=== PATIENT | male | born 1945 | race Caucasian/White ===

== ENCOUNTER 2019-12-21 12:39 | Inpatient (IN) | payer MEDICARE, BC, MEDICAID, SELFPAY ==
[2019-12-21] VITALS (14 sets, daily range): BP systolic 130–163; BP diastolic 70–99; PULSE 60–86; RESP 18–28; TEMP 36.1–36.9; O2SAT 91–97; BMI 47.9
--- NOTE | ~2019-12-21 | XR_ITS ---
XR chest 2V DATE: 12/21/2019 13:17 INDICATION: Shortness of breath TECHNIQUE: AP and lateral views COMPARISON: 05/04/2019 2 view chest FINDINGS: There is cardiomegaly. There is mild pulmonary vascular congestion. There is mild prominenc e of the fissures suggesting subpleural edema. Aortic arch calcification. Bibasilar mild infiltrate or atelectasis. No pneumothorax. Diffuse osteopenia. Osteoarthritic change at the glenohumeral joints. IMPRESSION: Congestive heart failure Mild bibasilar infiltrate and/atelectasis Reviewed, dictated and finalized at location A.
--- NOTE | 2019-12-21 12:47 | ECG_ITS ---
Measurements Intervals [place] Rate: 62 P: HI: 0 QRS: 35 QRSD: 113 T: 30 QT: 423 QTc: 431 Interpretive Statements ATRIAL FIBRILLATION VENTRICULAR PREMATURE COMPLEX LOW QRS VOLTAGE IN PRECORDIAL LEADS INCOMPLETE RIGHT BUNDLE BRANCH BLOCK POOR R WAVE PROGRESSION, ANTERIOR LEADS BORDERLINE T WAVE ABNORMALITY- ANTERIOR LEADS BASELINE ARTIFACT- V6 ABNORMAL ECG Electronically Signed On 12-21-2019 13:37:42 CDT by Freddy Culver D.O.
[2019-12-21 13:01] LABS: Basophils Percent Auto 0.8 % (0.2-1.2); Eosinophils Absolute Auto 0.1 K/mm3 (0-0.3); Eosinophils Percent Auto 2.3 % (0-4.4); Hematocrit 34.6 % (42.0-52.0); Hemoglobin 10.1 g/dL (14.0-18.0); Immature Granulocyte Absolute 0.02 K/mm3 (0.00-0.031); Immature Granulocyte Percent A 0.4 % (0-0.5); Lymphocytes Absolute Auto 1.08 K/mm3 (0.9-3.2); Lymphocytes Percent Auto 20.6 % (18.3-44.2); Mean Corpuscular HGB Conc 29.2 g/dl (32-36); Mean Corpuscular Hemoglobin 29.1 pg (26-34); Mean Corpuscular Volume 99.7 fl (80-100); Mean Platelet Volume 10.9 fl (7.4-10.4); Monocytes Absolute Auto 0.7 K/mm3 (0.1-0.6); Monocytes Percent Auto 12.6 % (2.6-8.5); Neutrophils Absolute Auto 3.3 K/mm3 (1.3-6.7); Neutrophils Percent Auto 63.3 % (45.5-73.1); Platelet Count Result 155 k/mm3 (150-375); Red Blood Count 3.47 M/mm3 (4.6-6.20); Red Cell Distribution Width 13.9 % (11.5-14.5); White Blood Count 5.3 K/mm3 (4.5-10.0)
--- NOTE | 2019-12-21 13:02 | PC.NURSE ---
PT PLACED ON 2 L NC (TITRATED FROM 3 L) PER EDP AT BEDSIDE. 98%
[2019-12-21 13:11] LABS: INR 1.4; Partial Thromboplastin Time 33.6 SECONDS (22.3-36.8)
[2019-12-21 13:14] LABS: Blood Urea Nitrogen 33 mg/dL (9-20); Calcium 8.8 mg/dL (8.4-10.2); Carbon Dioxide 38 mmol/L (22-30); Chloride 99 mmol/L (98-107); Estimated Glomerular Filt Rate 54; Glucose 89 mg/dL (75-110); Potassium 4.9 mmol/L (3.4-5.0); Sodium 138 mmol/L (137-145)
[2019-12-21 13:26] LABS: NT Pro B Type Natriuretic Pept 2060 PG/ML (5-100); Troponin I < 0.012 ng/mL (0.000-0.034)
--- NOTE | 2019-12-21 14:52 | ED.SOB ---
HPI - SOB/Dyspnea General Chief Complaint: Shortness of Breath/Dyspnea Stated Complaint: sob Time Seen by Provider: 12/21/19 12:48 History of Present Illness HPI Narrative: Patient is a 74-year-old male who presents the ER with shortness of breath. Ongoing over the last couple weeks. Chronically O2 dependent. Usually wears 3 to 4 L of oxygen. Has history of CHF. Reports she has had increased weight gain and increase in edema. He has been receiving medications reports he is short of breath anytime he has to move around for example getting in of [place] lift. Patient also has history of COPD and is been getting his medications for that. No new fevers or chills or sweats. No new productive cough body aches. He has had a screening COVID exam the last week that was negative. Related Data Home Medications Medication Instructions Recorded Confirmed Fleet Enema See Rx Instructions .ROUTE 12/21/19 12/21/19 .COMPLEX PRN Spiriva with HandiHaler 18 mcg INHALATION DAILY 12/21/19 12/21/19 acetaminophen 1,300 mg PO DIRECTED 12/21/19 12/21/19 acetaminophen [Acetaminophen Pain 1,000 mg PO PRN PRN 12/21/19 12/21/19 Relief] amlodipine 5 mg PO DAILY 12/21/19 12/21/19 apixaban [Eliquis] 5 mg PO BID 12/21/19 12/21/19 aspirin [Aspir-81] 81 mg PO DAILY 12/21/19 12/21/19 calcium carbonate [Antacid 200 mg PO Q8H PRN 12/21/19 12/21/19 (calcium carbonate)] calcium carbonate-vitamin D3 1 tablet PO BID 12/21/19 12/21/19 [Calcium 600 + D(3)] carboxymethylcellulose sodium 1 drp OPHTHALMIC (EYE) BID 12/21/19 12/21/19 [Refresh Tears] carvedilol 25 mg PO BID 12/21/19 12/21/19 cetirizine 10 mg PO DAILY 12/21/19 12/21/19 cyanocobalamin (vitamin B-12) 1,000 mcg IM [id number] 12/21/19 12/21/19 dextran 70-hypromellose (PF) 1 drp OPHTHALMIC (EYE) Q6H PRN 12/21/19 12/21/19 [Artificial Tears (PF)] dextromethorphan-guaifenesin 10 ml PO Q6H PRN 12/21/19 12/21/19 [Robitussin Cough-Chest Agustin DM] docusate sodium 100 mg PO BID 12/21/19 12/21/19 fenofibrate nanocrystallized 145 mg PO DAILY 12/21/19 12/21/19 fluticasone propionate [Flonase 1 spray INTRANASAL DAILY 12/21/19 12/21/19 Allergy Relief] furosemide 40 mg PO DAILY 12/21/19 12/21/19 hydrocodone-acetaminophen [[place]] 1 tablet PO Q8H 12/21/19 12/21/19 lanolin [Lantiseptic Skin 1 applic TOPICAL DAILY 12/21/19 12/21/19 Protectant] latanoprost 1 drp OPHTHALMIC (EYE) QPM 12/21/19 12/21/19 levothyroxine 125 mcg PO DAILY 12/21/19 12/21/19 loperamide [Imodium A-D] 2 mg PO DIRECTED 12/21/19 12/21/19 loratadine 10 mg PO DAILY PRN 12/21/19 12/21/19 magnesium oxide 500 mg PO DAILY 12/21/19 12/21/19 melatonin 10 mg PO HS 12/21/19 12/21/19 metformin 500 mg PO BID 12/21/19 12/21/19 mineral oil 15 ml PO BID 12/21/19 12/21/19 mirabegron [Myrbetriq] 50 mg PO DAILY 12/21/19 12/21/19 nitrofurantoin monohyd/m-cryst 100 mg PO HS 12/21/19 12/21/19 [Macrobid] nystatin-triamcinolone 1 applic TOPICAL QID 12/21/19 12/21/19 olopatadine 1 drp OPHTHALMIC (EYE) BID 12/21/19 12/21/19 omeprazole 20 mg PO BID 12/21/19 12/21/19 polyethylene glycol 3350 [Miralax] 17 g PO Q24H PRN 12/21/19 12/21/19 potassium chloride 10 meq PO DAILY 12/21/19 12/21/19 psyllium husk (aspartame) [Natural 3.4 g PO BID 12/21/19 12/21/19 Fiber Supplemnt(asprt)] rosuvastatin [Crestor] 10 mg PO DAILY 12/21/19 12/21/19 sitagliptin [Januvia] 100 mg PO HS 12/21/19 12/21/19 sodium chloride [[place] Nasal] 2 spray INTRANASAL Q2H PRN 12/21/19 12/21/19 Allergies Allergy/AdvReac Type Severity Reaction Status Date / Time bacitracin Allergy Unknown Rash Verified 12/21/19 12:49 Penicillins Allergy Unknown Rash Verified 12/21/19 12:49 Review of Systems Review of Systems: All systems reviewed & are unremarkable except as noted in HPI and below Constitutional: Constitutional: Denies fatigue, Denies fever(s) and Denies weakness ENT: Denies nasal congestion and Denies sore throat Cardiovascular: Cardiovascular: Denies chest pain and Denies radiating jaw, n
[2019-12-21] MEDS: FUROSEMIDE INJ 40 MG/4 ML VIAL IV PUSH (15:16)
--- NOTE | 2019-12-21 16:00 | ADMGEN ---
This patient, Sterling Mallory, was admitted to Medical Room 342-01. Patient/family oriented to hospital policies and general routines including ID bracelet, bed and alarms, visiting hours, pain management, procedures, bathroom and other care routines, personal items, smoking policy, room service/diet, and visiting hours. Valuables list has been completed. Information on how to activate the Rapid Response Team has been discussed. Patient/Family are encouraged to report perceived risks to care and to ask questions if they do not understand what they are told or what they should do.
[2019-12-21 17:34] LABS: Add Urine Microscopic? YES; Appearance Urine Clear (Clear); Bilirubin Urine Negative (Negative); Blood Urine Negative (Negative); Color Urine Colorless (Yellow); Glucose Urine UA Negative (Negative); Ketones Urine Negative (Negative); Leukocyte Esterase Ur Trace LEU/UL (Negative); Nitrate Urine Negative (Negative); Protein Urine Negative (Negative); RBC Urine 0-2 /hpf (0-2); Specific Grav Ur 1.008 (1.001-1.035); Urobilinogen Urine Negative mg/dL (<2.0)
--- NOTE | 2019-12-21 18:14 | PM.IMHP ---
H&P: HPI History of Present Illness Chief complaint: chf exacerbation Narrative: Sterling Mallory is a 74 year old male who resides at [facility]. The patient has been on strict isolation in his room. He recently tested negative for covid 19 last week. He has not had any fever chills or any cough. He stated that he has been gaining weight and had increased swelling to his lower extremities. He does have a history of diastolic congestive heart failure. He is taking his medication as prescribed. He has had increased shortness of breath for the last several days. He has orthopnea and dyspnea with minimal exertion. He has chronic oxygen at 3-4 L. he also has a history of COPD. Radiologist was read as congestive heart failure mild bibasilar infiltrates.10.1 and 34.6. BNP was noted to be 2059. Date of service 12/21/2019 Review of Systems Review of Systems: All systems reviewed & are unremarkable except as noted in HPI and below Constitutional: Constitutional: Reports as per HPI and Reports no additional constitutional complaints Eyes: Eyes: Reports as per HPI and Reports no additional eye complaints ENT: Reports system reviewed and no additional complaints, except as documented and Reports Normal hearing present Cardiovascular: Cardiovascular: Reports no additional cardiovascular complaints Respiratory: Respiratory: Reports no additional respiratory complaints and Reports no additional respiratory complaints Gastrointestinal: Gastrointestinal: Reports as per HPI and Reports no additional gastrointestinal complaints Musculoskeletal: Musculoskeletal: Reports no additional musculoskeletal complaints Integumentary/Breasts: Skin/Breast: Reports system reviewed and no additional complaints, except as docu and Reports as per HPI Neurologic: Reports system reviewed and no additional complaints, except as documented, Reports as per HPI and Reports Normal hearing present Psychiatric: Psychiatric: Reports no additional psychiatric complaints and Reports as per HPI Endocrine: Endocrine: Reports no additional endocrine complaints Hematologic/Lymphatic: Hematologic/Lymphatic: Reports no additional hematologic/lymphatic complaints Allergic/Immunologic: Allergic/Immunologic: Reports no additional allergic/immunologic complaints [facility] Past Medical History Medical History (Updated 12/21/19 @ 18:33 by Shirley Carvalho NP) Atrial fibrillation Cardioverted Chronic respiratory failure COPD (chronic obstructive pulmonary disease) Diabetes type 2, controlled DVT (deep venous thrombosis) GERD (gastroesophageal reflux disease) History of cardioversion History of congestive heart failure History of coronary artery disease Hyperlipidemia Hypertension Hypothyroidism Macular degeneration Obstructive sleep apnea Uses a CPAP Pulmonary embolism On Eliquis Surgical History Surgical History (Updated 12/21/19 @ 18:33 by Shirley Carvalho NP) H/O bilateral cataract extraction H/O lumbar discectomy H/O rectal sphincterotomy History of back surgery History of tonsillectomy S/P IVC filter Family History Family History (Updated 12/21/19 @ 18:31 by Shirley Carvalho NP) Father Family history of lung cancer, Onset Age: 77 Mother Family history of dementia Postoperative complication Crossing her Sibling Diabetes mellitus Heart disease Daughter Breast cancer Other Family history of malignant neoplasm of breast Social History Social History (Updated 12/21/19 @ 18:32 by Shirley Carvalho NP) Social History: The patient is and he lives at [facility]. He has 4 children 3 are biological 1 is adopted. He worked a [employer]. His daughter Sanjuana CARVER IS HIS DURABLE POWER LUMBER DRIVER FOR HEALTHCARE. He desires to be a full code. He stated that he never smoked. Smoking status: Never smoker Alcohol intake: never Substance use: never Livin
[2019-12-21] MEDS: ROSUVASTATIN 10 MG TABLET PO (21:52)
[2019-12-21] MEDS: NITROFURANTOIN MONOHYD MACROCR 100 MG CAP PO (21:53)
[2019-12-21] MEDS: OLOPATADINE 0.1% OPHTH SOLN 5 ML BTL 1 DROP EACH EYE (21:53)
[2019-12-21] MEDS: PANTOPRAZOLE 40 MG TABLET PO (21:53)
[2019-12-21] MEDS: MICONAZOLE NITRATE 2% CREAM 30 GM TUBE 1 APPLIC TOPICAL (21:53)
[2019-12-21] MEDS: MELATONIN 5 MG TABLET 10 MG PO (21:53)
[2019-12-21] MEDS: LATANOPROST 0.005% OP SOLN 2.5 ML BTL 1 DROP EACH EYE (21:55)
[2019-12-21 22:36] LABS: Glucose Point of Care 98 (65-105)
[2019-12-22] VITALS (17 sets, daily range): BP systolic 133–160; BP diastolic 63–77; PULSE 54–84; RESP 12–22; TEMP 36.2–37.3; O2SAT 88–98
--- NOTE | 2019-12-22 | ECHO_ITS ---
Patient Info Name: Sterling Mallory Age: 74 years : 1945 Gender: Male Ht: 69 in Wt: 325 lbs BSA: 2.76 m2 HR: 75 bpm BP: 158 / 66 mmHg Heart Rhythm: Atrial Fibrillation Technical Quality: Fair Exam Date: 12/22/2019 9:59 AM Exam Location: [facility] Patient Status: Inpatient Admit Date: 12/21/2019 Staff Ordering Physician: Shirley Carvalho NP Hide Buffer: Noel Lau RDCS Attending Provider: Abigail Lai PA-C Referring Physician: Deven SAAVEDRA; Exam Type: CA echo doppler color flow Study Info Indications I50.9 - Heart failure, unspecified Complete two-dimensional, color flow and Doppler transthoracic echocardiogram is performed. History/Risk Factors CHF w/ BNP 2059; COPD, DM2, CAD, HTN, Afib. Summary 1. Left ventricular chamber dimension is moderately enlarged. 2. Left ventricular systolic function is normal, estimated at 55-60%. 3. The left ventricular diastolic function is abnormal. 4. E/e' 23 is significantly elevated. 5. Patient is in atrial fibrillation. 6. Right ventricular systolic function is reduced as suggested by TAPSE 1.3 cm. 7. Left atrial chamber dimension is severely enlarged. 8. Right atrial chamber dimension is severely enlarged. 9. There is mild aortic valve sclerosis. 10. The mitral valve has mildly thickened leaflets. 11. There is moderate mitral valve regurgitation. 12. There is mild tricuspid valve regurgitation. 13. Severe pulmonary hypertension, estimated pulmonary arterial systolic pressure is 69 mmHg. 14. Dilated inferior vena cava with <50% collapse upon inspiration consistent with significantly elevated right atrial pressure, 15 mmHg. 15. There is small circumferential pericardial effusion. Posteriorly measured to be 1.2 cm. Left Ventricle Patient is in atrial fibrillation. E/e' 23 is significantly elevated. Left ventricular chamber dimension is moderately enlarged. Left ventricular systolic function is normal, estimated at 55-60%. The left ventricular diastolic function is abnormal. Right Ventricle Right ventricular systolic function is reduced as suggested by TAPSE 1.3 cm. Moderator band is normal variant. Right ventricular chamber dimension is not well visualized. Left Atria Left atrial chamber dimension is severely enlarged. Right Atria Right atrial chamber dimension is severely enlarged. Aortic Valve The aortic valve is trileaflet. There is mild aortic valve sclerosis. There is no aortic valve stenosis. There is no aortic valve regurgitation. Pulmonic Valve There is no pulmonic regurgitation. Mitral Valve The mitral valve has mildly thickened leaflets. There is no mitral valve stenosis. There is moderate mitral valve regurgitation. Tricuspid Valve There is mild tricuspid valve regurgitation. Severe pulmonary hypertension, estimated pulmonary arterial systolic pressure is 69 mmHg. Pericardium/Pleural There is small circumferential pericardial effusion. Posteriorly measured to be 1.2 cm. Inferior Vena Cava Dilated inferior vena cava with <50% collapse upon inspiration consistent with significantly elevated right atrial pressure, 15 mmHg. Aorta The aortic root size at the sinus of Valsalva is normal. Left Ventricular Outflow Tract Name Value Normal LVOT 2D -----
[2019-12-22] MEDS: LEVOTHYROXINE SODIUM 125 MCG TABLET PO (03:33)
[2019-12-22 04:44] LABS: Basophils Percent Auto 0.8 % (0.2-1.2); Eosinophils Absolute Auto 0.1 K/mm3 (0-0.3); Eosinophils Percent Auto 2.5 % (0-4.4); Hematocrit 33.3 % (42.0-52.0); Immature Granulocyte Absolute 0.02 K/mm3 (0.00-0.031); Immature Granulocyte Percent A 0.4 % (0-0.5); Lymphocytes Percent Auto 21.4 % (18.3-44.2); Mean Corpuscular Volume 96.5 fl (80-100); Mean Platelet Volume 10.4 fl (7.4-10.4); Monocytes Absolute Auto 0.6 K/mm3 (0.1-0.6); Monocytes Percent Auto 10.9 % (2.6-8.5); Neutrophils Absolute Auto 3.3 K/mm3 (1.3-6.7); Platelet Count Result 155 k/mm3 (150-375); Red Blood Count 3.45 M/mm3 (4.6-6.20); Red Cell Distribution Width 13.6 % (11.5-14.5); White Blood Count 5.2 K/mm3 (4.5-10.0)
[2019-12-22 05:13] LABS: Alanine Aminotransferase 7 U/L (4-50); Albumin Level 3.7 g/dL (3.5-5.1); Alkaline Phosphatase 41 U/L (38-126); Aspartate Amino Transferase 17 U/L (17-59); Bilirubin,Total 0.4 mg/dL (0.2-1.3); Blood Urea Nitrogen 31 mg/dL (9-20); CRP 1.3 mg/dL (<1.0); Carbon Dioxide 37 mmol/L (22-30); Chloride 97 mmol/L (98-107); Estimated CRCL calculation 65 ml/min; Estimated Glomerular Filt Rate 54; Glucose 91 mg/dL (75-110); Potassium 4.2 mmol/L (3.4-5.0); Sodium 138 mmol/L (137-145)
[2019-12-22 05:59] LABS: Thyroid Stimulating Hormone Reflex 0.794 uIU/mL (0.465-4.68)
[2019-12-22 07:59] LABS: Glucose Point of Care 82 (65-105)
[2019-12-22] MEDS: MINERAL OIL 30 ML UDC 15 ML PO ×2 (09:17→17:23)
[2019-12-22] MEDS: MICONAZOLE NITRATE 2% CREAM 30 GM TUBE 1 APPLIC TOPICAL ×2 (09:17→20:02)
[2019-12-22] MEDS: FLUTICASONE PROPIONATE 0.05% NA SPR 16 GM BTL (*BKC) 1 SPRAY NASAL (09:18)
[2019-12-22] MEDS: OLOPATADINE 0.1% OPHTH SOLN 5 ML BTL 1 DROP EACH EYE ×2 (09:18→20:01)
[2019-12-22] MEDS: FENOFIBRATE NANOCRYSTALLIZED 145 MG TABLET PO (09:19)
[2019-12-22] MEDS: DOCUSATE SODIUM 100 MG CAPSULE PO ×2 (09:19→17:26)
[2019-12-22] MEDS: LORATADINE 10 MG TABLET PO (09:19)
[2019-12-22] MEDS: FUROSEMIDE INJ 40 MG/4 ML VIAL IV PUSH ×2 (09:19→17:25)
[2019-12-22] MEDS: carvediloL 25 MG TABLET PO ×2 (09:20→17:23)
[2019-12-22] MEDS: POTASSIUM CHLORIDE 10 MEQ TABLET.ER PO (09:21)
[2019-12-22] MEDS: AMLODIPINE BESYLATE 5 MG TABLET PO (09:21)
[2019-12-22] MEDS: APIXABAN 5 MG TABLET PO ×2 (09:22→17:26)
[2019-12-22] MEDS: MAGNESIUM OXIDE 400 MG TABLET PO (09:22)
[2019-12-22] MEDS: ASPIRIN 81 MG ENTERIC TABLET PO (09:22)
[2019-12-22] MEDS: MIRABEGRON 25 MG ER TABLET 50 MG PO (09:23)
[2019-12-22] MEDS: PSYLLIUM SUGAR FREE POWDER PACKET 1 PACKET PO ×2 (09:24→17:25)
[2019-12-22] MEDS: PANTOPRAZOLE 40 MG TABLET PO ×2 (09:24→20:01)
--- NOTE | 2019-12-22 11:17 | PM.IMPN ---
Progress Note: A&P Assessment and Plan (1) Acute on chronic respiratory failure: Qualifiers: Respiratory failure complication: hypoxia and hypercapnia Qualified Code(s): J96.21 - Acute and chronic respiratory failure with hypoxia; J96.22 - Acute and chronic respiratory failure with hypercapnia Code(s): J96.20 - Acute and chronic respiratory failure, unspecified whether with hypoxia or hypercapnia Status: Acute Assessment and Plan: Secondary to CHF exacerbation with COPD at baseline. He also has severe pulmonary hypertension and hx of TSERING and has not been using his BiPAP as it is broken. He has chronic hypoxia and hypercapnia. He is on 3L per NC at baseline. Continue supplemental oxygen as needed to achieve a pulse oxygen saturation of 92%. (2) CHF exacerbation: Qualifiers: Heart failure type: combined systolic and diastolic Qualified Code(s): I50.43 - Acute on chronic combined systolic (congestive) and diastolic (congestive) heart failure Code(s): I50.9 - Heart failure, unspecified Status: Acute Assessment and Plan: He appears hypervolemic with rales at the lung bases, significant lower extremity putting edema and pubic fat pad edema. CXR was consistent iwth CHF. He reports a 30 lb weight gain in the past 6 months. He has been using regular salt with his meals because he ran out of salt substitutes. He states that he drinks approx 1.5L per day (tea, water, soda 3x per week). Echo was performed and is consistent with right sided heart failure which is likely due to pulmonary hypertension from his untreated obstructive sleep apnea. Echo reveals moderately enlarged left ventricular chamber dimension, systolic EF 55-60%, abnormal left diastolic dysfunction with E/e' significantly elevated at 23, reduced right ventricular systolic function, severe right and left atrial chamber enlargement, mild aortic valve sclerosis, moderate mitral valve regurgitation, mild tricuspid regurgitation, and severe pulmonary hypertension. He also has a small circumferential pericardial effusion. Continue caravedilol. He is having good urine output with IV lasix. Plan to increase IV lasix to BID. Continue strict intake and output. Begin 2gm sodium restricted diet. Continue to stress the importance of BiPAP therapy. (3) Diabetes type 2, controlled: Qualifiers: Diabetes mellitus complication status: with unspecified complications Diabetes mellitus continuous churn buttermaker insulin use: without continuous churn buttermaker use Qualified Code(s): E11.8 - Type 2 diabetes mellitus with unspecified complications Code(s): E11.9 - Type 2 diabetes mellitus without complications Status: Chronic Assessment and Plan: Will check HbA1c. Blood sugars were reviewed and are well-controlled. Continue to hold metformin. Continue Januvia. Continue SSI. Continue hypoglycemia protocol. Continue Accu-Cheks ACHS. Continue to monitor. (4) COPD (chronic obstructive pulmonary disease): Qualifiers: COPD type: unspecified COPD Qualified Code(s): J44.9 - Chronic obstructive pulmonary disease, unspecified Code(s): J44.9 - Chronic obstructive pulmonary disease, unspecified Status: Chronic Assessment and Plan: Chronic. Not in acute exacerbation. Continue supplemental oxygen as needed to achieve a pulse oxygen saturation of >90%. Continue albuterol PRN. Continue spiriva. (5) Atrial fibrillation: Qualifiers: Atrial fibrillation type: unspecified Qualified Code(s): I48.91 - Unspecified atrial fibrillation Code(s): I48.91 - Unspecified atrial fibrillation Status: Chronic Assessment and Plan: He is in atrial fibrillation with adequate rate control. Continue coreg. Continue eliquis. Continue to monitor. (6) GERD (gastroesophageal reflux disease): Qualifiers: Esophagitis presence: esophagitis presence not specified Qualified Code(s): K21.9 - Gastro-esoph
[2019-12-22 11:25] LABS: Glucose Point of Care 169 (65-105)
[2019-12-22 16:31] LABS: Glucose Point of Care 112 (65-105)
[2019-12-22] MEDS: ALBUTEROL SULFATE (*SP) AEROSOL 1 PUFF 2 PUFF INHALATION (19:43)
[2019-12-22] MEDS: ROSUVASTATIN 10 MG TABLET PO (20:01)
[2019-12-22] MEDS: LATANOPROST 0.005% OP SOLN 2.5 ML BTL 1 DROP EACH EYE (20:01)
[2019-12-22] MEDS: NITROFURANTOIN MONOHYD MACROCR 100 MG CAP PO (20:01)
[2019-12-22] MEDS: MELATONIN 5 MG TABLET 10 MG PO (20:01)
--- NOTE | 2019-12-22 20:14 | PC.NURSE ---
2000 medications administered by Yandy Esparza RN. Computer had been left signed in under Brandi Bergeron RN.
[2019-12-22 21:09] LABS: Glucose Point of Care 112 (65-105)
[2019-12-23] VITALS (8 sets, daily range): BP systolic 110–141; BP diastolic 41–75; PULSE 43–77; RESP 16–20; TEMP 36.3–36.8; O2SAT 91–98
[2019-12-23] MEDS: LEVOTHYROXINE SODIUM 125 MCG TABLET PO (04:41)
[2019-12-23 06:18] LABS: Hemoglobin 10.2 g/dL (14.0-18.0); Mean Corpuscular Hemoglobin 28.8 pg (26-34); Mean Platelet Volume 10.6 fl (7.4-10.4); Platelet Count Result 164 k/mm3 (150-375); Red Blood Count 3.54 M/mm3 (4.6-6.20); Red Cell Distribution Width 13.9 % (11.5-14.5); White Blood Count 5.1 K/mm3 (4.5-10.0)
[2019-12-23 06:26] LABS: Hemoglobin A1C 5.2 % (<5.7)
[2019-12-23 06:33] LABS: Alanine Aminotransferase 7 U/L (4-50); Albumin Level 3.7 g/dL (3.5-5.1); Alkaline Phosphatase 39 U/L (38-126); Aspartate Amino Transferase 17 U/L (17-59); Bilirubin,Total 0.4 mg/dL (0.2-1.3); Blood Urea Nitrogen 37 mg/dL (9-20); Calcium 8.8 mg/dL (8.4-10.2); Carbon Dioxide > 40 mmol/L (22-30); Chloride 95 mmol/L (98-107); Estimated CRCL calculation 57 ml/min; Estimated Glomerular Filt Rate 46; Glucose 104 mg/dL (75-110); Magnesium 2.1 mg/dL (1.6-2.3); Potassium 4.3 mmol/L (3.4-5.0); Sodium 137 mmol/L (137-145)
[2019-12-23 07:26] LABS: Glucose Point of Care 128 (65-105)
[2019-12-23] MEDS: FLUTICASONE PROPIONATE 0.05% NA SPR 16 GM BTL (*BKC) 1 SPRAY NASAL (08:47)
[2019-12-23] MEDS: MAGNESIUM OXIDE 400 MG TABLET PO (08:49)
[2019-12-23] MEDS: MIRABEGRON 25 MG ER TABLET 50 MG PO (08:49)
[2019-12-23] MEDS: POTASSIUM CHLORIDE 10 MEQ TABLET.ER PO (08:49)
[2019-12-23] MEDS: PANTOPRAZOLE 40 MG TABLET PO ×2 (08:49→20:38)
[2019-12-23] MEDS: APIXABAN 5 MG TABLET PO ×2 (08:49→17:51)
[2019-12-23] MEDS: DOCUSATE SODIUM 100 MG CAPSULE PO ×2 (08:49→17:51)
[2019-12-23] MEDS: ASPIRIN 81 MG ENTERIC TABLET PO (08:49)
[2019-12-23] MEDS: FENOFIBRATE NANOCRYSTALLIZED 145 MG TABLET PO (08:52)
[2019-12-23] MEDS: MINERAL OIL 30 ML UDC 15 ML PO ×2 (08:53→17:51)
[2019-12-23] MEDS: OLOPATADINE 0.1% OPHTH SOLN 5 ML BTL 1 DROP EACH EYE ×2 (08:53→20:38)
[2019-12-23] MEDS: LORATADINE 10 MG TABLET PO (08:53)
[2019-12-23] MEDS: MICONAZOLE NITRATE 2% CREAM 30 GM TUBE 1 APPLIC TOPICAL ×2 (08:58→20:38)
[2019-12-23] MEDS: PSYLLIUM SUGAR FREE POWDER PACKET 1 PACKET PO ×2 (08:59→17:51)
[2019-12-23] MEDS: FUROSEMIDE INJ 40 MG/4 ML VIAL IV PUSH ×2 (09:36→17:52)
[2019-12-23 11:11] LABS: Glucose Point of Care 131 (65-105)
--- NOTE | 2019-12-23 14:31 | PM.IMPN ---
Progress Note: A&P Assessment and Plan (1) Acute on chronic respiratory failure: Qualifiers: Respiratory failure complication: hypoxia and hypercapnia Qualified Code(s): J96.21 - Acute and chronic respiratory failure with hypoxia; J96.22 - Acute and chronic respiratory failure with hypercapnia Code(s): J96.20 - Acute and chronic respiratory failure, unspecified whether with hypoxia or hypercapnia Status: Acute Assessment and Plan: Secondary to CHF exacerbation with COPD at baseline. He also has severe pulmonary hypertension and hx of TSERING and has not been using his BiPAP as it is broken. He has chronic hypoxia and hypercapnia. He is on 3L per NC at baseline. Continue supplemental oxygen as needed to achieve a pulse oxygen saturation of 92%. (2) CHF exacerbation: Qualifiers: Heart failure type: combined systolic and diastolic Qualified Code(s): I50.43 - Acute on chronic combined systolic (congestive) and diastolic (congestive) heart failure Code(s): I50.9 - Heart failure, unspecified Status: Acute Assessment and Plan: He appears hypervolemic with crackles at the lung bases, significant lower extremity pitting edema and pubic fat pad edema. CXR was consistent with CHF. He reports a 30 lb weight gain in the past 6 months. He has been using regular salt with his meals because he ran out of salt substitutes. He states that he drinks approx 1.5L per day (tea, water, soda 3x per week). Echo was performed and is consistent with right sided heart failure which is likely due to pulmonary hypertension from his untreated obstructive sleep apnea. Echo reveals moderately enlarged left ventricular chamber dimension, systolic EF 55-60%, abnormal left diastolic dysfunction with E/e' significantly elevated at 23, reduced right ventricular systolic function, severe right and left atrial chamber enlargement, mild aortic valve sclerosis, moderate mitral valve regurgitation, mild tricuspid regurgitation, and severe pulmonary hypertension. He also has a small circumferential pericardial effusion. IV Lasix was increased to BID, however he developed FRANC. Will hold 2nd dose of Lasix and re-evaluate renal function tomorrow morning. Continue caravedilol. Continue to monitor strict I&O Continue sodium restrictions and heart healthy diet Continue BiPAP therapy. (3) Acute kidney injury: Code(s): N17.9 - Acute kidney failure, unspecified Status: Acute Assessment and Plan: Patient developed mild increase in BUN and creatinine today. This may be related to increased diuretic therapy. Patient received 1 dose of IV Lasix this morning, but will hold off on 2nd dose Will also hold on IV fluids given fluid overload. Continue to monitor renal function (4) Diabetes type 2, controlled: Qualifiers: Diabetes mellitus prison insulin use: without ferry terminal supervisor use Diabetes mellitus complication status: with unspecified complications Qualified Code(s): E11.8 - Type 2 diabetes mellitus with unspecified complications Code(s): E11.9 - Type 2 diabetes mellitus without complications Status: Chronic Assessment and Plan: Blood sugars were reviewed and are well-controlled. A1c is 5.2. Continue Accu-Cheks ACHS, SSI, and hypoglycemia protocol Continue to hold metformin. Continue Januvia. (5) COPD (chronic obstructive pulmonary disease): Qualifiers: COPD type: unspecified COPD Qualified Code(s): J44.9 - Chronic obstructive pulmonary disease, unspecified Code(s): J44.9 - Chronic obstructive pulmonary disease, unspecified Status: Chronic Assessment and Plan: Chronic. Not in acute exacerbation. Continue supplemental oxygen as needed to achieve a pulse oxygen saturation of >90%. Continue albuterol PRN. Continue spiriva. (6) Atrial fibrillation: Qualifiers: Atrial fibrillation type: unspecified Q
[2019-12-23 16:29] LABS: Glucose Point of Care 105 (65-105)
[2019-12-23] MEDS: carvediloL 25 MG TABLET PO (17:52)
[2019-12-23] MEDS: ROSUVASTATIN 10 MG TABLET PO (18:32)
[2019-12-23] MEDS: LATANOPROST 0.005% OP SOLN 2.5 ML BTL 1 DROP EACH EYE (20:37)
[2019-12-23] MEDS: NITROFURANTOIN MONOHYD MACROCR 100 MG CAP PO (20:38)
[2019-12-23] MEDS: MELATONIN 5 MG TABLET 10 MG PO (20:38)
[2019-12-23 21:50] LABS: Glucose Point of Care 129 (65-105)
[2019-12-24] VITALS (13 sets, daily range): BP systolic 112–132; BP diastolic 50–74; PULSE 50–75; RESP 13–21; TEMP 36.4–37.1; O2SAT 94–97
[2019-12-24] MEDS: LEVOTHYROXINE SODIUM 125 MCG TABLET PO (04:40)
[2019-12-24 06:12] LABS: Basophils Percent Auto 0.7 % (0.2-1.2); Eosinophils Absolute Auto 0.2 K/mm3 (0-0.3); Eosinophils Percent Auto 3.3 % (0-4.4); Hemoglobin 10.2 g/dL (14.0-18.0); Immature Granulocyte Absolute 0.03 K/mm3 (0.00-0.031); Immature Granulocyte Percent A 0.5 % (0-0.5); Lymphocytes Absolute Auto 1.16 K/mm3 (0.9-3.2); Mean Corpuscular Hemoglobin 28.6 pg (26-34); Mean Corpuscular Volume 95.2 fl (80-100); Mean Platelet Volume 10.6 fl (7.4-10.4); Monocytes Absolute Auto 0.7 K/mm3 (0.1-0.6); Monocytes Percent Auto 11.7 % (2.6-8.5); Neutrophils Absolute Auto 3.7 K/mm3 (1.3-6.7); Neutrophils Percent Auto 63.8 % (45.5-73.1); Platelet Count Result 171 k/mm3 (150-375); Red Blood Count 3.57 M/mm3 (4.6-6.20); Red Cell Distribution Width 13.8 % (11.5-14.5); White Blood Count 5.8 K/mm3 (4.5-10.0)
[2019-12-24 06:23] LABS: Alanine Aminotransferase 7 U/L (4-50); Albumin Level 3.6 g/dL (3.5-5.1); Alkaline Phosphatase 38 U/L (38-126); Aspartate Amino Transferase 18 U/L (17-59); Bilirubin,Total 0.3 mg/dL (0.2-1.3); Blood Urea Nitrogen 45 mg/dL (9-20); Calcium 8.6 mg/dL (8.4-10.2); Carbon Dioxide 39 mmol/L (22-30); Chloride 94 mmol/L (98-107); Estimated CRCL calculation 53 ml/min; Estimated Glomerular Filt Rate 43; Glucose 101 mg/dL (75-110); Sodium 136 mmol/L (137-145)
[2019-12-24 07:58] LABS: Glucose Point of Care 99 (65-105)
[2019-12-24] MEDS: FLUTICASONE PROPIONATE 0.05% NA SPR 16 GM BTL (*BKC) 1 SPRAY NASAL (09:26)
[2019-12-24] MEDS: MINERAL OIL 30 ML UDC 15 ML PO ×2 (09:26→17:23)
[2019-12-24] MEDS: OLOPATADINE 0.1% OPHTH SOLN 5 ML BTL 1 DROP EACH EYE ×2 (09:26→20:00)
[2019-12-24] MEDS: POTASSIUM CHLORIDE 10 MEQ TABLET.ER PO (09:26)
[2019-12-24] MEDS: PANTOPRAZOLE 40 MG TABLET PO ×2 (09:26→19:48)
[2019-12-24] MEDS: ASPIRIN 81 MG ENTERIC TABLET PO (09:27)
[2019-12-24] MEDS: AMLODIPINE BESYLATE 5 MG TABLET PO (09:27)
[2019-12-24] MEDS: DOCUSATE SODIUM 100 MG CAPSULE PO ×2 (09:27→17:24)
[2019-12-24] MEDS: APIXABAN 5 MG TABLET PO ×2 (09:27→17:26)
[2019-12-24] MEDS: MAGNESIUM OXIDE 400 MG TABLET PO (09:27)
[2019-12-24] MEDS: FENOFIBRATE NANOCRYSTALLIZED 145 MG TABLET PO (09:27)
[2019-12-24] MEDS: LORATADINE 10 MG TABLET PO (09:27)
[2019-12-24] MEDS: PSYLLIUM SUGAR FREE POWDER PACKET 1 PACKET PO ×2 (09:27→17:23)
[2019-12-24] MEDS: MIRABEGRON 25 MG ER TABLET 50 MG PO (09:27)
[2019-12-24] MEDS: carvediloL 25 MG TABLET PO ×2 (09:28→17:24)
[2019-12-24] MEDS: FUROSEMIDE INJ 40 MG/4 ML VIAL IV PUSH (09:28)
[2019-12-24] MEDS: MICONAZOLE NITRATE 2% CREAM 30 GM TUBE 1 APPLIC TOPICAL ×2 (09:31→20:00)
[2019-12-24 11:53] LABS: Glucose Point of Care 141 (65-105)
--- NOTE | 2019-12-24 12:32 | PM.IMPN ---
Progress Note: A&P Assessment and Plan (1) Acute on chronic respiratory failure: Qualifiers: Respiratory failure complication: hypoxia and hypercapnia Qualified Code(s): J96.21 - Acute and chronic respiratory failure with hypoxia; J96.22 - Acute and chronic respiratory failure with hypercapnia Code(s): J96.20 - Acute and chronic respiratory failure, unspecified whether with hypoxia or hypercapnia Status: Acute Assessment and Plan: Secondary to CHF exacerbation with COPD at baseline. He also has severe pulmonary hypertension and hx of TSERING and has not been using his BiPAP as it is broken. He has chronic hypoxia and hypercapnia. He is maintaining adequate oxygenation on his home 3L O2. Continue supplemental oxygen as needed to achieve a pulse oxygen saturation of 92%. Continue BiPAP (2) CHF exacerbation: Qualifiers: Heart failure type: combined systolic and diastolic Qualified Code(s): I50.43 - Acute on chronic combined systolic (congestive) and diastolic (congestive) heart failure Code(s): I50.9 - Heart failure, unspecified Status: Acute Assessment and Plan: He appears hypervolemic with crackles at the lung bases, significant lower extremity pitting edema and pubic fat pad edema. CXR was consistent with CHF. He reports a 30 lb weight gain in the past 6 months. He has been using regular salt with his meals because he ran out of salt substitutes. He states that he drinks approx 1.5L per day (tea, water, soda 3x per week). Echo was performed and is consistent with right sided heart failure which is likely due to pulmonary hypertension from his untreated obstructive sleep apnea. Echo reveals moderately enlarged left ventricular chamber dimension, systolic EF 55-60%, abnormal left diastolic dysfunction with E/e' significantly elevated at 23, reduced right ventricular systolic function, severe right and left atrial chamber enlargement, mild aortic valve sclerosis, moderate mitral valve regurgitation, mild tricuspid regurgitation, and severe pulmonary hypertension. He also has a small circumferential pericardial effusion. Continue IV Lasix 40 mg daily and carvedilol. Continue to monitor strict I&O Continue sodium restrictions and heart healthy diet Continue BiPAP therapy. (3) Acute kidney injury: Code(s): N17.9 - Acute kidney failure, unspecified Status: Acute Assessment and Plan: Patient developed mild increase in BUN and creatinine on 12/23/19. At presentation, Cr was 1.3, which actually was lower than his baseline per prior lab reviews. Baseline appears to be 1.6. I suspect that he has CKD and his improved Cr was dilutional related to hypervolemia. Continue IV diuresis at reduced dose of 40 mg Lasix daily. 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 A1c is 5.2. Continue Accu-Cheks ACHS, SSI, and hypoglycemia protocol Continue to hold metformin. Continue Januvia. (5) COPD (chronic obstructive pulmonary disease): Qualifiers: COPD type: unspecified COPD Qualified Code(s): J44.9 - Chronic obstructive pulmonary disease, unspecified Code(s): J44.9 - Chronic obstructive pulmonary disease, unspecified Status: Chronic Assessment and Plan: Chronic. Not in acute exacerbation but likely contributing to his overall respiratory failure. Continue supplemental oxygen as needed to achieve a pulse oxygen saturation of >90%. Continue albuterol PRN. Continue spiriva. (6) Atrial
[2019-12-24 16:34] LABS: Glucose Point of Care 99 (65-105)
[2019-12-24] MEDS: ROSUVASTATIN 10 MG TABLET PO (18:39)
[2019-12-24 19:43] LABS: Glucose Point of Care 126 (65-105)
[2019-12-24] MEDS: MELATONIN 5 MG TABLET 10 MG PO (20:00)
[2019-12-24] MEDS: LATANOPROST 0.005% OP SOLN 2.5 ML BTL 1 DROP EACH EYE (20:00)
[2019-12-24] MEDS: NITROFURANTOIN MONOHYD MACROCR 100 MG CAP PO (20:00)
[2019-12-25] VITALS (13 sets, daily range): BP systolic 109–120; BP diastolic 43–69; PULSE 54–68; RESP 16–19; TEMP 36.1–36.5; O2SAT 96–100
[2019-12-25] MEDS: LEVOTHYROXINE SODIUM 125 MCG TABLET PO (04:26)
[2019-12-25 05:25] LABS: Basophils Percent Auto 0.6 % (0.2-1.2); Eosinophils Absolute Auto 0.2 K/mm3 (0-0.3); Eosinophils Percent Auto 3.2 % (0-4.4); Hematocrit 32.9 % (42.0-52.0); Hemoglobin 10.1 g/dL (14.0-18.0); Immature Granulocyte Absolute 0.02 K/mm3 (0.00-0.031); Immature Granulocyte Percent A 0.4 % (0-0.5); Lymphocytes Absolute Auto 1.39 K/mm3 (0.9-3.2); Lymphocytes Percent Auto 25.9 % (18.3-44.2); Mean Corpuscular HGB Conc 30.7 g/dl (32-36); Mean Corpuscular Hemoglobin 28.9 pg (26-34); Mean Corpuscular Volume 94.3 fl (80-100); Mean Platelet Volume 10.7 fl (7.4-10.4); Monocytes Absolute Auto 0.7 K/mm3 (0.1-0.6); Monocytes Percent Auto 12.5 % (2.6-8.5); Neutrophils Absolute Auto 3.1 K/mm3 (1.3-6.7); Neutrophils Percent Auto 57.4 % (45.5-73.1); Platelet Count Result 174 k/mm3 (150-375); Red Blood Count 3.49 M/mm3 (4.6-6.20); Red Cell Distribution Width 13.8 % (11.5-14.5); White Blood Count 5.4 K/mm3 (4.5-10.0)
[2019-12-25 05:47] LABS: Alanine Aminotransferase 8 U/L (4-50); Albumin Level 3.5 g/dL (3.5-5.1); Alkaline Phosphatase 40 U/L (38-126); Aspartate Amino Transferase 16 U/L (17-59); Bilirubin,Total 0.3 mg/dL (0.2-1.3); Blood Urea Nitrogen 44 mg/dL (9-20); Calcium 8.4 mg/dL (8.4-10.2); Carbon Dioxide 38 mmol/L (22-30); Chloride 93 mmol/L (98-107); Estimated CRCL calculation 53 ml/min; Estimated Glomerular Filt Rate 43; Glucose 99 mg/dL (75-110); Potassium 3.9 mmol/L (3.4-5.0); Sodium 137 mmol/L (137-145)
[2019-12-25 07:51] LABS: Glucose Point of Care 102 (65-105)
[2019-12-25] MEDS: PSYLLIUM SUGAR FREE POWDER PACKET 1 PACKET PO ×2 (09:05→16:38)
[2019-12-25] MEDS: MIRABEGRON 25 MG ER TABLET 50 MG PO (09:05)
[2019-12-25] MEDS: MINERAL OIL 30 ML UDC 15 ML PO ×2 (09:05→16:38)
[2019-12-25] MEDS: FUROSEMIDE INJ 40 MG/4 ML VIAL IV PUSH (09:05)
[2019-12-25] MEDS: FLUTICASONE PROPIONATE 0.05% NA SPR 16 GM BTL (*BKC) 1 SPRAY NASAL (09:05)
[2019-12-25] MEDS: FENOFIBRATE NANOCRYSTALLIZED 145 MG TABLET PO (09:06)
[2019-12-25] MEDS: DOCUSATE SODIUM 100 MG CAPSULE PO ×2 (09:06→16:40)
[2019-12-25] MEDS: LORATADINE 10 MG TABLET PO (09:06)
[2019-12-25] MEDS: APIXABAN 5 MG TABLET PO ×2 (09:06→16:39)
[2019-12-25] MEDS: MAGNESIUM OXIDE 400 MG TABLET PO (09:07)
[2019-12-25] MEDS: PANTOPRAZOLE 40 MG TABLET PO ×2 (09:07→21:24)
[2019-12-25] MEDS: AMLODIPINE BESYLATE 5 MG TABLET PO (09:07)
[2019-12-25] MEDS: carvediloL 25 MG TABLET PO ×2 (09:07→16:40)
[2019-12-25] MEDS: ASPIRIN 81 MG ENTERIC TABLET PO (09:08)
[2019-12-25] MEDS: POTASSIUM CHLORIDE 10 MEQ TABLET.ER PO (09:09)
[2019-12-25] MEDS: MICONAZOLE NITRATE 2% CREAM 30 GM TUBE 1 APPLIC TOPICAL ×2 (09:11→21:25)
[2019-12-25] MEDS: OLOPATADINE 0.1% OPHTH SOLN 5 ML BTL 1 DROP EACH EYE ×2 (09:11→21:25)
[2019-12-25 11:51] LABS: Glucose Point of Care 133 (65-105)
--- NOTE | 2019-12-25 13:02 | PM.IMPN ---
Progress Note: A&P Assessment and Plan (1) Acute on chronic respiratory failure: Qualifiers: Respiratory failure complication: hypoxia and hypercapnia Qualified Code(s): J96.21 - Acute and chronic respiratory failure with hypoxia; J96.22 - Acute and chronic respiratory failure with hypercapnia Code(s): J96.20 - Acute and chronic respiratory failure, unspecified whether with hypoxia or hypercapnia Status: Acute Assessment and Plan: Secondary to CHF exacerbation with COPD at baseline. He also has severe pulmonary hypertension and hx of TSERING and has not been using his BiPAP as it is broken. He has chronic hypoxia and hypercapnia. He is maintaining adequate oxygenation on his home 3L O2. Continue supplemental oxygen as needed to achieve a pulse oxygen saturation of 92%. Continue BiPAP Hopeful discharge tomorrow as patient is clinically improving. COVID test pending for return to [place]. (2) CHF exacerbation: Qualifiers: Heart failure type: combined systolic and diastolic Qualified Code(s): I50.43 - Acute on chronic combined systolic (congestive) and diastolic (congestive) heart failure Code(s): I50.9 - Heart failure, unspecified Status: Acute Assessment and Plan: He appears hypervolemic with crackles at the lung bases, significant lower extremity pitting edema and pubic fat pad edema. CXR was consistent with CHF. He reports a 30 lb weight gain in the past 6 months. He has been using regular salt with his meals because he ran out of salt substitutes. He states that he drinks approx 1.5L per day (tea, water, soda 3x per week). Echo was performed and is consistent with right sided heart failure which is likely due to pulmonary hypertension from his untreated obstructive sleep apnea. Echo reveals moderately enlarged left ventricular chamber dimension, systolic EF 55-60%, abnormal left diastolic dysfunction with E/e' significantly elevated at 23, reduced right ventricular systolic function, severe right and left atrial chamber enlargement, mild aortic valve sclerosis, moderate mitral valve regurgitation, mild tricuspid regurgitation, and severe pulmonary hypertension. He also has a small circumferential pericardial effusion. Continue IV Lasix 40 mg daily and carvedilol. Continue to monitor strict I&O Continue sodium restrictions and heart healthy diet Continue BiPAP therapy. (3) Acute kidney injury: Code(s): N17.9 - Acute kidney failure, unspecified Status: Acute Assessment and Plan: Patient developed mild increase in BUN and creatinine on 12/23/19. At presentation, Cr was 1.3, which actually was lower than his baseline per prior lab reviews. Baseline appears to be 1.6. I suspect that he has CKD and his improved Cr was dilutional related to hypervolemia. BUN and Cr consistent with baseline today at 44 and 1.6 respectively. Continue IV diuresis at reduced dose of 40 mg IV Lasix daily. Continue to monitor renal function (4) Diabetes type 2, controlled: Qualifiers: Diabetes mellitus senior care insulin use: without senior care use Diabetes mellitus complication status: with unspecified complications Qualified Code(s): E11.8 - Type 2 diabetes mellitus with unspecified complications Code(s): E11.9 - Type 2 diabetes mellitus without complications Status: Chronic Assessment and Plan: Blood sugars were reviewed and are well-controlled. Fasting blood sugar today is stable at 99. A1c is 5.2. Continue Accu-Cheks ACHS, SSI, and hypoglycemia protocol Continue to hold metformin. Continue Januvia. (5) COPD (chronic obstructive pulmonary disease): Qualifiers: COPD type: unspecified COPD Qualified Code(s): J44.9 - Chronic obstructive pulmonary disease, unspecified Code(s): J44.9 - Chronic obstructive pulmonary disease, unspecified Status: Chronic Assessment and Plan: Chronic. Not in acute exacerbat
[2019-12-25 16:29] LABS: Glucose Point of Care 110 (65-105)
[2019-12-25 16:51] LABS: SARS-CoV-2 RNA PCR Negative
[2019-12-25] MEDS: ROSUVASTATIN 10 MG TABLET PO (18:32)
[2019-12-25] MEDS: NITROFURANTOIN MONOHYD MACROCR 100 MG CAP PO (21:24)
[2019-12-25] MEDS: MELATONIN 5 MG TABLET 10 MG PO (21:24)
[2019-12-25] MEDS: LATANOPROST 0.005% OP SOLN 2.5 ML BTL 1 DROP EACH EYE (21:25)
[2019-12-25 21:43] LABS: Glucose Point of Care 99 (65-105)
[2019-12-26] MEDS: LEVOTHYROXINE SODIUM 125 MCG TABLET PO (04:54)
[2019-12-26 04:58] LABS: Basophils Absolute Auto 0.1 K/mm3 (0.0-0.1); Basophils Percent Auto 0.9 % (0.2-1.2); Eosinophils Absolute Auto 0.2 K/mm3 (0-0.3); Hematocrit 34.5 % (42.0-52.0); Hemoglobin 10.5 g/dL (14.0-18.0); Immature Granulocyte Absolute 0.03 K/mm3 (0.00-0.031); Immature Granulocyte Percent A 0.6 % (0-0.5); Lymphocytes Percent Auto 22.5 % (18.3-44.2); Mean Corpuscular HGB Conc 30.4 g/dl (32-36); Mean Corpuscular Hemoglobin 28.9 pg (26-34); Mean Platelet Volume 10.7 fl (7.4-10.4); Monocytes Absolute Auto 0.6 K/mm3 (0.1-0.6); Monocytes Percent Auto 11.6 % (2.6-8.5); Neutrophils Absolute Auto 3.3 K/mm3 (1.3-6.7); Neutrophils Percent Auto 61.4 % (45.5-73.1); Platelet Count Result 165 k/mm3 (150-375); Red Blood Count 3.63 M/mm3 (4.6-6.20); Red Cell Distribution Width 13.7 % (11.5-14.5); White Blood Count 5.3 K/mm3 (4.5-10.0)
[2019-12-26 05:04] VITALS: BP 132/65; PULSE 63; RESP 16; TEMP 36.9; O2SAT 98
[2019-12-26 05:16] LABS: Alanine Aminotransferase 7 U/L (4-50); Albumin Level 3.6 g/dL (3.5-5.1); Alkaline Phosphatase 42 U/L (38-126); Aspartate Amino Transferase 19 U/L (17-59); Bilirubin,Total 0.4 mg/dL (0.2-1.3); Blood Urea Nitrogen 48 mg/dL (9-20); Calcium 8.9 mg/dL (8.4-10.2); Carbon Dioxide 38 mmol/L (22-30); Chloride 93 mmol/L (98-107); Estimated CRCL calculation 53 ml/min; Estimated Glomerular Filt Rate 43; Glucose 93 mg/dL (75-110); Potassium 3.9 mmol/L (3.4-5.0); Sodium 134 mmol/L (137-145)
[2019-12-26 07:56] LABS: Glucose Point of Care 92 (65-105)
[2019-12-26] MEDS: MINERAL OIL 30 ML UDC 15 ML PO (08:39)
[2019-12-26] MEDS: AMLODIPINE BESYLATE 5 MG TABLET PO (08:39)
[2019-12-26] MEDS: MIRABEGRON 25 MG ER TABLET 50 MG PO (08:39)
[2019-12-26] MEDS: PANTOPRAZOLE 40 MG TABLET PO (08:39)
[2019-12-26] MEDS: POTASSIUM CHLORIDE 10 MEQ TABLET.ER PO (08:39)
[2019-12-26 08:40] VITALS: PULSE 67
[2019-12-26] MEDS: FENOFIBRATE NANOCRYSTALLIZED 145 MG TABLET PO (08:40)
[2019-12-26] MEDS: PSYLLIUM SUGAR FREE POWDER PACKET 1 PACKET PO (08:40)
[2019-12-26] MEDS: DOCUSATE SODIUM 100 MG CAPSULE PO (08:40)
[2019-12-26] MEDS: carvediloL 25 MG TABLET PO (08:40)
[2019-12-26] MEDS: LORATADINE 10 MG TABLET PO (08:40)
[2019-12-26] MEDS: MAGNESIUM OXIDE 400 MG TABLET PO (08:40)
[2019-12-26] MEDS: APIXABAN 5 MG TABLET PO (08:40)
[2019-12-26] MEDS: FLUTICASONE PROPIONATE 0.05% NA SPR 16 GM BTL (*BKC) 1 SPRAY NASAL (08:42)
[2019-12-26] MEDS: OLOPATADINE 0.1% OPHTH SOLN 5 ML BTL 1 DROP EACH EYE (08:42)
[2019-12-26] MEDS: MICONAZOLE NITRATE 2% CREAM 30 GM TUBE 1 APPLIC TOPICAL (08:43)
[2019-12-26] MEDS: FUROSEMIDE INJ 40 MG/4 ML VIAL IV PUSH (08:44)
[2019-12-26] MEDS: ASPIRIN 81 MG ENTERIC TABLET PO (08:51)
[2019-12-26 09:09] VITALS: O2SAT 96
[2019-12-26 11:24] LABS: Glucose Point of Care 136 (65-105)
--- NOTE | 2019-12-28 15:51 | PM.DS ---
DS: Admitting Diagnosis Admitting Diagnosis Admitting Diagnosis: Hypertensive heart disease with heart failure DS: Discharge Diagnosis Discharge Diagnosis (1) Acute on chronic respiratory failure: Qualifiers: Respiratory failure complication: hypoxia and hypercapnia Qualified Code(s): J96.21 - Acute and chronic respiratory failure with hypoxia; J96.22 - Acute and chronic respiratory failure with hypercapnia Code(s): J96.20 - Acute and chronic respiratory failure, unspecified whether with hypoxia or hypercapnia Status: Acute Assessment and Plan: Secondary to CHF exacerbation with COPD at baseline. He also has severe pulmonary hypertension due to history of TSERING. He had not been using his BiPAP machine at [facility] because it had been broken. He has chronic hypoxia and hypercapnia. He maintained adequate oxygenation on his home 3L O2. (2) CHF exacerbation: Qualifiers: Heart failure type: combined systolic and diastolic Qualified Code(s): I50.43 - Acute on chronic combined systolic (congestive) and diastolic (congestive) heart failure Code(s): I50.9 - Heart failure, unspecified Status: Acute Assessment and Plan: He had been noncompliant with his sodium restrictions. He was hypervolemic with significant lower extremity pitting edema and bibasilar crackles. A repeat echo was performed on 12/22/2019 which was consistent with right heart failure, with moderately enlarged LV chamber dimension, EF 55-60%, abnormal left diastolic dysfunction, and severe pulmonary hypertension. He was diuresed with IV Lasix and placed on heart healthy diet. His shortness of breath improved, as did his edema. He was educated on importance of maintaining a heart healthy diet and educated on performing daily weights. He will continue his home Lasix and Coreg. (3) Obstructive sleep apnea: Code(s): G47.33 - Obstructive sleep apnea (adult) (pediatric) Status: Chronic Assessment and Plan: He had not been consistent with BiPAP use in approximately 1 year due to issues with function and cleanliness of his BiPAP machine at [facility]. We discussed the importance of consistent BiPAP use given his worsened pulmonary hypertension evident on recent echo. Care coordination discussed with [facility] and he will be getting a new BiPAP device at the facility. (4) Acute kidney injury: Code(s): N17.9 - Acute kidney failure, unspecified Status: Acute Assessment and Plan: Patient developed mild increase in BUN and creatinine on 12/23/19. At presentation, Cr was lower than his typical baseline of approximately 1.6.. I suspect that he has CKD and his initially decreased BUN and creatinine was dilutional related to hypervolemia. (5) COPD (chronic obstructive pulmonary disease): Qualifiers: COPD type: unspecified COPD Qualified Code(s): J44.9 - Chronic obstructive pulmonary disease, unspecified Code(s): J44.9 - Chronic obstructive pulmonary disease, unspecified Status: Chronic Assessment and Plan: His COPD is chronic. This was not acute exacerbation, but did likely contribute to his overall respiratory failure. He will continue his home oxygen as well as Spiriva and albuterol as needed. 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 Updated A1c was 5.2. His metformin was held. He will continue his typical glycemic regimen as an outpatient. (7) Atrial fibrillation: Qualifiers: Atrial fibrillation type: unspecified Qualified Co
== END 2019-12-26 14:58 | DRG 291 ==
LOC: ANHED 15:33 → ANH3MED 15:40
PROVIDERS: Family Medicine; Nurse Practitioner; Physician Assistant; Admitting Provider Hospitalist; Emergency Provider Emergency Medicine; PCP Internal Medicine; Visit Provider Internal Medicine
DX: I13.0 Hypertensive heart and chronic kidney disease with heart failure and stage 1 through stage 4 chronic kidney disease, or unspecified chronic kidney disease (principal); J96.21 Acute and chronic respiratory failure with hypoxia; J96.22 Acute and chronic respiratory failure with hypercapnia; I50.43 Acute on chronic combined systolic (congestive) and diastolic (congestive) heart failure; N17.9 Acute kidney failure, unspecified; I48.20 Chronic atrial fibrillation, unspecified; Z68.42 Body mass index [BMI] 45.0-49.9, adult; Z11.59 Encounter for screening for other viral diseases; E11.22 Type 2 diabetes mellitus with diabetic chronic kidney disease; N18.9 Chronic kidney disease, unspecified; J44.9 Chronic obstructive pulmonary disease, unspecified; I27.20 Pulmonary hypertension, unspecified; E03.9 Hypothyroidism, unspecified; I48.91 Unspecified atrial fibrillation; D64.9 Anemia, unspecified; H35.30 Unspecified macular degeneration; I10 Essential (primary) hypertension; R33.9 Retention of urine, unspecified; G47.33 Obstructive sleep apnea (adult) (pediatric); E78.5 Hyperlipidemia, unspecified; I25.10 Atherosclerotic heart disease of native coronary artery without angina pectoris; E66.01 Morbid (severe) obesity due to excess calories; Z99.81 Dependence on supplemental oxygen; Z86.718 Personal history of other venous thrombosis and embolism; Z86.711 Personal history of pulmonary embolism; Z79.01 Long term (current) use of anticoagulants; Z98.42 Cataract extraction status, left eye; Z98.41 Cataract extraction status, right eye
CPT/HCPCS: 36415; 71046; 80048; 80053; 81001; 83036; 83735; 83880; 84443; 84484; 85025; 85027; 85610; 85730; 86140; 87635; 93005; 93306; 94640; 96374; 96376; 97110; 97161; 97165; 97530; 97535; 99285; A9270; C9803; G0378; J1940; U0003

== ENCOUNTER 2020-03-30 23:32 | Emergency (ER) | payer MEDICARE, BC, MEDICAID, SELFPAY ==
[2020-03-30 23:31] VITALS: BP 132/62; PULSE 108; RESP 30; TEMP 37.3; O2SAT 94
[2020-03-31 00:35] LABS: Basophils Percent Auto 0.3 % (0.2-1.2); Eosinophils Percent Auto 0.3 % (0-4.4); Hematocrit 36.1 % (42.0-52.0); Hemoglobin 11.6 g/dL (14.0-18.0); Immature Granulocyte Absolute 0.05 K/mm3 (0.00-0.031); Immature Granulocyte Percent A 0.8 % (0-0.5); Lymphocytes Absolute Auto 0.11 K/mm3 (0.9-3.2); Lymphocytes Percent Auto 1.7 % (18.3-44.2); Mean Corpuscular HGB Conc 32.1 g/dl (32-36); Mean Corpuscular Hemoglobin 29.5 pg (26-34); Mean Corpuscular Volume 91.9 fl (80-100); Mean Platelet Volume 9.9 fl (7.4-10.4); Monocytes Percent Auto 0.6 % (2.6-8.5); Neutrophils Absolute Auto 6.3 K/mm3 (1.3-6.7); Neutrophils Percent Auto 96.3 % (45.5-73.1); Platelet Count Result 133 k/mm3 (150-375); Red Blood Count 3.93 M/mm3 (4.6-6.20); Red Cell Distribution Width 16.3 % (11.5-14.5); White Blood Count 6.5 K/mm3 (4.5-10.0)
[2020-03-31 00:45] LABS: INR 1.6; Prothrombin Time 18.7 Seconds (11.1-14.7)
[2020-03-31 00:53] LABS: Anion Gap 8 mmol/L (8-16); Blood Urea Nitrogen 42 mg/dL (9-20); Calcium 9.4 mg/dL (8.4-10.2); Carbon Dioxide 24 mmol/L (22-30); Chloride 103 mmol/L (98-107); Estimated CRCL calculation 54 ml/min; Estimated Glomerular Filt Rate 46; Glucose 130 mg/dL (75-110); Potassium 4.2 mmol/L (3.4-5.0); Sodium 135 mmol/L (137-145)
--- NOTE | 2020-03-31 01:00 | PC.NURSE ---
Addendum entered by Dion Lux RN 03/31/20 06:54: Then begin CBI with 3 way urinary catheter once Gleason catheter is used to manual irrigate per EDP Amadeo verbal order read-back. Original Note: Unable to initiate 22 [address] on patient[address] Catheter met with a lot of resistance and clots. Per EDP Amadeo, initiate Gleason on patient to use for irrigation.
[2020-03-31 01:11] VITALS: BP 108/58; PULSE 105; RESP 22; O2SAT 93
--- NOTE | 2020-03-31 01:45 | PC.NURSE ---
Unable to obtain urine specimen on patient. Gleason catheter clotted off and needed to be irrigated. Continuous bladder irrigation to be started. GIANLUCA Childs notified.
[2020-03-31] MEDS: MORPHINE SULFATE 4 MG/ML INJ IV PUSH (02:57)
[2020-03-31 03:07] VITALS: BP 91/47; PULSE 81; RESP 20; O2SAT 93
--- NOTE | 2020-03-31 03:14 | PC.NURSE ---
Saline irrigation used for irrigation of catheter.
--- NOTE | 2020-03-31 03:24 | ED.MALEGU ---
HPI - Male Genitourinary General Chief complaint: Urogenital-Male Stated complaint: blood in urine/fever Source: patient Mode of arrival: EMS Limitations: no limitations History of Present Illness HPI Narrative: 74[facility] with a history of chronic diastolic heart failure hypertension, morbid obesity, obstructive sleep apnea, diabetes [facility] a [facility] for dislodged Gleason catheter. Patient states that he was sitting in the wheelchair accidentally he pulled the catheter. Patient states that [facility] staff was unable to replace it. He is now complaining of lower abdominal pain. He denies any other complaints MD Complaint: other (Dislodged Gleason catheter) Onset (ago): hour(s) (1) Duration: constant Location: penis Severity: moderate Quality: aching Exacerbating factors: none Related Data Home Medications Medication Instructions Recorded Confirmed Artificial Tears (PF) 1 drp OPHTHALMIC (EYE) Q6H PRN 12/21/19 12/21/19 Eliquis 5 mg PO BID 12/21/19 12/21/19 Fleet Enema See Rx Instructions .ROUTE 12/21/19 12/21/19 .COMPLEX PRN Januvia 100 mg PO HS 12/21/19 12/21/19 Lantiseptic Skin Protectant 1 applic TOPICAL DAILY 12/21/19 12/21/19 Myrbetriq 50 mg PO DAILY 12/21/19 12/21/19 Natural Fiber Supplemnt(asprt) 3.4 g PO BID 12/21/19 12/21/19 Refresh Tears 1 drp OPHTHALMIC (EYE) BID 12/21/19 12/21/19 Robitussin Cough-Chest Agustin DM 10 ml PO Q6H PRN 12/21/19 12/21/19 Spiriva with HandiHaler 18 mcg INHALATION DAILY 12/21/19 12/21/19 acetaminophen 1,300 mg PO DIRECTED 12/21/19 12/21/19 acetaminophen [Acetaminophen Pain 1,000 mg PO PRN PRN 12/21/19 12/21/19 Relief] amlodipine 5 mg PO DAILY 12/21/19 12/21/19 aspirin [Aspir-81] 81 mg PO DAILY 12/21/19 12/21/19 calcium carbonate [Antacid 200 mg PO Q8H PRN 12/21/19 12/21/19 (calcium carbonate)] calcium carbonate-vitamin D3 1 tablet PO BID 12/21/19 12/21/19 [Calcium 600 + D(3)] carvedilol 25 mg PO BID 12/21/19 12/21/19 cetirizine 10 mg PO DAILY 12/21/19 12/21/19 cyanocobalamin (vitamin B-12) 1,000 mcg IM [id number] 12/21/19 12/21/19 docusate sodium 100 mg PO BID 12/21/19 12/21/19 fenofibrate nanocrystallized 145 mg PO DAILY 12/21/19 12/21/19 fluticasone propionate [Flonase 1 spray INTRANASAL DAILY 12/21/19 12/21/19 Allergy Relief] furosemide 40 mg PO DAILY 12/21/19 12/21/19 latanoprost 1 drp OPHTHALMIC (EYE) QPM 12/21/19 12/21/19 levothyroxine 125 mcg PO DAILY 12/21/19 12/21/19 loperamide [Imodium A-D] 2 mg PO DIRECTED 12/21/19 12/21/19 loratadine 10 mg PO DAILY PRN 12/21/19 12/21/19 magnesium oxide 500 mg PO DAILY 12/21/19 12/21/19 melatonin 10 mg PO HS 12/21/19 12/21/19 metformin 500 mg PO BID 12/21/19 12/21/19 mineral oil 15 ml PO BID 12/21/19 12/21/19 nitrofurantoin monohyd/m-cryst 100 mg PO HS 12/21/19 12/21/19 [Macrobid] nystatin-triamcinolone 1 applic TOPICAL QID 12/21/19 12/21/19 olopatadine 1 drp OPHTHALMIC (EYE) BID 12/21/19 12/21/19 omeprazole 20 mg PO BID 12/21/19 12/21/19 polyethylene glycol 3350 [Miralax] 17 g PO Q24H PRN 12/21/19 12/21/19 potassium chloride 10 meq PO DAILY 12/21/19 12/21/19 rosuvastatin [Crestor] 10 mg PO DAILY 12/21/19 12/21/19 sodium chloride [[place] Nasal] 2 spray INTRANASAL Q2H PRN 12/21/19 12/21/19 Allergies Allergy/AdvReac Type Severity Reaction Status Date / Time bacitracin Allergy Unknown Rash Verified 12/31/19 09:00 Penicillins Allergy Unknown Rash Verified 12/31/19 09:00 Review of Systems Review of Systems: All systems reviewed & are unremarkable except as noted in HPI and below ROS unobtainable: Yes unobtainable due to endotracheal tube Constitutional: Constitutional: Reports no additional constitutional complaints Eyes: Eyes: Reports no additional eye complaints ENT: Reports system reviewed and no additional complaints, except as documented Respiratory: Respiratory: Reports no additional respiratory complaints PMFSH Past Medical History Medical History (Reviewed 03/31/20 @ 03:29 by Laz Pryor
[2020-03-31 03:27] VITALS: TEMP 37.3
--- NOTE | 2020-03-31 03:33 | PC.NURSE ---
3L normal saline used for bladder irrigation. No clots are present at this time and urine appears clear. EDLyle Childs notified.
[2020-03-31 04:16] VITALS: BP 92/49; PULSE 79; RESP 19; O2SAT 94
--- NOTE | 2020-03-31 04:20 | PC.NURSE ---
called [facility] to transport patient. ETA [id number]
[2020-03-31 05:36] VITALS: BP 99/54; PULSE 93; RESP 18; O2SAT 93
--- NOTE | 2020-03-31 05:50 | PC.NURSE ---
[facility] called to update ETA to [phone]
--- NOTE | 2020-03-31 06:00 | PC.NURSE ---
Report given to Diann at [facility].
--- NOTE | 2020-03-31 06:14 | PC.NURSE ---
[facility] here
[2020-03-31 06:42] VITALS: BP 103/57; PULSE 83; RESP 16; TEMP 36.9; O2SAT 94
== END 2020-03-31 06:51 ==
PROVIDERS: Emergency Provider Family Medicine; PCP Internal Medicine
DX: R31.9 Hematuria, unspecified (principal); T83.021A Displacement of indwelling urethral catheter, initial encounter; J44.9 Chronic obstructive pulmonary disease, unspecified; E11.9 Type 2 diabetes mellitus without complications; Z86.718 Personal history of other venous thrombosis and embolism; Z79.01 Long term (current) use of anticoagulants; K21.9 Gastro-esophageal reflux disease without esophagitis; I11.0 Hypertensive heart disease with heart failure; I50.9 Heart failure, unspecified; G47.30 Sleep apnea, unspecified; Z86.711 Personal history of pulmonary embolism; Z79.84 Long term (current) use of oral hypoglycemic drugs
CPT/HCPCS: 36415; 51700; 51702; 51703; 80048; 85025; 85610; 99284; J2270

== ENCOUNTER 2020-04-01 00:04 | Inpatient (IN) | payer MEDICARE, BC, MEDICAID, SELFPAY ==
[2020-04-01] VITALS (14 sets, daily range): BP systolic 89–117; BP diastolic 41–86; PULSE 69–95; RESP 15–28; TEMP 36.6–37; O2SAT 92–100; BMI 45.6
--- NOTE | ~2020-04-01 | XR_ITS ---
EXAMINATION: XR chest port-a-cath/central EXAM DATE: 04/01/2020 02:27 INDICATION: Central line placement. TECHNIQUE: Portable AP frontal chest x-ray was obtained. Comparison is made to prior examination from 04/01/2020. FINDINGS: There is a right-sided IJ venous line in position. Again there is cardiomegaly, congestion, possible mild pulmonary edema. Probable chronic bilateral shoulder rotator cuff tears. No confluent consolidation, pneumothorax or pleural effusion. IMPRESSION: 1. No postprocedure pneumothorax. 2. Congestive changes, possible mild CHF exacerbation. Reviewed, dictated and finalized at location A.
--- NOTE | ~2020-04-01 | XR_ITS ---
EXAMINATION: XR chest 1V portable EXAM DATE: 04/01/2020 01:48 INDICATION: Hypotension, sepsis. TECHNIQUE: Portable AP frontal chest x-ray was obtained. Comparison is made to prior examination from 12/21/2019. FINDINGS: There is cardiomegaly and pulmonary vascular congestion. There is indistinct reticulation w ith a bibasal predominance which may indicate pulmonary edema. No confluent consolidation, pneumothor ax or pleural effusion suspected. There are bony degenerative changes. There is aortic arterioscleros is. IMPRESSION: Congestive changes, possible mild CHF exacerbation. Reviewed, dictated and finalized at location A.
--- NOTE | ~2020-04-01 | US_ITS ---
EXAMINATION: US renal BI EXAM DATE: 04/01/2020 10:43 INDICATION: Acute kidney insufficiency. TECHNIQUE: Multiple grayscale and Doppler images of the kidneys were obtained (by a technologist who performed the scan) and subsequently reviewed. There is no prior study for comparison. FINDINGS: Right kidney: There is normal contour and echogenicity. There is renal cortical thinning. It measures 14.1 x 4.5 x 5.5 centimeters. There are no focal renal lesions identified. There is no hydronephr osis. Left kidney: There is normal contour and echogenicity. It measures 8.1 x 4.2 x 4.3 centimeters, mild ly decreased measurements, along with cortical thinning suspected. There are no focal renal lesions identified. There is no hydronephrosis. There is Gleason catheter in the bladder. IMPRESSION: 1. Bilateral renal atrophy. Reviewed, dictated and finalized at location A. IMPRESSION: 1. Bilateral renal atrophy.
--- NOTE | 2020-04-01 00:03 | ED.AMS ---
HPI - Altered Mental Status General Chief Complaint: Altered Mental Status Stated Complaint: AMS Source: patient, family and EMS Mode of arrival: EMS Limitations: no limitations History of Present Illness HPI narrative: Patient is a 74-year-old male with a history of CHF, COPD, chronically on 3 to 4 L who presents for evaluation of altered mental status. Patient resides at [facility], and staff there felt the patient was confused from baseline, thus EMS was called and he was transported to our facility. Glucose in route was 109, patient was noted to be hypotensive in route. At the time of assessment, patient is alert and oriented to person, place, and to time. He has no difficulty identifying what hospital he is at, what time of year it is, what date it is. He is denying any headache, chest pain, abdominal pain. He does report that he was here yesterday as his Gleason kept clotting, he had the Gleason replaced and irrigated. Patient denies any suprapubic pain or penile pain. He denies fever, chills, cough or shortness of breath. Patient is a full code. Patient states that he does not believe he ate lunch or dinner today. Related Data Home Medications Medication Instructions Recorded Confirmed Artificial Tears (PF) 1 drp OPHTHALMIC (EYE) Q6H PRN 12/21/19 12/21/19 Eliquis 5 mg PO BID 12/21/19 12/21/19 Fleet Enema See Rx Instructions .ROUTE 12/21/19 12/21/19 .COMPLEX PRN Januvia 100 mg PO HS 12/21/19 12/21/19 Lantiseptic Skin Protectant 1 applic TOPICAL DAILY 12/21/19 12/21/19 Myrbetriq 50 mg PO DAILY 12/21/19 12/21/19 Natural Fiber Supplemnt(asprt) 3.4 g PO BID 12/21/19 12/21/19 Refresh Tears 1 drp OPHTHALMIC (EYE) BID 12/21/19 12/21/19 Robitussin Cough-Chest Agustin DM 10 ml PO Q6H PRN 12/21/19 12/21/19 Spiriva with HandiHaler 18 mcg INHALATION DAILY 12/21/19 12/21/19 acetaminophen 1,300 mg PO DIRECTED 12/21/19 12/21/19 acetaminophen [Acetaminophen Pain 1,000 mg PO PRN PRN 12/21/19 12/21/19 Relief] amlodipine 5 mg PO DAILY 12/21/19 12/21/19 aspirin [Aspir-81] 81 mg PO DAILY 12/21/19 12/21/19 calcium carbonate [Antacid 200 mg PO Q8H PRN 12/21/19 12/21/19 (calcium carbonate)] calcium carbonate-vitamin D3 1 tablet PO BID 12/21/19 12/21/19 [Calcium 600 + D(3)] carvedilol 25 mg PO BID 12/21/19 12/21/19 cetirizine 10 mg PO DAILY 12/21/19 12/21/19 cyanocobalamin (vitamin B-12) 1,000 mcg IM [id number] 12/21/19 12/21/19 docusate sodium 100 mg PO BID 12/21/19 12/21/19 fenofibrate nanocrystallized 145 mg PO DAILY 12/21/19 12/21/19 fluticasone propionate [Flonase 1 spray INTRANASAL DAILY 12/21/19 12/21/19 Allergy Relief] furosemide 40 mg PO DAILY 12/21/19 12/21/19 latanoprost 1 drp OPHTHALMIC (EYE) QPM 12/21/19 12/21/19 levothyroxine 125 mcg PO DAILY 12/21/19 12/21/19 loperamide [Imodium A-D] 2 mg PO DIRECTED 12/21/19 12/21/19 loratadine 10 mg PO DAILY PRN 12/21/19 12/21/19 magnesium oxide 500 mg PO DAILY 12/21/19 12/21/19 melatonin 10 mg PO HS 12/21/19 12/21/19 metformin 500 mg PO BID 12/21/19 12/21/19 mineral oil 15 ml PO BID 12/21/19 12/21/19 nitrofurantoin monohyd/m-cryst 100 mg PO HS 12/21/19 12/21/19 [Macrobid] nystatin-triamcinolone 1 applic TOPICAL QID 12/21/19 12/21/19 olopatadine 1 drp OPHTHALMIC (EYE) BID 12/21/19 12/21/19 omeprazole 20 mg PO BID 12/21/19 12/21/19 polyethylene glycol 3350 [Miralax] 17 g PO Q24H PRN 12/21/19 12/21/19 potassium chloride 10 meq PO DAILY 12/21/19 12/21/19 rosuvastatin [Crestor] 10 mg PO DAILY 12/21/19 12/21/19 sodium chloride [[place] Nasal] 2 spray INTRANASAL Q2H PRN 12/21/19 12/21/19 Allergies Allergy/AdvReac Type Severity Reaction Status Date / Time bacitracin Allergy Unknown Rash Verified 04/01/20 00:37 Penicillins Allergy Unknown Rash Verified 04/01/20 00:37 Review of Systems Review of Systems: Narrative: CONSTITUTIONAL: Denies fever, chills, or sweats. EYES: Denies visual changes, redness, or discharge. ENT: Denies rhinorrhea, congestion, sore throat, or o
--- NOTE | 2020-04-01 00:16 | ECG_ITS ---
Measurements Intervals [place] Rate: 75 P: ND: 0 QRS: -48 QRSD: 134 T: 21 QT: 401 QTc: 449 Interpretive Statements ATRIAL FIBRILLATION RIGHT BUNDLE BRANCH BLOCK LEFT ANTERIOR FASCICULAR BLOCK BASELINE WANDER- I, II, III, AVR, AVL, AVF, V1 ABNORMAL ECG Electronically Signed On 04-01-2020 7:34:21 CDT by Freddy Culver D.O.
[2020-04-01 00:36] LABS: Hematocrit 31.7 % (42.0-52.0); Mean Corpuscular HGB Conc 31.5 g/dl (32-36); Mean Corpuscular Hemoglobin 29.9 pg (26-34); Mean Corpuscular Volume 94.6 fl (80-100); Mean Platelet Volume 10.6 fl (7.4-10.4); Platelet Count Result 133 k/mm3 (150-375); Red Blood Count 3.35 M/mm3 (4.6-6.20); Red Cell Distribution Width 18.1 % (11.5-14.5); White Blood Count 22.5 K/mm3 (4.5-10.0)
[2020-04-01 00:45] LABS: Alveolar/Arterial O2 Gradient 97.6 mmHg; Base Excess ABG -3.9 mEq/l (+/-2.0); Device NASAL CANNULA; Fractional Inspired Oxygen 32 %; HCO3 ABG 22.3 mEq/l (22.0-26.0); Modified Allen's Test Pass; Oxygen Content ABG 14.5 %vol (16.0-22.0); Oxygen Saturation ABG 94.4 % (95.0-100.0); Oxyhemoglobin 94.1 % THb (90.0-100.0); PCO2 ABG 45.1 mmHg (35.0-45.0); PO2 ABG 77.8 mmHg (80.0-100.0); PO2 FiO2 Ratio Arterial Blood 2.43 %; Site Drawn LEFT RADIAL; Total Hemoglobin 10.9 g/dL (12.0-18.0); pH ABG 7.312 (7.350-7.450)
[2020-04-01] MEDS: SODIUM CHLORIDE 0.9% IV 1,000 ML 999 ML IV CONT (00:45)
[2020-04-01 00:47] LABS: INR 2.3; Prothrombin Time 24.8 Seconds (11.1-14.7)
[2020-04-01 00:49] LABS: Ammonia < 9 umol/L (9-30); Lactic Acid Reflex 1.4 mmol/L (0.7-2.1)
[2020-04-01 00:53] LABS: Alanine Aminotransferase 18 U/L (4-50); Albumin Level 3.5 g/dL (3.5-5.1); Alkaline Phosphatase 32 U/L (38-126); Anion Gap 9 mmol/L (8-16); Aspartate Amino Transferase 42 U/L (17-59); Bilirubin,Total 0.4 mg/dL (0.2-1.3); Blood Urea Nitrogen 56 mg/dL (9-20); Calcium 8.8 mg/dL (8.4-10.2); Carbon Dioxide 23 mmol/L (22-30); Chloride 100 mmol/L (98-107); Estimated CRCL calculation 27 ml/min; Estimated Glomerular Filt Rate 21; Glucose 97 mg/dL (75-110); Sodium 132 mmol/L (137-145)
[2020-04-01 00:58] LABS: Band Neutrophils Percent 8 % (0-6); Lymphocytes Absolute Manual 1.57 K/mm3 (1.1-4.5); Monocytes Absolute Manual 2.02 K/mm3 (0.1-0.90); Monocytes Percent Manual 9 % (3-9); Neutrophils Percent Manual 76 % (46-73); Total Cells Counted 100
[2020-04-01 01:00] LABS: Platelet Estimate Adequate (Adequate)
[2020-04-01 01:02] LABS: NT Pro B Type Natriuretic Pept 11500 PG/ML (5-100)
[2020-04-01 01:03] LABS: Troponin I 0.064 ng/mL (0.000-0.034)
[2020-04-01 01:17] LABS: Add Urine Microscopic? YES; Appearance Urine Cloudy (Clear); Bacteria Urine 2+ /hpf; Bilirubin Urine Negative (Negative); Blood Urine 3+ (Negative); Color Urine Amber (Yellow); Glucose Urine UA Negative (Negative); Ketones Urine Negative (Negative); Leukocyte Esterase Ur 3+ LEU/UL (Negative); Mucus Urine Rare /lpf; Nitrate Urine Negative (Negative); Protein Urine 2+ mg/dL (Negative); RBC Urine >75 /hpf (0-2); Specific Grav Ur 1.026 (1.001-1.035); Urobilinogen Urine Negative mg/dL (<2.0); WBC Clumps Urine Present /HPF; WBC Urine >75 /hpf
[2020-04-01] MEDS: fentaNYL CITRATE INJ (*CRX) 100 MCG/2 ML VIAL 25 MCG IV PUSH (01:34)
--- NOTE | 2020-04-01 02:05 | PC.NURSE ---
icu . @ bedside for central line placement
[2020-04-01] MEDS: INSULIN HUMAN REGULAR (*BKC) 100 UNITS/ML 10 UNITS IV PUSH (02:36)
[2020-04-01] MEDS: DEXTROSE 50% 25 GM/50 ML SYRINGE IV PUSH (02:38)
[2020-04-01] MEDS: CALCIUM GLUCONATE 1,000 MG/10 ML VIAL 2000 MG IV PUSH (02:38)
--- NOTE | 2020-04-01 02:39 | WPDPROCEDUR ---
Procedures Central Line Placement Right IJ: Central Line Date: 04/01/20 Central Line Time: 02:15 Discussed w/ the patient/family/POA,the placement of a central venous catheter, including its clinical necessity/indication & associated potential risks, benifits and alternatives.: Yes Patient Position: supine Patient placed on monitor/pulse ox: Yes Provider Prep: mask, sterile gown, sterile gloves, Max. sterile barrier precautions, cap and hand hygiene with conventional soap/water or alcohol based hand rub Central line prep: 2% Chlorhexidine scrub Local anesthesia used: lidocaine 1% Amount of anesthesia used (ml): 3 Sterile US Technique with sterile gel/sterile probe covers: Yes Central line lumen inserted: triple [place]: 7 Length (cm): 20 Depth of Insertion (cm): 17 Post procedure: sutured in place, good blood return, all ports aspirated, flushed, capped, tegaderm, hemostatic disc and aseptic technique maintained throughout procedure Post procedure x-ray: tip of catheter in good position and no pneumothorax seen Patient tolerated procedure: well and no complications Complications: none Additional comments: Date of service of procedure was 04/01/2020 at 02:15 hrs.
--- NOTE | 2020-04-01 02:43 | PM.IMHP ---
H&P: HPI History of Present Illness Date/Time: 04/01/20 02:43 Chief complaint: Septic shock, UTI Narrative: This is a pleasant 74-year-old diabetic male with known diastolic congestive heart failure, COPD, chronic respiratory failure on 3 L of oxygen, chronically anticoagulated on Eliquis secondary to previous PE who is well known to our hospitalist group from multiple previous admissions and presented to the hospital [facility] from [facility] secondary to acute altered mental status. The patient was found to be confused and altered and was sent to the hospital for evaluation. By the time the patient was evaluated emergency room he was alert and oriented x4. The patient is known to have a chronic indwelling Gleason catheter for the past 5 years and tells me that he has a history of multiple urinary tract infections. He denies any abdominal pain, hematuria, fever, chills, nausea, vomiting, chest pain, shortness of breath, cough, or rectal bleeding. The patient was evaluated emergency room [facility] and found to be in septic shock. Patient had a significant leukocytosis of 22,500 and was also found to be in acute renal failure with hyperkalemia. His troponin was mildly elevated and his urinalysis was grossly abnormal. On my encounter with the patient he has no deficit and is alert and oriented. He is answering all my questions appropriately and without any difficulty. The patient was treated with calcium gluconate, sodium bicarbonate, insulin and dextrose for his hyperkalemia. He has been started on wide-spectrum antibiotics for his septic shock. I have placed a right IJ central line at bedside and the patient has been started on Levophed for vasopressor support. [employer] Driver Dr. Cortez has been consulted by ER provider. The patient was seen in the emergency room yesterday as he was having problems with clotting in his catheter. He did have his Gleason catheter changed out at that time. Review of Systems Review of Systems: All systems reviewed & are unremarkable except as noted in HPI and below PMFSH Past Medical History Medical History Atrial fibrillation Cardioverted Chronic respiratory failure COPD (chronic obstructive pulmonary disease) Diabetes type 2, controlled DVT (deep venous thrombosis) GERD (gastroesophageal reflux disease) History of cardioversion History of congestive heart failure History of coronary artery disease Hyperlipidemia Hypertension Hypothyroidism Macular degeneration Obstructive sleep apnea Uses a CPAP Pulmonary embolism On Eliquis Surgical History Surgical History H/O bilateral cataract extraction H/O lumbar discectomy H/O rectal sphincterotomy History of back surgery History of tonsillectomy S/P IVC filter Family History Family History Father Family history of lung cancer, Onset Age: 77 Mother Family history of dementia Postoperative complication Crossing her Sibling Diabetes mellitus Heart disease Daughter Breast cancer Other Family history of malignant neoplasm of breast Social History Social History Social History: The patient is and he lives at [facility]. He has 4 children 3 are biological 1 is adopted. He worked a [employer]. His daughter Sanjuana CARVER IS HIS DURABLE POWER MODEL AND MOLD MAKER PLASTER FOR HEALTHCARE. He desires to be a full code. He stated that he never smoked. Smoking status: Never smoker Alcohol intake: never Substance use: never Gender identity (if verbalized by the patient): Male Sexual Orientation (if Verbalized by the Patient): Straight or Heterosexual Spiritual care concerns: No Meds Home Medications and Allergies Home Medications Medication Ins
[2020-04-01] MEDS: NOREPINEPHRINE 8 MG/D5W 250 ML 8 MG/250 ML BAG 9.4 MG IV CONT (03:05)
[2020-04-01] MEDS: SODIUM BICARBONATE 8.4% 50 MEQ/50 ML VIAL IV PUSH (03:31)
[2020-04-01 06:38] LABS: Hematocrit 31.4 % (42.0-52.0); Hemoglobin 9.6 g/dL (14.0-18.0); Mean Corpuscular HGB Conc 30.6 g/dl (32-36); Mean Corpuscular Hemoglobin 29.2 pg (26-34); Mean Corpuscular Volume 95.4 fl (80-100); Mean Platelet Volume 10.5 fl (7.4-10.4); Platelet Count Result 108 k/mm3 (150-375); Red Blood Count 3.29 M/mm3 (4.6-6.20); Red Cell Distribution Width 17.7 % (11.5-14.5); White Blood Count 18.1 K/mm3 (4.5-10.0)
[2020-04-01 06:53] LABS: Anion Gap 7 mmol/L (8-16); Blood Urea Nitrogen 59 mg/dL (9-20); Calcium 8.5 mg/dL (8.4-10.2); Carbon Dioxide 24 mmol/L (22-30); Chloride 102 mmol/L (98-107); Estimated CRCL calculation 27 ml/min; Estimated Glomerular Filt Rate 20; Glucose 88 mg/dL (75-110); Magnesium 1.7 mg/dL (1.6-2.3); Potassium 5.1 mmol/L (3.4-5.0); Sodium 133 mmol/L (137-145)
[2020-04-01 07:02] LABS: Troponin I 0.059 ng/mL (0.000-0.034)
[2020-04-01 07:05] LABS: Band Neutrophils Percent 10 % (0-6); Eosinophils Absolute Manual 0.18 K/mm3 (0.02-0.5); Eosinophils Percent Manual 1 % (0-4); Lymphocytes Percent Manual 5 % (18-44); Monocytes Absolute Manual 1.44 K/mm3 (0.1-0.90); Monocytes Percent Manual 8 % (3-9); Neutrophils Absolute Manual 15.56 K/mm3 (1.3-6.7); Neutrophils Percent Manual 76 % (46-73); Total Cells Counted 100
[2020-04-01 08:42] LABS: Glucose Point of Care 89 (65-105)
--- NOTE | 2020-04-01 08:47 | WPDCNINT ---
Assessment and Plan Assessment and plan (1) Septic shock: Code(s): A41.9 - Sepsis, unspecified organism; R65.21 - Severe sepsis with septic shock Status: Acute Assessment and Plan: secondary to urinary tract infection patient received conservative IV fluid bolus due to history of congestive heart failure and overall volume overload Levophed infusion titrate to maintain map of 65 culture sent and pending will check NICOM to assess fluid responsiveness continue broad-spectrum antibiotics with discontinue vancomycin if blood cultures stay negative in 48 hours (2) Catheter-associated urinary tract infection: Code(s): T83.511A - Infection and inflammatory reaction due to indwelling urethral catheter, initial encounter; N39.0 - Urinary tract infection, site not specified Status: Acute Assessment and Plan: continue IV antibiotics, urine culture pending. (3) Acute on chronic renal failure: Code(s): N17.9 - Acute kidney failure, unspecified; N18.9 - Chronic kidney disease, unspecified Status: Acute Assessment and Plan: likely secondary to sepsis, intravascular depletion as patient was on Lasix and other medications like metformin creatinine improving with IV fluids maintain blood pressure monitor urine output and renal function. treat hyperkalemia Check renal ultrasound (4) Hyperkalemia: Code(s): E87.5 - Hyperkalemia Status: Acute Assessment and Plan: l likely secondary to acute kidney injury, metformin and patient also takes potassium p.o. and salt alternatives with potassium in it level is already improving with the treatment he received in ER. I will continue IV fluids and give patient a dose of Kayexalate recheck BMP in the evening (5) Elevated troponin: Code(s): R79.89 - Other specified abnormal findings of blood chemistry Status: Acute Assessment and Plan: mildly elevated troponin in the setting of acute kidney injury and septic shock likely type 2 non STEMI EKG reviewed denies having any chest pain or anginal equivalent continue statin aspirin and Eliquis Cardiology has been consulted by ER provider. recent echocardiogram 12/22/2019 (6) Acute encephalopathy: Code(s): G93.40 - Encephalopathy, unspecified Status: Resolved Assessment and Plan: likely toxic metabolic encephalopathy which has improved and patient is now alert oriented x3 (7) Hypothyroidism: Qualifiers: Hypothyroidism type: unspecified Qualified Code(s): E03.9 - Hypothyroidism, unspecified Code(s): E03.9 - Hypothyroidism, unspecified Status: Chronic Assessment and Plan: Continue levothyroxine (8) Obstructive sleep apnea: Code(s): G47.33 - Obstructive sleep apnea (adult) (pediatric) Status: Chronic Assessment and Plan: continue CPAP at night (9) GERD (gastroesophageal reflux disease): Qualifiers: Esophagitis presence: esophagitis presence not specified Qualified Code(s): K21.9 - Gastro-esophageal reflux disease without esophagitis Code(s): K21.9 - Gastro-esophageal reflux disease without esophagitis Status: Chronic Assessment and Plan: continue PPI therapy (10) CHF (congestive heart failure): Code(s): I50.9 - Heart failure, unspecified Status: Acute Assessment and Plan: patient has biventricular and both systolic and diastolic heart failure. he is overall volume overloaded as evident by lower extremity edema and scrotal edema probably from his right heart failure which is often from his severe pulmonary hypertension. Conservative IV fluids diuresis when renal function and blood pressure improves Summary 1. Left ventricular chamber dimension is moderately enlarged. 2. Left ventricular systolic function is normal, estimated at 55-60%. 3. The left ventricular diastolic function is abnormal. 4. E/e' 2
[2020-04-01] MEDS: PANTOPRAZOLE SOD SESQUIHYDRATE 20 MG TAB PO (09:39)
[2020-04-01] MEDS: SODIUM POLYSTYRENE SULFONONATE 15 GM/60 ML BTL PO (09:39)
[2020-04-01] MEDS: APIXABAN 2.5 MG TABLET PO (09:39)
[2020-04-01] MEDS: ROSUVASTATIN 10 MG TABLET PO (09:39)
[2020-04-01] MEDS: DOCUSATE SODIUM 100 MG CAPSULE PO (09:39)
--- NOTE | 2020-04-01 11:28 | WPDCN ---
Assessment and Plan Assessment and plan (1) Septic shock: Code(s): A41.9 - Sepsis, unspecified organism; R65.21 - Severe sepsis with septic shock Status: Acute Assessment and Plan: Septic shock probably secondary to UTI for secondary to indwelling Gleason catheter. Responding well to IV fluids and Levophed. Levophed held. (2) Atrial fibrillation: Qualifiers: Atrial fibrillation type: unspecified Qualified Code(s): I48.91 - Unspecified atrial fibrillation Code(s): I48.91 - Unspecified atrial fibrillation Status: Chronic Assessment and Plan: Previously PAF, now persistent atrial fibrillation as all EKGs show a fib in last several admissions. Rate controlled despite his septic shock , on carvedilol 25 mg b.i.d. at the care home. This has, of course, been held so we may have some issues with AFib rate control. Chronically anticoagulated with Eliquis; rec cont the 5 mg BID dose. ?Indication for ASA? Consider discontinuing it. Hopefully can resume carvedilol tmr. PRN IV Lopressor if needed overnight. (3) CHF exacerbation: Qualifiers: Heart failure type: combined systolic and diastolic Qualified Code(s): I50.43 - Acute on chronic combined systolic (congestive) and diastolic (congestive) heart failure Code(s): I50.9 - Heart failure, unspecified Status: Acute Assessment and Plan: History of chronic diastolic failure as well as right heart failure. Chest x-ray suggests mild volume overload /CHF. O2 requirements are low, only needing 2 L of O2 at this point. Will follow but patient does not need diuresis at this point. Will reduce IVF to 75 cc/Hr; hope to DC in a.m. (4) Elevated troponin: Code(s): R79.89 - Other specified abnormal findings of blood chemistry Status: Acute Assessment and Plan: Mildly elevated troponins, 0.0 4 and 0.059. No chest pain or ischemic EKG changes. Elevated troponins secondary to hypotension shock, no ACS. (5) Acute kidney injury: Code(s): N17.9 - Acute kidney failure, unspecified Status: Acute Assessment and Plan: Acute kidney injury secondary to hypotension check associated with hyperkalemia. Hopefully will improve in a few days with normalization of blood pressure and fluid resuscitation. Advised pt not to use the salt substitute (KCL) (6) Chronic respiratory failure: Qualifiers: Respiratory failure complication: unspecified whether with hypoxia or hypercapnia Qualified Code(s): J96.10 - Chronic respiratory failure, unspecified whether with hypoxia or hypercapnia Code(s): J96.10 - Chronic respiratory failure, unspecified whether with hypoxia or hypercapnia Status: Chronic Assessment and Plan: History of chronic respiratory failure, treated sleep apnea, severe pulmonary hypertension, right heart failure and COPD. (7) Catheter-associated urinary tract infection: Code(s): T83.511A - Infection and inflammatory reaction due to indwelling urethral catheter, initial encounter; N39.0 - Urinary tract infection, site not specified Status: Acute Assessment and Plan: On antibiotics. HPI Data of Consult Date/Time: 04/01/20 11:28 Requesting Physician: Margarito Benavidez MD Primary Care Provider: UNKNOWN,DOCTOR Consult Narrative Narrative: Date of service: 04/01/2020 Sterling Mallory is a 74 year old male My was asked to see at the request of Dr. Maher for my advice and opinion regarding his heart failure and septic shock in consultation. The patient is followed by Dr. Verde in our office (though last seen in 2015) for his history of atrial fibrillation, chronic anticoagulation, Diastolic CHF, right h
[2020-04-01 13:47] LABS: Glucose Point of Care 120 (65-105)
[2020-04-01] MEDS: SODIUM CHLORIDE 0.9% IV 1,000 ML 75 ML IV CONT (14:34)
--- NOTE | 2020-04-01 16:39 | PM.IMPN ---
Progress Note: A&P Assessment and Plan (1) Septic shock: Code(s): A41.9 - Sepsis, unspecified organism; R65.21 - Severe sepsis with septic shock Status: Acute Assessment and Plan: admit to ICU, telemetry, advanced manufacturing engineer has been consulted, continue IV antibiotics, blood + urine cultures pending, continue vasopressor support with Levophed. monitor urine output and vital signs closely. check reflex lactic acid. 04/01/20 16:39 patient is a 74-year-old male a resident of nursing morbidly obese with history combined systolic diastolic dysfunction, atrial fibrillation, acute kidney disease chronic respiratory failure on home oxygen, chronic indwelling Gleason catheter, patient states that his Gleason catheter has been causing more often than before, they have been replacing his catheter every 6 days, apparently patient was found confuse and altered mental status at the nursing he was sent to emergency department for further evaluate at the emergency department was more alert and oriented however he was found to hypotension most likely septic shock due to urinary tract infection, central line was placed in the emergency depart and started patient on Levophed to help with his blood pressure, patient is on Coreg for his chronic atrial fibrillation the medication is on hold at present time patient is seen by metal lather concerned about the heart rate, will get the patient Lopressor if needed to control the rate, patient with septic shock most likely secondary to UTI and being treated with Rocephin and vancomycin will follow-up on urine culture and further recommendation to follow, least his blood pressure is trending up patient is seen by intensive and metal lather. (2) Catheter-associated urinary tract infection: Code(s): T83.511A - Infection and inflammatory reaction due to indwelling urethral catheter, initial encounter; N39.0 - Urinary tract infection, site not specified Status: Acute Assessment and Plan: continue IV antibiotics, urine culture pending. (3) Acute on chronic renal failure: Code(s): N17.9 - Acute kidney failure, unspecified; N18.9 - Chronic kidney disease, unspecified Status: Acute Assessment and Plan: avoid nephrotoxin agents, renally dose medications, monitor urine output and renal function. (4) Hyperkalemia: Code(s): E87.5 - Hyperkalemia Status: Acute Assessment and Plan: likely secondary to acute renal failure. We will recheck potassium this morning. we will consider further calcium gluconate, dextrose and insulin, and sodium bicarbonate if needed. continue telemetry. (5) Elevated troponin: Code(s): R79.89 - Other specified abnormal findings of blood chemistry Status: Acute Assessment and Plan: rule out ACS. may be secondary to acute renal failure. Trend troponin. Telemetry. Cardiology has been consulted by ER provider. (6) Leukocytosis: Qualifiers: Leukocytosis type: unspecified Qualified Code(s): D72.829 - Elevated white blood cell count, unspecified Code(s): D72.829 - Elevated white blood cell count, unspecified Status: Acute Assessment and Plan: Secondary to sepsis and UTI. Monitor CBCD (7) Acute encephalopathy: Code(s): G93.40 - Encephalopathy, unspecified Status: Resolved Assessment and Plan: likely secondary to septic shock and catheter associated UTI. (8) Chronic anticoagulation: Code(s): Z79.01 - residential (current) use of anticoagulants Status: Acute Assessment and Plan: Continue Elquis therapy. (9) Chronic anemia: Code(s): D64.9 - Anemia, unspecified Status: Chronic Assessment and Plan: no signs of acute blood loss. Monitor H&H. Transfuse p.r.n.. (10) Chronic respiratory failure: Qualifiers: Respiratory failure complication: unspecified whether with hypoxia or hypercapnia Qualified Code(s): J
[2020-04-01 16:54] LABS: Anion Gap 7 mmol/L (8-16); Blood Urea Nitrogen 60 mg/dL (9-20); Calcium 8.4 mg/dL (8.4-10.2); Carbon Dioxide 24 mmol/L (22-30); Chloride 102 mmol/L (98-107); Estimated CRCL calculation 28 ml/min; Estimated Glomerular Filt Rate 21; Glucose 104 mg/dL (75-110); Sodium 133 mmol/L (137-145)
[2020-04-01] MEDS: MAGNESIUM SULF 2 GM/WATER 50ML 2 GM/50 ML BAG IVPB (17:11)
[2020-04-02] VITALS (15 sets, daily range): BP systolic 113–140; BP diastolic 45–68; PULSE 18–82; RESP 14–22; TEMP 36.7–37; O2SAT 96–100; BMI 60.4
[2020-04-02] MEDS: APIXABAN 5 MG TABLET PO ×3 (00:13→20:45)
[2020-04-02] MEDS: DOCUSATE SODIUM 100 MG CAPSULE PO ×3 (00:13→20:45)
[2020-04-02] MEDS: SODIUM CHLORIDE 0.9% IV 1,000 ML 50 ML IV CONT (00:13)
[2020-04-02 06:29] LABS: Basophils Percent Auto 0.3 % (0.2-1.2); Eosinophils Absolute Auto 0.2 K/mm3 (0-0.3); Eosinophils Percent Auto 1.8 % (0-4.4); Hematocrit 30.3 % (42.0-52.0); Hemoglobin 9.3 g/dL (14.0-18.0); Immature Granulocyte Absolute 0.23 K/mm3 (0.00-0.031); Immature Granulocyte Percent A 2.2 % (0-0.5); Lymphocytes Absolute Auto 0.81 K/mm3 (0.9-3.2); Lymphocytes Percent Auto 7.7 % (18.3-44.2); Mean Corpuscular HGB Conc 30.7 g/dl (32-36); Mean Corpuscular Hemoglobin 29.2 pg (26-34); Mean Corpuscular Volume 95.3 fl (80-100); Mean Platelet Volume 10.4 fl (7.4-10.4); Monocytes Absolute Auto 0.8 K/mm3 (0.1-0.6); Monocytes Percent Auto 7.1 % (2.6-8.5); Neutrophils Absolute Auto 8.6 K/mm3 (1.3-6.7); Neutrophils Percent Auto 80.9 % (45.5-73.1); Platelet Count Result 108 k/mm3 (150-375); Red Blood Count 3.18 M/mm3 (4.6-6.20); Red Cell Distribution Width 17.3 % (11.5-14.5); White Blood Count 10.6 K/mm3 (4.5-10.0)
[2020-04-02 06:49] LABS: Alanine Aminotransferase 31 U/L (4-50); Albumin Level 3.1 g/dL (3.5-5.1); Alkaline Phosphatase 42 U/L (38-126); Anion Gap 8 mmol/L (8-16); Aspartate Amino Transferase 66 U/L (17-59); Bilirubin,Total 0.4 mg/dL (0.2-1.3); Blood Urea Nitrogen 59 mg/dL (9-20); Calcium 8.4 mg/dL (8.4-10.2); Carbon Dioxide 23 mmol/L (22-30); Chloride 104 mmol/L (98-107); Estimated CRCL calculation 32 ml/min; Estimated Glomerular Filt Rate 24; Glucose 109 mg/dL (75-110); Magnesium 2.3 mg/dL (1.6-2.3); Potassium 4.7 mmol/L (3.4-5.0); Sodium 135 mmol/L (137-145)
--- NOTE | 2020-04-02 08:31 | WPDINTPN ---
Progress Note: A&P Assessment and Plan (1) Septic shock: Code(s): A41.9 - Sepsis, unspecified organism; R65.21 - Severe sepsis with septic shock Status: Acute Assessment and Plan: secondary to urinary tract infection patient received conservative IV fluid bolus due to history of congestive heart failure and overall volume overload Levophed infusion titrate to maintain map of 65 but has not required since yesterday morning culture sent and pending continue broad-spectrum antibiotics with discontinue vancomycin if blood cultures stay negative in 48 hours (2) Catheter-associated urinary tract infection: Code(s): T83.511A - Infection and inflammatory reaction due to indwelling urethral catheter, initial encounter; N39.0 - Urinary tract infection, site not specified Status: Acute Assessment and Plan: continue IV antibiotics, urine culture pending. (3) Acute on chronic renal failure: Code(s): N17.9 - Acute kidney failure, unspecified; N18.9 - Chronic kidney disease, unspecified Status: Acute Assessment and Plan: likely secondary to sepsis, intravascular depletion as patient was on Lasix and other medications like metformin creatinine improving with IV fluids maintain blood pressure monitor urine output and renal function. treated hyperkalemia yesterday and has resolved now Renal ultrasound shows bilateral renal atrophy (4) Hyperkalemia: Code(s): E87.5 - Hyperkalemia Status: Acute Assessment and Plan: l likely secondary to acute kidney injury, metformin and patient also takes potassium p.o. and salt alternatives with potassium in it patient was treated with medications and then given dose of Kayexalate in ICU potassium level normal this morning monitor (5) Elevated troponin: Code(s): R79.89 - Other specified abnormal findings of blood chemistry Status: Acute Assessment and Plan: mildly elevated troponin in the setting of acute kidney injury and septic shock likely type 2 non STEMI EKG reviewed denies having any chest pain or anginal equivalent continue statin aspirin and Eliquis Cardiology has been consulted by ER provider. recent echocardiogram 12/22/2019 (6) Acute encephalopathy: Code(s): G93.40 - Encephalopathy, unspecified Status: Resolved Assessment and Plan: likely toxic metabolic encephalopathy which has improved and patient is now alert oriented x3 (7) Hypothyroidism: Qualifiers: Hypothyroidism type: unspecified Qualified Code(s): E03.9 - Hypothyroidism, unspecified Code(s): E03.9 - Hypothyroidism, unspecified Status: Chronic Assessment and Plan: Continue levothyroxine (8) Obstructive sleep apnea: Code(s): G47.33 - Obstructive sleep apnea (adult) (pediatric) Status: Chronic Assessment and Plan: continue CPAP at night (9) GERD (gastroesophageal reflux disease): Qualifiers: Esophagitis presence: esophagitis presence not specified Qualified Code(s): K21.9 - Gastro-esophageal reflux disease without esophagitis Code(s): K21.9 - Gastro-esophageal reflux disease without esophagitis Status: Chronic Assessment and Plan: continue PPI therapy (10) CHF (congestive heart failure): Code(s): I50.9 - Heart failure, unspecified Status: Acute Assessment and Plan: patient has biventricular and both systolic and diastolic heart failure. he is overall volume overloaded as evident by lower extremity edema and scrotal edema probably from his right heart failure which is often from his severe pulmonary hypertension. Conservative IV fluids diuresis when renal function and blood pressure improves Summary 1. Left ventricular chamber dimension is moderately enlarged. 2. Left ventricular systolic function is normal, estimated at 55-60%. 3. The left ventricular diastolic function is abnorma
[2020-04-02] MEDS: LEVOTHYROXINE SODIUM 125 MCG TABLET PO (09:09)
[2020-04-02] MEDS: ASPIRIN 325 MG TABLET PO (10:01)
[2020-04-02] MEDS: PANTOPRAZOLE SOD SESQUIHYDRATE 20 MG TAB PO (10:02)
[2020-04-02] MEDS: ROSUVASTATIN 10 MG TABLET PO (10:02)
[2020-04-02] MEDS: MINERAL OIL 30 ML UDC 15 ML PO ×2 (10:04→20:44)
[2020-04-02] MEDS: PSYLLIUM POWDER PACKET 1 PACKET PO ×2 (10:04→20:44)
[2020-04-02 11:02] LABS: Glucose Point of Care 108 (65-105)
[2020-04-02] MEDS: HYDROcodone/acetaminophen (*CRX) 5-325 MG TABLET 1 TAB PO ×2 (11:03→17:21)
--- NOTE | 2020-04-02 12:45 | PC.NURSE ---
This patient, Sterling Mallory, was received from ICU on 04/02/20 at 1245. Personal belongings list checked and signed. Patient/family oriented to unit policies and routines. Report received from Wenceslao in ICU.
--- NOTE | 2020-04-02 12:45 | PC.NURSE ---
This patient, Sterling Mallory, was transferred to [ ] on 04/02/20 at 1336. Personal belongings sent with patient. Belongings list checked and signed with receiving [ ]. Report given to [ ]. Appropriate documentation sent with patient.
[2020-04-02 13:04] LABS: Glucose Point of Care 138 (65-105)
--- NOTE | 2020-04-02 13:37 | PC.NURSE ---
This patient, Sterling Mallory, was transferred to [facility] via bed on 04/02/20 at 1245. No issues noted. Personal belongings and BiPaP sent with patient. Belongings list sent also. Report given to SERGO Sparks. Appropriate documentation sent with patient.
--- NOTE | 2020-04-02 13:40 | PM.IMPN ---
Progress Note: A&P Assessment and Plan (1) Septic shock: Code(s): A41.9 - Sepsis, unspecified organism; R65.21 - Severe sepsis with septic shock Status: Acute Assessment and Plan: 04/02/20 13:40 admit to ICU, telemetry, deck steward has been consulted, continue IV antibiotics, blood + urine cultures pending, continue vasopressor support with Levophed. monitor urine output and vital signs closely. check reflex lactic acid. 04/01/20 16:39 patient is a 74-year-old male a resident of nursing morbidly obese with history combined systolic diastolic dysfunction, atrial fibrillation, acute kidney disease chronic respiratory failure on home oxygen, chronic indwelling Gleason catheter, patient states that his Gleason catheter has been clogging more often than before, they have been replacing his catheter every 6 days, apparently patient was found confused and altered mental status at the shelter and he was sent to emergency department for further evaluate, at the emergency department he was more alert and oriented however he was found to ahve hypotension most likely septic shock due to urinary tract infection, central line was placed in the emergency depart and started patient on Levophed to help with his blood pressure, patient is on Coreg for his chronic atrial fibrillation the medication was placed on hold, patient was seen by medical records secretary concerned about the heart rate, the patient was placed on Lopressor if needed to control the rate, patient with septic shock most likely secondary to UTI and being treated with Rocephin and vancomycin. n 04/02 patient is off Levophed his blood pressure is stable, is more alert and oriented, he denies any chest pain shortness of breath palpitation fever or chills, his urine culture is growing E coli and Citrobacter koseri will continue Rocephin and vancomycin and follow-up and sensitivity, also today 04/02 patient is clinically stable will transfer patient out of ICU medical floor with tele, patient be seen by his Cardiology, now patient with persistent atrial fibrillation, he was on Coreg 25 mg b.i.d. at shelter, which was held because of hypotension, medical records secretary have resumed at lower does 3.125 b.i.d. and will up titrate up as BP allows, patient is clinically stable and has no other complaints and further recommendation to follow (2) Catheter-associated urinary tract infection: Code(s): T83.511A - Infection and inflammatory reaction due to indwelling urethral catheter, initial encounter; N39.0 - Urinary tract infection, site not specified Status: Acute Assessment and Plan: continue IV antibiotics, urine culture pending. (3) Acute on chronic renal failure: Code(s): N17.9 - Acute kidney failure, unspecified; N18.9 - Chronic kidney disease, unspecified Status: Acute Assessment and Plan: avoid nephrotoxin agents, renally dose medications, monitor urine output and renal function. (4) Hyperkalemia: Code(s): E87.5 - Hyperkalemia Status: Acute Assessment and Plan: likely secondary to acute renal failure. We will recheck potassium this morning. we will consider further calcium gluconate, dextrose and insulin, and sodium bicarbonate if needed. continue telemetry. (5) Elevated troponin: Code(s): R79.89 - Other specified abnormal findings of blood chemistry Status: Acute Assessment and Plan: rule out ACS. may be secondary to acute renal failure. Trend troponin. Telemetry. Cardiology has been consulted by ER provider. (6) Leukocytosis: Qualifiers: Leukocytosis type: unspecified Qualified Code(s): D72.829 - Elevated white blood cell count, unspecified Code(s): D72.829 - Elevated white blood cell count, unspecified Status: Acute Assessment and Plan: Secondary to sepsis and UTI. Monitor CBCD (7) Acute encephalopathy: Code(s): G93.40 - Encephalopathy, unspecified
--- NOTE | 2020-04-02 14:09 | PM.PNCARD ---
Progress Note: A&P Assessment and Plan (1) Septic shock: Code(s): A41.9 - Sepsis, unspecified organism; R65.21 - Severe sepsis with septic shock Status: Acute Assessment and Plan: Septic shock probably secondary to UTI for secondary to indwelling Gleason catheter. Responding well to IV fluids and Levophed. Levophed has been off for 24 hours. Now on IV fluids at 75 cc an hour. (2) Atrial fibrillation: Qualifiers: Atrial fibrillation type: unspecified Qualified Code(s): I48.91 - Unspecified atrial fibrillation Code(s): I48.91 - Unspecified atrial fibrillation Status: Chronic Assessment and Plan: Previously PAF, now persistent atrial fibrillation as all EKGs show a fib in last several admissions. Rate was controlled despite his septic shock. On carvedilol 25 mg b.i.d. at the correction. This was of course held due to hypotension. so we Heart rate continues to be controlled. Restart carvedilol at 3.125 mg every 12 hours starting with this evening's dose (holding parameters). Will up titrate as blood pressure allows. Chronically anticoagulated with Eliquis; recommend continue the 5 mg BID dose. Discontinue aspirin 325 mg daily. Not sure he has an indication for aspirin at all. PRN IV Lopressor if needed overnight. (3) CHF exacerbation: Qualifiers: Heart failure type: combined systolic and diastolic Qualified Code(s): I50.43 - Acute on chronic combined systolic (congestive) and diastolic (congestive) heart failure Code(s): I50.9 - Heart failure, unspecified Status: Acute Assessment and Plan: History of chronic diastolic failure as well as right heart failure. Chest x-ray suggests mild volume overload /CHF. O2 requirements are low. On his chronic home dose at 2 L. Lungs are clear to auscultation. Will follow . Does not need diuresis at this point. IV fluids as above. Will stop fluid in the morning. (4) Elevated troponin: Code(s): R79.89 - Other specified abnormal findings of blood chemistry Status: Acute Assessment and Plan: Mildly elevated troponins, 0.0 4 and 0.059. No chest pain or ischemic EKG changes. Elevated troponins secondary to hypotension shock, no ACS. Stop aspirin as above (5) Acute kidney injury: Code(s): N17.9 - Acute kidney failure, unspecified Status: Acute Assessment and Plan: Acute kidney injury secondary to hypotension with associated hyperkalemia. Improving with normalization of blood pressure and fluid resuscitation. Advised pt not to use the salt substitute (KCL) (6) Chronic respiratory failure: Qualifiers: Respiratory failure complication: unspecified whether with hypoxia or hypercapnia Qualified Code(s): J96.10 - Chronic respiratory failure, unspecified whether with hypoxia or hypercapnia Code(s): J96.10 - Chronic respiratory failure, unspecified whether with hypoxia or hypercapnia Status: Chronic Assessment and Plan: History of chronic respiratory failure, treated sleep apnea, severe pulmonary hypertension, right heart failure and COPD. (7) Catheter-associated urinary tract infection: Code(s): T83.511A - Infection and inflammatory reaction due to indwelling urethral catheter, initial encounter; N39.0 - Urinary tract infection, site not specified Status: Acute Assessment and Plan: On antibiotics. Management per hospitalist Additional Plan Plan discussed with Dr. Smith [id number] 04/02/2020 Subjective Date/time seen: 04/02/20 14:09 Interval history: Follow-up for: Septic shock, atrial fibrillation, chronic diastolic heart failure, morbid obesity, respi
[2020-04-02] MEDS: ALBUMIN HUMAN 25% 25 GM/100 ML 100 ML IVPB ×2 (15:16→23:57)
[2020-04-02 16:16] LABS: Glucose Point of Care 132 (65-105)
[2020-04-02] MEDS: SODIUM CHLORIDE 0.9% IV 1,000 ML 75 ML IV CONT (20:41)
[2020-04-02] MEDS: carvediloL 3.125 MG TABLET PO (20:46)
[2020-04-02 20:55] LABS: Glucose Point of Care 105 (65-105)
[2020-04-03] VITALS (14 sets, daily range): BP systolic 116–151; BP diastolic 45–80; PULSE 52–81; RESP 16–21; TEMP 36.7–37.3; O2SAT 94–99
[2020-04-03] MEDS: HYDROcodone/acetaminophen (*CRX) 5-325 MG TABLET 1 TAB PO ×3 (02:06→17:35)
[2020-04-03] MEDS: ALBUMIN HUMAN 25% 25 GM/100 ML 100 ML IVPB ×2 (05:56→11:59)
[2020-04-03] MEDS: LEVOTHYROXINE SODIUM 125 MCG TABLET PO (05:56)
[2020-04-03 06:20] LABS: Hematocrit 28.7 % (42.0-52.0); Hemoglobin 8.9 g/dL (14.0-18.0); Mean Corpuscular Hemoglobin 29.5 pg (26-34); Mean Platelet Volume 10.3 fl (7.4-10.4); Platelet Count Result 100 k/mm3 (150-375); Red Blood Count 3.02 M/mm3 (4.6-6.20); White Blood Count 6.6 K/mm3 (4.5-10.0)
[2020-04-03 06:41] LABS: Magnesium 2.3 mg/dL (1.6-2.3)
[2020-04-03 07:34] LABS: Glucose Point of Care 127 (65-105)
[2020-04-03] MEDS: PANTOPRAZOLE SOD SESQUIHYDRATE 20 MG TAB PO (09:31)
[2020-04-03] MEDS: PSYLLIUM POWDER PACKET 1 PACKET PO (09:31)
[2020-04-03] MEDS: carvediloL 3.125 MG TABLET PO ×2 (09:31→20:44)
[2020-04-03] MEDS: MINERAL OIL 30 ML UDC 15 ML PO ×2 (09:31→20:45)
[2020-04-03] MEDS: DOCUSATE SODIUM 100 MG CAPSULE PO ×2 (09:31→20:44)
[2020-04-03] MEDS: APIXABAN 5 MG TABLET PO ×2 (09:31→20:44)
[2020-04-03] MEDS: ROSUVASTATIN 10 MG TABLET PO (09:32)
--- NOTE | 2020-04-03 09:45 | PM.PNCARD ---
Progress Note: A&P Assessment and Plan (1) Septic shock: Code(s): A41.9 - Sepsis, unspecified organism; R65.21 - Severe sepsis with septic shock Status: Acute Assessment and Plan: Septic shock resolved secondary to UTI for secondary to indwelling Gleason catheter. IVF and Albumin. Off pressors. May be able to back off on IVF, but labs pending this AM. BP stable. (2) Atrial fibrillation: Qualifiers: Atrial fibrillation type: unspecified Qualified Code(s): I48.91 - Unspecified atrial fibrillation Code(s): I48.91 - Unspecified atrial fibrillation Status: Chronic Assessment and Plan: Persistent atrial fibrillation, HR controlled on Coreg 3.125mg BID (was on carvedilol 25 mg b.i.d. at the shelter). Continue Eliquis 5 mg BID. (3) CHF exacerbation: Qualifiers: Heart failure type: combined systolic and diastolic Qualified Code(s): I50.43 - Acute on chronic combined systolic (congestive) and diastolic (congestive) heart failure Code(s): I50.9 - Heart failure, unspecified Status: Acute Assessment and Plan: History of chronic diastolic and right heart failure. Caution with overly aggressive IVF. Check CXR. Stable from resp perspective, clinically not volume overloaded on exam. Repeat CXR tomorrow. Chronic home dose at 2 L. D/C IVF if renal function improving. BP now quite stable. Avoid volume overload given his history. Hold on diuretics at this time, was on Lasix 40mg daily outside hospital. (4) Elevated troponin: Code(s): R79.89 - Other specified abnormal findings of blood chemistry Status: Acute Assessment and Plan: Type II infarct, not ACS/plaque rupture. Mildly elevated troponins, 0.04, 0.059, no anginal sxs. Elevated troponins secondary to hypotension shock, no ACS. (5) Acute kidney injury: Code(s): N17.9 - Acute kidney failure, unspecified Status: Acute Assessment and Plan: Acute kidney injury secondary to hypotension with associated hyperkalemia. Improving with normalization of blood pressure and fluid resuscitation. (6) Chronic respiratory failure: Qualifiers: Respiratory failure complication: unspecified whether with hypoxia or hypercapnia Qualified Code(s): J96.10 - Chronic respiratory failure, unspecified whether with hypoxia or hypercapnia Code(s): J96.10 - Chronic respiratory failure, unspecified whether with hypoxia or hypercapnia Status: Chronic Assessment and Plan: History of chronic respiratory failure, treated sleep apnea, severe pulmonary hypertension, right heart failure and COPD. (7) Catheter-associated urinary tract infection: Code(s): T83.511A - Infection and inflammatory reaction due to indwelling urethral catheter, initial encounter; N39.0 - Urinary tract infection, site not specified Status: Acute Assessment and Plan: On antibiotics. Management per hospitalist Subjective Date/time seen: Date of service: 04/03/20 09:45 Interval history: Follow-up for: Septic shock, atrial fibrillation, chronic diastolic heart failure, morbid obesity, respiratory failure, sleep apnea elevated troponin, acute kidney injury, chronic Gleason catheter, catheter associated UTI Subjective: Complains of severe back pain and spasms. Had a difficult night last night due to pain. Unable to get comfortable. Denies chest pain or shortness of breath. Heart rate controlled on telemetry in atrial fibrillation. Denies palpitations. Review of Systems Constitutional: Constitutional: Reports difficulty sleeping ( CPAP) and Reports weakness ( Wheelchair-bound) Eyes: Eyes: Reports no additional eye complaints ENT: Den
[2020-04-03 09:59] LABS: Anion Gap 7 mmol/L (8-16); Blood Urea Nitrogen 51 mg/dL (9-20); Calcium 8.5 mg/dL (8.4-10.2); Carbon Dioxide 21 mmol/L (22-30); Chloride 108 mmol/L (98-107); Estimated CRCL calculation 58 ml/min; Estimated Glomerular Filt Rate 40; Glucose 118 mg/dL (75-110); Potassium 4.9 mmol/L (3.4-5.0); Sodium 136 mmol/L (137-145)
[2020-04-03 12:23] LABS: Glucose Point of Care 101 (65-105)
[2020-04-03 13:52] LABS: SARS-CoV-2 RNA PCR Negative
[2020-04-03] MEDS: CENTRAL LINE FLUSH 10 ML IV PUSH ×2 (14:00→20:47)
--- NOTE | 2020-04-03 14:33 | PM.IMPN ---
Progress Note: A&P Assessment and Plan (1) Septic shock: Code(s): A41.9 - Sepsis, unspecified organism; R65.21 - Severe sepsis with septic shock Status: Acute Assessment and Plan: 04/03/20 14:33 admit to ICU, telemetry, mate chief has been consulted, continue IV antibiotics, blood + urine cultures pending, continue vasopressor support with Levophed. monitor urine output and vital signs closely. check reflex lactic acid. 04/01/20 16:39 patient is a 74-year-old male a resident of nursing morbidly obese with history combined systolic diastolic dysfunction, atrial fibrillation, acute kidney disease chronic respiratory failure on home oxygen, chronic indwelling Gleason catheter, patient states that his Gleason catheter has been clogging more often than before, they have been replacing his catheter every 6 days, apparently patient was found confused and [facility] status at the [facility] and he was sent to emergency department for further evaluate, at the emergency department he was more alert and oriented however he was found to ahve hypotension most likely septic shock due to urinary tract infection, central line was placed in the emergency depart and started patient on Levophed to help with his blood pressure, patient is on Coreg for his chronic atrial fibrillation the medication was placed on hold, patient was seen by equities trader concerned about the heart rate, the patient was placed on Lopressor if needed to control the rate, patient with septic shock most likely secondary to UTI and being treated with Rocephin and vancomycin. n 04/02 patient is off Levophed his blood pressure is stable, is more alert and oriented, he denies any chest pain shortness of breath palpitation fever or chills, his urine culture is growing E coli and Citrobacter koseri will continue Rocephin and vancomycin and follow-up and sensitivity, also today 04/03 patient is clinically stable he was transferred patient out of ICU medical floor with tele on 04/02, patient be seen by his Cardiology, now patient with persistent atrial fibrillation, he was on Coreg 25 [facility] b[facility]i.d. at [facility], which was held because of hypotension, equities trader have resumed at lower does 3.125 b.i.d. and his HR is stable close to normal, will up titrate up as BP allows if HR keeps climbing, Patient base creatinine is 1.3 and it elevated to 3.1 and being gently hydrated and today his crete in 1.7, will monitor avoid volume overload, c/o low back pain will continue home regiment and add Lidoderm patches, patient is clinically stable and has no other complaints and further recommendation to follow (2) Catheter-associated urinary tract infection: Code(s): T83.511A - Infection and inflammatory reaction due to indwelling urethral catheter, initial encounter; N39.0 - Urinary tract infection, site not specified Status: Acute Assessment and Plan: continue IV antibiotics, urine culture pending. (3) Acute on chronic renal failure: Code(s): N17.9 - Acute kidney failure, unspecified; N18.9 - Chronic kidney disease, unspecified Status: Acute Assessment and Plan: avoid nephrotoxin agents, renally dose medications, monitor urine output and renal function. (4) Hyperkalemia: Code(s): E87.5 - Hyperkalemia Status: Acute Assessment and Plan: likely secondary to acute renal failure. We will recheck potassium this morning. we will consider further calcium gluconate, dextrose and insulin, and sodium bicarbonate if needed. continue telemetry. (5) Elevated troponin: Code(s): R79.89 - Other specified abnormal findings of blood chemistry Status: Acute Assessment and Plan: rule out ACS. may be secondary to acute renal failure. Trend troponin. Telemetry. Cardiology has been consulted by ER provider. (6) Leukocytosis: Qualifiers: Leukocytosis type: unspecified Qualified Code(s): D72.829 - Elevated
[2020-04-03] MEDS: OLOPATADINE 0.1% OPHTH SOLN 5 ML BTL 1 DROP EACH EYE (17:36)
[2020-04-03] MEDS: LATANOPROST 0.005% OP SOLN 2.5 ML BTL 1 DROP EACH EYE (17:36)
[2020-04-03 18:50] LABS: Glucose Point of Care 108 (65-105)
[2020-04-03] MEDS: MELATONIN 5 MG TABLET 10 MG PO (20:44)
[2020-04-03] MEDS: PSYLLIUM SUGAR FREE POWDER PACKET 1 PACKET PO (20:45)
[2020-04-03 21:15] LABS: Glucose Point of Care 108 (65-105)
[2020-04-04] VITALS (9 sets, daily range): BP systolic 119–137; BP diastolic 51–65; PULSE 67–77; RESP 16–20; TEMP 37.2–37.6; O2SAT 94–98
[2020-04-04 01:01] LABS: Vancomycin Trough 10.8 ug/mL (10.0-20.0)
[2020-04-04] MEDS: HYDROcodone/acetaminophen (*CRX) 5-325 MG TABLET 1 TAB PO ×2 (01:08→10:37)
[2020-04-04] MEDS: LEVOTHYROXINE SODIUM 125 MCG TABLET PO (05:59)
[2020-04-04] MEDS: CENTRAL LINE FLUSH 10 ML IV PUSH (06:00)
[2020-04-04 06:12] LABS: Hematocrit 28.8 % (42.0-52.0); Hemoglobin 8.7 g/dL (14.0-18.0); Mean Corpuscular HGB Conc 30.2 g/dl (32-36); Mean Platelet Volume 9.7 fl (7.4-10.4); Platelet Count Result 103 k/mm3 (150-375); Red Cell Distribution Width 16.8 % (11.5-14.5); White Blood Count 5.9 K/mm3 (4.5-10.0)
[2020-04-04 06:43] LABS: Anion Gap 4 mmol/L (8-16); Blood Urea Nitrogen 39 mg/dL (9-20); Calcium 8.5 mg/dL (8.4-10.2); Carbon Dioxide 25 mmol/L (22-30); Chloride 107 mmol/L (98-107); Estimated CRCL calculation 61 ml/min; Estimated Glomerular Filt Rate 43; Glucose 111 mg/dL (75-110); Magnesium 2.3 mg/dL (1.6-2.3); Potassium 4.8 mmol/L (3.4-5.0); Sodium 136 mmol/L (137-145)
[2020-04-04 07:29] LABS: Glucose Point of Care 100 (65-105)
[2020-04-04] MEDS: LIDOCAINE 5% PATCH 3 PATCH TRANSDERM (10:04)
[2020-04-04] MEDS: DOCUSATE SODIUM 100 MG CAPSULE PO (10:05)
[2020-04-04] MEDS: FENOFIBRATE NANOCRYSTALLIZED 145 MG TABLET PO (10:05)
[2020-04-04] MEDS: PANTOPRAZOLE SOD SESQUIHYDRATE 20 MG TAB PO (10:05)
[2020-04-04] MEDS: carvediloL 3.125 MG TABLET PO (10:05)
[2020-04-04] MEDS: FLUTICASONE PROPIONATE 0.05% NA SPR 16 GM BTL (*BKC) 1 SPRAY NASAL (10:05)
[2020-04-04] MEDS: APIXABAN 5 MG TABLET PO (10:05)
[2020-04-04] MEDS: PSYLLIUM SUGAR FREE POWDER PACKET 1 PACKET PO (10:06)
[2020-04-04] MEDS: MAGNESIUM OXIDE 400 MG TABLET PO (10:06)
[2020-04-04] MEDS: ROSUVASTATIN 10 MG TABLET PO (10:06)
[2020-04-04] MEDS: OLOPATADINE 0.1% OPHTH SOLN 5 ML BTL 1 DROP EACH EYE (10:06)
[2020-04-04] MEDS: ASPIRIN 81 MG ENTERIC TABLET PO (10:06)
[2020-04-04] MEDS: MINERAL OIL 30 ML UDC 15 ML PO (10:06)
--- NOTE | 2020-04-04 10:19 | PM.DS ---
DS: Admitting Diagnosis Admitting Diagnosis Admitting Diagnosis: Septic shock, UTI DS: Discharge Diagnosis Discharge Diagnosis (1) Septic shock: Code(s): A41.9 - Sepsis, unspecified organism; R65.21 - Severe sepsis with septic shock Status: Acute Assessment and Plan: 04/03/20 14:33 admit to ICU, telemetry, sales representative door to door has been consulted, continue IV antibiotics, blood + urine cultures pending, continue vasopressor support with Levophed. monitor urine output and vital signs closely. check reflex lactic acid. 04/01/20 16:39 patient is a 74-year-old male a resident of nursing morbidly obese with history combined systolic diastolic dysfunction, atrial fibrillation, acute kidney disease chronic respiratory failure on home oxygen, chronic indwelling Gleason catheter, patient states that his Gleason catheter has been clogging more often than before, they have been replacing his catheter every 6 days, apparently patient was found confused and altered mental status at the [facility] and he was sent to emergency department for further evaluate, at the emergency department he was more alert and oriented however he was found to ahve hypotension most likely septic shock due to urinary tract infection, central line was placed in the emergency depart and started patient on Levophed to help with his blood pressure, patient is on Coreg for his chronic atrial fibrillation the medication was placed on hold, patient was seen by thermostat machine tender concerned about the heart rate, the patient was placed on Lopressor if needed to control the rate, patient with septic shock most likely secondary to UTI and being treated with Rocephin and vancomycin. n 04/02 patient is off Levophed his blood pressure is stable, is more alert and oriented, he denies any chest pain shortness of breath palpitation fever or chills, his urine culture is growing E coli and Citrobacter koseri will continue Rocephin and vancomycin and follow-up and sensitivity, also today 04/03 patient is clinically stable he was transferred patient out of ICU medical floor with tele on 04/02, patient be seen by his Cardiology, now patient with persistent atrial fibrillation, he was on Coreg 25 mg b.i.d. at [facility], which was held because of hypotension, thermostat machine tender have resumed at lower does 3.125 b.i.d. and his HR is stable close to normal, will up titrate up as BP allows if HR keeps climbing, Patient base creatinine is 1.3 and it elevated to 3.1 and being gently hydrated and today his crete in 1.7, will monitor avoid volume overload, c/o low back pain will continue home regiment and add Lidoderm patches, patient is clinically stable and has no other complaints and further recommendation to follow (2) Catheter-associated urinary tract infection: Code(s): T83.511A - Infection and inflammatory reaction due to indwelling urethral catheter, initial encounter; N39.0 - Urinary tract infection, site not specified Status: Acute Assessment and Plan: continue IV antibiotics, urine culture pending. (3) Acute on chronic renal failure: Code(s): N17.9 - Acute kidney failure, unspecified; N18.9 - Chronic kidney disease, unspecified Status: Acute Assessment and Plan: avoid nephrotoxin agents, renally dose medications, monitor urine output and renal function. (4) Hyperkalemia: Code(s): E87.5 - Hyperkalemia Status: Acute Assessment and Plan: likely secondary to acute renal failure. We will recheck potassium this morning. we will consider further calcium gluconate, dextrose and insulin, and sodium bicarbonate if needed. continue telemetry. (5) Elevated troponin: Code(s): R79.89 - Other specified abnormal findings of blood chemistry Status: Acute Assessment and Plan: rule out ACS. may be secondary to acute renal failure. Trend troponin. Telemetry. Cardiology has been consulted by ER provider. (6) Leukocytosis:
[2020-04-04] MEDS: NEOMYCIN/POLYMYXIN/BACITRACIN OINTMENT PACKET 1 PACKET (10:44)
[2020-04-04 11:49] LABS: Glucose Point of Care 109 (65-105)
== END 2020-04-04 16:27 | DRG 698 ==
LOC: ANHED 02:56 → ANHICU 17:45 → ANH2MED 04-04 08:44 → ANHICU 04-07 14:13
PROVIDERS: Internal Medicine; Admitting Provider Family Medicine; Emergency Provider Emergency Medicine; PCP Family Medicine; Visit Provider Family Medicine
DX: T83.511A Infection and inflammatory reaction due to indwelling urethral catheter, initial encounter (principal); A41.9 Sepsis, unspecified organism; R65.21 Severe sepsis with septic shock; N17.9 Acute kidney failure, unspecified; J96.10 Chronic respiratory failure, unspecified whether with hypoxia or hypercapnia; G93.40 Encephalopathy, unspecified; I50.42 Chronic combined systolic (congestive) and diastolic (congestive) heart failure; N39.0 Urinary tract infection, site not specified; E87.5 Hyperkalemia; J44.9 Chronic obstructive pulmonary disease, unspecified; Z99.81 Dependence on supplemental oxygen; D64.9 Anemia, unspecified; E03.9 Hypothyroidism, unspecified; G47.33 Obstructive sleep apnea (adult) (pediatric); E11.8 Type 2 diabetes mellitus with unspecified complications; I48.91 Unspecified atrial fibrillation; Z20.828 Contact with and (suspected) exposure to other viral communicable diseases
CPT/HCPCS: 36415; 36556; 36600; 51700; 51702; 51703; 71045; 76775; 80048; 80053; 80202; 81001; 82140; 82805; 82948; 83605; 83735; 83880; 84443; 84484; 85025; 85027; 85610; 85730; 87040; 87077; 87086; 87088; 87186; 87635; 93005; 96374; 97162; 97166; 99284; 99291; A9270; C1751; C9803; J0610; J0696; J1815; J2270; J3010; J3370; J3475; J7030; P9047; U0003

== ENCOUNTER 2020-04-29 00:16 | Day surgery (SDC) | payer MEDICARE, BC, MEDICAID, SELFPAY ==
[2020-04-21 10:33] VITALS: BMI 49.4
--- NOTE | 2020-04-29 06:54 | WPDHPUPDATE1 ---
History and Physical Update Update Date/Time: 04/29/20 06:54 History and Physical has been reviewed, including an updated exam of the patient. There are NO changes in the patient's condition. Risks, benefits, and alternatives have been discussed and questions answered. Patient agrees to proceed with procedure.
[2020-04-29 08:07] VITALS: BP 159/79; PULSE 65; RESP 16; TEMP 37; O2SAT 100
[2020-04-29 08:20] LABS: Glucose Point of Care 88 (65-105)
--- NOTE | 2020-04-29 08:44 | WPDANESEPPF ---
Anes - Initial Pre Proc Eval Procedure: Operation Date: 04/29/20 09:30 Proposed Procedures p Diagnostic Cystoscopy - Cesar Ornelas MD Date/Time: 04/29/20 08:44 Surgeon: Cesar Ornelas MD Pre Op Diagnosis: chronic UTI, atonic bladder Patient Data Age: 74 Gender: M Height: 5 ft 7 in Weight: 143 kg Allergies Allergy/AdvReac Type Severity Reaction Status Date / Time bacitracin Allergy Unknown Rash Verified 04/21/20 09:23 Penicillins Allergy Unknown Rash Verified 04/21/20 09:23 Home Medications Medication Instructions Recorded Confirmed Type Artificial Tears (PF) 1 drp OPHTHALMIC (EYE) Q6H PRN 12/21/19 04/21/20 History Eliquis 5 mg PO BID 12/21/19 04/21/20 History Januvia 100 mg PO HS 12/21/19 04/21/20 History Myrbetriq 50 mg PO DAILY 12/21/19 04/21/20 History Refresh Tears 1 drp OPHTHALMIC (EYE) BID 12/21/19 04/21/20 History Robitussin Cough-Chest Agustin DM 10 ml PO Q6H PRN 12/21/19 04/21/20 History Spiriva Respimat 2 puff INHALATION DAILY #0 12/21/19 04/21/20 History acetaminophen 1,300 mg PO Q4H PRN 12/21/19 04/21/20 History aspirin [Aspir-81] 81 mg PO DAILY 12/21/19 04/21/20 History calcium carbonate [Antacid 200 mg PO Q8H PRN 12/21/19 04/21/20 History (calcium carbonate)] calcium carbonate-vitamin D3 1 tablet PO BID 12/21/19 04/21/20 History [Calcium 600 + D(3)] cetirizine 10 mg PO DAILY 12/21/19 04/21/20 History cyanocobalamin (vitamin B-12) 1,000 mcg IM [id number] 12/21/19 04/21/20 History docusate sodium 100 mg PO BID 12/21/19 04/21/20 History fenofibrate nanocrystallized 145 mg PO DAILY 12/21/19 04/21/20 History fluticasone propionate [Flonase 1 spray INTRANASAL DAILY 12/21/19 04/21/20 History Allergy Relief] furosemide 40 mg PO DAILY 12/21/19 04/21/20 History latanoprost 1 drp OPHTHALMIC (EYE) QPM 12/21/19 04/21/20 History levothyroxine 125 mcg PO DAILY 12/21/19 04/29/20 History magnesium oxide 500 mg PO DAILY 12/21/19 04/21/20 History melatonin 10 mg PO HS 12/21/19 04/21/20 History mineral oil 15 ml PO BID 12/21/19 04/21/20 History olopatadine 1 drp OPHTHALMIC (EYE) BID 12/21/19 04/21/20 History omeprazole 20 mg PO BID 12/21/19 04/21/20 History polyethylene glycol 3350 [Miralax] 17 g PO Q24H PRN 12/21/19 04/21/20 History potassium chloride 10 meq PO DAILY 12/21/19 04/21/20 History rosuvastatin [Crestor] 10 mg PO HS 12/21/19 04/21/20 History sodium chloride [[place] Nasal] 2 spray INTRANASAL Q2H PRN 12/21/19 04/21/20 History hydrocodone 5 mg-acetaminophen 325 1 tablet PO TID #90 tablet 03/30/20 04/21/20 Rx mg tablet carvedilol [Coreg] 3.125 mg PO Q12HR #60 tablet 04/04/20 04/21/20 Rx lidocaine [Lidoderm] 3 patch TRANSDERMAL DAILY #15 ea 04/04/20 04/21/20 Rx permethrin 1 applic TOPICAL DAILY PRN #60 g 04/04/20 04/21/20 Rx psyllium husk (aspartame) 1 packet PO Q12HR #30 ea 04/04/20 04/21/20 Rx [Metamucil Fiber Singles] zinc oxide-cod liver oil [Desitin] 1 applic TOPICAL PRN PRN #60 g 04/04/20 04/21/20 Rx hydroxyzine HCl 25 mg PO DAILY PRN 04/21/20 04/21/20 History oseltamivir 75 mg PO DAILY PRN 04/21/20 04/21/20 History Laboratory Tests 04/29/20 08:16 POC Capillary Glucose 88 mg/dl mg/dl (65-105) Patient hx anesthesia problems: none Family hx anesthesia problems: none PMFSH Past Medical History Medical History Atrial fibrillation Remote cardioversion, not appears persistent Chronic respiratory failure COPD (chronic obstructive pulmonary disease) Diabetes type 2, controlled DVT (deep venous thrombosis) GERD (gastroesophageal reflux disease) History of cardioversion History of congestive heart failure History of coronary artery disease Hyperlipidemia Hypertension Hypothyroidism Macular degeneration Obstructive sleep apnea Uses a CPAP Pulmonary embolism On Eliquis Surgical History Surgical History H/O bilateral cataract extraction H/O lumbar discect
[2020-04-29] MEDS: LACTATED RINGERS 1,000 ML 30 ML IV CONT (08:51)
[2020-04-29] MEDS: ceFAZolin 3 GM/D5W 100 ML 100 ML IVPB (09:32)
[2020-04-29 09:49] VITALS: BP 135/68; PULSE 71; RESP 17; TEMP 36.3; O2SAT 97
[2020-04-29] MEDS: LIDOCAINE HCL 2% GEL UROJET 10 ML PKG MUCOUS MEM (09:52)
[2020-04-29 10:00] LABS: Glucose Point of Care 82 (65-105)
[2020-04-29 10:05] VITALS: BP 134/71; PULSE 67; RESP 14; O2SAT 95
--- NOTE | 2020-04-29 10:05 | PM.PROC ---
Procedure Note - Detailed Date of procedure: 04/29/20 Pre-op diagnosis: chronic UTI, atonic bladder Post-op diagnosis: same Procedure performed: Cystoscopy Description of procedure: Patient is brought to the operative suite where he has prepped and draped in routine sterile fashion while in a supine position. 2% xylocaine jelly was introduced intraurethrally and systemic sedation is administered per the anesthesia department. Flexible cystoscopy shows a normal urethra without stricture. He has moderate lateral lobe hyperplasia of the prostate without a significant median lobe. Bladder mucosa was without hyperemia. There is no intravesical foreign body or neoplasm. He has a single orthotopic ureteral orifice with clear reflux bilaterally. This is essentially a normal cystoscopy. Point a flexible cystoscope is removed and an 18 F urethral catheter was placed to drainage. I will plan a 3 month course of suppressive Keflex 500 mg daily to try and break the cycle of recurring infections. Anesthesia: MAC Surgeon: Cesar Ornelas MD Estimated blood loss (mL): 0 Drains: Yes (18F Gleason) Packing: No Pathology: none sent Complications: No immediate complications Condition: stable Disposition: PACU
[2020-04-29 10:15] VITALS: BP 127/68; PULSE 56; RESP 16; O2SAT 95
[2020-04-29 10:20] VITALS: BP 143/87; PULSE 62; RESP 16
[2020-04-29 10:50] VITALS: BP 138/76; PULSE 65; RESP 20
--- NOTE | 2020-04-29 11:36 | SUR.PHASEII ---
1120 spoke with pt nurse, myron, at [facility] in [place]. update and instructions given per dr lerma.
== END 2020-04-29 11:30 ==
PROVIDERS: PCP Family Medicine; Visit Provider Urology
PROC: 0TBB8ZX Excision of Bladder, Via Natural or Artificial Opening Endoscopic, Diagnostic (ICD-10-PCS; CPT 52204; principal; 2020-04-29 09:30)
DX: N39.0 Urinary tract infection, site not specified (principal); N32.89 Other specified disorders of bladder; I10 Essential (primary) hypertension; E78.5 Hyperlipidemia, unspecified; E03.9 Hypothyroidism, unspecified; G47.33 Obstructive sleep apnea (adult) (pediatric); K21.9 Gastro-esophageal reflux disease without esophagitis; E11.9 Type 2 diabetes mellitus without complications; J44.9 Chronic obstructive pulmonary disease, unspecified; J96.10 Chronic respiratory failure, unspecified whether with hypoxia or hypercapnia; Z86.711 Personal history of pulmonary embolism; Z79.01 Long term (current) use of anticoagulants; E66.01 Morbid (severe) obesity due to excess calories; Z68.42 Body mass index [BMI] 45.0-49.9, adult
CPT/HCPCS: 52000; A9270; J0690; J2250; J2704; J3010; J7120

== ENCOUNTER 2020-05-07 09:52 | Outpatient (CLI) | payer MEDICARE, MEDICAID, SELFPAY ==
--- NOTE | ~2020-05-07 | XR_ITS ---
XR abdomen/kub 1V 05/07/2020 10:26 INDICATION: Chronic cystitis TECHNIQUE: KUB COMPARISON: None FINDINGS: Bowel gas pattern is normal. There is no evidence of free air, mass, organomegaly, ascites or obstruction. No abnormal calculi are seen. There are vascular calcifications in the left upper a bdomen. Moderate lumbar spondylosis. There is a deployed IVC filter. IMPRESSION: 1: No acute abdominal abnormality identified. Reviewed, dictated and finalized at location B.
--- NOTE | ~2020-05-07 | CT_ITS ---
EXAMINATION: CT abdomen pelvis wo con EXAM DATE: 05/07/2020 10:57 INDICATION: Chronic cystitis w/o hematuria . TECHNIQUE: Spiral CT of the abdomen and pelvis was performed without contrast. Axial, coronal and sag ittal images were reviewed. The dose-length product (DLP) for this examination was 1733.08 mGy-cm. The exposure was tailored according to patient size (auto mA exposure control), and iterative reconst ruction (ASIR) was used as additional dose reduction technique. Comparison is made to prior examinati on from 05/10/2015. FINDINGS: There is moderate right renal atrophy, moderate to severe left renal atrophy. Multiple left calyceal stones measuring up to about 1 cm. Single punctate right nephrolithiasis. No hydronephrosis . Prostate within normal size limits. The bladder is collapsed with Gleason catheter balloon anchor i nside. There is a left adrenal gland myelolipoma measuring 1.5 cm. IVC filter. The liver, spleen, and pancreas are unremarkable. There are gallstones within an otherwise unremarkable gallbladder. No e vidence of obstructive biliary disease. There is no retroperitoneal or pelvic lymphadenopathy. The re is mild to moderate scattered arteriosclerotic disease. There is bulging of the abdominal contents below the level of the pubis anteriorly, with laxity of th e abdominal musculature. There is also superimposed large hernia within the lower left anterior lizz n of this containing loops of nonobstructed small bowel. The appendix is not positively visualized. There is no pericecal inflammatory change to suggest appe ndicitis. The stomach and small bowel are unremarkable. There is expected amount of colonic stool. No free intraperitoneal gas. There is cardiomegaly and small pericardial effusion. The lung bas es are unremarkable. Mild to moderate lumbar dextroscoliosis. There is moderate to severe lumbar dis c disease. There are no osteoblastic or osteolytic lesions identified. IMPRESSION: 1. Large left, punctate right nephrolithiasis. 2. Moderate to severe left, moderate right renal atrophy. 3. Large abdominal wall hernia. 4. Left adrenal myelolipoma. 5. Cholelithiasis. 6. Gleason catheter in position. Reviewed, dictated and finalized at location A.
== END 2020-05-07 09:53 | disposition home or self-care (01) ==
PROVIDERS: PCP Family Medicine; Visit Provider Nurse Practitioner Adult Health
DX: N30.20 Other chronic cystitis without hematuria (principal); K44.9 Diaphragmatic hernia without obstruction or gangrene; K80.20 Calculus of gallbladder without cholecystitis without obstruction; N20.0 Calculus of kidney
CPT/HCPCS: 74018; 74176

== ENCOUNTER 2021-03-03 14:55 | Outpatient (CLI) | payer MEDICARE, MEDICAID, SELFPAY ==
--- NOTE | ~2021-03-03 | CT_ITS ---
EXAMINATION: CT abdomen pelvis wo con DATE: 03/03/2021 15:50 INDICATION: Swelling and tenderness TECHNIQUE: Computed tomography (CT) of the abdomen and pelvis was performed without intravenous contr ast. Automated exposure control and iterative reconstruction technique were employed. Exam dose: 187 8.03 mGy-cm total exam DLP. COMPARISON: 05/07/2020 CT abdomen pelvis FINDINGS: There is some chronic patchy groundglass density of the lung ramirez. No pulmonary consolida tion or mass lesion is evident. Cardiomegaly. Coronary artery calcification. Trace pericardial fluid. Bilateral gynecomastia. A gallstone is identified. No gallbladder wall thickening or pericholecystic fluid or fat stranding. No bile duct or pancreatic duct dilatation. No hepatic or pancreatic space-occupying mass lesion or pancreatic calcification. Normal splenic size . Normal morphology of the adrenal glands. Approximately 2 mm nonobstructing right renal calculus. 11 mm upper pole nonobstructing left renal calculus. There are multiple mid and lower pole nonobstruc ting left renal calculi, the largest measuring up to 11 mm. Approximately 4 mm left renal pelvic calculus, nonobstructing. Gleason catheter in the urinary bladder. There is atherosclerotic calcification of the abdominal aorta and at the origins of the superior mese nteric and renal arteries. No abdominal aortic aneurysm. No intraperitoneal or retroperitoneal or pel umair mass lesion or adenopathy or ascites. There is an IVC filter. No bowel obstruction, bowel wall thickening, pneumatosis or intraperitoneal free air. There is a large ventral abdominal wall hernia which contains small and large bowel without obstructi on or strangulation. There is some skin thickening and subcutaneous fat stranding along the lower aspect of the navicular consistent with cellulitis. No abscess cavity is identified. There is severe degenerative disease throughout the lumbar and lumbosacral spine and prominent degene rative spurring of the lower thoracic spine. No suspicious osteolytic or osteoblastic lesions are noted. IMPRESSION: Large lower ventral abdominal wall hernia containing small and large bowel, without stra ngulation or obstruction Skin thickening and subcutaneous fat stranding of the lower panniculus consistent with cellulitis; no abscess is evident Bilateral nonobstructive nephrolithiasis Cholelithiasis IVC filter Bilateral gynecomastia Cardiomegaly Reviewed, dictated and finalized at Location A. Reviewed, dictated and finalized at location A. IMPRESSION: Large lower ventral abdominal wall hernia containing small and lar ge bowel, without strangulation or obstruction Skin thickening and subcutaneous fat stranding of the lower panniculus consiste nt with cellulitis; no abscess is evident Bilateral nonobstructive nephrolithiasis Cholelithiasis IVC filter Bilateral gynecomastia Cardiomegaly
== END 2021-03-03 14:56 | disposition home or self-care (01) ==
PROVIDERS: PCP Family Medicine; Visit Provider Internal Medicine
DX: M79.89 Other specified soft tissue disorders (principal); K43.9 Ventral hernia without obstruction or gangrene; N20.0 Calculus of kidney; K80.50 Calculus of bile duct without cholangitis or cholecystitis without obstruction; Z95.828 Presence of other vascular implants and grafts; N62 Hypertrophy of breast; I51.7 Cardiomegaly
CPT/HCPCS: 74176

== ENCOUNTER 2022-07-05 19:19 | Inpatient (IN) | payer MEDICARE, BC, MEDICAID, SELFPAY ==
[2022-07-05] VITALS (21 sets, daily range): BP systolic 101–129; BP diastolic 45–113; PULSE 52–112; RESP 17–19; TEMP 36.3–37.2; O2SAT 90–100
--- NOTE | ~2022-07-05 | US_ITS ---
US renal BI DATE: 07/06/2022 17:33 INDICATION: Acute renal insufficiency TECHNIQUE: Real-time imaging of the kidneys and urinary bladder COMPARISON: 03/03/2021 CT abdomen pelvis 04/01/2020 bilateral renal ultrasound examination FINDINGS: Examination is limited due to body habitus. Bilateral renal atrophy, left worse than right. No renal mass lesion or hydronephrosis is evident. The bladder is not well demonstrated due to minimal distention. IMPRESSION: Limited examination; bilateral renal atrophy, no hydronephrosis or apparent renal mass jonah ricardo Reviewed, dictated and finalized at Location A. Reviewed, dictated and finalized at location A. INATION TESTING MANAGER IMPRESSION: Limited examination; bilateral renal atrophy, no hydronephrosis or apparent renal mass lesion
--- NOTE | ~2022-07-05 | XR_ITS ---
EXAMINATION: XR chest 1V portable INDICATION: Generalized weakness TECHNIQUE: Portable AP chest at 2011 hours COMPARISON: 04/01/2020 FINDINGS: Cardiomegaly is noted. There are minimal airspace opacities of the right midlung zone. No p leural effusion or pneumothorax. IMPRESSION: 1. Minimal airspace opacities of the right midlung zone, possible atelectasis or pneumonia. Recommend followup radiographs in 10-14 days after appropriate therapy to evaluate for improvement/resolution. 2. Cardiomegaly. Reviewed, dictated and finalized at location F. MIXER IMPRESSION: 1. Minimal airspace opacities of the right midlung zone, possible atelectasis o r pneumonia. Recommend followup radiographs in 10-14 days after appropriate the rapy to evaluate for improvement/resolution. 2. Cardiomegaly.
--- NOTE | 2022-07-05 19:22 | ED.GENADULT ---
HPI - General Adult General Chief complaint: Weakness Stated complaint: INCREASING WEAKNESS Source: patient, EMS, RN notes reviewed and old records reviewed Mode of arrival: EMS Limitations: no limitations History of Present Illness HPI narrative: 77 years old white male morbidly obese came from [facility] by ambulance because no energy, up from UTI for the last 3 months, unable to find antibiotic to treat the. Currently patient on chronic Keflex 500 mg once a day for chronic UTI. Today was last day for Bactrim of 10 days course for urinary tract infection. He denies any fever, chills, nausea, vomiting, chest pain, shortness of breath, headache. Related Data Home Medications Medication Instructions Recorded Confirmed acetaminophen 650 mg 650 mg PO Q8H PRN Pain (Scale 12/21/19 07/06/22 tablet,extended release Score 1-3) apixaban 5 mg tablet (Eliquis) 5 mg PO BID 12/21/19 04/21/20 aspirin 81 mg tablet,delayed 81 mg PO DAILY 12/21/19 04/21/20 release (Aspir-) calcium carbonate 200 mg calcium 200 mg PO Q8H PRN Indigestion 12/21/19 07/06/22 (500 mg) chewable tablet (Antacid (calcium carbonate)) calcium carbonate 600 mg-vitamin 1 tablet PO BID 12/21/19 07/06/22 D3 10 mcg (400 unit) tablet (Calcium 600 + D(3)) carboxymethylcellulose sodium 0.5 1 drp ophthalmic (eye) BID 12/21/19 07/06/22 % eye drops (Refresh Tears) cetirizine 10 mg disintegrating 10 mg PO DAILY 12/21/19 07/06/22 tablet dextran 70-hypromellose (PF) 0.1 1 drp ophthalmic (eye) Q6H PRN Dry 12/21/19 07/06/22 %-0.3 % eye drops in a dropperette Eyes (Artificial Tears (PF)) dextromethorphan-guaifenesin 5 10 ml PO Q6H PRN Congestion 12/21/19 07/06/22 mg-100 mg/5 mL oral liquid (Robitussin Cough-Chest Congestion DM) docusate sodium 100 mg tablet 100 mg PO BID 12/21/19 07/06/22 fenofibrate nanocrystallized 145 145 mg PO DAILY 12/21/19 07/06/22 mg tablet fluticasone propionate 50 1 spray intranasal DAILY 12/21/19 07/06/22 mcg/actuation nasal spray,suspension (Flonase Allergy Relief) furosemide 40 mg tablet 80 mg PO DAILY 12/21/19 07/06/22 latanoprost 0.005 % eye drops 1 drp ophthalmic (eye) QPM 12/21/19 07/06/22 levothyroxine 125 mcg tablet 125 mcg PO DAILY 12/21/19 07/06/22 magnesium oxide 500 mg tablet 500 mg PO DAILY 12/21/19 07/06/22 melatonin 10 mg capsule 10 mg PO HS 12/21/19 07/06/22 mineral oil 15 ml PO BID 12/21/19 07/06/22 mirabegron 50 mg tablet,extended 50 mg PO DAILY 12/21/19 07/06/22 release 24 hr (Myrbetriq) olopatadine 0.1 % eye drops 1 drp ophthalmic (eye) BID 12/21/19 07/06/22 omeprazole 20 mg capsule,delayed 20 mg PO BID 12/21/19 07/06/22 release polyethylene glycol 3350 17 gram 17 g PO Q24H PRN Constipation 12/21/19 07/06/22 oral powder packet (Miralax) potassium chloride 10 mEq 20 meq PO DAILY 12/21/19 07/06/22 capsule,extended release rosuvastatin 10 mg tablet (Crestor) 10 mg PO HS 12/21/19 07/06/22 sitagliptin phosphate 100 mg 100 mg PO HS 12/21/19 07/06/22 tablet (Januvia) sodium chloride 0.65 % nasal spray 2 spray intranasal Q2H PRN Dry 12/21/19 07/06/22 aerosol ([place] Nasal) Nasal Passages tiotropium bromide 2.5 2 puff inhalation DAILY ##0 12/21/19 07/06/22 mcg/actuation mist for inhalation (Spiriva Respimat) Acidophilus 1 tablet PO DAILY 07/06/22 07/06/22 Imodium A-D 1 tablet PO TID 07/06/22 07/06/22 PreserVision AREDS 1 tablet PO BID 07/06/22 07/06/22 albuterol sulfate 2.5 mg/3 mL 2.5 mg inhalation Q6H PRN 07/06/22 07/06/22 (0.083 %) solution for nebulization Shortness Of Breath bumetanide 0.5 mg tablet mg 07/06/22 carvedilol 3.125 mg tablet (Coreg) 6.25 mg PO Q12HR 07/06/22 07/06/22 gabapentin 100 mg capsule 200 mg PO HS 07/06/22 07/06/22 hydrocodone 7.5 mg-acetaminophen 1 tablet PO TID 07/06/22 07/06/22 325 mg tablet meloxicam 15 mg tablet mg 07/06/22 Allergies Allergy/AdvReac Type Severity Reaction Status Date / Time bacitracin Allergy Unknown Rash Verified 04/29/20 09:34
--- NOTE | 2022-07-05 19:49 | ECG_ITS ---
Measurements Intervals [place] Rate: 50 P: NE: 0 QRS: -5 QRSD: 118 T: 14 QT: 432 QTc: 395 Interpretive Statements ATRIAL FIBRILLATION WITH SLOW VENTRICULAR RESPONSE INDETERMINATE AXIS LOW QRS VOLTAGE IN PRECORDIAL LEADS [QRS DEFLECTION < 1.0 mV IN CHEST LEADS] INCOMPLETE RIGHT BUNDLE BRANCH BLOCK [90+ ms QRS DURATION, TERMINAL R IN V1/V2, 40+ ms S IN I/aVL/V4/V5/V6] POSSIBLE ANTERIOR MYOCARDIAL INFARCTION , OF INDETERMINATE AGE [30 ms Q WAVE IN V3/V4, OR R < 0.2 mV IN V4] ABNORMAL ECG COMPARED TO ECG 04/01/2020 00:09:14 INCOMPLETE RIGHT BUNDLE-BRANCH BLOCK NOW PRESENT Electronically Signed On 07-06-2022 7:14:52 PASTRYCOOK'S ASSISTANT by Duarte Verde M.D.
[2022-07-05 20:16] LABS: Basophils Percent Auto 0.7 % (0.2-1.2); Eosinophils Absolute Auto 0.1 K/mm3 (0-0.3); Eosinophils Percent Auto 2.2 % (0-4.4); Hematocrit 34.3 % (42.0-52.0); Immature Granulocyte Absolute 0.02 K/mm3 (0.00-0.031); Immature Granulocyte Percent A 0.4 % (0-0.5); Lymphocytes Absolute Auto 1.01 K/mm3 (0.9-3.2); Lymphocytes Percent Auto 22.2 % (18.3-44.2); Mean Corpuscular HGB Conc 29.2 g/dl (32-36); Mean Corpuscular Hemoglobin 29.5 pg (26-34); Mean Corpuscular Volume 101.2 fl (80-100); Mean Platelet Volume 10.5 fl (7.4-10.4); Monocytes Absolute Auto 0.5 K/mm3 (0.1-0.6); Monocytes Percent Auto 10.8 % (2.6-8.5); Neutrophils Absolute Auto 2.9 K/mm3 (1.3-6.7); Neutrophils Percent Auto 63.7 % (45.5-73.1); Platelet Count Result 124 k/mm3 (150-375); Red Blood Count 3.39 M/mm3 (4.6-6.20); Red Cell Distribution Width 16.7 % (11.5-14.5); White Blood Count 4.5 K/mm3 (4.5-10.0)
[2022-07-05 20:26] LABS: INR 1.8; Prothrombin Time 20.3 Seconds (11.1-14.7)
[2022-07-05 20:27] LABS: Partial Thromboplastin Time 38.8 SECONDS (22.3-36.8)
[2022-07-05 20:29] LABS: Lactic Acid Reflex 0.8 mmol/L (0.7-2.0)
[2022-07-05 20:33] LABS: Alanine Aminotransferase 16 U/L (6-50); Albumin Level 3.6 g/dL (3.5-5.1); Alkaline Phosphatase 36 U/L (38-126); Anion Gap 3 mmol/L (8-16); Aspartate Amino Transferase 31 U/L (17-59); Bilirubin,Total 0.2 mg/dL (0.2-1.3); Blood Urea Nitrogen 53 mg/dL (9-20); CRP 1.4 mg/dL (<1.0); Calcium 8.2 mg/dL (8.4-10.2); Carbon Dioxide 32 mmol/L (22-30); Chloride 99 mmol/L (98-107); Estimated CRCL calculation 24 ml/min; Estimated Glomerular Filt Rate 20; Glucose 85 mg/dL (65-110); Sodium 134 mmol/L (137-145)
[2022-07-05 20:42] LABS: Add Urine Microscopic? YES; Appearance Urine Clear (Clear); Bilirubin Urine Negative (Negative); Blood Urine 3+ (Negative); Color Urine Yellow (Yellow); Glucose Urine UA Negative (Negative); Ketones Urine Negative (Negative); Leukocyte Esterase Ur 3+ LEU/UL (Negative); Nitrate Urine Positive (Negative); Protein Urine Negative (Negative); Specific Grav Ur 1.015 (1.001-1.035); Urobilinogen Urine 0.2 mg/dL (<2.0)
[2022-07-05 20:45] LABS: Anisocytosis 1+ (NORMAL); Platelet Estimate Adequate (Adequate); Schistocytes None Seen (NORMAL)
[2022-07-05] MEDS: INSULIN HUMAN REGULAR (*BKC) 100 UNITS/ML 10 UNITS IV PUSH (20:57)
[2022-07-05 20:58] LABS: Bacteria Urine 1+ /hpf; Mucus Urine Rare /lpf; RBC Urine >75 /hpf (0-2); Squamous Epithelial Cell Urine Occasional /hpf (Few); WBC Urine >75 /hpf
[2022-07-05] MEDS: DEXTROSE 50% 25 GM/50 ML SYRINGE IV PUSH (20:58)
[2022-07-05] MEDS: SODIUM BICARBONATE 8.4% 50 MEQ/50 ML SYRINGE IV PUSH (20:58)
[2022-07-05] MEDS: CALCIUM GLUCONATE 1,000 MG/10 ML VIAL 1000 MG IV PUSH (20:58)
--- NOTE | 2022-07-05 21:44 | PM.IMHP ---
H&P: HPI History of Present Illness Date/Time: 07/05/22 21:44 Chief Complaint: Generalized weakness. Narrative: This is a 77 years old white male morbidly obese, with a past medical history including but not limited to combined systolic diastolic dysfunction, atrial fibrillation, acute kidney disease chronic respiratory failure on home oxygen, chronic indwelling Gleason catheter, who [place] [facility] because no energy, up from UTI for the last 3 months. Patient was placed on the low-salt diet and has been using alternate salt like supplement. Currently patient on chronic Keflex 500 mg once a day for chronic UTI suppression, prescribed by his urologist Dr. Ornleas.? Today was last day for Bactrim of 10 days course for urinary tract infection.? He denies any fever, chills, nausea, vomiting, chest pain, shortness of breath, headache. On arrival to the emergency department the patient was stable and afebrile with the following vital signs: A temperature of 37.2? C, pulse rate 112, respiratory rate 18, blood pressure 108/65, pulse ox 99% on oxygen 2 L by nasal cannula. He CBC shows a WBC of 4.5, hemoglobin 10, hematocrit 34.38 and a platelet count of 124. His chemistry shows a serum sodium of 134, potassium is 6.0, chloride is 99, bicarbonate 32, BUN is 53 and creatinine is 3.1. LFTs are total bilirubin 0.2, AST 31, ALT 16, alkaline phosphatase 36. CRP is 1.4. Total protein 6.0 and albumin 3.6. Urinalysis shows clear urine, nitrite positive leukocyte esterase positive, 3+ blood, 1+ bacteria, urine RBC more than 75, urine WBC more than 75. Chest x-ray shows 1. Minimal airspace opacities of the right midlung zone, possible atelectasis or pneumonia. Recommend followup radiographs in 10-14 days after appropriate therapy to evaluate for improvement/resolution.2. Cardiomegaly. EKG shows atrial fibrillation with slow ventricular rate, indeterminate axis, low QRS voltage in precordial leads, incomplete right bundle-branch block, possible anterior myocardial infarction of indeterminate age. Patient was appropriately started on ceftriaxone and managed medically for his hyper kalemia. There were no EKG changes. Patient was given calcium gluconate 1 g IV, insulin 10 units IV push and sodium bicarbonate 50 myc IV push. The hospital medicine service was consulted for further evaluation and management. Review of Systems Review of Systems: CONSTITUTIONAL: Positive for tiredness, fatigue. Negative for any fevers, chills, night sweats, malaise, anorexia or weight loss. CARDIOVASCULAR: Negative for chest pain, palpitations, dizziness, orthopnea or lower extremity edema. RESPIRATORY: Negative for shortness of breath, cough, wheezing, sputum. GENITOURINARY: Negative for frequency, nocturia, dysuria, hematuria. GYNECOLOGIC: Negative for abnormal bleeding. HEMATOLOGIC: Negative for any abnormal bleeding or bruising. MUSCULOSKELETAL: Negative for joint swelling, stiffness or pain. SKIN: Negative for rashes, eruptions, lesions or dryness. NEUROLOGIC: Negative for any focal neurologic complaints. PSYCHIATRIC: Negative for anxiety, panic, depression. All systems reviewed & are unremarkable except as noted in HPI and below PMFSH Past Medical History Medical History Atrial fibrillation Remote cardioversion, not appears persistent Chronic respiratory failure COPD (chronic obstructive pulmonary disease) Diabetes type 2, controlled DVT (deep venous thrombosis) GERD (gastroesophageal reflux disease) History of cardioversion History of congestive heart failure History of coronary artery disease Hyperlipidemia Hypertension Hypothyroidism Macular degeneration Obstructive sleep apnea Uses a CPAP Pulmonary embolism On Eliquis Surgical History Surgical History H/O bilateral cataract extraction H/O lumbar discectomy H/O rectal sphincterotomy H
[2022-07-05] MEDS: FUROSEMIDE INJ 40 MG/4 ML VIAL 20 MG IV PUSH (22:25)
[2022-07-05] MEDS: SODIUM CHLORIDE 0.9% IV 50 ML 200 ML (22:28)
[2022-07-05 22:40] LABS: Influenza A QL RT-PCR Negative (Negative); Influenza B QL RT-PCR Negative (Negative); SARS-CoV-2 RNA PCR Negative
--- NOTE | 2022-07-05 22:47 | PC.NURSE ---
moved from room 22 to 5, pt a boarder. Report given to SERGO Ronquillo. Oxygen placed at 2.5L NC because pt reports he sleeps with O2 at 2l/NC. Pt also reports he has a healing pressure ulcer to his bottom. Repositioned for comfort
--- NOTE | 2022-07-05 23:29 | PC.NURSE ---
spoke with provider about patient fluid restriction states ok to have a glass of water draw bmp and will follow up after results no more then 2 l per 24 hours
[2022-07-05] MEDS: SODIUM CHLORIDE 0.9% IV 1,000 ML 100 ML IV CONT (23:41)
[2022-07-06] VITALS (11 sets, daily range): BP systolic 112–172; BP diastolic 54–68; PULSE 68–99; RESP 14–24; TEMP 36.4–36.6; O2SAT 94–99; BMI 55.0
[2022-07-06 01:00] LABS: Anion Gap 1 mmol/L (8-16); Blood Urea Nitrogen 53 mg/dL (9-20); Calcium 8.4 mg/dL (8.4-10.2); Carbon Dioxide 36 mmol/L (22-30); Chloride 95 mmol/L (98-107); Estimated CRCL calculation 24 ml/min; Estimated Glomerular Filt Rate 20; Glucose 69 mg/dL (65-110); Sodium 132 mmol/L (137-145)
--- NOTE | 2022-07-06 02:55 | PC.NURSE ---
received report from ED SERGO Brown
[2022-07-06 02:56] LABS: Glucose Point of Care 79 mg/dl (65-105)
--- NOTE | 2022-07-06 03:24 | PC.NURSE ---
This patient, Sterling Mallory, was admitted to 3 [facility] Surg Room 323-02. Patient/family oriented to hospital policies and general routines including ID bracelet, bed and alarms, visiting hours, pain management, procedures, bathroom and other care routines, personal items, smoking policy, room service/diet, and visiting hours. Information on how to activate the Rapid Response Team has been discussed. Patient/Family are encouraged to report perceived risks to care and to ask questions if they do not understand what they are told or what they should do. arrived now 324
--- NOTE | 2022-07-06 06:10 | PC.NURSE ---
informed Md Khalil of consult this morning on pt
--- NOTE | 2022-07-06 06:42 | PC.NURSE ---
baroatroc bed ordered for pt per Lisbeth TROTTER
--- NOTE | 2022-07-06 06:43 | PC.NURSE ---
bariatric bed ordered for pt per Lisbeth TROTTER
[2022-07-06 06:58] LABS: Anion Gap 6 mmol/L (8-16); Blood Urea Nitrogen 49 mg/dL (9-20); Calcium 8.2 mg/dL (8.4-10.2); Carbon Dioxide 33 mmol/L (22-30); Chloride 97 mmol/L (98-107); Estimated CRCL calculation 25 ml/min; Estimated Glomerular Filt Rate 20; Glucose 74 mg/dL (65-110); Potassium 4.8 mmol/L (3.4-5.0); Sodium 136 mmol/L (137-145)
[2022-07-06 08:21] LABS: Glucose Point of Care 73 mg/dl (65-105)
[2022-07-06] MEDS: SODIUM CHLORIDE 0.9% IV 1,000 ML 100 ML IV CONT ×2 (09:40→21:42)
[2022-07-06 11:56] LABS: Glucose Point of Care 126 mg/dl (65-105)
--- NOTE | 2022-07-06 15:32 | PM.IMPN ---
Progress Note: A&P Assessment and Plan (1) Urinary tract infection associated with catheterization of urinary tract: Code(s): T83.511A - Infection and inflammatory reaction due to indwelling urethral catheter, initial encounter; N39.0 - Urinary tract infection, site not specified Status: Acute Assessment and Plan: Patient has a history of chronic UTI. He has recently completed a 10 day course of Bactrim. He was previously on chronic UTI prevention with Keflex. UA noted. Unclear if he is having symptoms of UTI or from untreated TSERING. Gleason changed out just prior to admission. Patient was started on ceftriaxone every 24. Follow up urine cultures. (2) Acute hyperkalemia: Code(s): E87.5 - Hyperkalemia Status: Acute Assessment and Plan: Potassium 6.0. Likely multifactorial, secondary to acute kidney injury, in the setting of antibiotic treatment with Bactrim, and potassium based dietary supplements. The potassium has returned to normal after medical intervention with sodium chloride infusion, sodium bicarbonate infusion, Lasix 20 mg IV once. Follow. Low potassium diet. Check TSH and Cortisol levels (3) Acute kidney injury: Code(s): N17.9 - Acute kidney failure, unspecified Status: Acute Assessment and Plan: Baseline Cr around 1.6. The etiology is unclear. Patient reports poor oral intake and diarrhea for several days so could be related to dehydration. Check urine studies. Continue IV fluids. Monitor serum creatinine level, UOP and electrolytes. Nephrology has been consulted and appreciate their input. (4) Acute on chronic respiratory failure: Qualifiers: Respiratory failure complication: hypoxia and hypercapnia Qualified Code(s): J96.21 - Acute and chronic respiratory failure with hypoxia; J96.22 - Acute and chronic respiratory failure with hypercapnia Code(s): J96.20 - Acute and chronic respiratory failure, unspecified whether with hypoxia or hypercapnia Status: Acute Assessment and Plan: Patient on 2L O2 but wear O2 at night and sometimes when in bed. Chest x-ray revealed minimal airspace opacities of the right mid lung zone, possible atelectasis versus pneumonia. Patient received Lasix IV single dose on admission. Follow for now. Wean o2 as tolerated while awake. (5) Hypothyroidism: Qualifiers: Hypothyroidism type: unspecified Qualified Code(s): E03.9 - Hypothyroidism, unspecified Code(s): E03.9 - Hypothyroidism, unspecified Status: Chronic Assessment and Plan: Continue supplementation with levothyroxine. Check TSH. (6) Obstructive sleep apnea: Code(s): G47.33 - Obstructive sleep apnea (adult) (pediatric) Status: Chronic Assessment and Plan: Patient denies he has TSERING. Will continue autotitrate CPAP/BiPAP (7) Hypertension: Qualifiers: Hypertension type: essential hypertension Qualified Code(s): I10 - Essential (primary) hypertension Code(s): I10 - Essential (primary) hypertension Status: Chronic Assessment and Plan: Patient's blood pressure was reviewed on Blood pressure remains well controlled. Will assess home meds (8) Atrial fibrillation: Qualifiers: Atrial fibrillation type: unspecified Qualified Code(s): I48.91 - Unspecified atrial fibrillation Code(s): I48.91 - Unspecified atrial fibrillation Status: Chronic Assessment and Plan: EKG showing AFib with controlled rate. Continue to monitor clinically. Resume Coreg Plan Code status full code. DVT prophylaxis heparin. Subjective Date/time seen: 07/06/22 15:32 Interval history: 77yo male with AFib, COPD, DM, HTN and TSERING here for increasing weakness. Patient complains that the bed is uncomfortable causing his chronic back and hip pain to be worse. He was another bed last evening but this also was uncomfortable he slept poorly.
--- NOTE | 2022-07-06 16:32 | PM.CNNEP ---
Assessment and Plan Assessment and plan (1) Acute on chronic renal failure: Code(s): N17.9 - Acute kidney failure, unspecified; N18.9 - Chronic kidney disease, unspecified Status: Acute Assessment and Plan: patient has acute kidney injury. His baseline creatinine seems to be around 1.6. He currently has a bladder infection is getting treatment for this. He also might have been dehydrated because he was sleeping all day for 2 days. He is on a statin so could have rhabdomyolysis. obstruction could be causing this as well. Allergic interstitial nephritis is a possibility as well I doubt if this is glomerulonephritis. Will check a CK, urine electrolytes, and renal ultrasound. (2) Acute hyperkalemia: Code(s): E87.5 - Hyperkalemia Status: Acute Assessment and Plan: Patient had a high potassium on admission. This was treated and is better. (3) Urinary tract infection associated with catheterization of urinary tract: Code(s): T83.511A - Infection and inflammatory reaction due to indwelling urethral catheter, initial encounter; N39.0 - Urinary tract infection, site not specified Status: Acute Assessment and Plan: the patient has pyuria. Urine culture is pending he is on empiric antibiotic (4) CHF (congestive heart failure): Code(s): I50.9 - Heart failure, unspecified Status: Acute Assessment and Plan: No recent echo has been done. Chest x-ray and exam do not suggest volume overload (5) Hypertension: Qualifiers: Hypertension type: essential hypertension Qualified Code(s): I10 - Essential (primary) hypertension Code(s): I10 - Essential (primary) hypertension Status: Chronic Assessment and Plan: blood pressure is under good control. (6) Hyperlipidemia: Qualifiers: Hyperlipidemia type: unspecified Qualified Code(s): E78.5 - Hyperlipidemia, unspecified Code(s): E78.5 - Hyperlipidemia, unspecified Status: Chronic Assessment and Plan: He is on a statin. 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 use Diabetes mellitus complication status: with unspecified complications Qualified Code(s): E11.8 - Type 2 diabetes mellitus with unspecified complications Code(s): E11.9 - Type 2 diabetes mellitus without complications Status: Chronic Assessment and Plan: Hospitalist to follow this History of Present Illness Reason for Consult Consult date: 07/06/22 Chief Complaint Chief complaint: Gleason catherer related UTI,hyperkalemia,FRANC,A Fib History of Present Illness Narrative: Rick is a very pleasant 68-year-old gentleman who has multiple medical problems including atrial fibrillation, chronic kidney disease with a baseline creatinine of around 1.5, chronic respiratory failure, chronic UTIs, chronic Gleason catheter, COPD, diabetes, hypertension, congestive heart failure, hyperlipidemia, hypothyroidism, sleep apnea who uses a CPAP machine, and pulmonary embolism in the past. The patient came in the hospital because of weakness. He was basically napping all day. This had been going on for a couple of days. The nurses at his facility became nervous and so sent him over to the ER. In the ER he was evaluated and found to have hyperkalemia and elevated creatinine pyuria and dehydration. He was admitted. He was given antibiotics. He is given meds for the high potassium. He was also given IV fluids. His creatinine has not come down much so renal consultation was requested. The patient is on a lot of medicines as an output. It is possible he takes meloxicam but I am not sure if that is true. He is not on it now. He is on diuretics. he has recurrent bladder infections with his Gleason catheter in. So Dr. Howe gives him different antibiotics every infection. Review of Systems
[2022-07-06] MEDS: HYDROcodone/acetaminophen (*CRX) 7.5-325 MG TABLET 1 TAB PO ×2 (17:25→21:43)
[2022-07-06] MEDS: ARTIFICIAL TEARS OPHTH SOLN 15 ML BOTTLE 1 DROP EACH EYE (17:59)
[2022-07-06 18:10] LABS: Creatine Kinase 26 U/L (55-170)
[2022-07-06 18:18] LABS: Complement C3 115 mg/dL (88-165)
[2022-07-06 19:08] LABS: Hepatitis B Surface Antigen Negative (Negative)
[2022-07-06 19:13] LABS: Hepatitis B Core IgM Result Negative (Negative)
[2022-07-06 19:16] LABS: Creatinine Urine 27.5 mg/dL; Total Protein Urine Random 33 mg/dL; Urea Random Urine 313 MG/DL
[2022-07-06 19:17] LABS: Sodium Urine Random 74 meq/L
[2022-07-06 19:25] LABS: Hepatitis B Surface Anti Res Negative; Hepatitis C Virus Antibody Negative (Negative)
[2022-07-06] MEDS: MELATONIN 5 MG TABLET 10 MG PO (21:48)
[2022-07-06] MEDS: carvediloL 3.125 MG TABLET 6.25 MG PO (21:51)
[2022-07-06] MEDS: MINERAL OIL 30 ML UDC 15 ML PO (21:53)
[2022-07-06] MEDS: PSYLLIUM SUGAR FREE POWDER PACKET 1 PACKET PO (21:55)
[2022-07-06] MEDS: ROSUVASTATIN 10 MG TABLET PO (21:57)
[2022-07-06] MEDS: LATANOPROST 0.005% OP SOLN 2.5 ML BTL 1 DROP EACH EYE (21:58)
[2022-07-06] MEDS: OPTI-GEN TAB 1 TABLET PO (21:58)
[2022-07-06] MEDS: OLOPATADINE 0.1% OPHTH SOLN 5 ML BTL 1 DROP EACH EYE (21:58)
[2022-07-06] MEDS: APIXABAN 5 MG TABLET PO (21:59)
[2022-07-07] VITALS (9 sets, daily range): BP systolic 115–145; BP diastolic 57–75; PULSE 62–97; RESP 14–26; TEMP 36.4–37; O2SAT 94–98
[2022-07-07 07:52] LABS: Basophils Percent Auto 0.6 % (0.2-1.2); Eosinophils Absolute Auto 0.1 K/mm3 (0-0.3); Eosinophils Percent Auto 1.8 % (0-4.4); Hematocrit 34.7 % (42.0-52.0); Hemoglobin 10.4 g/dL (14.0-18.0); Immature Granulocyte Absolute 0.02 K/mm3 (0.00-0.031); Immature Granulocyte Percent A 0.4 % (0-0.5); Lymphocytes Absolute Auto 0.86 K/mm3 (0.9-3.2); Lymphocytes Percent Auto 17.1 % (18.3-44.2); Mean Corpuscular Hemoglobin 29.7 pg (26-34); Mean Corpuscular Volume 99.1 fl (80-100); Mean Platelet Volume 9.8 fl (7.4-10.4); Monocytes Absolute Auto 0.5 K/mm3 (0.1-0.6); Monocytes Percent Auto 10.4 % (2.6-8.5); Neutrophils Absolute Auto 3.5 K/mm3 (1.3-6.7); Neutrophils Percent Auto 69.7 % (45.5-73.1); Platelet Count Result 129 k/mm3 (150-375); Red Cell Distribution Width 16.9 % (11.5-14.5)
[2022-07-07 08:23] LABS: Albumin Level 3.5 g/dL (3.5-5.1); Anion Gap 4 mmol/L (8-16); Blood Urea Nitrogen 39 mg/dL (9-20); Calcium 8.6 mg/dL (8.4-10.2); Carbon Dioxide 31 mmol/L (22-30); Chloride 103 mmol/L (98-107); Estimated CRCL calculation 33 ml/min; Estimated Glomerular Filt Rate 29; Glucose 87 mg/dL (65-110); Magnesium 2.4 mg/dL (1.6-2.3); Phosphorus 3.7 mg/dL (2.5-4.5); Potassium 4.7 mmol/L (3.4-5.0); Sodium 138 mmol/L (137-145)
[2022-07-07 09:37] LABS: Thyroid Stimulating Hormone Reflex 0.861 uIU/mL (0.465-4.68)
[2022-07-07] MEDS: UMECLIDINIUM BROMIDE 62.5 MCG ELLIPTA 1 PUFF INHALATION (09:42)
[2022-07-07] MEDS: DOCUSATE SODIUM 100 MG CAPSULE PO ×2 (09:48→17:43)
[2022-07-07] MEDS: PSYLLIUM SUGAR FREE POWDER PACKET 1 PACKET PO ×2 (09:48→20:42)
[2022-07-07] MEDS: LORATADINE 10 MG TABLET PO (09:48)
[2022-07-07] MEDS: MIRABEGRON 50 MG ER TABLET PO (09:48)
[2022-07-07] MEDS: OPTI-GEN TAB 1 TABLET PO ×2 (09:48→17:43)
[2022-07-07] MEDS: APIXABAN 5 MG TABLET PO ×2 (09:48→20:43)
[2022-07-07] MEDS: FENOFIBRATE NANOCRYSTALLIZED 145 MG TABLET PO (09:48)
[2022-07-07] MEDS: HYDROcodone/acetaminophen (*CRX) 7.5-325 MG TABLET 1 TAB PO ×3 (09:48→17:43)
[2022-07-07] MEDS: ACIDOPHILUS/BULGARICUS CHEWABLE TABLET 1 TABLET PO (09:49)
[2022-07-07] MEDS: carvediloL 3.125 MG TABLET 6.25 MG PO (09:49)
[2022-07-07] MEDS: ARTIFICIAL TEARS OPHTH SOLN 15 ML BOTTLE 1 DROP EACH EYE (09:49)
[2022-07-07] MEDS: MAGNESIUM OXIDE 400 MG TABLET PO (09:49)
[2022-07-07] MEDS: OLOPATADINE 0.1% OPHTH SOLN 5 ML BTL 1 DROP EACH EYE ×2 (09:50→17:42)
[2022-07-07] MEDS: FLUTICASONE PROPIONATE 0.05% NA SPR 16 GM BTL (*BKC) 1 SPRAY NASAL (09:50)
[2022-07-07] MEDS: MINERAL OIL 30 ML UDC 15 ML PO ×2 (09:50→17:42)
[2022-07-07] MEDS: SODIUM CHLORIDE 0.9% IV 1,000 ML 100 ML IV CONT (09:56)
--- NOTE | 2022-07-07 11:23 | PM.IMPN ---
Progress Note: A&P Assessment and Plan (1) Urinary tract infection associated with catheterization of urinary tract: Code(s): T83.511A - Infection and inflammatory reaction due to indwelling urethral catheter, initial encounter; N39.0 - Urinary tract infection, site not specified Status: Acute Assessment and Plan: Patient has a history of chronic UTI. He has recently completed a 10 day course of Bactrim. He was previously on chronic abx for UTI prevention with Keflex. UA noted. Unclear if he is having symptoms of UTI or from untreated TSERING. Gleason changed out just prior to admission. UCx growing Proteus with sensitivities pending. Patient was started on ceftriaxone. Follow up urine cultures. (2) Acute hyperkalemia: Code(s): E87.5 - Hyperkalemia Status: Acute Assessment and Plan: Potassium 6.0. Likely multifactorial, secondary to FRANC in the setting of antibiotic treatment with Bactrim and potassium based dietary supplements. TSH normal. Cortisol high end of normal. The potassium has returned to normal after medical intervention with sodium chloride infusion, sodium bicarbonate infusion, Lasix 20 mg IV once. Follow. Continue low potassium diet. (3) Acute kidney injury: Code(s): N17.9 - Acute kidney failure, unspecified Status: Acute Assessment and Plan: Baseline Cr around 1.6. The etiology of the FRANC is unclear but felt related to poor oral intake and dehydration from diarrhea and diuretics. Bryan 74 with UCx 27 felt to be renal disease related. IC fluids started and diuretics stopped. Cr better today. Good UOP. Potasium remaining normal. Continue IV fluids. Monitor serum creatinine level, UOP and electrolytes. Nephrology has been consulted and appreciate their input. (4) Acute on chronic respiratory failure: Qualifiers: Respiratory failure complication: hypoxia and hypercapnia Qualified Code(s): J96.21 - Acute and chronic respiratory failure with hypoxia; J96.22 - Acute and chronic respiratory failure with hypercapnia Code(s): J96.20 - Acute and chronic respiratory failure, unspecified whether with hypoxia or hypercapnia Status: Acute Assessment and Plan: Patient wears 2.5L O2. Chest x-ray revealed minimal airspace opacities of the right mid lung zone, possible atelectasis versus pneumonia. Patient received Lasix IV single dose on admission but diuretics not continued. Follow for now. PT/OT. Out of bed for meals (5) Hypothyroidism: Qualifiers: Hypothyroidism type: unspecified Qualified Code(s): E03.9 - Hypothyroidism, unspecified Code(s): E03.9 - Hypothyroidism, unspecified Status: Chronic Assessment and Plan: TSH normal Continue levothyroxine. (6) Obstructive sleep apnea: Code(s): G47.33 - Obstructive sleep apnea (adult) (pediatric) Status: Chronic Assessment and Plan: Stable. Will continue autotitrate CPAP/BiPAP (7) Hypertension: Qualifiers: Hypertension type: essential hypertension Qualified Code(s): I10 - Essential (primary) hypertension Code(s): I10 - Essential (primary) hypertension Status: Chronic Assessment and Plan: Patient's blood pressure was reviewed on 07/07 Blood pressure remains mostly well controlled. Will continue current meds. (8) Atrial fibrillation: Qualifiers: Atrial fibrillation type: unspecified Qualified Code(s): I48.91 - Unspecified atrial fibrillation Code(s): I48.91 - Unspecified atrial fibrillation Status: Chronic Assessment and Plan: EKG showing AFib with controlled rate. Continue to monitor clinically. Continue Eliquis and Coreg. Okay to stop tele Plan DVT prophylaxis heparin. Subjective Date/time seen: 07/07/22 11:23 Interval history: 77yo male with AFib, COPD, DM, HTN and TSERING here for increasing weakness. Patient was able to sleep some but was mos
--- NOTE | 2022-07-07 12:38 | PM.PNNEP ---
Progress Note: A&P Assessment and Plan (1) Acute on chronic renal failure: Code(s): N17.9 - Acute kidney failure, unspecified; N18.9 - Chronic kidney disease, unspecified Status: Acute Assessment and Plan: patient has acute kidney injury. His baseline creatinine seems to be around 1.6. renal ultrasound shows bilateral renal atrophy but no acute issues or masses. CK is not elevated urine electrolytes are non pre renal He currently has a bladder infection is getting treatment for this. most likely this is FRANC from the bladder infection. his creatinine is better with antibiotics and a little bit of fluid. (2) Acute hyperkalemia: Code(s): E87.5 - Hyperkalemia Status: Acute Assessment and Plan: Patient had a high potassium on admission. This was treated and is better. (3) Urinary tract infection associated with catheterization of urinary tract: Code(s): T83.511A - Infection and inflammatory reaction due to indwelling urethral catheter, initial encounter; N39.0 - Urinary tract infection, site not specified Status: Acute Assessment and Plan: the patient has pyuria. Urine culture shows Proteus. Sensitivities pending (4) CHF (congestive heart failure): Code(s): I50.9 - Heart failure, unspecified Status: Acute Assessment and Plan: No recent echo has been done. Chest x-ray and exam do not suggest volume overload he is eating better. Will decrease rate of IV fluids (5) Hypertension: Qualifiers: Hypertension type: essential hypertension Qualified Code(s): I10 - Essential (primary) hypertension Code(s): I10 - Essential (primary) hypertension Status: Chronic Assessment and Plan: blood pressure is under good control. (6) Hyperlipidemia: Qualifiers: Hyperlipidemia type: unspecified Qualified Code(s): E78.5 - Hyperlipidemia, unspecified Code(s): E78.5 - Hyperlipidemia, unspecified Status: Chronic Assessment and Plan: He is on a statin. 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 He is very uncomfortable in the bed. Urine is much more clear Review of Systems Cardiovascular: Cardiovascular: Reports no additional cardiovascular complaints Respiratory: Respiratory: Reports no additional respiratory complaints Gastrointestinal: Gastrointestinal: Reports no additional gastrointestinal complaints Genitourinary: Genitourinary: Reports no additional male genitourinary complaints Exam Narrative: WDWN in NAD skin no rash head ncat lungs clear cor reg no rub abd BS+ nontender and soft ext no edema. Objective Data Vital Signs Vital Signs: Vital Signs - 24 hr 07/06/22 14:00 07/06/22 16:00 07/06/22 21:51 Temperature 97.9 F Pulse Rate 76 75 79 Respiratory Rate 24 H Blood Pressure 125/65 Pulse Oximetry 99 Oxygen Delivery Oxygen Flow Rate 07/06/22 22:00 07/06/22 20:00 07/07/22 00:00 Temperature 97.9 F Pulse Rate 92 68 68 Respiratory Rate 14 Blood Pressure 172/68 H Pulse Oximetry 97 Oxygen Delivery Oxygen Flow Rate 07/06/22 20:00 07/07/22 04:00 07/07/22 05:32 Temperature 98.2 F Pulse Rate 68 64 62 Respiratory Rate 14 14 Blood Pressure 145/57 H Pulse Oximetry 97 94 Oxygen Delivery Room Air Oxygen Flow Rate 07/07/22 09:47 07/07/22 09:49 Temperature Pulse Rate 97 Respiratory Rate Blood Pressure Pulse
--- NOTE | 2022-07-07 14:13 | PCPTNOTE ---
Attempted PT evaluation, Pt is a [place] lift/bed bound at baseline. RN aware.
--- NOTE | 2022-07-07 14:20 | PCOTNOTE ---
Attempted OT evaluation, Pt is a [place] lift/bed bound at baseline and dependent in ADLs. RN aware.
[2022-07-07] MEDS: LATANOPROST 0.005% OP SOLN 2.5 ML BTL 1 DROP EACH EYE (17:41)
[2022-07-07] MEDS: PANTOPRAZOLE 40 MG TABLET PO (17:42)
[2022-07-07] MEDS: ROSUVASTATIN 10 MG TABLET PO (20:45)
[2022-07-07] MEDS: MELATONIN 5 MG TABLET 10 MG PO (20:53)
[2022-07-07] MEDS: SODIUM CHLORIDE 0.9% IV 1,000 ML 75 ML IV CONT (20:54)
[2022-07-08] VITALS (7 sets, daily range): BP systolic 132–144; BP diastolic 59–80; PULSE 64–74; RESP 18–20; TEMP 36.4–37; O2SAT 91–92
[2022-07-08] MEDS: LEVOTHYROXINE SODIUM 125 MCG TABLET PO (06:34)
[2022-07-08 06:57] LABS: Albumin Level 3.5 g/dL (3.5-5.1); Anion Gap 3 mmol/L (8-16); Blood Urea Nitrogen 29 mg/dL (9-20); Calcium 8.9 mg/dL (8.4-10.2); Carbon Dioxide 30 mmol/L (22-30); Chloride 102 mmol/L (98-107); Estimated CRCL calculation 41 ml/min; Estimated Glomerular Filt Rate 37; Glucose 92 mg/dL (65-110); Phosphorus 3.3 mg/dL (2.5-4.5); Potassium 4.3 mmol/L (3.4-5.0); Sodium 135 mmol/L (137-145)
--- NOTE | 2022-07-08 08:22 | PM.PNNEP ---
Progress Note: A&P Assessment and Plan (1) Acute on chronic renal failure: Code(s): N17.9 - Acute kidney failure, unspecified; N18.9 - Chronic kidney disease, unspecified Status: Acute Assessment and Plan: patient has acute kidney injury. His baseline creatinine seems to be around 1.6. renal ultrasound shows bilateral renal atrophy but no acute issues or masses. CK is not elevated urine electrolytes are non pre renal He currently has a bladder infection is getting treatment for this. most likely this is FRANC from the bladder infection. his creatinine is Just about back to baseline. Potassium is good. Discharge okay by renal others are ready. (2) Acute hyperkalemia: Code(s): E87.5 - Hyperkalemia Status: Acute Assessment and Plan: Patient had a high potassium on admission. This was treated and is better. (3) Urinary tract infection associated with catheterization of urinary tract: Code(s): T83.511A - Infection and inflammatory reaction due to indwelling urethral catheter, initial encounter; N39.0 - Urinary tract infection, site not specified Status: Acute Assessment and Plan: the patient has pyuria. Urine culture shows Proteus. Sensitivities pending (4) CHF (congestive heart failure): Code(s): I50.9 - Heart failure, unspecified Status: Acute Assessment and Plan: No recent echo has been done. Chest x-ray and exam do not suggest volume overload he is eating better. Will decrease rate of IV fluids (5) Hypertension: Qualifiers: Hypertension type: essential hypertension Qualified Code(s): I10 - Essential (primary) hypertension Code(s): I10 - Essential (primary) hypertension Status: Chronic Assessment and Plan: blood pressure is under good control. (6) Hyperlipidemia: Qualifiers: Hyperlipidemia type: unspecified Qualified Code(s): E78.5 - Hyperlipidemia, unspecified Code(s): E78.5 - Hyperlipidemia, unspecified Status: Chronic Assessment and Plan: He is on a statin. 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 No shortness of breath eating well Review of Systems Cardiovascular: Cardiovascular: Reports no additional cardiovascular complaints Respiratory: Respiratory: Reports no additional respiratory complaints Gastrointestinal: Gastrointestinal: Reports no additional gastrointestinal complaints Genitourinary: Genitourinary: Reports no additional male genitourinary complaints Exam Narrative: WDWN in NAD skin no rash head ncat lungs clear cor reg no rub abd BS+ nontender and soft ext 2+ edema on the left and 1+ on the right. This is a chronic issue with him. He has had DVTs in the past. Objective Data Vital Signs Vital Signs: Vital Signs - 24 hr 07/07/22 09:47 07/07/22 09:49 07/07/22 14:00 Temperature 98.6 F Pulse Rate 97 68 Respiratory Rate 26 H Blood Pressure 115/58 L Pulse Oximetry 97 98 Oxygen Delivery Nasal Cannula Oxygen Flow Rate 2 07/07/22 20:00 07/07/22 22:00 07/08/22 06:00 Temperature 97.6 F 97.6 F Pulse Rate 68 63 74 Respiratory Rate 26 H 14 18 Blood Pressure 140/75 132/59 L Pulse Oximetry 98 95 91 Oxygen Delivery Nasal Cannula Oxygen Flow Rate 2.5 Intake/Output Intake/Output: Intake & Output 07/05/22 07/06/22 07/07/22 07/08/22 23:59 23:59 23:59 23:59 Intake Total 100 2440 3710 300 Output Total 2
[2022-07-08] MEDS: UMECLIDINIUM BROMIDE 62.5 MCG ELLIPTA 1 PUFF INHALATION (09:55)
[2022-07-08] MEDS: FLUTICASONE PROPIONATE 0.05% NA SPR 16 GM BTL (*BKC) 1 SPRAY NASAL (10:21)
[2022-07-08] MEDS: OLOPATADINE 0.1% OPHTH SOLN 5 ML BTL 1 DROP EACH EYE ×2 (10:23→17:28)
[2022-07-08] MEDS: LORATADINE 10 MG TABLET PO (10:24)
[2022-07-08] MEDS: carvediloL 3.125 MG TABLET 6.25 MG PO ×2 (10:24→21:57)
[2022-07-08] MEDS: PSYLLIUM SUGAR FREE POWDER PACKET 1 PACKET PO ×2 (10:24→21:57)
[2022-07-08] MEDS: FENOFIBRATE NANOCRYSTALLIZED 145 MG TABLET PO (10:24)
[2022-07-08] MEDS: APIXABAN 5 MG TABLET PO ×2 (10:25→21:57)
[2022-07-08] MEDS: OPTI-GEN TAB 1 TABLET PO ×2 (10:25→17:29)
[2022-07-08] MEDS: HYDROcodone/acetaminophen (*CRX) 7.5-325 MG TABLET 1 TAB PO ×3 (10:25→17:27)
[2022-07-08] MEDS: MIRABEGRON 50 MG ER TABLET PO (10:25)
[2022-07-08] MEDS: MAGNESIUM OXIDE 400 MG TABLET PO (10:25)
[2022-07-08] MEDS: DOCUSATE SODIUM 100 MG CAPSULE PO ×2 (10:25→17:28)
[2022-07-08] MEDS: ACIDOPHILUS/BULGARICUS CHEWABLE TABLET 1 TABLET PO (10:25)
[2022-07-08] MEDS: PANTOPRAZOLE 40 MG TABLET PO ×2 (10:25→17:29)
[2022-07-08] MEDS: MINERAL OIL 30 ML UDC 15 ML PO ×2 (10:25→17:28)
[2022-07-08] MEDS: SODIUM CHLORIDE 0.9% IV 1,000 ML 75 ML IV CONT (10:35)
--- NOTE | 2022-07-08 14:44 | PM.IMPN ---
Progress Note: A&P Assessment and Plan (1) Bacteremia: Code(s): R78.81 - Bacteremia Status: Acute Assessment and Plan: BCx returned positive for Strep mitis from one aerobic bottle only. Consider contaminate or from bowel/mouth source. Last colonoscopy was 2014 and was due for repeat 2020. Currently on Rocephin with plans to change to Ceftaz. Patient is allergic to PCN. Check Echo. Repeat BCx to ensure clearance. (2) Urinary tract infection associated with catheterization of urinary tract: Code(s): T83.511A - Infection and inflammatory reaction due to indwelling urethral catheter, initial encounter; N39.0 - Urinary tract infection, site not specified Status: Acute Assessment and Plan: Patient has a history of chronic UTI. He has recently completed a 10 day course of Bactrim. He was previously on chronic abx for UTI prevention with Keflex. UA noted. Unclear if he is having symptoms of UTI or from untreated TSERING. Gleason changed out just prior to admission. UCx growing Proteus with sensitivities to Augmentin, Ceftaz, Gent, Zosyn and Tobramycin. Patient was started on ceftriaxone but will change to Ceftazidime. (3) Acute hyperkalemia: Code(s): E87.5 - Hyperkalemia Status: Acute Assessment and Plan: Potassium 6.0. Likely multifactorial, secondary to FRANC in the setting of antibiotic treatment with Bactrim and potassium based dietary supplements. TSH normal. Cortisol high end of normal. The potassium has returned to normal after medical intervention with sodium chloride infusion, sodium bicarbonate infusion, Lasix 20 mg IV once. Follow. Continue low potassium diet. (4) Acute kidney injury: Code(s): N17.9 - Acute kidney failure, unspecified Status: Acute Assessment and Plan: Baseline Cr around 1.6. The etiology of the FRANC is unclear but felt related to poor oral intake and dehydration from diarrhea and diuretics. Bryan 74 with UCx 27 felt to be renal disease related. IV fluids started and diuretics stopped. Cr better today. Good UOP. Potasium remaining normal. Stop IV fluids. Monitor serum creatinine level, UOP and electrolytes. Nephrology has been consulted and appreciate their input. (5) Acute on chronic respiratory failure: Qualifiers: Respiratory failure complication: hypoxia and hypercapnia Qualified Code(s): J96.21 - Acute and chronic respiratory failure with hypoxia; J96.22 - Acute and chronic respiratory failure with hypercapnia Code(s): J96.20 - Acute and chronic respiratory failure, unspecified whether with hypoxia or hypercapnia Status: Acute Assessment and Plan: Patient wears 2.5L O2. Chest x-ray revealed minimal airspace opacities of the right mid lung zone, possible atelectasis versus pneumonia. COVID and influenza negative. Patient received Lasix IV single dose on admission but diuretics not continued. Follow for now. Continue PT/OT. (6) Hypothyroidism: Qualifiers: Hypothyroidism type: unspecified Qualified Code(s): E03.9 - Hypothyroidism, unspecified Code(s): E03.9 - Hypothyroidism, unspecified Status: Chronic Assessment and Plan: TSH normal Continue levothyroxine. (7) Obstructive sleep apnea: Code(s): G47.33 - Obstructive sleep apnea (adult) (pediatric) Status: Chronic Assessment and Plan: Stable. Will continue autotitrate CPAP/BiPAP (8) Hypertension: Qualifiers: Hypertension type: essential hypertension Qualified Code(s): I10 - Essential (primary) hypertension Code(s): I10 - [facility]l (primary) hypertension Status: Chronic Assessment and Plan: Patient's blood pressure was reviewed on 07/08 Blood pressure remains mostly well controlled. Will continue current meds. (9) Atrial fibrillation: Qualifiers: Atrial fibrillation type: unspecified Qualified Code(s): I48.91 - Unspecified atrial fi
[2022-07-08] MEDS: LATANOPROST 0.005% OP SOLN 2.5 ML BTL 1 DROP EACH EYE (17:28)
[2022-07-08] MEDS: ROSUVASTATIN 10 MG TABLET PO (21:57)
[2022-07-08] MEDS: SALINE LOCK FLUSH 10 ML IV PUSH (21:59)
[2022-07-08] MEDS: MELATONIN 5 MG TABLET 10 MG PO (22:02)
[2022-07-09] VITALS (8 sets, daily range): BP systolic 139–164; BP diastolic 76–85; PULSE 70–94; RESP 12–20; TEMP 37.1–37.4; O2SAT 92–94
[2022-07-09] MEDS: SALINE LOCK FLUSH 10 ML IV PUSH ×3 (05:40→21:12)
[2022-07-09] MEDS: LEVOTHYROXINE SODIUM 125 MCG TABLET PO (05:40)
[2022-07-09 07:05] LABS: Hematocrit 35.3 % (42.0-52.0); Hemoglobin 10.3 g/dL (14.0-18.0); Mean Corpuscular HGB Conc 29.2 g/dl (32-36); Mean Corpuscular Hemoglobin 29.4 pg (26-34); Mean Corpuscular Volume 100.9 fl (80-100); Mean Platelet Volume 10.5 fl (7.4-10.4); Platelet Count Result 148 k/mm3 (150-375); Red Cell Distribution Width 16.3 % (11.5-14.5); White Blood Count 6.4 K/mm3 (4.5-10.0)
[2022-07-09 07:20] LABS: Albumin Level 3.7 g/dL (3.5-5.1); Anion Gap 6 mmol/L (8-16); Blood Urea Nitrogen 25 mg/dL (9-20); Calcium 9.3 mg/dL (8.4-10.2); Carbon Dioxide 29 mmol/L (22-30); Chloride 103 mmol/L (98-107); Estimated CRCL calculation 48 ml/min; Estimated Glomerular Filt Rate 46; Glucose 82 mg/dL (65-110); Potassium 4.5 mmol/L (3.4-5.0); Sodium 138 mmol/L (137-145)
[2022-07-09] MEDS: APIXABAN 5 MG TABLET PO ×2 (09:38→21:10)
[2022-07-09] MEDS: OPTI-GEN TAB 1 TABLET PO ×2 (09:38→17:32)
[2022-07-09] MEDS: carvediloL 3.125 MG TABLET 6.25 MG PO ×2 (09:38→21:09)
[2022-07-09] MEDS: DOCUSATE SODIUM 100 MG CAPSULE PO ×2 (09:38→17:31)
[2022-07-09] MEDS: FENOFIBRATE NANOCRYSTALLIZED 145 MG TABLET PO (09:38)
[2022-07-09] MEDS: MIRABEGRON 50 MG ER TABLET PO (09:41)
[2022-07-09] MEDS: LORATADINE 10 MG TABLET PO (09:41)
[2022-07-09] MEDS: MINERAL OIL 30 ML UDC 15 ML PO ×2 (09:41→17:32)
[2022-07-09] MEDS: MAGNESIUM OXIDE 400 MG TABLET PO (09:41)
[2022-07-09] MEDS: ACIDOPHILUS/BULGARICUS CHEWABLE TABLET 1 TABLET PO (09:41)
[2022-07-09] MEDS: LIDOCAINE 5% PATCH 1 PATCH TRANSDERM (09:42)
[2022-07-09] MEDS: FLUTICASONE PROPIONATE 0.05% NA SPR 16 GM BTL (*BKC) 1 SPRAY NASAL (09:44)
[2022-07-09] MEDS: PANTOPRAZOLE 40 MG TABLET PO ×2 (09:49→17:32)
[2022-07-09] MEDS: OLOPATADINE 0.1% OPHTH SOLN 5 ML BTL 1 DROP EACH EYE ×2 (09:49→17:32)
[2022-07-09] MEDS: PSYLLIUM SUGAR FREE POWDER PACKET 1 PACKET PO ×2 (09:49→21:09)
[2022-07-09] MEDS: HYDROcodone/acetaminophen (*CRX) 7.5-325 MG TABLET 1 TAB PO ×3 (09:51→17:38)
--- NOTE | 2022-07-09 11:14 | PM.PNNEP ---
Progress Note: A&P Assessment and Plan (1) Acute on chronic renal failure: Code(s): N17.9 - Acute kidney failure, unspecified; N18.9 - Chronic kidney disease, unspecified Status: Acute Assessment and Plan: patient has acute kidney injury. His baseline creatinine seems to be around 1.6. renal ultrasound shows bilateral renal atrophy but no acute issues or masses. CK is not elevated urine electrolytes are non pre renal He currently has a bladder infection is getting treatment for this. most likely this is FRANC from the bladder infection. his creatinine is now back to baseline Potassium is good. Discharge okay by renal others are ready. (2) Acute hyperkalemia: Code(s): E87.5 - Hyperkalemia Status: Acute Assessment and Plan: Patient had a high potassium on admission. This was treated and is better. (3) Urinary tract infection associated with catheterization of urinary tract: Code(s): T83.511A - Infection and inflammatory reaction due to indwelling urethral catheter, initial encounter; N39.0 - Urinary tract infection, site not specified Status: Acute Assessment and Plan: the patient has pyuria. Urine culture shows Proteus. it is sensitive to ceftazidime. He is on this. (4) CHF (congestive heart failure): Code(s): I50.9 - Heart failure, unspecified Status: Acute Assessment and Plan: No recent echo has been done. Chest x-ray and exam do not suggest volume overload he is eating better. He is off IV fluids. (5) Hypertension: Qualifiers: Hypertension type: essential hypertension Qualified Code(s): I10 - Essential (primary) hypertension Code(s): I10 - Essential (primary) hypertension Status: Chronic Assessment and Plan: blood pressure is under good control. (6) Hyperlipidemia: Qualifiers: Hyperlipidemia type: unspecified Qualified Code(s): E78.5 - Hyperlipidemia, unspecified Code(s): E78.5 - Hyperlipidemia, unspecified Status: Chronic Assessment and Plan: He is on a statin. 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 eating well . Exam Narrative: WDWN in NAD skin no rash or subcu not head ncat lungs clear cor reg no rub or gallop abd BS+ nontender and soft ext 2+ edema on the left and 1+ on the right. This is a chronic issue with him. He has had DVTs in the past.. Is on Eliquis Objective Data Vital Signs Vital Signs: Vital Signs - 24 hr 07/08/22 21:57 07/08/22 22:00 07/08/22 20:00 Temperature 98.6 F Pulse Rate 68 68 68 Respiratory Rate 20 20 Blood Pressure 144/80 H Pulse Oximetry 92 92 Oxygen Delivery Nasal Cannula Oxygen Flow Rate 2.5 07/09/22 05:45 07/09/22 08:22 07/09/22 09:38 Temperature 98.8 F Pulse Rate 94 78 Respiratory Rate 20 Blood Pressure 164/84 H Pulse Oximetry 93 92 Oxygen Delivery Nasal Cannula Oxygen Flow Rate 2 Intake/Output Intake/Output: Intake & Output 07/06/22 07/07/22 07/08/22 07/09/22 23:59 23:59 23:59 23:59 Intake Total 2440 3760 1858 1100 Output Total 2700 2600 1950 550 Balance -260 1160 -92 550 Meds/Results Medications: Active Medications Generic Name Dose Route Start Last Admin Trade Name Freq PRN Reason Stop Dose Admin Acetaminophen 650 mg 07/05/22 22:18 Acetaminophen 325 Mg Tablet PO Q4H PRN Mild Pain (1-3) or Fever [place]
--- NOTE | 2022-07-09 13:44 | P.PNIM_ITS ---
Progress Note: A&P Assessment and Plan (1) Bacteremia: Code(s): R78.81 - Bacteremia Status: Acute Assessment and Plan: BCx returned positive for Strep mitis from one aerobic bottle only. Consider contaminate or from bowel/mouth source. Last colonoscopy was 2014 and was due for repeat 2020. Currently on Rocephin with plans to change to Ceftaz. Patient is allergic to PCN. Check Echo. Repeat BCx to ensure clearance. (2) Urinary tract infection associated with catheterization of urinary tract: Code(s): T83.511A - Infection and inflammatory reaction due to indwelling urethral catheter, initial encounter; N39.0 - Urinary tract infection, site not specified Status: Acute Assessment and Plan: Patient has a history of chronic UTI. He has recently completed a 10 day course of Bactrim. He was previously on chronic abx for UTI prevention with Keflex. U A noted. Unclear if he is having symptoms of UTI or from untreated TSERING. Gleason changed out just prior to admission. UCx growing Proteus with sensitivities to Augmentin, Ceftaz, Gent, Zosyn and Tobramycin. Patient was started on ceftriaxone but will change to Ceftazidime. (3) Acute hyperkalemia: Code(s): E87.5 - Hyperkalemia Status: Acute Assessment and Plan: Potassium 6.0. Likely multifactorial, secondary to FRANC in the setting of antibiotic treatment with Bactrim and potassium based dietary supplements. TSH normal. Cortisol high end of normal. The potassium has returned to normal after medical intervention with sodium chloride infusion, sodium bicarbonate infusion, Lasix 20 mg IV once. Follow. Continue low potassium diet. (4) Acute kidney injury: Code(s): N17.9 - Acute kidney failure, unspecified Status: Acute Assessment and Plan: Baseline Cr around 1.6. The etiology of the FRANC is unclear but felt related to poor oral intake and dehydration from diarrhea and diuretics. Bryan 74 with UCx 27 felt to be renal disease related. IV fluids started and diuretics stopped. Cr better today. Good UOP. Potasium remaining normal. Stop IV fluids. Monitor serum creatinine level, UOP and electrolytes. Nephrology has been consulted and appreciate their input. (5) Acute on chronic respiratory failure: Qualifiers: Respiratory failure complication: hypoxia and hypercapnia Qualified Code(s): J96.21 - Acute and chronic respiratory failure with hypoxia; J96.22 - Acute and chronic respiratory failure with hypercapnia Code(s): J96.20 - Acute and chronic respiratory failure, unspecified whether with hypoxia or hypercapnia Status: Acute Assessment and Plan: Patient wears 2.5L O2. Chest x-ray revealed minimal airspace opacities of the right mid lung zone, possible atelectasis versus pneumonia. COVID and influenza negative. Patient received Lasix IV single dose on admission but diuretics not continued. Follow for now. Continue PT/OT. (6) Hypothyroidism: Qualifiers: Hypothyroidism type: unspecified Qualified Code(s): E03.9 - Hypothyroidism, unspecified Code(s): E03.9 - Hypothyroidism, unspecified Status: Chronic Assessment and Plan: TSH normal Continue levothyroxine. (7) Obstructive sleep apnea: Code(s): G47.33 - Obstructive sleep apnea (adult) (pediatric) Status: Chronic Assessment and Plan: Stable. Will continue autotitrate CPAP/BiPAP (8) Hypertension: Qualifiers: Hypertension type: essential hypertension Qualified Code(s): I10 - Essential (primary) hypertension Code(s): I10 - [facility]
[2022-07-09] MEDS: MELATONIN 5 MG TABLET 10 MG PO (21:09)
[2022-07-09] MEDS: ROSUVASTATIN 10 MG TABLET PO (21:09)
[2022-07-09] MEDS: LATANOPROST 0.005% OP SOLN 2.5 ML BTL 1 DROP EACH EYE (21:11)
[2022-07-10 06:00] VITALS: BP 119/71; PULSE 72; RESP 20; TEMP 36.8; O2SAT 94
[2022-07-10] MEDS: LEVOTHYROXINE SODIUM 125 MCG TABLET PO (06:18)
[2022-07-10 09:30] VITALS: O2SAT 94
[2022-07-10 09:52] VITALS: PULSE 76
[2022-07-10] MEDS: APIXABAN 5 MG TABLET PO ×2 (09:52→20:54)
[2022-07-10] MEDS: carvediloL 3.125 MG TABLET 6.25 MG PO ×2 (09:52→20:55)
[2022-07-10] MEDS: HYDROcodone/acetaminophen (*CRX) 7.5-325 MG TABLET 1 TAB PO ×3 (09:52→16:49)
[2022-07-10] MEDS: MIRABEGRON 50 MG ER TABLET PO (09:52)
[2022-07-10] MEDS: OPTI-GEN TAB 1 TABLET PO ×2 (09:52→16:51)
[2022-07-10] MEDS: PSYLLIUM SUGAR FREE POWDER PACKET 1 PACKET PO ×2 (09:52→20:54)
[2022-07-10] MEDS: LORATADINE 10 MG TABLET PO (09:53)
[2022-07-10] MEDS: DOCUSATE SODIUM 100 MG CAPSULE PO ×2 (09:53→16:53)
[2022-07-10] MEDS: PANTOPRAZOLE 40 MG TABLET PO (09:53)
[2022-07-10] MEDS: FENOFIBRATE NANOCRYSTALLIZED 145 MG TABLET PO (09:53)
[2022-07-10] MEDS: MAGNESIUM OXIDE 400 MG TABLET PO (09:53)
[2022-07-10] MEDS: MINERAL OIL 30 ML UDC 15 ML PO ×2 (09:53→16:50)
[2022-07-10] MEDS: ACIDOPHILUS/BULGARICUS CHEWABLE TABLET 1 TABLET PO (09:54)
[2022-07-10] MEDS: SALINE LOCK FLUSH 10 ML IV PUSH ×3 (09:55→22:00)
[2022-07-10] MEDS: OLOPATADINE 0.1% OPHTH SOLN 5 ML BTL 1 DROP EACH EYE ×2 (10:07→16:52)
[2022-07-10] MEDS: FLUTICASONE PROPIONATE 0.05% NA SPR 16 GM BTL (*BKC) 1 SPRAY NASAL (10:07)
[2022-07-10] MEDS: ARTIFICIAL TEARS OPHTH SOLN 15 ML BOTTLE 1 DROP EACH EYE (10:08)
--- NOTE | 2022-07-10 10:39 | PC.NURSE ---
When this RN assumed care for pt, pt was confused, repeating random thoughts 4-5x each. Pt unable to answer A/O questions. Fixated on bed remote and leaving. He flipped over his breakfast tray, refused respiratory treatments, and stated he was unable to move. I am paralyzed . Tried assessing BLE sensation; pt not responding to even deep pain sensation. This behavior continued for about 30 minutes. Called MD asking for him to assess pt for AMS/change in condition. Before MD arrived to floor, PCT and this RN adjusted pt in bed, found chamberlain to be kinked. Once chamberlain repositioned and patent again, urine draining. Pt mentation improved; able to A/Ox2.5. Pt able to wiggle toes and respond to sensations. Pt continues to state he wants to leave. MD to bedside and evaluated pt. Assured pt we would both do our best to try and get him home soon.
[2022-07-10 14:16] VITALS: BP 151/63; PULSE 68; RESP 18; TEMP 36.6; O2SAT 94
[2022-07-10] MEDS: UMECLIDINIUM BROMIDE 62.5 MCG ELLIPTA 1 PUFF INHALATION (14:29)
--- NOTE | 2022-07-10 14:44 | PM.PNNEP ---
Progress Note: A&P Assessment and Plan (1) Acute on chronic renal failure: Code(s): N17.9 - Acute kidney failure, unspecified; N18.9 - Chronic kidney disease, unspecified Status: Acute Assessment and Plan: patient has acute kidney injury. His baseline creatinine seems to be around 1.6. renal ultrasound shows bilateral renal atrophy but no acute issues or masses. CK is not elevated urine electrolytes are non pre renal He currently has a bladder infection is getting treatment for this. most likely this is FRANC from the bladder infection. No labs drawn today. Will check another 1 tomorrow Discharge okay by renal others are ready. (2) Acute hyperkalemia: Code(s): E87.5 - Hyperkalemia Status: Acute Assessment and Plan: resolved (3) Urinary tract infection associated with catheterization of urinary tract: Code(s): T83.511A - Infection and inflammatory reaction due to indwelling urethral catheter, initial encounter; N39.0 - Urinary tract infection, site not specified Status: Acute Assessment and Plan: the patient has pyuria. Urine culture shows Proteus. it is sensitive to ceftazidime. He is on this. (4) CHF (congestive heart failure): Code(s): I50.9 - Heart failure, unspecified Status: Acute Assessment and Plan: No recent echo has been done. Chest x-ray and exam do not suggest volume overload he is eating better. He is off IV fluids. (5) Hypertension: Qualifiers: Hypertension type: essential hypertension Qualified Code(s): I10 - Essential (primary) hypertension Code(s): I10 - Essential (primary) hypertension Status: Chronic Assessment and Plan: blood pressure is under good control. (6) Hyperlipidemia: Qualifiers: Hyperlipidemia type: unspecified Qualified Code(s): E78.5 - Hyperlipidemia, unspecified Code(s): E78.5 - Hyperlipidemia, unspecified Status: Chronic Assessment and Plan: He is on a statin. (7) Diabetes type 2, controlled: Qualifiers: Diabetes mellitus intermodal customer service insulin use: without penitentiary use Diabetes mellitus complication status: with unspecified complications Qualified Code(s): E11.8 - Type 2 diabetes mellitus with unspecified complications Code(s): E11.9 - Type 2 diabetes mellitus without complications Status: Chronic Assessment and Plan: Hospitalist to follow this Subjective Date/time seen: 07/10/22 14:44 Interval history: patient feels about the same he is miserable in his bed. He would like to use the control to elevate his head but apparently there is some problem with that. His daughter is in the room and is going to talk with nursing about that. Exam Narrative: WDWN in NAD skin no rash or subcu nodules head ncat lungs clear cor reg no rub or gallop abd BS+ nontender and soft ext 2+ edema on the left and 1+ on the right. This is a chronic issue with him. He has had DVTs in the past.. Is on Eliquis Objective Data Vital Signs Vital Signs: Vital Signs - 24 hr 07/09/22 21:09 07/09/22 20:00 07/09/22 21:12 Temperature 99.3 F Pulse Rate 70 72 Respiratory Rate 12 Blood Pressure 151/76 H Pulse Oximetry 92 92 Oxygen Delivery Nasal Cannula Oxygen Flow Rate 2 07/10/22 06:00 07/10/22 09:52 07/10/22 09:30 Temperature 98.3 F Pulse Rate 72 76 Respiratory Rate 20 Blood Pressure 119/71 Pulse Oximetry 94 94 Oxygen Delivery Nasal Cannula Oxygen Flow Rate 2 07/10/22 14:16 Temperature 97.8 F Pulse Rate 68 Respiratory Rate 18 Blood Pressure 151/63 H Pulse Oximetry 94 Oxygen Delivery Oxygen Flow Rate Intake/Output Intake/Output: Intake & Output 07/07/22 07/08/22 07/09/22 07/10/22 23:59 23:59 23:59 23:59 Intake Total 3760 1858 2030 250 Output Total 2600 1950 1500 550 Balance 1160 -92 530 -300 Meds/Results Medicat
[2022-07-10 15:43] LABS: Albumin 3.2 g/dL (3.8-4.8); Alpha 1 Globulin 0.3 g/dL (0.2-0.3); Alpha 2 Globulin 0.8 g/dL (0.5-0.9); Beta 1 Globulin 0.4 g/dL (0.4-0.6); Gamma Globulin 0.7 g/dL (0.8-1.7); Interpretation Consistent with; Protein, Total 5.6 g/dL (6.1-8.1)
[2022-07-10 18:41] LABS: Complement Total CH50 48 U/mL (31-60)
[2022-07-10 20:29] VITALS: BP 139/61; PULSE 69; RESP 16; TEMP 36.8; O2SAT 94
[2022-07-10] MEDS: MELATONIN 5 MG TABLET 10 MG PO (20:54)
[2022-07-10 20:55] VITALS: PULSE 69
[2022-07-10] MEDS: ROSUVASTATIN 10 MG TABLET PO (20:55)
[2022-07-10] MEDS: LATANOPROST 0.005% OP SOLN 2.5 ML BTL 1 DROP EACH EYE (20:59)
--- NOTE | 2022-07-11 | ECHO_ITS ---
Patient Info Name: Sterling Mallory Age: 77 years : 1945 Gender: Male Ht: 69 in Wt: 311 lbs BSA: 2.69 m2 BP: 119 / 71 mmHg Heart Rhythm: Sinus Rhythm Technical Quality: Fair Exam Date: 07/11/2022 10:36 AM Exam Location: [facility] Patient Status: Inpatient Admit Date: 07/05/2022 Staff Ordering Physician: Wilson Olivia MD Oncology Patient Navigator: Josefina Méndez RDCS Attending Provider: Varsha Burroughs MD Exam Type: CA echo doppler color flow Study Info Indications - bacteremia Complete two-dimensional, color flow and Doppler transthoracic echocardiogram is performed with contrast to opacify the left ventricle and to improve the deliniation of the left ventricle endocardial borders. Contrast/Agitated Saline Contrast/Ag. Saline: Definity Amount: 3.00 ml Administered By: Josefina Méndez RDCS Existing IV Access: Yes IV Access Condition: patent with no signs of infiltration Summary 1. Left ventricular chamber dimension is mildly enlarged. 2. There is mildly increased left ventricular wall thickness. 3. Left ventricular systolic function is normal, estimated at 60-65%. 4. Right ventricular chamber dimension is mildly enlarged. 5. Right ventricular systolic function is reduced. 6. Left atrial chamber dimension is moderately enlarged. 7. Right atrial chamber dimension is severely enlarged. 8. There is mild mitral valve regurgitation. 9. There is trace tricuspid valve regurgitation. 10. There is a moderate-sized posterior pericardial effusion. 11. Reason for study was bacteremia. Cannot rule out valvular vegetation on study. Left Ventricle Left ventricular chamber dimension is mildly enlarged. Left ventricular systolic function is normal, estimated at 60-65%. There is mildly increased left ventricular wall thickness. Right Ventricle Right ventricular chamber dimension is mildly enlarged. Right ventricular systolic function is reduced. Left Atria Left atrial chamber dimension is moderately enlarged. Right Atria Right atrial chamber dimension is severely enlarged. Aortic Valve The aortic valve is probable trileaflet. There is mild aortic valve sclerosis. There is no aortic valve stenosis. There is no aortic valve regurgitation. Pulmonic Valve The pulmonic valve is not well visualized. Mitral Valve The mitral valve has thickened leaflets. There is no mitral valve stenosis. There is mild mitral valve regurgitation. Tricuspid Valve There is trace tricuspid valve regurgitation. Pericardium/Pleural There is a moderate-sized posterior pericardial effusion. Aorta The aortic root size at the sinus of Valsalva is normal. Left Ventricular Outflow Tract Name Value Normal LVOT 2D LVOT Diameter 2.1 cm LVOT Doppler LVOT Peak Gradient 3 mmHg LVOT Mean Gradient 1 mmHg LVOT VTI 14 cm LVOT VTI/AV VTI Ratio 0.6 LVOT Stroke Volume 47 ml LVOT CO 3.7 l/m
[2022-07-11] MEDS: LEVOTHYROXINE SODIUM 125 MCG TABLET PO (06:33)
[2022-07-11] MEDS: SALINE LOCK FLUSH 10 ML IV PUSH ×2 (06:34→16:20)
[2022-07-11 08:03] VITALS: BP 149/64; PULSE 76; RESP 16; TEMP 36.7; O2SAT 94
[2022-07-11 08:54] VITALS: PULSE 70
[2022-07-11] MEDS: MIRABEGRON 50 MG ER TABLET PO (08:54)
[2022-07-11] MEDS: carvediloL 3.125 MG TABLET 6.25 MG PO (08:54)
[2022-07-11] MEDS: ACIDOPHILUS/BULGARICUS CHEWABLE TABLET 1 TABLET PO (08:54)
[2022-07-11] MEDS: MAGNESIUM OXIDE 400 MG TABLET PO (08:55)
[2022-07-11] MEDS: HYDROcodone/acetaminophen (*CRX) 7.5-325 MG TABLET 1 TAB PO ×3 (08:55→16:20)
[2022-07-11] MEDS: LORATADINE 10 MG TABLET PO (08:55)
[2022-07-11] MEDS: APIXABAN 5 MG TABLET PO (08:55)
[2022-07-11] MEDS: PANTOPRAZOLE 40 MG TABLET PO ×2 (08:55→16:21)
[2022-07-11] MEDS: OPTI-GEN TAB 1 TABLET PO ×2 (08:55→16:21)
[2022-07-11] MEDS: DOCUSATE SODIUM 100 MG CAPSULE PO ×2 (08:55→16:20)
[2022-07-11] MEDS: FENOFIBRATE NANOCRYSTALLIZED 145 MG TABLET PO (08:55)
[2022-07-11] MEDS: MINERAL OIL 30 ML UDC 15 ML PO ×2 (08:56→16:20)
[2022-07-11] MEDS: ARTIFICIAL TEARS OPHTH SOLN 15 ML BOTTLE 1 DROP EACH EYE ×2 (08:56→16:20)
[2022-07-11] MEDS: FLUTICASONE PROPIONATE 0.05% NA SPR 16 GM BTL (*BKC) 1 SPRAY NASAL (08:56)
[2022-07-11] MEDS: PSYLLIUM SUGAR FREE POWDER PACKET 1 PACKET PO (08:57)
[2022-07-11] MEDS: OLOPATADINE 0.1% OPHTH SOLN 5 ML BTL 1 DROP EACH EYE ×2 (08:57→16:20)
[2022-07-11] MEDS: UMECLIDINIUM BROMIDE 62.5 MCG ELLIPTA 1 PUFF INHALATION (09:02)
[2022-07-11 09:03] VITALS: O2SAT 91
[2022-07-11 09:20] VITALS: O2SAT 92
[2022-07-11] MEDS: PERFLUTREN LIPID MICROSPHERES 1.5 ML VIAL DILUTED TO 10 ML TOTAL VOLUME IV PUSH (11:00)
[2022-07-11 14:00] VITALS: BP 145/77; PULSE 77; RESP 18; TEMP 37.1; O2SAT 94
--- NOTE | 2022-08-10 18:53 | P.DS_ITS ---
DS: Admitting Diagnosis Discharge Date 07/11/22 Admitting Diagnosis uti franc DS: Discharge Diagnosis Discharge Diagnosis (1) Bacteremia: Code(s): R78.81 - Bacteremia Status: Acute Assessment and Plan: BCx returned positive for Strep mitis from one aerobic bottle only. Consider contaminate or from bowel/mouth source. Last colonoscopy was 2014 and was due for repeat 2020. Currently on Rocephin with plans to change to Ceftaz. Patient is allergic to PCN. Check Echo. Repeat BCx to ensure clearance. (2) Urinary tract infection associated with catheterization of urinary tract: Code(s): T83.511A - Infection and inflammatory reaction due to indwelling urethral catheter, initial encounter; N39.0 - Urinary tract infection, site not specified Status: Acute Assessment and Plan: Patient has a history of chronic UTI. He has recently completed a 10 day course of Bactrim. He was previously on chronic abx for UTI prevention with Keflex. UA noted. Unclear if he is having symptoms of UTI or from untreated TSERING. Gleason changed out just prior to admission. UCx growing Proteus with sensitivities to Augmentin, Ceftaz, Gent, Zosyn and Tobramycin. Patient was started on ceftriaxone but will change to Ceftazidime. (3) Acute hyperkalemia: Code(s): E87.5 - Hyperkalemia Status: Acute Assessment and Plan: Potassium 6.0. Likely multifactorial, secondary to FRANC in the setting of anti biotic treatment with Bactrim and potassium based dietary supplements. TSH normal. Cortisol high end of normal. The potassium has returned to normal after medical intervention with sodium chloride infusion, sodium bicarbonate infusion, Lasix 20 mg IV once. Follow. Continue low potassium diet. (4) Acute kidney injury: Code(s): N17.9 - Acute kidney failure, unspecified Status: Acute Assessment and Plan: Baseline Cr around 1.6. The etiology of the FRANC is unclear but felt related to poor oral intake and dehydration from diarrhea and diuretics. Bryan 74 with UCx 27 felt to be renal disease related. IV fluids started and diuretics stopped. Cr b charley today. Good UOP. Potasium remaining normal. Stop IV fluids. Monitor serum creatinine level, UOP and electrolytes. Nephrology has been consulted and appreciate their input. (5) Acute on chronic respiratory failure: Qualifiers: Respiratory failure complication: hypoxia and hypercapnia Qualified Code(s): J96.21 - Acute and chronic respiratory failure with hypoxia; J96.22 - Acute and chronic respiratory failure with hypercapnia Code(s): J96.20 - Acute and chronic respiratory failure, unspecified whether with hypoxia or hypercapnia Status: Acute Assessment and Plan: Patient wears 2.5L O2. Chest x-ray revealed minimal airspace opacities of the right mid lung zone, possible atelectasis versus pneumonia. COVID and influenza negative. Patient received Lasix IV single dose on admission but diuretics not continued. Follow for now. Continue PT/OT. (6) Hypothyroidism: Qualifiers: Hypothyroidism type: unspecified Qualified Code(s): E03.9 - Hypothyroidism, unspecified Code(s): E03.9 - Hypothyroidism, unspecified Status: Chronic Assessment and Plan: TSH normal Continue levothyroxine. (7) Obstructive sleep apnea: Code(s): G47.33 - Obstructive sleep apnea (adult) (pediatric) Status: Chronic Assessment and Plan: Stable. Will continue autotitrate CPAP/BiPAP (8) Hypertension: Qualifiers: Hypertension type: [facility]
== END 2022-07-11 17:30 | DRG 698 ==
LOC: ANHED 22:18 → ANH3MEDSUR 07-06 02:56
PROVIDERS: Internal Medicine; Internal Medicine Nephrology; Admitting Provider Internal Medicine; Emergency Provider Emergency Medicine; PCP Family Medicine; Visit Provider Chiropractor
DX: T83.511A Infection and inflammatory reaction due to indwelling urethral catheter, initial encounter (principal); J96.21 Acute and chronic respiratory failure with hypoxia; J96.22 Acute and chronic respiratory failure with hypercapnia; N17.9 Acute kidney failure, unspecified; I13.0 Hypertensive heart and chronic kidney disease with heart failure and stage 1 through stage 4 chronic kidney disease, or unspecified chronic kidney disease; Z68.43 Body mass index [BMI] 50.0-59.9, adult; R78.81 Bacteremia; I48.20 Chronic atrial fibrillation, unspecified; N39.0 Urinary tract infection, site not specified; B96.4 Proteus (mirabilis) (morganii) as the cause of diseases classified elsewhere; B95.4 Other streptococcus as the cause of diseases classified elsewhere; E11.22 Type 2 diabetes mellitus with diabetic chronic kidney disease; N18.9 Chronic kidney disease, unspecified; I50.9 Heart failure, unspecified; E87.5 Hyperkalemia; E78.5 Hyperlipidemia, unspecified; Z20.822 Contact with and (suspected) exposure to COVID-19; E66.01 Morbid (severe) obesity due to excess calories; I48.91 Unspecified atrial fibrillation; E03.9 Hypothyroidism, unspecified; I25.10 Atherosclerotic heart disease of native coronary artery without angina pectoris; E86.0 Dehydration; H35.30 Unspecified macular degeneration; K21.9 Gastro-esophageal reflux disease without esophagitis; G47.33 Obstructive sleep apnea (adult) (pediatric); Z86.711 Personal history of pulmonary embolism; Z86.718 Personal history of other venous thrombosis and embolism; Z79.01 Long term (current) use of anticoagulants; Z98.42 Cataract extraction status, left eye; Z98.41 Cataract extraction status, right eye; Z99.81 Dependence on supplemental oxygen
CPT/HCPCS: 36415; 36569; 71045; 76775; 80048; 80053; 80069; 81001; 82533; 82550; 82570; 82948; 83605; 83735; 84155; 84156; 84165; 84300; 84443; 84540; 85025; 85027; 85610; 85730; 86038; 86140; 86160; 86162; 86705; 86706; 86803; 87040; 87077; 87086; 87088; 87186; 87340; 87636; 93005; 94640; 96374; 96375; 99285; A9270; C1751; C8929; J0610; J0696; J0713; J1815; J1940; J7030; Q9957

== ENCOUNTER 2024-05-16 13:20 | Inpatient (IN) | payer MEDICARE, BC, MEDICAID, SELFPAY ==
[2024-05-16] VITALS (78 sets, daily range): BP systolic 66–113; BP diastolic 48–70; PULSE 0–93; RESP 12–37; TEMP 36.3–37.1; O2SAT 88–99
--- NOTE | ~2024-05-16 | CT_ITS ---
CT brain wo con Ordering provider: Shalonda Palumbo MD History: 78 years Male with . unresponsive . Comparison: January 19, 2017 Technique: CT of the head without contrast. FINDINGS: BRAIN PARENCHYMA AND CSF SPACES: Mild leukoaraiosis and diffuse cortical atrophy. Mild atheromatous d isease. Indeterminate age hypodensity in the left external capsule. MRI is advised. No midline shift, mass effect or hemorrhage. The brain parenchyma and CSF spaces are otherwise normal. Empty sella tu rcica. VISUALIZED PARANASAL SINUSES: Well aerated. Right sphenoid and ethmoid sinus disease. MASTOIDS: Well aerated. BONES: The bones appear intact. SOFT TISSUES: Visualized nasopharynx is normal. Superficial soft tissues are normal. IMPRESSION: No acute intracranial findings. Reviewed, dictated and finalized at location A. TAL INTERN
--- NOTE | ~2024-05-16 | US_ITS ---
EXAMINATION: US renal BI DATE: 05/17/2024 12:27 INDICATION: Acute on chronic kidney failure TECHNIQUE: Multiple ultrasound grayscale images of the kidneys were obtained. COMPARISON: None. FINDINGS: The right kidney measures 13.4 x 5.1 x 5.0 cm. The left kidney measures 15.2 x 8.4 x 6 point cm. The kidneys demonstrate normal echogenicity but with diffuse bilateral mild cortical thinning. 2 cm anech oic exophytic cyst at the upper pole of the right kidney. There is no hydronephrosis in either kidney . No stones identified. The bladder is nonvisualized, likely decompressed with a Gleason catheter repo rtedly in place. IMPRESSION: 1. Likely age-related mild bilateral renal cortical atrophy. No hydronephrosis. Reviewed, dictated and finalized at location A. IMPRESSION: 1. Likely age-related mild bilateral renal cortical atrophy. No hydronephrosis .
--- NOTE | ~2024-05-16 | XR_ITS ---
CHEST RADIOGRAPH CLINICAL HISTORY: chf . COMPARISON: 05/19/2024 and dating back to 07/05/2022 TECHNIQUE: Single portable view of the chest. FINDINGS The cardiomediastinal silhouette is enlarged, unchanged. Increased interstitial markings are identified bilaterally, findings suggesting mild pulmonary vascul ar congestion. The lungs are otherwise clear. Visualized osseous structures and soft tissues are unremarkable. IMPRESSION: Mild pulmonary vascular congestion, without focal infiltrate or significant pleural effusion. Reviewed, dictated and finalized at location A. CING TECHNICIAN IMPRESSION: Mild pulmonary vascular congestion, without focal infiltrate or significant ple ural effusion.
--- NOTE | ~2024-05-16 | CT_ITS ---
EXAMINATION: CT chest abdomen pelvis wo con DATE: 05/19/2024 10:37 INDICATION: Bacteremia. Altered mental status. TECHNIQUE: Computed tomography (CT) of the chest, abdomen, and pelvis was performed without intraveno us contrast. Automated exposure control and iterative reconstruction technique were employed. The dos e-length product was 2863.61 mGy-cm. COMPARISON: CT abdomen and pelvis 03/03/2021 FINDINGS: CHEST CT: The lungs demonstrate mild atelectasis. There is mosaic attenuation in the lungs, likely small airway s disease. No pleural effusion. Cardiomegaly is noted. There are coronary artery calcifications. Ther e is a trace pericardial effusion. There is bilateral gynecomastia. The central pulmonary arteries ar e enlarged, consistent with pulmonary arterial hypertension. There is severe cervical and thoracic sp ondylosis. ABDOMEN/PELVIS CT: The liver is normal. There is mild splenomegaly, likely secondary to obesity. There are gallstones in the gallbladder, which is distended. The pancreas and adrenal glands are normal. There is cortical t hinning of the kidneys. There are cysts in the kidneys measuring up to 2.4 cm on the right. There is a 10 mm stone in right kidney. There are greater than 10 stones in left kidney and left renal pelvis measuring up to 11 mm. There is a 14 mm stone at left ureteropelvic junction with mild left hydroneph rosis. The bladder is decompressed by a Gleason catheter. There is an infraumbilical ventral hernia con taining nonobstructed small bowel. There are no dilated loops of bowel. The appendix is not visualize d. There is a filter in the inferior vena cava. There are no pathologically enlarged lymph nodes. The re is no free intraperitoneal fluid. There is lumbar dextroscoliosis and severe spondylosis. IMPRESSION: 1. Cholelithiasis. Gallbladder distention may be secondary to fasting. Correlate with physical exam t o exclude acute cholecystitis. 2. 14 mm stone at left ureteropelvic junction with mild left hydronephrosis. 3. Bilateral nonobstructing kidney stones. 4. Umbilical ventral hernia containing nonobstructed small bowel. Reviewed, dictated and finalized at location A. X ADMIN ENGINEER IMPRESSION: 1. Cholelithiasis. Gallbladder distention may be secondary to fasting. Correlat e with physical exam to exclude acute cholecystitis. 2. 14 mm stone at left ureteropelvic junction with mild left hydronephrosis. 3. Bilateral nonobstructing kidney stones. 4. Umbilical ventral hernia containing nonobstructed small bowel.
--- NOTE | ~2024-05-16 | XR_ITS ---
XR chest 1V portable DATE: 05/17/2024 20:13 INDICATION: Hypoxia TECHNIQUE: Portable AP views on 05/17/2024 at 2010 hours COMPARISON: 05/16/2024 portable AP chest FINDINGS: Cardiomegaly. There is pulmonary vascular congestion and redistribution suggesting pulmonar y venous hypertension. There is mild infiltrate or atelectasis in the right mid and both lower lung zones. Aortic arch calcification. No significant pleural effusion or pneumothorax is evident. Osteopenia. Osteoarthritic change at the glenohumeral joints. IMPRESSION: Cardiomegaly, pulmonary vascular congestion and redistribution, consistent with congestiv e change Mild infiltrate and/atelectasis in the right mid and both lower lung zones; differential diagnosis in cludes pulmonary edema, atelectasis or pneumonia Reviewed, dictated and finalized at location A. IMPRESSION: Cardiomegaly, pulmonary vascular congestion and redistribution, con sistent with congestive change Mild infiltrate and/atelectasis in the right mid and both lower lung zones; dif ferential diagnosis includes pulmonary edema, atelectasis or pneumonia
--- NOTE | ~2024-05-16 | XR_ITS ---
EXAMINATION: XR chest 1V portable DATE: 05/16/2024 14:43 INDICATION: Shortness of breath. Weakness. TECHNIQUE: A single frontal view of the chest was obtained on 2 radiographs. COMPARISON: Chest single view 07/05/2022, CT abdomen and pelvis 03/03/2021 FINDINGS: There is no pneumonia, pleural effusion, or pneumothorax. Cardiomegaly is noted. IMPRESSION: 1. Cardiomegaly. Reviewed, dictated and finalized at location B. IMPRESSION: 1. Cardiomegaly.
--- NOTE | ~2024-05-16 | XR_ITS ---
XR chest 1V portable Ordering provider: Shalonda Palumbo MD History: 78 years Male with . unresponsive . Comparison: May 17, 2024 FINDINGS: MEDIASTINUM: The cardiac silhouette is grossly enlarged. Elevation of the left main bronchi suggestiv e of left atrial enlargement. Congestive tanvir. LUNGS: No effusions or pneumothorax. Opacification in the left lower lobe area. Bilateral interstitia l changes. OTHER: No free air under the diaphragm. IMPRESSION: Cardiomegaly with cardiac decompensation and pulmonary edema. Left basilar atelectasis versus pneumon ia. Reviewed, dictated and finalized at location A. UNITY SUPPORT PROFESSIONAL IMPRESSION: Cardiomegaly with cardiac decompensation and pulmonary edema. Left basilar atel ectasis versus pneumonia.
--- NOTE | ~2024-05-16 | XR_ITS ---
CHEST RADIOGRAPH CLINICAL HISTORY: bad abg . COMPARISON: 05/19/2024 at 8:48 AM TECHNIQUE: Single portable view of the chest. FINDINGS The cardiomediastinal silhouette is enlarged, unchanged. Air bronchograms projecting over the cardiomediastinal silhouette, findings suggesting early infiltra te. Blunting of the left costophrenic sulcus is noted suggesting a left-sided pleural effusion. Increased interstitial markings are identified bilaterally, findings suggesting mild pulmonary vascul ar congestion. The lungs are otherwise clear. Visualized osseous structures and soft tissues are unremarkable. IMPRESSION: Pulmonary vascular congestion, with an early infiltrate in the left lower lobe and adjacent pleural e ffusion - an interval change from 8:00 AM examination. Reviewed, dictated and finalized at location A. TION SUPPORT EQUIPMENT REPAIRER IMPRESSION: Pulmonary vascular congestion, with an early infiltrate in the left lower lobe and adjacent pleural effusion - an interval change from 8:00 AM examination.
--- NOTE | 2024-05-16 13:27 | ECG_ITS ---
Test Date: 2024-05-16 13:31:37 Measurements Intervals [place] Rate: 83 P: 0 CA: 0 QRS: -65 QRSD: 142 T: 31 QT: 413 QTc: 486 Interpretive Statements ATRIAL FIBRILLATION RIGHT BUNDLE BRANCH BLOCK LEFT ANTERIOR FASCICULAR BLOCK BASELINE ARTIFACT- I, III, V1-V2 ABNORMAL ECG No previous ECG available for comparison Electronically Signed On 05-16-2024 14:38:40 CDT by Freddy Culver D.O.
[2024-05-16 13:39] LABS: Hemoglobin 11.6 g/dL (14.0-18.0); Mean Corpuscular HGB Conc 32.2 g/dl (32-36); Mean Corpuscular Hemoglobin 30.6 pg (26-34); Mean Platelet Volume 10.5 fl (7.4-10.4); Platelet Count Result 122 k/mm3 (150-375); Red Blood Count 3.79 M/mm3 (4.6-6.20); Red Cell Distribution Width 15.5 % (11.5-14.5); White Blood Count 12.7 K/mm3 (4.5-10.0)
[2024-05-16 13:53] LABS: Alanine Aminotransferase 14 U/L (6-50); Albumin Level 3.1 g/dL (3.5-5.1); Alkaline Phosphatase 60 U/L (38-126); Anion Gap 10 mmol/L (4-12); Aspartate Amino Transferase 34 U/L (17-59); Bilirubin,Total 1.4 mg/dL (0.2-1.3); Blood Urea Nitrogen 65 mg/dL (9-20); Calcium 7.8 mg/dL (8.4-10.2); Carbon Dioxide 28 mmol/L (22-30); Chloride 92 mmol/L (98-107); Estimated Glomerular Filt Rate 17; Glucose 248 mg/dL (65-110); Potassium 4.3 mmol/L (3.4-5.0); Sodium 130 mmol/L (137-145)
[2024-05-16 14:02] LABS: Band Neutrophils Percent 5 % (0-6); Basophils Percent Manual 0 % (0-1); Eosinophils Percent Manual 0 % (0-4); Lymphocytes Absolute Manual 0.25 K/mm3 (1.1-4.5); Lymphocytes Percent Manual 2 % (18-44); Monocytes Absolute Manual 0.63 K/mm3 (0.1-0.90); Monocytes Percent Manual 5 % (3-9); Neutrophils Absolute Manual 11.81 K/mm3 (1.3-6.7); Neutrophils Percent Manual 88 % (46-73); Platelet Estimate Slightly Decreased (Adequate); Total Cells Counted 100
[2024-05-16 14:03] LABS: Anisocytosis 1+
[2024-05-16 14:04] LABS: Hypochromasia 1+; Schistocytes None Seen
--- NOTE | 2024-05-16 14:08 | ED_ITS ---
HPI - General Adult General Chief complaint: Weakness Stated complaint: Lethargic Time Seen by Provider: 05/16/24 14:07 Source: patient, family and EMS Mode of arrival: EMS Limitations: no limitations History of Present Illness HPI narrative: 78 YEARS OLD WHITE MALE CAME FROM CORRECTION BY AMBULANCE COMPLAINING OF GENERAL WEAKNESS, LETHARGIC, LONG HOURS SLEEP. PATIENT ON CHRONIC INDWELLING MAGAÑA CATHETER, HE TAKES OXYGEN BY NASAL CANNULA 2 L DURING DAYTIME AND ON BIPAP AT NIGHT, PATIENT WOULD LIKE TO GO TO [facility] Related Data Home Medications Medication Instructions Recorded Confirmed acetaminophen 650 mg 650 mg PO Q8H PRN Pain (Scale 12/21/19 07/06/22 tablet,extended release Score 1-3) apixaban 5 mg tablet (Eliquis) 5 mg PO BID 12/21/19 07/06/22 calcium 600 mg (as 1 tablet PO BID 12/21/19 07/06/22 carbonate)-vitamin D3 10 mcg (400 unit) tablet (Calcium 600 + D(3)) calcium carbonate (Antacid 200 mg PO Q8H PRN Indigestion 12/21/19 07/06/22 (calcium carbonate)) carboxymethylcellulose sodium 0.5 1 drp ophthalmic (eye) BID 12/21/19 07/06/22 % eye drops (Refresh Tears) cetirizine 10 mg disintegrating 10 mg PO DAILY 12/21/19 07/06/22 tablet dextran 70-hypromellose (PF) 0.1 1 drp ophthalmic (eye) Q6H PRN Dry 12/21/19 07/06/22 %-0.3 % eye drops in a dropperette Eyes (Artificial Tears (PF)) dextromethorphan-guaifenesin 5 10 ml PO Q6H PRN Congestion 12/21/19 07/06/22 mg-100 mg/5 mL oral liquid (Robitussin Cough-Chest Congestion DM) docusate sodium 100 mg tablet 100 mg PO BID 12/21/19 07/06/22 fenofibrate nanocrystallized 145 145 mg PO DAILY 12/21/19 07/06/22 mg tablet fluticasone propionate 50 1 spray intranasal DAILY 12/21/19 07/06/22 mcg/actuation nasal spray,suspension (Flonase Allergy Relief) furosemide 40 mg tablet 80 mg PO DAILY 12/21/19 07/06/22 latanoprost 0.005 % eye drops 1 drp ophthalmic (eye) QPM 12/21/19 07/06/22 levothyroxine 125 mcg tablet 125 mcg PO DAILY 12/21/19 07/06/22 magnesium oxide 500 mg PO DAILY 12/21/19 07/06/22 melatonin 10 mg capsule 10 mg PO HS 12/21/19 07/06/22 mineral oil 15 ml PO BID 12/21/19 07/06/22 mirabegron 50 mg tablet,extended 50 mg PO DAILY 12/21/19 07/06/22 release 24 hr (Myrbetriq) olopatadine 0.1 % eye drops 1 drp ophthalmic (eye) BID 12/21/19 07/06/22 omeprazole 20 mg capsule,delayed 20 mg PO BID 12/21/19 07/06/22 release polyethylene glycol 3350 17 gram 17 g PO Q24H PRN Constipation 12/21/19 07/06/22 oral powder packet (Miralax) potassium chloride 10 mEq 20 meq PO DAILY 12/21/19 07/06/22 capsule,extended release rosuvastatin 10 mg tablet (Crestor) 10 mg PO HS 12/21/19 07/06/22 sitagliptin phosphate 100 mg 100 mg PO HS 12/21/19 07/06/22 tablet (Januvia) sodium chloride 0.65 % nasal spray 2 spray intranasal Q2H PRN Dry 12/21/19 07/06/22 aerosol (Cameron Nasal) Nasal Passages tiotropium bromide 2.5 2 puff inhalation DAILY ##0 12/21/19 07/06/22 mcg/actuation mist for inhalation (Spiriva Respimat) Acidophilus 1 tablet PO DAILY 07/06/22 07/06/22 Imodium A-D 1 tablet PO TID 07/06/22 07/06/22 PreserVision AREDS 1 tablet PO BID 07/06/22 07/06/22 albuterol sulfate 2.5 mg/3 mL 2.5 mg inhalation Q6H PRN 07/06/22 07/06/22 (0.083 %) solution for nebulization Shortness Of Breath aspirin 81 mg tablet,delayed 81 mg PO DAILY 07/06/22 07/06/22 release (Adult Aspirin Regimen) bumetanide 0.5 mg tablet 0.5 mg PO BID 07/06/22 07/06/22 carvedilol 3.125 mg tablet (Coreg) 6.25 mg PO Q12HR 07/06/22 07/06/22 gabapentin 100 mg capsule 200 mg PO HS 07/06/22 07/06/22 hydrocodone 7.5 mg-acetaminophen 1 tablet PO TID 07/06/22 07/06/22 325 mg tablet meloxicam 15 mg tablet 15 mg PO DAILY 07/06/22 07/06/22 Allergies Allergy/AdvReac Type Severity Reaction Status Date / Time bacitracin Allergy Unknown Rash Verified 04/29/20 09:34 Penicillins Allergy Unknown Rash Verified 04/29/20 09:34 [facility] Past Medical History Medical History Atrial fibrillation Remote cardioversion, not appears persistent Chronic respiratory failure COPD (chronic obstructive pulmonary disease) Diabetes type 2, controlled DVT (deep venous thrombosis) GERD (gastroesophageal reflux disease) History of cardioversion History of congestive heart failure History of coronary artery disease Hyperlipidemia Hypertension Hypothyroidism Macular degeneration Obstructive sleep apnea Uses a CPAP Pulmonary embolism On Eliquis Surgical History Surgical History H/O bilateral cataract extraction H/O lumbar discectomy H/O rectal sphincterotomy History of back surgery History of tonsillectomy S/P IVC filter Family History Family History Father Family history of lung cancer, Onset Age: 77 Mother Family history of dementia Postoperative complication Crossing her Sibling Diabetes mellitus Heart disease Daughter Breast cancer Other Family history of malignant neoplasm of breast Social History Social History Social History: The patient is X2 and he lives at [facility]. He has 4 children 3 are biological 1 is adopted. 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 His daughter Sanjuana CARVER IS HIS DURABLE POWER ENERGY TRADER FOR HEALTHCARE. He desires to be a full code. He stated that he never smoked. Smoking status: Never smoker Alcohol intake: former Alcohol use details: SOCIAL IN PAST Substance use: never Substance use type: does not use Lack of Transportation: No Lack of Food: Never True Current Housing: I Have Housing Concerned About Future Housing: No Difficulty Paying Gas/Electric Bills: No Difficulty Paying for Meds: No Currently Unemployed: No Education: Decline to Answer Difficulty w/ Childcare or Family Care: No Living arrangements: [facility] Occupation/Education: retired Gender identity (if verbalized by the patient): Male Sexual Orientation (if Verbalized by the Patient): Straight or Heterosexual Spiritual care concerns: No Course Vital Signs Vital signs: Vital Signs Temperature 37.1 C 05/16/24 13:21 Pulse Rate 85 05/16/24 13:21 Respiratory Rate 24 H 05/16/24 13:21 Blood Pressure 96/57 L 05/16/24 13:21 Pulse Oximetry 93 05/16/24 13:21 Oxygen Delivery Nasal Cannula 05/16/24 13:21 Oxygen Flow Rate 4 05/16/24 13:21 Temperature 37.1 C 05/16/24 13:21 Pulse Rate 69 05/16/24 18:31 Respiratory Rate 21 H 05/16/24 18:31 Blood Pressure 90/59 L 05/16/24 18:31 Pulse Oximetry 97 05/16/24 18:31 Oxygen Delivery Nasal Cannula 05/16/24 13:21 Oxygen Flow Rate 4 05/16/24 13:21 Medical Decision Making MDM Narrative Medical decision making narrative: PATIENT CAME FROM CORRECTION WITH LETHARGY AND LONG OUR SLEEP HISTORY OF CHRONIC INDWELLING MAGAÑA CATHETER, ON HOME OXYGEN BY NASAL CANNULA, BIPAP AT NIGHT VITAL SIGNS ON ARRIVAL SHOWED BLOOD PRESSURE 96/57, HEART RATE 85, RESPIRATION 24, TEMPERATURE 37.1? SATURATION ON 4 L 93% PHYSICAL EXAMINATION SHOWED DEBILITATING PATIENT, OBESE, UNABLE TO MOVE ANY EXTREMITY, MAGAÑA CATHETER IN, NASAL CANNULA ON DIFFERENTIAL DIAGNOSIS INCLUDE URINARY TRACT INFECTION CATHETER RELATED, ELECTROLYTE IMBALANCE, DEHYDRATION, PNEUMONIA, SEPSIS BLOOD WORKUP TODAY SHOWED WBC 12.7, SODIUM 130, POTASSIUM 4.3, BUN 65, CREATININE 3.5, BLOOD GLUCOSE IS 348, CALCIUM 7.8, C-REACTIVE PROTEIN 21, URINALYSIS SHOWED EVIDENCE OF INFECTION CHEST X-RAY SHOWED CARDIOMEGALY, EKG SHOWED AFIB WITH NORMAL VENTRICULAR RESPONSE PATIENT REQUESTED TO BE TRANSFERRED TO [facility] Differential Diagnosis Differential Diagnosis: ABOVE Vital Signs Vital Signs: Vital Signs Temperature 37.1 C 05/16/24 13:21 Pulse Rate 85 05/16/24 13:21 Respiratory Rate 24 H 05/16/24 13:21 Blood Pressure 96/57 L 05/16/24 13:21 Pulse Oximetry 93 05/16/24 13:21 Oxygen Delivery Nasal Cannula 05/16/24 13:21 Oxygen Flow Rate 4 05/16/24 13:21 Temperature 37.1 C 05/16/24 13:21 Pulse Rate 69 05/16/24 18:31 Respiratory Rate 21 H 05/16/24 18:31 Blood Pressure 90/59 L 05/16/24 18:31 Pulse Oximetry 97 05/16/24 18:31 Oxygen Delivery Nasal Cannula 05/16/24 13:21 Oxygen Flow Rate 4 05/16/24 13:21 Lab Data 05/16/24 13:30 05/16/24 13:30 Labs: Lab Results 05/16/24 05/16/24 05/16/24 Range/Units 13:30 14:27 15:44 WBC 12.7 H (4.5-10.0) K/mm3 RBC 3.79 L (4.6-6.20) M/mm3 Hgb 11.6 L (14.0-18.0) g/dL Hct 36.0 L (42.0-52.0) % MCV 95.0 (80-100) fl MCH 30.6 (26-34) pg MCHC 32.2 (32-36) g/dl RDW 15.5 H (11.5-14.5) % Plt Count 122 L (150-375) k/mm3 MPV 10.5 H (7.4-10.4) fl Immature Gran % (Auto) Not Reportable Neut % (Auto) Not Reportable Lymph % (Auto) Not Reportable Payette % (Auto) Not Reportable Eos % (Auto) Not Reportable Baso % (Auto) Not Reportable Lymph # (Auto) Not Reportable Payette # (Auto) Not Reportable Eos # (Auto) Not Reportable Baso # (Auto) Not Reportable Abs Immat Gran (auto) Not Reportable Absolute Neuts (auto) Not Reportable Absolute Nucleated RBC Not Reportable Total Counted 100 Neutrophils % (Manual) 88 H (46-73) % Band Neutrophils % 5 (0-6) % Lymphocytes % (Manual) 2 L (18-44) % Monocytes % (Manual) 5 (3-9) % Eosinophils % (Manual) 0 (0-4) % Basophils % (Manual) 0 (0-1) % Nucleated RBC % Not Reportable Abs Neuts (Manual) 11.81 H (1.3-6.7) K/mm3 Abs Lymphs (Manual) 0.25 L (1.1-4.5) K/mm3 Abs Monocytes (Manual) 0.63 (0.1-0.90) K/mm3 Absolute Eos (Manual) 0.00 L (0.02-0.50) K/mm3 Abs Basophils (Manual) 0.00 (0.0-0.1) K/mm3 Platelet Estimate Slightly decreased (Adequate) Hypochromasia 1+ Anisocytosis 1+ Schistocytes None seen PT 22.9 H (11.1-14.7) Seconds INR 2.0 APTT 35.3 (22.3-36.8) Seconds Sodium 130 L (137-145) mmol/L Potassium 4.3 (3.4-5.0) mmol/L Chloride 92 L (98-107) mmol/L Carbon Dioxide 28 (22-30) mmol/L Anion Gap 10 (4-12) mmol/L BUN 65 H D (9-20) mg/dL Creatinine 3.50 H (0.7-1.3) mg/dL Estim Creat Clear Calc Not Reportable Estimated GFR 17 L (59 - ) Glucose 248 H (65-110) mg/dL Lactic Acid 1.8 (0.7-2.0) mmol/L Calcium 7.8 L (8.4-10.2) mg/dL Total Bilirubin 1.4 H (0.2-1.3) mg/dL AST 34 (17-59) U/L ALT 14 (6-50) U/L Alkaline Phosphatase 60 (38-126) U/L C-Reactive Protein 21.0 H (<1.0) mg/dL Total Protein 7.0 (6.3-8.2) g/dL Albumin 3.1 L (3.5-5.1) g/dL Urine Color Red H (Yellow) Urine Appearance TNP Urine pH TNP Ur Specific Winslow TNP Urine Protein TNP Urine Glucose (UA) TNP Urine Ketones TNP Ur Blood (Man) TNP Urine Nitrate TNP Urine Bilirubin TNP Urine Urobilinogen TNP Add Ur Microanalysis Reviewed Leukocyte Esterase Rfl TNP Urine RBC >100 H (0-2) /hpf Urine WBC >100 H (0-3) /hpf Urine WBC Clumps Present H (None) /HPF Ur Squamous Epith Cells Occasional (Few) /hpf Urine Bacteria 3+ H /hpf Urine Casts 06-04 Imaging Data Radiologist's impression: Impressions Chest X-Ray 05/16/24 14:44 IMPRESSION: 1. Cardiomegaly. ECG Data EKG #1: Attestation: I personally reviewed and interpreted this ECG as follows: ECG completion date: 05/16/24 Interpretation: AFIB AT 83 BEATS PER MINUTE, RIGHT BUNDLE-BRANCH BLOCK, LEFT ANTERIOR FASCICULAR BLOCK, ABNORMAL EKG, NO PREVIOUS EKG AVAILABLE FOR COMPARISON Critical Care Time Critical Care Time Critical Care Time: Yes Total Critical Care Time: 30 Discharge Plan Discharge Clinical Impression: FRANC (acute kidney injury), Urinary tract infection associated with catheterization of urinary tract Patient Disposition: Still a Patient Condition: Stable Prescriptions: No Action Desitin 40 % Paste 1 applic topical PRN PRN (Reason: Irritation) Qty: 60 0RF lidocaine [Lidoderm] 5 % Adhesive Patch,Medicated 3 patch transdermal DAILY Qty: 15 0RF Rx Instructions: lower back Metamucil Fiber Singles 3.4 gram Powder In Packet 1 packet PO Q12HR Qty: 30 0RF potassium chloride 10 mEq Capsule, Extended Release 20 meq PO DAILY Rx Instructions: ONCE A DAY 0800 polyethylene glycol 3350 [Miralax] 17 gram Powder In Packet 17 g PO Q24H PRN (Reason: Constipation) acetaminophen 650 mg Tablet Extended Release 650 mg PO Q8H PRN (Reason: Pain (Scale Score 1-3)) Rx Instructions: 2 TABS After meals levothyroxine 125 mcg Tablet 125 mcg PO DAILY Rx Instructions: ONCE DAILY 0400 calcium carbonate [Antacid (calcium carbonate)] 200 mg calcium (500 mg) Tablet,Chewable 200 mg PO Q8H PRN (Reason: Indigestion) omeprazole 20 mg Capsule,Delayed Release(Dr/Ec) 20 mg PO BID Rx Instructions: BID 0800, 2000 fluticasone propionate [Flonase Allergy Relief] 50 mcg/actuation Garrard,Suspension 1 spray INTRANASAL DAILY Rx Instructions: ONE SPRAY EACH NARE. docusate sodium 100 mg Tablet 100 mg PO BID rosuvastatin [Crestor] 10 mg Tablet 10 mg PO HS Rx Instructions: BEDTIME 1900 Januvia 100 mg Tablet 100 mg PO HS calcium carbonate-vitamin D3 [Calcium 600 + D(3)] 600 mg(1,500mg) -400 unit Tablet 1 tablet PO BID Artificial Tears (PF) 0.1-0.3 % Dropperette 1 drp ophthalmic (eye) Q6H PRN (Reason: Dry Eyes) Rx Instructions: 1 GTT TO BOTH EYES. cetirizine 10 mg Tablet,Disintegrating 10 mg PO DAILY Myrbetriq 50 mg Tablet Extended Release 24 Hr 50 mg PO DAILY Rx Instructions: ONCE A DAY 0800 Spiriva Respimat 2.5 mcg/actuation Mist 2 puff INHALATION DAILY Qty: 0 Eliquis 5 mg Tablet 5 mg PO BID melatonin 10 mg Capsule 10 mg PO HS furosemide 40 mg Tablet 80 mg PO DAILY Hold Instructions: Resume on 04/11/20. Restart Furosemide in 1 week (04/11/20). latanoprost 0.005 % Drops 1 drp OPHTHALMIC (EYE) QPM mineral oil Oil 15 ml PO BID carboxymethylcellulose sodium [Refresh Tears] 0.5 % Drops 1 drp OPHTHALMIC (EYE) BID olopatadine 0.1 % Drops 1 drp OPHTHALMIC (EYE) BID magnesium oxide 500 mg Tablet 500 mg PO DAILY Robitussin Cough-Chest Agustin DM 5-100 mg/5 mL Liquid 10 ml PO Q6H PRN (Reason: Congestion) Cameron Nasal 0.65 % Aerosol,Garrard 2 spray INTRANASAL Q2H PRN (Reason: Dry Nasal Passages) fenofibrate nanocrystallized 145 mg Tablet 145 mg PO DAILY carvedilol [Coreg] 3.125 mg tablet 6.25 mg PO Q12HR Acidophilus 1 tablet PO DAILY albuterol sulfate 2.5 mg /3 mL (0.083 %) solution for nebulization 2.5 mg inhalation Q6H PRN (Reason: Shortness Of Breath) meloxicam 15 mg tablet 15 mg PO DAILY hydrocodone-acetaminophen 7.5-325 mg tablet 1 tablet PO TID bumetanide 0.5 mg tablet 0.5 mg PO BID gabapentin 100 mg capsule 200 mg PO HS PreserVision AREDS 1 tablet PO BID Imodium A-D 1 tablet PO TID Rx Instructions: 1-2 tablets for diarrhea aspirin [Adult Aspirin Regimen] 81 mg Tablet,Delayed Release (Dr/Ec) 81 mg PO DAILY ceftazidime [Tazicef] 1 gram Recon Soln 1 g IV Q12HR 12 Days Qty: 24 0RF Follow-up/Referrals: Jania Lindsey MD [Primary Care Provider] -
[2024-05-16] MEDS: SODIUM CHLORIDE 0.9% 999 ML IV CONT ×4 (14:40→17:21)
[2024-05-16 14:53] LABS: Lactic Acid Reflex 1.8 mmol/L (0.7-2.0)
--- NOTE | 2024-05-16 15:10 | PC.NURSE ---
Patient catheter changed, patient states that the last time the catheter was changed was two weeks ago and was scheduled to be changed sunday. catheter changed- 30ml emptied from prior balloon- pt states that urology requests his balloons be filled with 5ml more than usual. balloon filled with 20ml ns
[2024-05-16 15:14] LABS: Partial Thromboplastin Time 35.3 Seconds (22.3-36.8); Prothrombin Time 22.9 Seconds (11.1-14.7)
[2024-05-16] MEDS: levoFLOXacin 750 MG/D5W 150 ML 750 MG/150 ML BAG 100 MG IVPB (15:52)
[2024-05-16 16:02] LABS: Add Urine Microscopic? YES; Bacteria Urine 3+ /hpf; Need Manual Microscopic Reviewed; RBC Urine >100 /hpf (0-2); Squamous Epithelial Cell Urine Occasional /hpf (Few); WBC Clumps Urine Present /HPF; WBC Urine >100 /hpf (0-3)
[2024-05-16 16:06] LABS: Color Urine Red (Yellow)
[2024-05-16] MEDS: AZTREONAM 2 GM in SODIUM CHLORIDE 0.9% IV 100 ML 200 ML IVPB (18:30)
[2024-05-16] MEDS: VANCOMYCIN 2,000 MG/NS 500 ML 2,000 MG/500 ML BAG 250 MG IVPB (19:31)
--- NOTE | 2024-05-16 19:41 | PC.NURSE ---
this rn attempted to reposition patient,. pt refused to be repositioned at this time.
--- NOTE | 2024-05-16 20:50 | PM.IMHP ---
H&P: HPI History of Present Illness Date/Time: 05/16/24 20:50 Chief Complaint: Fever, lethargy, confusion. Narrative: This is a 78-year-old male with multiple medical problems including hypertension, coronary artery disease, atrial fibrillation on chronic anticoagulation, deep venous thrombosis, pulmonary embolism, chronic respiratory failure on oxygen, chronic obstructive pulmonary disease, obstructive sleep apnea, diet-controlled type 2 diabetes mellitus, hypothyroidism, morbid obesity, obstructive uropathy with indwelling Gleason catheter, and history of multidrug resistant urinary tract infections who presented to the emergency department via EMS from [facility] for evaluation of lethargy and confusion. The patient is able to provide some history however some of the following is supplemented via a review of his EMR as he is a bit confused at this time. He has reportedly been lethargic and has been sleeping more the last couple of days. Today he started running a fever and was brought in for evaluation. In the ED he was found to have gross hematuria and I believe his Gleason catheter was exchanged. He is not necessarily having any discomfort in his lower back or suprapubic region. The only complaint he has at the time my evaluation is the fact that he is on a heart healthy diet; he says he has a note from his doctor that he can eat a regular diet and that his daughter will be bringing his salt shaker. He denies headache, neck ache, sinus congestion, sore throat, cough, chest pain, abdominal pain, nausea, vomiting, and diarrhea. In the ED: Blood pressure has been as low as 67/51 but has improved with IV fluids. He is afebrile and at his baseline oxygen requirement. Labs are significant for WBC count of 12.7, hemoglobin 11.6, INR 2.0, sodium 130, BUN 65, creatinine 3.50, lactic acid 1.8, CRP 21. Urine was grossly bloody with greater than 100 RBC and WBC per high-power field and 3+ bacteria. Chest x-ray showed cardiomegaly. He was given a total of 4 L normal saline in addition to levofloxacin 750 mg, aztreonam 2 g, and vancomycin 2000 mg. He is being admitted in this setting for further treatment. Review of Systems Review of Systems: 12 systems were reviewed and are negative except for as per HPI. [facility] Past Medical History Medical History (Updated 05/17/24 @ 04:15 by Chante Flores PA-C) Atrial fibrillation remote cardioversion, appears persistent Chronic obstructive pulmonary disease Chronic respiratory failure Coronary artery disease Deep venous thrombosis Diet-controlled type 2 diabetes mellitus Gastroesophageal reflux disease Hyperlipidemia Hypertension Hypothyroidism Indwelling Gleason catheter present Macular degeneration Morbid obesity Obstructive sleep apnea on CPAP Pulmonary embolism Right-sided heart failure Surgical History Surgical History (Updated 05/17/24 @ 04:15 by Chante Flores PA-C) History of bilateral cataract extraction History of cardioversion History of inferior vena caval filter placement History of lumbar discectomy History of rectal sphincterotomy History of tonsillectomy Family History Family History Father Family history of lung cancer, Onset Age: 77 Mother Family history of dementia Postoperative complication Crossing her Sibling Diabetes mellitus Heart disease Daughter Breast cancer Other Family history of malignant neoplasm of breast Social History Social History Social History: Healthcare power of claims attorney: Sanjuana Garcia. Code status: Full code. Smoking status: Never smoker Alcohol intake: never Substance use: never Substance use type: does not use Do You Feel Safe in your Home?: Yes Lack of Transportation: No Lack of Food: Never True Current Housing: I Have Housing Concerned About Future Housing: No Difficulty Paying Gas/Electric Bills: No Difficulty Paying for Meds: No Currently Unemployed: No Education: High School Diploma/GED Difficulty w/ Childcare or Family Care: No Living arrangements: assisted Additional living arrangements comments: [facility] [place]. 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 Spiritual care concerns: No Meds Home Medications and Allergies Home Medications Medication Instructions Recorded Confirmed Type acetaminophen 650 mg 650 mg PO Q4H PRN Pain (Scale 12/21/19 05/16/24 History tablet,extended release Score 1-3) carboxymethylcellulose sodium 0.5 1 drp ophthalmic (eye) BID 12/21/19 05/16/24 History % eye drops (Refresh Tears) dextran 70-hypromellose (PF) 0.1 1 drp ophthalmic (eye) Q6H PRN Dry 12/21/19 05/16/24 History %-0.3 % eye drops in a dropperette Eyes (Artificial Tears (PF)) dextromethorphan-guaifenesin 5 10 ml PO Q6H PRN Congestion 12/21/19 05/16/24 History mg-100 mg/5 mL oral liquid (Robitussin Cough-Chest Congestion DM) fenofibrate nanocrystallized 145 145 mg PO DAILY 12/21/19 05/16/24 History mg tablet fluticasone propionate 50 1 spray intranasal DAILY 12/21/19 05/16/24 History mcg/actuation nasal spray,suspension (Flonase Allergy Relief) furosemide 40 mg tablet 60 mg PO BID 12/21/19 05/16/24 History latanoprost 0.005 % eye drops 1 drp ophthalmic (eye) QPM 12/21/19 05/16/24 History levothyroxine 125 mcg tablet 125 mcg PO DAILY 12/21/19 05/16/24 History magnesium oxide 400 mg PO BID 12/21/19 05/16/24 History melatonin 10 mg capsule 10 mg PO HS 12/21/19 05/16/24 History mineral oil 15 ml PO BID 12/21/19 05/16/24 History mirabegron 50 mg tablet,extended 50 mg PO DAILY 12/21/19 05/16/24 History release 24 hr (Myrbetriq) polyethylene glycol 3350 17 gram 17 g PO DAILY 12/21/19 05/16/24 History oral powder packet (Miralax) potassium chloride 10 mEq 20 meq PO DAILY 12/21/19 05/16/24 History capsule,extended release rosuvastatin 10 mg tablet (Crestor) 20 mg PO HS 12/21/19 05/16/24 History sodium chloride 0.65 % nasal spray 2 spray intranasal Q2H PRN Dry 12/21/19 05/16/24 History aerosol ([place] Nasal) Nasal Passages tiotropium bromide 2.5 2 puff inhalation DAILY ##0 12/21/19 05/16/24 History mcg/actuation mist for inhalation (Spiriva Respimat) Acidophilus 1 tablet PO DAILY 07/06/22 05/16/24 History carvedilol 3.125 mg tablet (Coreg) 6.25 mg PO Q12HR 07/06/22 05/16/24 History gabapentin 100 mg capsule 200 mg PO BID 07/06/22 05/16/24 History hydrocodone 7.5 mg-acetaminophen 1 tablet PO TID PRN Pain (Scale 07/06/22 05/16/24 History 325 mg tablet Score 4-6) Adults Multivitamin 18 mg BYMOUTH DAILY 05/16/24 05/16/24 History apixaban 5 mg tablet (Eliquis) 5 mg PO BID 05/16/24 05/16/24 History brimonidine 0.2 %-timolol 0.5 % 1 drp EACH EYE BID 05/16/24 05/16/24 History eye drops calcium carbonate 200 mg PO Q6H PRN Indigestion 05/16/24 05/16/24 History empagliflozin 10 mg tablet 10 mg PO DAILY 05/16/24 05/16/24 History (Jardiance) ipratropium 0.5 mg-albuterol 3 mg 3 ml inhalation BID PRN Shortness 05/16/24 05/16/24 History (2.5 mg base)/3 mL nebulization Of Breath soln lactulose 10 gram/15 mL oral 30 ml PO BID 05/16/24 05/16/24 History solution lanolin 50 % topical cream 1 applic topical DAILY 05/16/24 05/16/24 History (Lantiseptic Skin Protectant) loteprednol etabonate 0.5 % eye 1 drp EACH EYE DAILY 05/16/24 05/16/24 History drops,suspension oxycodone 5 mg tablet 5 mg PO BID 05/16/24 05/16/24 History sennosides 8.6 mg-docusate sodium 2 tablet PO BID 05/16/24 05/16/24 History 50 mg tablet (Senna Plus) Allergies Allergy/AdvReac Type Severity Reaction Status Date / Time bacitracin Allergy Unknown Rash Verified 04/29/20 09:34 Penicillins Allergy Unknown Rash Verified 04/29/20 09:34 Vital Signs Vital Signs - 24 hr 05/16/24 13:21 05/16/24 13:29 05/16/24 13:30 Temperature 98.8 F Pulse Rate 85 83 87 Respiratory Rate 24 H 21 H 20 Blood Pressure 96/57 L 67/51 L Pulse Oximetry 93 88 L 88 L Oxygen Delivery Nasal Cannula Oxygen Flow Rate 4 05/16/24 13:34 05/16/24 13:35 05/16/24 13:41 Temperature Pulse Rate 82 81 93 Respiratory Rate 21 H 19 23 H Blood Pressure 66/59 L 93/51 L 91/53 L Pulse Oximetry 90 92 Oxygen Delivery Oxygen Flow Rate 05/16/24 13:45 05/16/24 13:46 05/16/24 13:51 Temperature Pulse Rate 80 80 79 Respiratory Rate 19 19 20 Blood Pressure 90/63 L 84/49 L Pulse Oximetry Oxygen Delivery Oxygen Flow Rate 05/16/24 14:00 05/16/24 14:01 05/16/24 14:02 Temperature Pulse Rate 80 88 83 Respiratory Rate 25 H 27 H 22 H Blood Pressure 85/70 L 70/49 L Pulse Oximetry 88 L Oxygen Delivery Oxygen Flow Rate 05/16/24 14:06 05/16/24 14:11 05/16/24 14:15 Temperature Pulse Rate 83 80 80 Respiratory Rate 25 H 23 H 18 Blood Pressure 79/49 L 92/50 L Pulse Oximetry 92 93 94 Oxygen Delivery Oxygen Flow Rate 05/16/24 14:30 05/16/24 14:45 05/16/24 14:54 Temperature Pulse Rate 82 85 Respiratory Rate 12 23 H Blood Pressure 108/61 Pulse Oximetry 91 94 Oxygen Delivery Oxygen Flow Rate 05/16/24 15:00 05/16/24 15:01 05/16/24 15:11 Temperature Pulse Rate 80 72 76 Respiratory Rate 37 H 26 H 19 Blood Pressure 103/51 L 100/56 L Pulse Oximetry Oxygen Delivery Oxygen Flow Rate 05/16/24 15:15 05/16/24 15:21 05/16/24 15:30 Temperature Pulse Rate 71 85 76 Respiratory Rate 16 18 20 Blood Pressure 103/54 L Pulse Oximetry Oxygen Delivery Oxygen Flow Rate 05/16/24 15:31 05/16/24 15:41 05/16/24 15:45 Temperature Pulse Rate 80 70 76 Respiratory Rate 16 21 H 18 Blood Pressure 98/56 L 102/52 L Pulse Oximetry Oxygen Delivery Oxygen Flow Rate 05/16/24 15:51 05/16/24 16:00 05/16/24 16:01 Temperature Pulse Rate 83 81 79 Respiratory Rate 15 22 H 17 Blood Pressure 113/48 L 107/54 L Pulse Oximetry Oxygen Delivery Oxygen Flow Rate 05/16/24 16:11 05/16/24 16:15 05/16/24 16:21 Temperature Pulse Rate 67 73 75 Respiratory Rate 18 18 21 H Blood Pressure 102/58 L 113/56 L Pulse Oximetry Oxygen Delivery Oxygen Flow Rate 05/16/24 16:30 05/16/24 16:31 05/16/24 16:41 Temperature Pulse Rate 74 78 73 Respiratory Rate 24 H 17 19 Blood Pressure 113/58 L 104/52 L Pulse Oximetry Oxygen Delivery Oxygen Flow Rate 05/16/24 16:45 05/16/24 16:51 05/16/24 17:07 Temperature Pulse Rate 78 72 72 Respiratory Rate 16 17 18 Blood Pressure 93/50 L Pulse Oximetry Oxygen Delivery Oxygen Flow Rate 05/16/24 17:11 05/16/24 17:15 05/16/24 17:30 Temperature Pulse Rate 66 72 75 Respiratory Rate 22 H 16 24 H Blood Pressure 97/57 L Pulse Oximetry Oxygen Delivery Oxygen Flow Rate 05/16/24 17:31 05/16/24 17:32 05/16/24 17:45 Temperature Pulse Rate 73 74 74 Respiratory Rate 13 16 18 Blood Pressure 103/53 L Pulse Oximetry 96 Oxygen Delivery Oxygen Flow Rate 05/16/24 18:00 05/16/24 18:29 05/16/24 18:30 Temperature Pulse Rate 70 62 68 Respiratory Rate 16 15 20 Blood Pressure Pulse Oximetry Oxygen Delivery Oxygen Flow Rate 05/16/24 18:31 05/16/24 19:41 Temperature Pulse Rate 69 75 Respiratory Rate 21 H 20 Blood Pressure 90/59 L 109/70 Pulse Oximetry 97 98 Oxygen Delivery Oxygen Flow Rate Exam Narrative: General: Chronically ill-appearing male in the semi-Robledo position in bed. Nontoxic in appearance. Weight: 132 kg. BMI: 43.0. HEENT: PERRL, EOMI. Sclera anicteric. Tacky mucous membranes. Oropharynx is crowded and not visualized. Neck: Supple. Limited due to neck circumference. Respiratory: Respirations are nonlabored. Lung sounds are coarse and diminished due to body habitus. Cardiovascular: Irregularly irregular rate and rhythm. Gastrointestinal: Abdomen is soft, morbidly obese, nontender, and nondistended with positive bowel sounds. Genitourinary: Gleason catheter draining dark cindi colored urine with occasional clots. Skin: Warm and dry. Scattered bruising and shallow ulcerations on the lower extremities. Extremities: No cyanosis or clubbing. Neurological: Alert. Cranial nerves 2-12 are grossly intact. No gross focal deficits to casual conversation. Psychiatric: Cooperative with appropriate mood and slightly odd affect. H&P: Results Labs Labs: Short CBC 05/16/24 Range/Units 13:30 WBC 12.7 H (4.5-10.0) K/mm3 Hgb 11.6 L (14.0-18.0) g/dL Hct 36.0 L (42.0-52.0) % Plt Count 122 L (150-375) k/mm3 BMP 05/16/24 13:30 Sodium 130 L Potassium 4.3 Chloride 92 L Carbon Dioxide 28 BUN 65 H D Creatinine 3.50 H Glucose 248 H Calcium 7.8 L Liver Function 05/16/24 Range/Units 13:30 Total Bilirubin 1.4 H (0.2-1.3) mg/dL AST 34 (17-59) U/L ALT 14 (6-50) U/L Alkaline Phosphatase 60 (38-126) U/L Albumin 3.1 L (3.5-5.1) g/dL Urine 05/16/24 Range/Units 15:44 Urine Color Red H (Yellow) Urine Appearance TNP Urine pH TNP Ur Specific [place] TNP Urine Protein TNP Urine Glucose (UA) TNP Imaging Chest X-Ray 05/16/24 14:44 IMPRESSION: 1. Cardiomegaly. Assessment and Plan Assessment and plan (1) Sepsis: Code(s): A41.9 - Sepsis, unspecified organism Status: Acute (2) Urinary tract infection associated with indwelling urethral catheter: Code(s): T83.511A - Infection and inflammatory reaction due to indwelling urethral catheter, initial encounter; N39.0 - Urinary tract infection, site not specified Status: Acute (3) Acute on chronic renal failure: Code(s): N17.9 - Acute kidney failure, unspecified; N18.9 - Chronic kidney disease, unspecified Status: Acute (4) Right-sided heart failure: Code(s): I50.810 - Right heart failure, unspecified Status: Acute (5) Obstructive sleep apnea on CPAP: Code(s): G47.33 - Obstructive sleep apnea (adult) (pediatric) Status: Acute (6) Chronic anticoagulation: Code(s): Z79.01 - continuous churn buttermaker (current) use of anticoagulants Status: Acute (7) Hypothyroidism: Qualifiers: Hypothyroidism type: unspecified Qualified Code(s): E03.9 - Hypothyroidism, unspecified Code(s): E03.9 - Hypothyroidism, unspecified Status: Chronic (8) Atrial fibrillation: Qualifiers: Atrial fibrillation type: unspecified Qualified Code(s): I48.91 - Unspecified atrial fibrillation Code(s): I48.91 - Unspecified atrial fibrillation Status: Chronic Plan The patient presented to the emergency department for evaluation of fever, lethargy, and confusion as detailed in HPI. Labs, imaging, EKG, and all reports were personally reviewed. He meets sepsis criteria with hypotension which has been responsive to IV fluids, leukocytosis, and acute on chronic kidney injury in the setting of presumed urinary tract infection. Previous urine cultures were reviewed and he has a history of ESBL E coli and multidrug resistant Proteus mirabilis with intermediate susceptibilities. He was started on aztreonam and vancomycin in the emergency department and we will continue with these, pending cultures. He also has an acute kidney injury which is likely due to a combination of factors including sepsis, hypoperfusion from hypotension, possible obstruction given gross hematuria, and diuretic use. All medications will be renally dosed and nephrotoxic agents will be avoided. Gleason catheter will be exchanged and he will be started on CBI if necessary. Renal ultrasound has been ordered. Monitor strict I/O. Avoid over-hydration given history of right-sided heart failure. Atrial fibrillation is rate controlled. Apixaban is on hold given gross hematuria. CPAP will be provided for the patient to use while hospitalized. His home medications will be reviewed and resumed as appropriate. Findings and treatment plan were discussed with the patient. Questions were solicited and answered to satisfaction. The patient's medical management will be taken over by the hospitalist team in a.m. Quality VTE Prophylaxis VTE prophylaxis: mechanical ordered If No VTE Prophylaxis Answer both mechanical and pharmacologic: Reason no pharmacologic proph: medical contraindication (gross hematuria) Hospitalist MIPS Advance Care Plan I have confirmed that the patient's Advanced Care Plan is present, code status is documented, or surrogate decision maker is listed in patient medical record.: Yes Medication Reconciliation I have utilized all available resources to obtain, update and review the patients current medications (includes all prescriptions, OTC, herbals, cannabis, and nutritional supplements).: Yes
--- NOTE | 2024-05-16 22:42 | ADMGEN ---
This patient, Sterling Mallory, was admitted to IMU Room 205-02. Patient/family oriented to hospital policies and general routines including ID bracelet, bed and alarms, visiting hours, pain management, procedures, bathroom and other care routines, personal items, smoking policy, room service/diet, and visiting hours. Information on how to activate the Rapid Response Team has been discussed. Patient/Family are encouraged to report perceived risks to care and to ask questions if they do not understand what they are told or what they should do.
[2024-05-16] MEDS: SODIUM CHLORIDE 0.9% IV 1,000 ML 150 ML IV CONT (22:58)
[2024-05-17] VITALS (27 sets, daily range): BP systolic 107–128; BP diastolic 49–82; PULSE 67–97; RESP 14–24; TEMP 36.9–39.5; O2SAT 70–100
[2024-05-17 04:54] LABS: Hematocrit 33.9 % (42.0-52.0); Hemoglobin 10.5 g/dL (14.0-18.0); Mean Corpuscular Hemoglobin 30.7 pg (26-34); Mean Corpuscular Volume 99.1 fl (80-100); Mean Platelet Volume 10.1 fl (7.4-10.4); Platelet Count Result 102 k/mm3 (150-375); Red Blood Count 3.42 M/mm3 (4.6-6.20); Red Cell Distribution Width 15.8 % (11.5-14.5); White Blood Count 7.4 K/mm3 (4.5-10.0)
[2024-05-17 05:15] LABS: Estimated CRCL calculation 25 ml/min; Estimated Glomerular Filt Rate 20
[2024-05-17 05:53] LABS: Anion Gap 11 mmol/L (4-12); Blood Urea Nitrogen 68 mg/dL (9-20); Calcium 7.3 mg/dL (8.4-10.2); Carbon Dioxide 21 mmol/L (22-30); Chloride 100 mmol/L (98-107); Creatine Kinase 308 U/L (55-170); Estimated CRCL calculation 26 ml/min; Estimated Glomerular Filt Rate 20; Glucose 87 mg/dL (65-110); Magnesium 2.7 mg/dL (1.6-2.3); Potassium 4.6 mmol/L (3.4-5.0); Sodium 132 mmol/L (137-145)
[2024-05-17] MEDS: LEVOTHYROXINE SODIUM 125 MCG TABLET PO (06:02)
[2024-05-17] MEDS: LACTULOSE 20 GM/30 ML UDC PO ×2 (08:45→18:06)
[2024-05-17] MEDS: polyethylene glycoL 3350 17 GM POWD.PACK PO (08:46)
[2024-05-17] MEDS: GABAPENTIN 100 MG CAPSULE 200 MG PO ×2 (08:46→18:01)
[2024-05-17] MEDS: FENOFIBRATE NANOCRYSTALLIZED 145 MG TABLET PO (08:46)
[2024-05-17] MEDS: carvediloL 3.125 MG TABLET 6.25 MG PO ×2 (08:47→21:23)
[2024-05-17] MEDS: EMPAGLIFLOZIN 10 MG TABLET PO (08:48)
[2024-05-17] MEDS: ACIDOPHILUS/BULGARICUS CHEWABLE TABLET 1 TABLET BY MOUTH (08:48)
[2024-05-17] MEDS: MULTIVITAMINS THERAPEUTIC TAB (*BKC) 1 TABLET PO (08:49)
[2024-05-17] MEDS: SENNA/DOCUSATE SODIUM TABLET 2 TAB PO ×2 (08:49→18:01)
[2024-05-17] MEDS: MAGNESIUM OXIDE 400 MG TABLET PO ×2 (08:49→18:01)
[2024-05-17] MEDS: oxyCODONE HCL (*CRX) 5 MG TAB IR PO (08:49)
[2024-05-17] MEDS: UMECLIDINIUM BROMIDE 62.5 MCG ELLIPTA 1 PUFF INHALATION (09:18)
[2024-05-17] MEDS: MINERAL OIL 30 ML UDC 15 ML PO ×2 (10:16→18:02)
[2024-05-17] MEDS: LANOLIN 1 APPLIC TOPICAL (10:17)
[2024-05-17] MEDS: FLUTICASONE PROPIONATE 0.05% NA SPR 16 GM BTL (*BKC) 1 SPRAY NASAL (10:18)
[2024-05-17] MEDS: TIMOLOL MALEATE 0.5% OP SOLN 5 ML BOTTLE 1 DROP EACH EYE ×2 (10:18→18:02)
[2024-05-17] MEDS: BRIMONIDINE TARTRATE 0.2% OP SOLN 5 ML BTL 1 DROP EACH EYE ×2 (10:18→18:00)
[2024-05-17] MEDS: MIRABEGRON 50 MG ER TABLET PO (10:18)
[2024-05-17] MEDS: LOTEPREDNOL ETABONATE 0.5% OPH 5 ML BOTTLE 1 DROP EACH EYE (10:19)
[2024-05-17] MEDS: AZTREONAM 2 GM in SODIUM CHLORIDE 0.9% IV 100 ML 200 ML IVPB ×2 (10:24→21:20)
--- NOTE | 2024-05-17 12:30 | P.PNIM_ITS ---
Progress Note: A&P Assessment and Plan (1) Sepsis: Code(s): A41.9 - Sepsis, unspecified organism Status: Acute (2) Urinary tract infection associated with indwelling urethral catheter: Code(s): T83.511A - Infection and inflammatory reaction due to indwelling urethral catheter, initial encounter; N39.0 - Urinary tract infection, site not specified Status: Acute (3) Acute on chronic renal failure: Code(s): N17.9 - Acute kidney failure, unspecified; N18.9 - Chronic kidney disease, unspecified Status: Acute (4) Right-sided heart failure: Code(s): I50.810 - Right heart failure, unspecified Status: Acute (5) Obstructive sleep apnea on CPAP: Code(s): G47.33 - Obstructive sleep apnea (adult) (pediatric) Status: Acute (6) Chronic anticoagulation: Code(s): Z79.01 - roasterman (current) use of anticoagulants Status: Acute (7) Hypothyroidism: Qualifiers: Hypothyroidism type: unspecified Qualified Code(s): E03.9 - Hypothyroidism, unspecified Code(s): E03.9 - Hypothyroidism, unspecified Status: Chronic (8) Atrial fibrillation: Qualifiers: Atrial fibrillation type: unspecified Qualified Code(s): I48.91 - Unspecified atrial fibrillation Code(s): I48.91 - Unspecified atrial fibrillation Status: Chronic Plan CAUTI patient on chronic chamberlain Exchange follow Blood culture positive for GNB continue Aztreonam and monitor Gram negative bacteremia Blood culture positive for GNB continue above care and repeat lood culture Sepsis resolving, from CAUTI Vital signs wnl and patient is eating okay continue above care Hematuria, resolved ? 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 Exam Narrative: General: Chronically ill-appearing male in the semi-Robledo position in bed. Nontoxic in appearance. Weight: 132 kg. BMI: 43.0. HEENT: PERRL, EOMI. Sclera anicteric. Tacky mucous membranes. Oropharynx is crowded and not visualized. Neck: Supple. Limited due to neck circumference. Respiratory: Respirations are nonlabored. Lung sounds are coarse and diminished due to body habitus. Cardiovascular: Irregularly irregular rate and rhythm. Gastrointestinal: Abdomen is soft, morbidly obese, nontender, and nondistended with positive bowel sounds. Genitourinary: Chamberlain catheter draining dark cindi colored urine with occasional clots. Skin: Warm and dry. Scattered bruising and shallow ulcerations on the lower extremities. Extremities: No cyanosis or clubbing. Neurological: Alert. Cranial nerves 2-12 are grossly intact. No gross focal deficits to casual conversation. Psychiatric: Cooperative with appropriate mood and slightly odd affect. Objective Data Vital Signs Vital Signs: Vital Signs - 24 hr 05/16/24 13:21 05/16/24 13:29 05/16/24 13:30 Temperature 98.8 F Pulse Rate 85 83 87 Respiratory Rate 24 H 21 H 20 Blood Pressure 96/57 L 67/51 L Pulse Oximetry 93 88 L 88 L Oxygen Delivery Nasal Cannula Oxygen Flow Rate 4 Fraction of Inspired Oxygen 05/16/24 13:34 05/16/24 13:35 05/16/24 13:41 Temperature Pulse Rate 82 81 93 Respiratory Rate 21 H 19 23 H Blood Pressure 66/59 L 93/51 L 91/53 L Pulse Oximetry 90 92 Oxygen Delivery Oxygen Flow Rate Fraction of Inspired Oxygen 05/16/24 13:45 05/16/24 13:46 05/16/24 13:51 Temperature Pulse Rate 80 80 79 Respiratory Rate 19 19 20 Blood Pressure 90/63 L 84/49 L Pulse Oximetry Oxygen Delivery Oxygen Flow Rate Fraction of Inspired Oxygen 05/16/24 14:00 05/16/24 14:01 05/16/24 14:02 Temperature Pulse Rate 80 88 83 Respiratory Rate 25 H 27 H 22 H Blood Pressure 85/70 L 70/49 L Pulse Oximetry 88 L Oxygen Delivery Oxygen Flow Rate Fraction of Inspired Oxygen 05/16/24 14:06 05/16/24 14:11 05/16/24 14:15 Temperature Pulse Rate 83 80 80 Respiratory Rate 25 H 23 H 18 Blood Pressure 79/49 L 92/50 L Pulse Oximetry 92 93 94 Oxygen Delivery Oxygen Flow Rate Fraction of Inspired Oxygen 05/16/24 14:30 05/16/24 14:45 05/16/24 14:54 Temperature Pulse Rate 82 85 Respiratory Rate 12 23 H Blood Pressure 108/61 Pulse Oximetry 91 94 Oxygen Delivery Oxygen Flow Rate Fraction of Inspired Oxygen 05/16/24 15:00 05/16/24 15:01 05/16/24 15:11 Temperature Pulse Rate 80 72 76 Respiratory Rate 37 H 26 H 19 Blood Pressure 103/51 L 100/56 L Pulse Oximetry Oxygen Delivery Oxygen Flow Rate Fraction of Inspired Oxygen 05/16/24 15:15 05/16/24 15:21 05/16/24 15:30 Temperature Pulse Rate 71 85 76 Respiratory Rate 16 18 20 Blood Pressure 103/54 L Pulse Oximetry Oxygen Delivery Oxygen Flow Rate Fraction of Inspired Oxygen 05/16/24 15:31 05/16/24 15:41 05/16/24 15:45 Temperature Pulse Rate 80 70 76 Respiratory Rate 16 21 H 18 Blood Pressure 98/56 L 102/52 L Pulse Oximetry Oxygen Delivery Oxygen Flow Rate Fraction of Inspired Oxygen 05/16/24 15:51 05/16/24 16:00 05/16/24 16:01 Temperature Pulse Rate 83 81 79 Respiratory Rate 15 22 H 17 Blood Pressure 113/48 L 107/54 L Pulse Oximetry Oxygen Delivery Oxygen Flow Rate Fraction of Inspired Oxygen 05/16/24 16:11 05/16/24 16:15 05/16/24 16:21 Temperature Pulse Rate 67 73 75 Respiratory Rate 18 18 21 H Blood Pressure 102/58 L 113/56 L Pulse Oximetry Oxygen Delivery Oxygen Flow Rate Fraction of Inspired Oxygen 05/16/24 16:30 05/16/24 16:31 05/16/24 16:41 Temperature Pulse Rate 74 78 73 Respiratory Rate 24 H 17 19 Blood Pressure 113/58 L 104/52 L Pulse Oximetry Oxygen Delivery Oxygen Flow Rate Fraction of Inspired Oxygen 05/16/24 16:45 05/16/24 16:51 05/16/24 17:07 Temperature Pulse Rate 78 72 72 Respiratory Rate 16 17 18 Blood Pressure 93/50 L Pulse Oximetry Oxygen Delivery Oxygen Flow Rate Fraction of Inspired Oxygen 05/16/24 17:11 05/16/24 17:15 05/16/24 17:30 Temperature Pulse Rate 66 72 75 Respiratory Rate 22 H 16 24 H Blood Pressure 97/57 L Pulse Oximetry Oxygen Delivery Oxygen Flow Rate Fraction of Inspired Oxygen 05/16/24 17:31 05/16/24 17:32 05/16/24 17:45 Temperature Pulse Rate 73 74 74 Respiratory Rate 13 16 18 Blood Pressure 103/53 L Pulse Oximetry 96 Oxygen Delivery Oxygen Flow Rate Fraction of Inspired Oxygen 05/16/24 18:00 05/16/24 18:29 05/16/24 18:30 Temperature Pulse Rate 70 62 68 Respiratory Rate 16 15 20 Blood Pressure Pulse Oximetry Oxygen Delivery Oxygen Flow Rate Fraction of Inspired Oxygen 05/16/24 18:31 05/16/24 19:41 05/16/24 18:32 Temperature Pulse Rate 69 75 65 Respiratory Rate 21 H 20 22 H Blood Pressure 90/59 L 109/70 Pulse Oximetry 97 98 99 Oxygen Delivery Oxygen Flow Rate Fraction of Inspired Oxygen 05/16/24 18:41 05/16/24 18:45 05/16/24 18:51 Temperature Pulse Rate 70 76 72 Respiratory Rate 20 20 19 Blood Pressure 102/55 L 106/52 L Pulse Oximetry 97 99 96 Oxygen Delivery Oxygen Flow Rate Fraction of Inspired Oxygen 05/16/24 19:00 05/16/24 19:01 05/16/24 19:11 Temperature Pulse Rate 70 76 73 Respiratory Rate 23 H 21 H 21 H Blood Pressure 105/57 L 111/57 L Pulse Oximetry 97 98 Oxygen Delivery Oxygen Flow Rate Fraction of Inspired Oxygen 05/16/24 19:15 05/16/24 19:21 05/16/24 19:30 Temperature Pulse Rate 68 72 75 Respiratory Rate 18 18 19 Blood Pressure 108/59 L Pulse Oximetry Oxygen Delivery Oxygen Flow Rate Fraction of Inspired Oxygen 05/16/24 19:31 05/16/24 19:41 05/16/24 19:45 Temperature Pulse Rate 75 73 73 Respiratory Rate 21 H 22 H 18 Blood Pressure 110/59 L 109/70 Pulse Oximetry 99 Oxygen Delivery Oxygen Flow Rate Fraction of Inspired Oxygen 05/16/24 19:53 05/16/24 20:00 05/16/24 20:01 Temperature Pulse Rate 0 L 0 L Respiratory Rate 23 H 29 H 18 Blood Pressure 108/61 107/60 Pulse Oximetry Oxygen Delivery Oxygen Flow Rate Fraction of Inspired Oxygen 05/16/24 20:11 05/16/24 20:15 05/16/24 20:21 Temperature Pulse Rate 69 71 68 Respiratory Rate 20 17 18 Blood Pressure 91/65 L 104/58 L Pulse Oximetry Oxygen Delivery Oxygen Flow Rate Fraction of Inspired Oxygen 05/16/24 20:30 05/16/24 20:31 05/16/24 20:41 Temperature Pulse Rate 67 73 78 Respiratory Rate 18 17 18 Blood Pressure 113/65 96/67 L Pulse Oximetry Oxygen Delivery Oxygen Flow Rate Fraction of Inspired Oxygen 05/16/24 20:45 05/16/24 21:03 05/16/24 21:15 Temperature Pulse Rate 78 76 71 Respiratory Rate 18 17 18 Blood Pressure Pulse Oximetry Oxygen Delivery Oxygen Flow Rate Fraction of Inspired Oxygen 05/16/24 22:44 05/17/24 00:00 05/16/24 22:00 Temperature 97.4 F L Pulse Rate 93 67 78 Respiratory Rate 20 20 Blood Pressure 89/68 L 111/82 Pulse Oximetry 93 98 Oxygen Delivery Oxygen Flow Rate Fraction of Inspired Oxygen 05/16/24 23:00 05/16/24 23:00 05/17/24 02:00 Temperature Pulse Rate 74 72 Respiratory Rate Blood Pressure Pulse Oximetry 96 Oxygen Delivery Nasal Cannula Oxygen Flow Rate 2 Fraction of Inspired Oxygen 05/16/24 23:45 05/16/24 23:45 05/17/24 04:00 Temperature Pulse Rate 72 77 Respiratory Rate 20 Blood Pressure Pulse Oximetry 98 98 Oxygen Delivery Autopap Nasal Cannula Oxygen Flow Rate 3 Fraction of Inspired Oxygen 05/17/24 04:00 05/17/24 04:00 05/17/24 06:00 Temperature 101.3 F H Pulse Rate 77 82 78 Respiratory Rate 20 20 Blood Pressure 112/64 Pulse Oximetry 98 99 Oxygen Delivery BiPAP Oxygen Flow Rate Fraction of Inspired Oxygen 05/17/24 07:47 05/17/24 08:47 05/17/24 09:18 Temperature 100.7 F H Pulse Rate 87 78 Respiratory Rate 20 Blood Pressure 116/49 L Pulse Oximetry 98 95 Oxygen Delivery Nasal Cannula Oxygen Flow Rate 3 Fraction of Inspired Oxygen 32 05/17/24 11:58 Temperature 98.6 F Pulse Rate 73 Respiratory Rate 14 Blood Pressure 108/52 L Pulse Oximetry 97 Oxygen Delivery Oxygen Flow Rate Fraction of Inspired Oxygen Intake/Output Intake/Output: Intake & Output 05/14/24 05/15/24 05/16/24 05/17/24 23:59 23:59 23:59 23:59 Intake Total 3948.8 910 Output Total 450 Balance 3948.8 460 Meds/Results Medications: Active Medications Generic Name Dose Route Start Last Admin Trade Name Freq PRN Reason Stop Dose Admin Acetaminophen 650 mg 05/16/24 18:39 Acetaminophen 325 Mg Tablet PO Q4H PRN Mild Pain (1-3) or Fever Hydrocodone Bitart/Acetaminophen 1 tab 05/17/24 04:21 Hydrocodone/Acetaminophen (*Crx) 7.5-325 Mg Tablet PO TID PRN Pain (Scale Score 4-6) Albuterol/Ipratropium 3 ml 05/17/24 04:21 Ipratropium 0.5 Mg/Albuterol Sulfate 2.5 Mg Ampul.Neb 3 Ml INHALATION BID PRN Shortness Of Breath Artificial Tears 1 drop 05/17/24 04:48 Artificial Tears Ophth Soln 15 Ml Bottle EACH EYE BID PRN Dry Eye(s) Brimonidine Tartrate 1 drop 05/17/24 09:00 05/17/24 10:18 Brimonidine Tartrate 0.2% Op Soln 5 Ml Btl EACH EYE 1 drop BID ARTEMIO Administration Calcium Carbonate 200 mg 05/17/24 04:21 Calcium Carbonate (Tums) 500 Mg (200 Mg Elemental) PO Q6H PRN Indigestion Carvedilol 6.25 mg 05/17/24 09:00 05/17/24 08:47 Carvedilol 3.125 Mg Tablet PO 6.25 mg Q12HR ARTEMIO Administration Emollient Ointment 1 applic 05/17/24 09:00 05/17/24 10:17 Lanolin (Lantiseptic) Cream 118 Ml Tube TOPICAL 1 applic DAILY ARTEMIO Administration Empagliflozin 10 mg 05/17/24 09:00 05/17/24 08:48 Empagliflozin 10 Mg Tablet PO 10 mg DAILY ARTEMIO Administration Fenofibrate 145 mg 05/17/24 09:00 05/17/24 08:46 Fenofibrate Nanocrystallized 145 Mg Tablet PO 145 mg DAILY ARTEMIO Administration Fluticasone Propionate 1 spray 05/17/24 09:00 05/17/24 10:18 Fluticasone Propionate 0.05% Na Spr 16 Gm Btl (*Bkc) NASAL 1 spray DAILY ARTEMIO Administration Gabapentin 200 mg 05/17/24 09:00 05/17/24 08:46 Gabapentin 100 Mg Capsule PO 200 mg BID ARTEMIO Administration Levofloxacin/Dextrose 750 mg in 150 mls @ 100 mls/hr 05/16/24 15:00 05/16/24 18:23 Levaquin 750 Mg/D5w 150 Ml IVPB Infused Q48H ARTEMIO Infusion Aztreonam 2 gm/ Sodium 100 mls @ 200 mls/hr 05/16/24 16:00 05/17/24 10:24 Chloride IVPB 200 mls/hr Q12H ARTEMIO Administration Lactobacillus Acidophilus 1 tablet 05/17/24 09:00 05/17/24 08:48 Acidophilus/Bulgaricus Chewable Tablet BY MOUTH 1 tablet DAILY ARTEMIO Administration Lactulose 20 gm 05/17/24 09:00 05/17/24 08:45 Lactulose 20 Gm/30 Ml Udc PO 20 gm BID ARTEMIO Administration Latanoprost 1 drop 05/17/24 18:00 Latanoprost 0.005% Op Soln 2.5 Ml Btl EACH EYE QPM [facility] Levothyroxine Sodium 125 mcg 05/17/24 06:30 05/17/24 06:02 Levothyroxine Sodium 125 Mcg Tablet PO 125 mcg DAILY@0630 [facility] Administration Loteprednol Etabonate 1 drop 05/17/24 09:00 05/17/24 10:19 Loteprednol Etabonate 0.5% Oph 5 Ml Bottle EACH EYE 1 drop DAILY ARTEMIO Administration Magnesium Oxide 400 mg 05/17/24 09:00 05/17/24 08:49 Magnesium Oxide 400 Mg Tablet PO 400 mg BID ARTEMIO Administration Melatonin 10 mg 05/17/24 21:00 Melatonin 5 Mg Tablet PO HS ARTEMIO Mineral Oil 15 ml 05/17/24 09:00 05/17/24 10:16 Mineral Oil 30 Ml Udc PO 15 ml BID ARTEMIO Administration Mirabegron 50 mg 05/17/24 09:00 05/17/24 10:18 Mirabegron 50 Mg Er Tablet PO 50 mg DAILY ARTEMIO Administration Multivitamins Therapeutic 1 tablet 05/17/24 09:00 05/17/24 08:49 Multivitamins Therapeutic Tab (*Bkc) PO 1 tablet QAM ARTEMIO Administration Oxycodone HCl 5 mg 05/17/24 09:00 05/17/24 08:49 Oxycodone Hcl (*Crx) 5 Mg Tab Ir PO 5 mg Q12HR ARTEMIO Administration Polyethylene Glycol 17 gm 05/17/24 09:00 05/17/24 08:46 Polyethylene Glycol 3350 17 Gm Powd.Pack PO 17 gm DAILY ARTEMIO Administration Rosuvastatin Calcium 20 mg 05/17/24 21:00 Rosuvastatin 10 Mg Tablet PO HS ARTEMIO Senna/Docusate Sodium 2 tab 05/17/24 09:00 05/17/24 08:49 Senna/Docusate Sodium Tablet PO 2 tab BID ARTEMIO Administration Sodium Chloride 2 spray 05/17/24 04:21 Saline 0.65% Myron Soln 44 Ml Btl NASAL Q2H PRN Dry Nasal Passages Timolol Maleate 1 drop 05/17/24 09:00 05/17/24 10:18 Timolol Maleate 0.5% Op Soln 5 Ml Bottle EACH EYE 1 drop BID ARTEMIO Administration Umeclidinium [place] 1 puff 05/17/24 08:00 05/17/24 09:18 Umeclidinium [place] 62.5 Mcg Ellipta INHALATION 1 puff DAILYRT ARTEMIO Administration Vancomycin HCl 1 each 05/16/24 17:00 Vancomycin For Acute Kidney Injury IVPB PRN PRN Vancomycin Protocol Radiology Results: ITS Impressions Chest X-Ray 05/16/24 14:44 IMPRESSION: 1. Cardiomegaly. Labs Labs: Laboratory Results - last 24 hr 05/16/24 05/16/24 05/16/24 13:30 14:27 15:44 WBC 12.7 H RBC 3.79 L Hgb 11.6 L Hct 36.0 L MCV 95.0 MCH 30.6 MCHC 32.2 RDW 15.5 H Plt Count 122 L MPV 10.5 H Immature Gran % (Auto) Not Reportable Neut % (Auto) Not Reportable Lymph % (Auto) Not Reportable Sanders % (Auto) Not Reportable Eos % (Auto) Not Reportable Baso % (Auto) Not Reportable Lymph # (Auto) Not Reportable Sanders # (Auto) Not Reportable Eos # (Auto) Not Reportable Baso # (Auto) Not Reportable Abs Immat Gran (auto) Not Reportable Absolute Neuts (auto) Not Reportable Absolute Nucleated RBC Not Reportable Total Counted 100 Neutrophils % (Manual) 88 H Band Neutrophils % 5 Lymphocytes % (Manual) 2 L Monocytes % (Manual) 5 Eosinophils % (Manual) 0 Basophils % (Manual) 0 Nucleated RBC % Not Reportable Abs Neuts (Manual) 11.81 H Abs Lymphs (Manual) 0.25 L Abs Monocytes (Manual) 0.63 Absolute Eos (Manual) 0.00 L Abs Basophils (Manual) 0.00 Platelet Estimate Slightly decreased Hypochromasia 1+ Anisocytosis 1+ Schistocytes None seen PT 22.9 H INR 2.0 APTT 35.3 Sodium 130 L Potassium 4.3 Chloride 92 L Carbon Dioxide 28 Anion Gap 10 BUN 65 H D Creatinine 3.50 H Estim Creat Clear Calc Not Reportable Estimated GFR 17 L Glucose 248 H Lactic Acid 1.8 Calcium 7.8 L Magnesium Total Bilirubin 1.4 H AST 34 ALT 14 Alkaline Phosphatase 60 Total Creatine Kinase C-Reactive Protein 21.0 H Total Protein 7.0 Albumin 3.1 L Urine Color Red H Urine Appearance TNP Urine pH TNP Ur Specific [place] TNP Urine Protein TNP Urine Glucose (UA) TNP Urine Ketones TNP Ur Blood (Man) TNP Urine Nitrate TNP Urine Bilirubin TNP Urine Urobilinogen TNP Add Ur Microanalysis Reviewed Leukocyte Esterase Rfl TNP Urine RBC >100 H Urine WBC >100 H Urine WBC Clumps Present H Ur Squamous Epith Cells Occasional Urine Bacteria 3+ H Urine Casts 11-20 05/17/24 05/17/24 05/17/24 04:33 04:33 04:33 WBC 7.4 RBC 3.42 L Hgb 10.5 L Hct 33.9 L MCV 99.1 MCH 30.7 MCHC 31.0 L RDW 15.8 H Plt Count 102 L MPV 10.1 Immature Gran % (Auto) Neut % (Auto) Lymph % (Auto) Sanders % (Auto) Eos % (Auto) Baso % (Auto) Lymph # (Auto) Sanders # (Auto) Eos # (Auto) Baso # (Auto) Abs Immat Gran (auto) Absolute Neuts (auto) Absolute Nucleated RBC Total Counted Neutrophils % (Manual) Band Neutrophils % Lymphocytes % (Manual) Monocytes % (Manual) Eosinophils % (Manual) Basophils % (Manual) Nucleated RBC % Abs Neuts (Manual) Abs Lymphs (Manual) Abs Monocytes (Manual) Absolute Eos (Manual) Abs Basophils (Manual) Platelet Estimate Hypochromasia Anisocytosis Schistocytes PT INR APTT Sodium 132 L Potassium 4.6 Chloride 100 Carbon Dioxide 21 L Anion Gap 11 BUN 68 H Creatinine 3.10 H 3.00 H Estim Creat Clear Calc 25 26 Estimated GFR 20 L Glucose Lactic Acid Calcium Magnesium Total Bilirubin AST ALT Alkaline Phosphatase Total Creatine Kinase C-Reactive Protein Total Protein Albumin Urine Color Urine Appearance Urine pH Ur Specific [place] Urine Protein Urine Glucose (UA) Urine Ketones Ur Blood (Man) Urine Nitrate Urine Bilirubin Urine Urobilinogen Add Ur Microanalysis Leukocyte Esterase Rfl Urine RBC Urine WBC Urine WBC Clumps Ur Squamous Epith Cells Urine Bacteria Urine Casts 05/17/24 04:33 WBC RBC Hgb Hct MCV MCH MCHC RDW Plt Count MPV Immature Gran % (Auto) Neut % (Auto) Lymph % (Auto) Sanders % (Auto) Eos % (Auto) Baso % (Auto) Lymph # (Auto) Sanders # (Auto) Eos # (Auto) Baso # (Auto) Abs Immat Gran (auto) Absolute Neuts (auto) Absolute Nucleated RBC Total Counted Neutrophils % (Manual) Band Neutrophils % Lymphocytes % (Manual) Monocytes % (Manual) Eosinophils % (Manual) Basophils % (Manual) Nucleated RBC % Abs Neuts (Manual) Abs Lymphs (Manual) Abs Monocytes (Manual) Absolute Eos (Manual) Abs Basophils (Manual) Platelet Estimate Hypochromasia Anisocytosis Schistocytes PT INR APTT Sodium Potassium Chloride Carbon Dioxide Anion Gap BUN Creatinine Estim Creat Clear Calc Estimated GFR 20 L Glucose 87 Lactic Acid Calcium 7.3 L Magnesium 2.7 H Total Bilirubin AST ALT Alkaline Phosphatase Total Creatine Kinase 308 H C-Reactive Protein Total Protein Albumin Urine Color Urine Appearance Urine pH Ur Specific [place] Urine Protein Urine Glucose (UA) Urine Ketones Ur Blood (Man) Urine Nitrate Urine Bilirubin Urine Urobilinogen Add Ur Microanalysis Leukocyte Esterase Rfl Urine RBC Urine WBC Urine WBC Clumps Ur Squamous Epith Cells Urine Bacteria Urine Casts Quality VTE Prophylaxis VTE prophylaxis: mechanical ordered
--- NOTE | 2024-05-17 15:17 | PC.NURSE ---
Reviewed and acknowledge all charting [facility] SN Alyssa Thomas
[2024-05-17] MEDS: LATANOPROST 0.005% OP SOLN 2.5 ML BTL 1 DROP EACH EYE (18:02)
--- NOTE | 2024-05-17 19:59 | ECG_ITS ---
Test Date: 2024-05-17 20:50:23 Measurements Intervals [place] Rate: 88 P: 0 SD: 0 QRS: 237 QRSD: 134 T: 122 QT: 374 QTc: 454 Interpretive Statements ATRIAL FIBRILLATION CONSIDER LIMB LEAD REVERSAL RIGHT BUNDLE BRANCH BLOCK ABNORMAL ECG Compared to ECG 05/16/2024 13:31:37 NO SIGNIFICANT CHANGE Electronically Signed On 05-18-2024 09:26:08 COMPUTER SYSTEMS DESIGN ANALYST by Freddy Culver D.O.
--- NOTE | 2024-05-17 19:59 | P.PNCROSS_ITS ---
Event Note Event Note Event Note: RAPID RESPONSE called at 19:47. Current vital signs: 103.1? F. 128/64. SpO2 70% on room air. Telemetry showed rate controlled atrial fibrillation with rate of 90 S: Nurse found the patient difficult to arouse and hypoxic with an SpO2 in the 70s on room air (at baseline he wears 2 L). He appeared to be asleep but was difficult to arouse. He was not wearing his CPAP. He expresses no complaints aside from the fact that he is just not feeling good and he feels hot. He denies vertigo, visual changes, focal weakness, paresthesias, chest pain, shortness of breath, and abdominal pain. O: Ill-appearing gentleman in the semi-Robledo position in bed. He is alert and oriented but slow to respond. Speech is clear without gross facial asymmetry. Hand stiff straw hat washer and foot pushes are weak but equal bilaterally. Mouth is dry. No JVD noted. Currently on a high-flow mass with stable SpO2. He is mildly tachypneic but does not appear in respiratory distress. Lung sounds are a bit diminished and coarse anteriorly with fine crackles. He has been rate controlled atrial fibrillation. Abdomen is morbidly obese and nontender. Gleason catheter draining cloudy yellow urine with quite a bit of sediment. Edema present in extremities. There are some success shallow ulcerations and bruising on the lower extremities. A/P: 1. Sepsis with Gram-negative bacteremia presumably due to urinary source. 2. Chronic respiratory failure with hypoxia. The patient was found febrile and hypoxic as detailed above. He was not wearing his oxygen and he is on 2 L nasal cannula all the time. He also seemed to have fallen asleep and has underlying sleep apnea which accounts for the hypoxia. He was slow to respond however is back to baseline as he has defervesced. The rest of his vital signs are stable. Continue aztreonam pending identification sensitivities. Chest x-ray ordered as he received 4 L of fluid yesterday and may have some mild volume overload. Repeat labs are also pending. Case discussed with the nursing staff. Critical Care Time Critical Care Time: Yes Total Critical Care Time: 30 Attestation: Due to a high probability of clinically significant, life threatening deterioration, the patient required my highest level of preparedness to intervene emergently and I personally spent this critical care time directly and personally managing the patient. This critical care time included obtaining a history; examining the patient; pulse oximetry; ordering and review of studies; arranging urgent treatment with development of a management plan; evaluation of patient's response to treatment; frequent reassessment; and discussions with other providers. It was exclusive of separately billable procedures and treating other patients and teaching time. Please see Assessment and Plan section and the rest of the note for further information on patient assessment and treatment.
[2024-05-17 20:07] LABS: Alveolar/Arterial O2 Gradient < 0.0 mmHg; Base Excess ABG -0.2 mEq/l (+/-2.0); Carboxyhemoglobin 0.6 % THb (0-2.0); Fractional Inspired Oxygen 40 %; HCO3 ABG 25.8 mEq/l (22.0-26.0); Methemoglobin ABG 0.3 %THb (0-1.5); Oxygen Content ABG 17.6 %vol (16.0-22.0); Oxygen Saturation ABG 99.8 % (95.0-100.0); Oxyhemoglobin 98.8 % THb (90.0-100.0); PO2 ABG 391.9 mmHg (80.0-100.0); PO2 FiO2 Ratio Arterial Blood > 0.00 %; Reduced Hemoglobin 0.3 %THb (0-5.0); Total Hemoglobin 11.9 g/dL (12.0-18.0); pH ABG 7.349 (7.350-7.450)
[2024-05-17 20:09] LABS: Device NASAL CANNULA; Modified Allen's Test Pass; Site Drawn LEFT RADIAL
--- NOTE | 2024-05-17 20:10 | PCRCNOTE ---
2 therapists responded to rapid response. RN and MD at bedside. Found pt on a 15L NRB. RN stated she found pt to be 70% on room air. MD ordered ABG. ABG was drawn.
[2024-05-17 20:15] LABS: Basophils Percent Auto 0.5 % (0.2-1.2); Eosinophils Percent Auto 0.2 % (0-4.4); Hematocrit 35.4 % (42.0-52.0); Hemoglobin 11.2 g/dL (14.0-18.0); Immature Granulocyte Absolute 0.07 K/mm3 (0.00-0.031); Immature Granulocyte Percent A 1.1 % (0-0.5); Lymphocytes Absolute Auto 0.63 K/mm3 (0.9-3.2); Mean Corpuscular HGB Conc 31.6 g/dl (32-36); Mean Corpuscular Hemoglobin 30.4 pg (26-34); Mean Corpuscular Volume 95.9 fl (80-100); Mean Platelet Volume 10.6 fl (7.4-10.4); Monocytes Absolute Auto 0.6 K/mm3 (0.1-0.6); Monocytes Percent Auto 8.7 % (2.6-8.5); Neutrophils Percent Auto 79.5 % (45.5-73.1); Platelet Count Result 116 k/mm3 (150-375); Red Blood Count 3.69 M/mm3 (4.6-6.20); Red Cell Distribution Width 15.8 % (11.5-14.5); White Blood Count 6.3 K/mm3 (4.5-10.0)
[2024-05-17 20:25] LABS: Lactic Acid Reflex 0.9 mmol/L (0.7-2.0)
[2024-05-17 20:26] LABS: Alanine Aminotransferase 14 U/L (6-50); Albumin Level 3.1 g/dL (3.5-5.1); Alkaline Phosphatase 55 U/L (38-126); Anion Gap 12 mmol/L (4-12); Aspartate Amino Transferase 45 U/L (17-59); Bilirubin,Total 0.9 mg/dL (0.2-1.3); Blood Urea Nitrogen 71 mg/dL (9-20); Carbon Dioxide 24 mmol/L (22-30); Chloride 96 mmol/L (98-107); Estimated CRCL calculation 22 ml/min; Estimated Glomerular Filt Rate 17; Glucose 116 mg/dL (65-110); Potassium 4.7 mmol/L (3.4-5.0); Sodium 132 mmol/L (137-145)
[2024-05-17 20:35] LABS: NT Pro B Type Natriuretic Pept 8960 pg/mL (19.9-100)
[2024-05-17 21:06] LABS: Creatine Kinase 382 U/L (55-170)
[2024-05-17] MEDS: ACETAMINOPHEN 325 MG TABLET 650 MG PO (21:22)
[2024-05-17] MEDS: ROSUVASTATIN 10 MG TABLET 20 MG PO (21:22)
--- NOTE | 2024-05-17 22:40 | PC.NURSE ---
174 this RN called to patient room by Christofer RAMIREZ. Patient 02 sat 70% on room air during vital sign rounding. Placed patient on 5 L NC and 15 L NRB. Patient HR and BP stable. Temperature 103. Called rapid response at 1947. Chante LEE, charge nurse Milady TROTTER, supervisor char house Veronika, and respiratory to bedside
[2024-05-18] VITALS (17 sets, daily range): BP systolic 99–127; BP diastolic 49–53; PULSE 61–92; RESP 16–32; TEMP 36.4–37.1; O2SAT 93–100
--- NOTE | 2024-05-18 01:02 | PC.NURSE ---
Daylight Savings Time For Daylight Savings Time Ending in the Fall - Clocks are moved back. For Daylight Savings Time Beginning in the Spring - Clocks are moved ahead. For [facility], the time of change occurs at 0200 hrs. Time is taken from the water server. This entry on the patient's chart recognizes the change in time reflected during documentation. Example: 2 entries for vital signs may be charted for 0200 hrs.
[2024-05-18 05:13] LABS: Basophils Percent Auto 0.4 % (0.2-1.2); Eosinophils Percent Auto 0.4 % (0-4.4); Hematocrit 33.2 % (42.0-52.0); Hemoglobin 10.2 g/dL (14.0-18.0); Immature Granulocyte Absolute 0.08 K/mm3 (0.00-0.031); Immature Granulocyte Percent A 1.4 % (0-0.5); Lymphocytes Absolute Auto 0.69 K/mm3 (0.9-3.2); Lymphocytes Percent Auto 12.3 % (18.3-44.2); Mean Corpuscular HGB Conc 30.7 g/dl (32-36); Mean Corpuscular Volume 97.6 fl (80-100); Mean Platelet Volume 10.3 fl (7.4-10.4); Monocytes Absolute Auto 0.4 K/mm3 (0.1-0.6); Monocytes Percent Auto 6.4 % (2.6-8.5); Neutrophils Absolute Auto 4.5 K/mm3 (1.3-6.7); Neutrophils Percent Auto 79.1 % (45.5-73.1); Platelet Count Result 124 k/mm3 (150-375); Red Cell Distribution Width 16.1 % (11.5-14.5); White Blood Count 5.6 K/mm3 (4.5-10.0)
[2024-05-18 05:24] LABS: Alanine Aminotransferase 13 U/L (6-50); Albumin Level 2.7 g/dL (3.5-5.1); Alkaline Phosphatase 51 U/L (38-126); Anion Gap 9 mmol/L (4-12); Aspartate Amino Transferase 42 U/L (17-59); Bilirubin,Total 0.9 mg/dL (0.2-1.3); Blood Urea Nitrogen 74 mg/dL (9-20); Carbon Dioxide 25 mmol/L (22-30); Chloride 98 mmol/L (98-107); Estimated CRCL calculation 20 ml/min; Estimated Glomerular Filt Rate 16; Glucose 116 mg/dL (65-110); Magnesium 3.1 mg/dL (1.6-2.3); Potassium 3.9 mmol/L (3.4-5.0); Sodium 132 mmol/L (137-145)
[2024-05-18] MEDS: LEVOTHYROXINE SODIUM 125 MCG TABLET PO (06:01)
[2024-05-18] MEDS: AZTREONAM 2 GM in SODIUM CHLORIDE 0.9% IV 100 ML 200 ML IVPB ×2 (07:34→19:54)
[2024-05-18] MEDS: EMPAGLIFLOZIN 10 MG TABLET PO (08:08)
[2024-05-18] MEDS: FENOFIBRATE NANOCRYSTALLIZED 145 MG TABLET PO (08:08)
[2024-05-18] MEDS: MULTIVITAMINS THERAPEUTIC TAB (*BKC) 1 TABLET PO (08:09)
[2024-05-18] MEDS: SENNA/DOCUSATE SODIUM TABLET 2 TAB PO ×2 (08:09→18:30)
[2024-05-18] MEDS: ACIDOPHILUS/BULGARICUS CHEWABLE TABLET 1 TABLET BY MOUTH (08:10)
[2024-05-18] MEDS: carvediloL 3.125 MG TABLET 6.25 MG PO ×2 (08:11→20:17)
[2024-05-18] MEDS: MAGNESIUM OXIDE 400 MG TABLET PO ×2 (08:11→18:30)
[2024-05-18] MEDS: MIRABEGRON 50 MG ER TABLET PO (08:12)
[2024-05-18] MEDS: GABAPENTIN 100 MG CAPSULE 200 MG PO ×2 (08:12→18:30)
[2024-05-18] MEDS: oxyCODONE HCL (*CRX) 5 MG TAB IR PO (08:12)
[2024-05-18] MEDS: UMECLIDINIUM BROMIDE 62.5 MCG ELLIPTA 1 PUFF INHALATION (08:24)
[2024-05-18] MEDS: TIMOLOL MALEATE 0.5% OP SOLN 5 ML BOTTLE 1 DROP EACH EYE ×2 (09:15→18:29)
[2024-05-18] MEDS: FLUTICASONE PROPIONATE 0.05% NA SPR 16 GM BTL (*BKC) 1 SPRAY NASAL (09:15)
[2024-05-18] MEDS: BRIMONIDINE TARTRATE 0.2% OP SOLN 5 ML BTL 1 DROP EACH EYE ×2 (09:15→18:29)
[2024-05-18] MEDS: LANOLIN 1 APPLIC TOPICAL (09:16)
[2024-05-18] MEDS: LOTEPREDNOL ETABONATE 0.5% OPH 5 ML BOTTLE 1 DROP EACH EYE (09:16)
--- NOTE | 2024-05-18 10:52 | P.CONNP_ITS ---
Assessment and Plan Assessment and plan (1) Acute kidney injury: Code(s): N17.9 - Acute kidney failure, unspecified Status: Acute Assessment and Plan: * suspect ATN due to: * sepsis/infection * prerenal factors * previous hypotension/hemodynamic instability * diuretic therapy prior to admission * hypoxia * renal ultrasound c/w CKD * UA demonstrates infection * check urine studies and trend CPK * now complicated by issues related to fluid overload * remains at risk for RISK CONTROL ANALYST/dialysis * follow trend of repeat labs and UOP (2) Chronic kidney disease, stage 3: Code(s): N18.30 - Chronic kidney disease, stage 3 unspecified Status: Acute Assessment and Plan: * baseline creatinine seems to run around 1.5 - 1.6mg/dl * however, this based on labs from 2021 * this causes him to fluctuate between CKD stage 3A and stage 3B * presumably due to HTN, diabetes, vascular disease, recurrent UTIs (and associated bouts of FRANC/ARF) and age-related change (3) Sepsis: Code(s): A41.9 - Sepsis, unspecified organism Status: Acute Assessment and Plan: * as noted by admission criteria * presumed source = UTI * blood cultures with GNB * on antibiotics * follow trend of hemodynamics (4) Urinary tract infection associated with indwelling urethral catheter: Code(s): T83.511A - Infection and inflammatory reaction due to indwelling urethral catheter, initial encounter; N39.0 - Urinary tract infection, site not specified Status: Acute Assessment and Plan: * admission UA highly suggestive * urine culture negative * on antibiotics (5) Right-sided heart failure: Code(s): I50.810 - Right heart failure, unspecified Status: Acute Assessment and Plan: * worsened by #1 * recent CXR/imaging noted * diuretics PRN * follow volume status (6) Obstructive sleep apnea on CPAP: Code(s): G47.33 - Obstructive sleep apnea (adult) (pediatric) Status: Acute Assessment and Plan: * continue home CPAP I will continue to follow the patient with you while he remains hospitalized and make further recommendations as deemed necessary. Thank you for allowing me to participate in the care of this patient. History of Present Illness Reason for Consult Consult date: 05/18/24 Reason for consult: acute renal failure (on chronic kidney disease) Chief Complaint Chief complaint: Urinary tract infection catheter related, FRANC History of Present Illness Narrative: A great deal of the information that I have obtained is from review of the electronic medical record as well as discussion with the physician/nurses involved in the patient's care as is difficult to get a full and complete history from the patient as he keeps falling asleep when I talk to him. The patient is a 78-year-old male with multiple medical problems as outlined below who presented to [facility] Room via EMS from his nursing facility for further evaluation of altered mental status. According to the nursing staff at his facility, the patient has been increasingly lethargic and more confused for last couple of days. He apparently has been sleeping a lot more than usual as well. I am unclear if he had any other symptoms or problems other than this. Apparently, on the day of admission, he started running a fever and was at this point that this his facility called EMS who subsequently transported him to the emergency room. Workup and evaluation emergency room was significant for significant hypotension with a systolic BP in the 60s but this improved with aggressive IV fluid resus citation. He was otherwise afebrile and on his baseline oxygen requirements. Routine blood tests were significant for white blood cell count of 12.7, hemoglobin 11.6, INR of 2.0, and a chemistry with a BUN of 65 and a creatinine of 3.5 in association with a sodium 130, lactic acid 1.8, and elevated CRP of 21. His urinalysis was grossly bloody with greater than 100 red blood cells and white blood cells per high-power field in association with 3+ bacteria. It should be noted that he has a chronic Gleason catheter in place and I believe this was exchanged just recently prior to his transfer to the ER. His initial chest x-ray showed cardiomegaly and following aggressive IV fluid resuscitation, and as already mentioned above, his blood pressure improved to the 100 systolic. It was felt that his altered mentation was related to possible sepsis secondary to a urinary tract infection and after appropriate cultures were obtained, he was initiated on broad-spectrum antibiotics and was subsequently admitted to the hospital for further evaluation and therapy. Since his admission, his renal function has not really improved significantly despite all interventions to date. Yesterday evening, a rapid response was called due to significant hypoxia which was secondary to the fact that his supplemental oxygen and I believe CPAP therapy fell off as he clinically improved when these interventions were resumed. However, he continues to have fevers and his recent blood cultures are positive for Gram-negative bacilli. Renal consultation was requested due to his acute kidney injury/ acute renal failure on top of his baseline chronic kidney disease. For review what records I have available, it would seem that his baseline creatinine normally runs around 1.5-1.6 mg/dL although these are based on labs from 2021. I did find some labs from [facility] in December of 2022 that also showed a baseline creatinine around 1.5 mg/dL. It was seen that his baseline chronic kidney disease is likely [place] of his hypertension, diabetes, vascular disease, recurrent urinary tract infections in association with acute kidney injury/acute renal failure, as well as age-related change. However, given his significant risk factors, I cannot deny the possibility there could be a good element of kidney disease progression that we are unaware of. However, it would seem that his current acute insult to his kidneys is probably secondary to acute tubular necrosis secondary to hemodynamic instability / hypotension, infection, ongoing diuretic use, and possible hypoxia. More concerning is the fact that his most recent chest x-ray shows evidence of volume overload presumably secondary to his aggressive IV fluid resuscitation and his known history of right-sided heart failure. He was given a dose of IV diuretics earlier this morning. Currently, at the time my evaluation, the patient is somewhat sleepy and as mentioned above, quickly falls asleep when I talked to him. Review of Systems Review of Systems: As per HPI. [facility] Past Medical History Medical History (Updated 05/18/24 @ 16:30 by Scott Hopkins MD) Atrial fibrillation remote cardioversion, appears persistent Chronic obstructive pulmonary disease Chronic respiratory failure Coronary artery disease Deep venous thrombosis Diet-controlled type 2 diabetes mellitus Gastroesophageal reflux disease Hyperlipidemia Hypertension Hypothyroidism Indwelling Gleason catheter present Macular degeneration Morbid obesity Obstructive sleep apnea on CPAP Pulmonary embolism Right-sided heart failure Surgical History Surgical History History of bilateral cataract extraction History of cardioversion History of inferior vena caval filter placement History of lumbar discectomy History of rectal sphincterotomy History of tonsillectomy Family History Family History Father Family history of lung cancer, Onset Age: 77 Mother Family history of dementia Postoperative complication Crossing her Sibling Diabetes mellitus Heart disease Daughter Breast cancer Other Family history of malignant neoplasm of breast Social History Social History Social History: Healthcare power of shank inspector: Sanjuana Garcia. Code status: Full code. Smoking status: Never smoker Alcohol intake: never Substance use: never Substance use type: does not use Do You Feel Safe in your Home?: Yes Lack of Transportation: No Lack of Food: Never True Current Housing: I Have Housing Concerned About Future Housing: No Difficulty Paying Gas/Electric Bills: No Difficulty Paying for Meds: No Currently Unemployed: No Education: High School Diploma/GED Difficulty w/ Childcare or Family Care: No Living arrangements: intermediate Additional living arrangements comments: [facility]. 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 Spiritual care concerns: No Meds Home Medications and Allergies Home Medications Medication Instructions Recorded Confirmed Type acetaminophen 650 mg 650 mg PO Q4H PRN Pain (Scale 12/21/19 05/16/24 History tablet,extended release Score 1-3) carboxymethylcellulose sodium 0.5 1 drp ophthalmic (eye) BID 12/21/19 05/16/24 History % eye drops (Refresh Tears) dextran 70-hypromellose (PF) 0.1 1 drp ophthalmic (eye) Q6H PRN Dry 12/21/1908/08 History %-0.3 % eye drops in a dropperette Eyes (Artificial Tears (PF)) dextromethorphan-guaifenesin 5 10 ml PO Q6H PRN Congestion 12/21/19 05/16/24 History mg-100 mg/5 mL oral liquid (Robitussin Cough-Chest Congestion DM) fenofibrate nanocrystallized 145 145 mg PO DAILY 12/21/19 05/16/24 History mg tablet fluticasone propionate 50 1 spray intranasal DAILY 12/21/19 05/16/24 History mcg/actuation nasal spray,suspension (Flonase Allergy Relief) furosemide 40 mg tablet 60 mg PO BID 12/21/19 05/16/24 History latanoprost 0.005 % eye drops 1 drp ophthalmic (eye) QPM 12/21/19 05/16/24 History levothyroxine 125 mcg tablet 125 mcg PO DAILY 12/21/19 05/16/24 History magnesium oxide 400 mg PO BID 12/21/19 05/16/24 History melatonin 10 mg capsule 10 mg PO HS 12/21/19 05/16/24 History mineral oil 15 ml PO BID 12/21/19 05/16/24 History mirabegron 50 mg tablet,extended 50 mg PO DAILY 12/21/19 05/16/24 History release 24 hr (Myrbetriq) polyethylene glycol 3350 17 gram 17 g PO DAILY 12/21/19 05/16/24 History oral powder packet (Miralax) potassium chloride 10 mEq 20 meq PO DAILY 12/21/19 05/16/24 History capsule,extended release rosuvastatin 10 mg tablet (Crestor) 20 mg PO HS 12/21/19 05/16/24 History sodium chloride 0.65 % nasal spray 2 spray intranasal Q2H PRN Dry 12/21/19 05/16/24 History aerosol ([place] Nasal) Nasal Passages tiotropium bromide 2.5 2 puff inhalation DAILY ##0 12/21/19 05/16/24 History mcg/actuation mist for inhalation (Spiriva Respimat) Acidophilus 1 tablet PO DAILY 07/06/22 05/16/24 History carvedilol 3.125 mg tablet (Coreg) 6.25 mg PO Q12HR 07/06/22 05/16/24 History gabapentin 100 mg capsule 200 mg PO BID 07/06/22 05/16/24 History hydrocodone 7.5 mg-acetaminophen 1 tablet PO TID PRN Pain (Scale 07/06/22 05/16/24 History 325 mg tablet Score 4-6) Adults Multivitamin 18 mg BYMOUTH DAILY 05/16/24 05/16/24 History apixaban 5 mg tablet (Eliquis) 5 mg PO BID 05/16/24 05/16/24 History brimonidine 0.2 %-timolol 0.5 % 1 drp EACH EYE BID 05/16/24 05/16/24 History eye drops calcium carbonate 200 mg PO Q6H PRN Indigestion 05/16/24 05/16/24 History empagliflozin 10 mg tablet 10 mg PO DAILY 05/16/24 05/16/24 History (Jardiance) ipratropium 0.5 mg-albuterol 3 mg 3 ml inhalation BID PRN Shortness 05/16/24 05/16/24 History (2.5 mg base)/3 mL nebulization Of Breath soln lactulose 10 gram/15 mL oral 30 ml PO BID 05/16/24 05/16/24 History solution lanolin 50 % topical cream 1 applic topical DAILY 05/16/24 05/16/24 History (Lantiseptic Skin Protectant) loteprednol etabonate 0.5 % eye 1 drp EACH EYE DAILY 05/16/24 05/16/24 History drops,suspension oxycodone 5 mg tablet 5 mg PO BID 05/16/24 05/16/24 History sennosides 8.6 mg-docusate sodium 2 tablet PO BID 05/16/24 05/16/24 History 50 mg tablet (Senna Plus) Allergies Allergy/AdvReac Type Severity Reaction Status Date / Time bacitracin Allergy Unknown Rash Verified 04/29/20 09:34 Penicillins Allergy Unknown Rash Verified 04/29/20 09:34 Vital Signs Vital Signs Temp Pulse Resp BP Pulse Ox O2 Del Method O2 Flow Rate 05/18/24 10:50 98.5 F 71 18 127/53 L 100 05/18/24 08:11 76 05/18/24 08:00 98.6 F 78 20 108/53 L 100 05/18/24 06:00 72 05/18/24 04:00 75 05/18/24 04:00 100 Autopap 3 05/17/24 19:47 103 F H 90 128/64 70 L Room Air 05/18/24 03:49 97.7 F 77 22 H 109/49 L 99 05/18/24 01:48 CDT 65 05/18/24 00:00 99 Autopap 3 05/18/24 00:00 76 05/17/24 22:00 74 05/17/24 23:50 98.5 F 74 22 H 115/61 99 05/17/24 22:22 101.0 F H 05/17/24 19:45 Room Air 05/17/24 21:00 96 Autopap 3 05/17/24 20:00 87 05/17/24 21:23 84 05/17/24 21:22 101.7 F H 05/17/24 21:12 101.4 F H 05/17/24 20:19 94 21 H 98 Autopap 05/17/24 20:07 100 Non-Rebreather Mask 15 05/17/24 19:39 103.1 F H 97 22 H 107/63 78 L 05/17/24 18:00 97 05/17/24 16:00 87 05/17/24 16:00 Room Air 05/17/24 15:48 101.7 F H 80 24 H 122/59 L 97 05/17/24 14:00 80 Exam Narrative: GENERAL APPEARANCE: chronically ill appearing male in no acute distress HEENT: normocephalic, atraumatic, normal conjunctiva and sclera, nares patient NECK: no lymphadenopathy or thyromegaly MOUTH: normal lips, teeth, and gums CARDIOVASCULAR: RRR, normal S1 and S2, no rub detected RESPIRATORY: coarse breath sounds; diminished at bases ABDOMEN: obese but soft, nontender, nondistended, positive bowel sounds present EXTREMITIES: no evidence of cyanosis, clubbing, or edema; several skin ulcerations noted NEUROLOGICAL: awake but sleepy; CN II - XII intact bilaterally; no focal deficits noted Results Lab Results 05/18/24 05:04 05/18/24 05:04 Lab results: Most recent lab results ABG pH 7.349 (7.350-7.450) L 05/17/24 19:55 ABG pCO2 48.0 mmHg (35.0-45.0) H 05/17/24 19:55 ABG pO2 391.9 mmHg (80.0-100.0) H 05/17/24 19:55 ABG HCO3 25.8 mEq/l (22.0-26.0) 05/17/24 19:55 ABG O2 Saturation 99.8 % (95.0-100.0) 05/17/24 19:55 Calcium 8.0 mg/dL (8.4-10.2) L 05/18/24 05:04 Magnesium 3.1 mg/dL (1.6-2.3) H 05/18/24 05:04
[2024-05-18] MEDS: FUROSEMIDE INJ 40 MG/4 ML VIAL 20 MG IV PUSH (12:04)
[2024-05-18 14:30] LABS: Creatinine Urine 51.8 mg/dL; Creatinine Urine 51.9 mg/dL; Total Protein Urine Random 138 mg/dL; Total Protein Urine Random 144 mg/dL; Ur Ttl Prot Creatinine Ratio 2.78 mg/mg (0-0.20); Urea Random Urine 411 MG/DL
[2024-05-18 14:32] LABS: Sodium Urine Random 28 meq/L
[2024-05-18 14:38] LABS: Eosinophil Urine Rare % (None Seen)
[2024-05-18 14:39] LABS: Urine Eos QC 2nd Tech Confirmed
--- NOTE | 2024-05-18 15:05 | P.PNIM_ITS ---
Progress Note: A&P Assessment and Plan (1) Sepsis: Code(s): A41.9 - Sepsis, unspecified organism Status: Acute (2) Urinary tract infection associated with indwelling urethral catheter: Code(s): T83.511A - Infection and inflammatory reaction due to indwelling urethral catheter, initial encounter; N39.0 - Urinary tract infection, site not specified Status: Acute (3) Acute on chronic renal failure: Code(s): N17.9 - Acute kidney failure, unspecified; N18.9 - Chronic kidney disease, unspecified Status: Acute (4) Right-sided heart failure: Code(s): I50.810 - Right heart failure, unspecified Status: Acute (5) Obstructive sleep apnea on CPAP: Code(s): G47.33 - Obstructive sleep apnea (adult) (pediatric) Status: Acute (6) Chronic anticoagulation: Code(s): 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 Status: Acute (7) Hypothyroidism: Qualifiers: Hypothyroidism type: unspecified Qualified Code(s): E03.9 - Hypothyroidism, unspecified Code(s): E03.9 - Hypothyroidism, unspecified Status: Chronic (8) Atrial fibrillation: Qualifiers: Atrial fibrillation type: unspecified Qualified Code(s): I48.91 - Unspecified atrial fibrillation Code(s): I48.91 - Unspecified atrial fibrillation Status: Chronic Plan CAUTI patient on chronic chamberlain Exchange follow Blood culture positive for GNB continue Aztreonam and monitor Gram negative bacteremia Blood culture positive for GNB continue above care and repeat lood culture Sepsis resolved, from CAUTI Vital signs wnl and patient is eating okay continue above care Hematuria, resolved ? UTI r/o renal mass US renal no renal masses TSERING continue BIPAP and oxygen nighttime Afib Eliquis restarted, continue Coreg monitor Diastolic CHF continue home lasix monitor HTN, Hypothyroidism, HLD Continue home med s Hx of PE/DVT restart Eliquis and watch for bleeding DVT prophylaxis on SCDs, AC pending US renal Subjective Date/time seen: 05/18/24 15:05 Interval history: Comfortable at bedside patient uses oxygen at night and had episode of resp failure last night, as his oxygen slipped off awaiting blood culture Review of Systems Review of Systems: 12 systems were reviewed and are negativ e except for as per HPI. Exam Narrative: General: Chronically ill-appearing male in the semi-Robledo position in bed. Nontoxic in appearance. Weight: 132 kg. BMI: 43.0. HEENT: PERRL, EOMI. Sclera anicteric. Tacky mucous membranes. Oropharynx is crowded and not visualized. Neck: Supple. Limited due to neck circumference. Respiratory: Respirations are nonlabored. Lung sounds are coarse and diminished due to body habitus. Cardiovascular: Irregularly irregular rate and rhythm. Gastrointestinal: Abdomen is soft, morbidly obese, nontender, and nondistended with positive bowel sounds. Genitourinary: Chamberlain catheter draining dark cindi colored urine with occasional clots. Skin: Warm and dry. Scattered bruising and shallow ulcerations on the lower extremities. Extremities: No cyanosis or clubbing. Neurological: Alert. Cranial nerves 2-12 are grossly intact. No gross focal deficits to casual conversation. Psychiatric: Cooperative with appropriate mood and slightly odd affect. Objective Data Vital Signs Vital Signs: Vital Signs - 24 hr 05/17/24 18:00 05/17/24 19:39 05/17/24 20:07 Temperature 103.1 F H Pulse Rate 97 97 Respiratory Rate 22 H Blood Pressure 107/63 Pulse Oximetry 78 L 100 Oxygen Delivery Non-Rebreather Mask Oxygen Flow Rate 15 Fraction of Inspired Oxygen 100 05/17/24 20:19 05/17/24 21:12 05/17/24 21:22 Temperature 101.4 F H 101.7 F H Pulse Rate 94 Respiratory Rate 21 H Blood Pressure Pulse Oximetry 98 Oxygen Delivery Autopap Oxygen Flow Rate Fraction of Inspired Oxygen 05/17/24 21:23 05/17/24 20:00 05/17/24 21:00 Temperature Pulse Rate 84 87 Respiratory Rate Blood Pressure Pulse Oximetry 96 Oxygen Delivery Autopap Oxygen Flow Rate 3 Fraction of Inspired Oxygen 05/17/24 19:45 05/17/24 22:22 05/17/24 23:50 Temperature 101.0 F H 98.5 F Pulse Rate 74 Respiratory Rate 22 H Blood Pressure 115/61 Pulse Oximetry 99 Oxygen Delivery Room Air Oxygen Flow Rate Fraction of Inspired Oxygen 72 05/17/24 22:00 05/18/24 00:00 05/18/24 00:00 Temperature Pulse Rate 74 76 Respiratory Rate Blood Pressure Pulse Oximetry 99 Oxygen Delivery Autopap Oxygen Flow Rate 3 Fraction of Inspired Oxygen 05/18/24 01:48 CDT 05/18/24 03:49 05/17/24 19:47 Temperature 97.7 F 103 F H Pulse Rate 65 77 90 Respiratory Rate 22 H Blood Pressure 109/49 L 128/64 Pulse Oximetry 99 70 L Oxygen Delivery Room Air Oxygen Flow Rate Fraction of Inspired Oxygen 05/18/24 04:00 05/18/24 04:00 05/18/24 06:00 Temperature Pulse Rate 75 72 Respiratory Rate Blood Pressure Pulse Oximetry 100 Oxygen Delivery Autopap Oxygen Flow Rate 3 Fraction of Inspired Oxygen 05/18/24 08:00 05/18/24 08:11 05/18/24 11:53 Temperature 98.6 F 98.5 F Pulse Rate 78 76 71 Respiratory Rate 20 18 Blood Pressure 108/53 L 127/53 L Pulse Oximetry 100 100 Oxygen Delivery Oxygen Flow Rate Fraction of Inspired Oxygen Intake/Output Intake/Output: Intake & Output 05/15/24 05/16/24 05/17/24 05/18/24 23:59 23:59 23:59 22:59 Intake Total 3948.8 1230 520 Output Total 450 650 Balance 3948.8 780 -130 Meds/Results Medications: Active Medications Generic Name Dose Route Start Last Admin Trade Name Freq PRN Reason Stop Dose Admin Acetaminophen 650 mg 05/16/24 18:39 05/17/24 21:22 Acetaminophen 325 Mg Tablet PO 650 mg Q4H PRN Administration Mild Pain (1-3) or Fever Hydrocodone Bitart/Acetaminophen 1 tab 05/17/24 04:21 Hydrocodone/Acetaminophen (*Crx) 7.5-325 Mg Tablet PO TID PRN Pain (Scale Score 4-6) Albuterol/Ipratropium 3 ml 05/17/24 04:21 Ipratropium 0.5 Mg/Albuterol Sulfate 2.5 Mg Ampul.Neb 3 Ml INHALATION BID PRN Shortness Of Breath Artificial Tears 1 drop 05/17/24 04:48 Artificial Tears Ophth Soln 15 Ml Bottle EACH EYE BID PRN Dry Eye(s) Brimonidine Tartrate 1 drop 05/17/24 09:00 05/18/24 09:15 Brimonidine Tartrate 0.2% Op Soln 5 Ml Btl EACH EYE 1 drop BID ARTEMIO Administration Calcium Carbonate 200 mg 05/17/24 04:21 Calcium Carbonate (Tums) 500 Mg (200 Mg Elemental) PO Q6H PRN Indigestion Carvedilol 6.25 mg 05/17/24 09:00 05/18/24 08:11 Carvedilol 3.125 Mg Tablet PO 6.25 mg Q12HR [facility]EMIO Administration Emollient Ointment 1 applic 05/17/24 09:00 05/18/24 09:16 Lanolin (Lantiseptic) Cream 118 Ml Tube TOPICAL 1 applic DAILY [facility] Administration Empagliflozin 10 mg 05/17/24 09:00 05/18/24 08:08 Empagliflozin 10 Mg Tablet PO 10 mg DAILY [facility] Administration Fenofibrate 145 mg 05/17/24 09:00 05/18/24 08:08 Fenofibrate Nanocrystallized 145 Mg Tablet PO 145 mg DAILY [facility] Administration Fluticasone Propionate 1 spray 05/17/24 09:00 05/18/24 09:15 Fluticasone Propionate 0.05% Na Spr 16 Gm Btl (*Bkc) NASAL 1 spray DAILY [facility] Administration Furosemide 60 mg 05/18/24 17:00 Furosemide 20 Mg Tablet PO BID [facility] Gabapentin 200 mg 05/17/24 09:00 05/18/24 08:12 Gabapentin 100 Mg Capsule PO 200 mg BID ARTEMIO Administration Levofloxacin/Dextrose 750 mg in 150 mls @ 100 mls/hr 05/16/24 15:00 05/16/24 18:23 Levaquin 750 Mg/D5w 150 Ml IVPB Infused Q48H [facility] Infusion Aztreonam 2 gm/ Sodium 100 mls @ 200 mls/hr 05/16/24 16:00 05/18/24 08:04 Chloride IVPB Infused Q12H [facility] Infusion Lactobacillus Acidophilus 1 tablet 05/17/24 09:00 05/18/24 08:10 Acidophilus/Bulgaricus Chewable Tablet BY MOUTH 1 tablet DAILY [facility] Administration Lactulose 20 gm 05/17/24 09:00 05/18/24 08:14 Lactulose 20 Gm/30 Ml Udc PO Not Given BID [facility] Latanoprost 1 drop 05/17/24 18:00 05/17/24 18:02 Latanoprost 0.005% Op Soln 2.5 Ml Btl EACH EYE 1 drop QPM [facility] Administration Levothyroxine Sodium 125 mcg 05/17/24 06:30 05/18/24 06:01 Levothyroxine Sodium 125 Mcg Tablet PO 125 mcg DAILY@0630 [facility] Administration Loteprednol Etabonate 1 drop 05/17/24 09:00 05/18/24 09:16 Loteprednol Etabonate 0.5% Oph 5 Ml Bottle EACH EYE 1 drop DAILY [facility] Administration Magnesium Oxide 400 mg 05/17/24 09:00 05/18/24 08:11 Magnesium Oxide 400 Mg Tablet PO 400 mg BID [facility] Administration Melatonin 10 mg 05/17/24 21:00 05/17/24 21:24 Melatonin 5 Mg Tablet PO Not Given HS [facility] Mineral Oil 15 ml 05/17/24 09:00 05/18/24 08:14 Mineral Oil 30 Ml Udc PO Not Given BID [facility] Mirabegron 50 mg 05/17/24 09:00 05/18/24 08:12 Mirabegron 50 Mg Er Tablet PO 50 mg DAILY [facility] Administration Multivitamins Therapeutic 1 tablet 05/17/24 09:00 05/18/24 08:09 Multivitamins Therapeutic Tab (*Bkc) PO 1 tablet QAM [facility] Administration Oxycodone HCl 5 mg 05/17/24 09:00 05/18/24 08:12 Oxycodone Hcl (*Crx) 5 Mg Tab Ir PO 5 mg Q12HR ARTEMIO Administration Polyethylene Glycol 17 gm 05/17/24 09:00 05/18/24 08:15 Polyethylene Glycol 3350 17 Gm Powd.Pack PO Not Given DAILY [facility] Rosuvastatin Calcium 20 mg 05/17/24 21:00 05/17/24 21:22 Rosuvastatin 10 Mg Tablet PO 20 mg HS [facility] Administration Senna/Docusate Sodium 2 tab 05/17/24 09:00 05/18/24 08:09 Senna/Docusate Sodium Tablet PO 2 tab BID [facility] Administration Sodium Chloride 2 spray 05/17/24 04:21 Saline 0.65% Myron Soln 44 Ml Btl NASAL Q2H PRN Dry Nasal Passages Timolol Maleate 1 drop 05/17/24 09:00 05/18/24 09:15 Timolol Maleate 0.5% Op Soln 5 Ml Bottle EACH EYE 1 drop BID [facility] Administration Umeclidinium [place] 1 puff 05/17/24 08:00 05/18/24 08:24 Umeclidinium [place] 62.5 Mcg Ellipta INHALATION 1 puff DAILYRT [facility] Administration Radiology Results: ITS Impressions Renal Ultrasound 05/17/24 14:23 IMPRESSION: 1. Likely age-related mild bilateral renal cortical atrophy. No hydronephrosis. Chest X-Ray 05/17/24 20:15 IMPRESSION: Cardiomegaly, pulmonary vascular congestion and redistribution, consistent with congestive change Mild infiltrate and/atelectasis in the right mid and both lower lung zones; differential diagnosis includes pulmonary edema, atelectasis or pneumonia Labs Labs: Laboratory Results - last 24 hr 05/17/24 05/17/24 05/17/24 19:55 20:03 20:04 WBC 6.3 RBC 3.69 L Hgb 11.2 L Hct 35.4 L MCV 95.9 MCH 30.4 MCHC 31.6 L RDW 15.8 H Plt Count 116 L MPV 10.6 H Immature Gran % (Auto) 1.1 H Neut % (Auto) 79.5 H Lymph % (Auto) 10.0 L Grainger % (Auto) 8.7 H Eos % (Auto) 0.2 Baso % (Auto) 0.5 Lymph # (Auto) 0.63 L [place]inger # (Auto) 0.6 Eos # (Auto) 0.0 Baso # (Auto) 0.0 Abs Immat Gran (auto) 0.07 H Absolute Neuts (auto) 5.0 Absolute Nucleated RBC 0.000 Nucleated RBC % 0.0 Puncture Site Left radial ABG pH 7.349 L ABG pCO2 48.0 H ABG pO2 391.9 H ABG PO2/FiO2 Ratio > 0.00 ABG HCO3 25.8 ABG O2 Saturation 99.8 ABG O2 Content 17.6 ABG Base Excess -0.2 A-a Gradient < 0.0 Oxyhemoglobin 98.8 Carboxyhemoglobin 0.6 Methemoglobin 0.3 Reduced Hemoglobin 0.3 Total Hemoglobin 11.9 L O2 Delivery Device Nasal cannula O2 Liters/Min 5.0 FiO2 40 Sodium 132 L Potassium 4.7 Chloride 96 L Carbon Dioxide 24 Anion Gap 12 BUN 71 H Creatinine 3.50 H Estim Creat Clear Calc 22 Estimated GFR 17 L Glucose 116 H Lactic Acid 0.9 Calcium 8.0 L Magnesium 3.0 H Total Bilirubin 0.9 AST 45 ALT 14 Alkaline Phosphatase 55 Total Creatine Kinase 382 H NT-Pro-B Natriuret Pep 8960 H Total Protein 7.0 Albumin 3.1 L Urine Eosinophils U Random Total Protein Ur Random Sodium Ur Random Urea Urine Creatinine Protein/Creat Ratio 2 05/18/24 05/18/24 05/18/24 05:04 14:00 14:00 WBC 5.6 RBC 3.40 L Hgb 10.2 L Hct 33.2 L MCV 97.6 MCH 30.0 MCHC 30.7 L RDW 16.1 H Plt Count 124 L MPV 10.3 Immature Gran % (Auto) 1.4 H Neut % (Auto) 79.1 H Lymph % (Auto) 12.3 L Grainger % (Auto) 6.4 Eos % (Auto) 0.4 Baso % (Auto) 0.4 Lymph # (Auto) 0.69 L [place]inger # (Auto) 0.4 Eos # (Auto) 0.0 Baso # (Auto) 0.0 Abs Immat Gran (auto) 0.08 H Absolute Neuts (auto) 4.5 Absolute Nucleated RBC 0.000 Nucleated RBC % 0.0 Puncture Site ABG pH ABG pCO2 ABG pO2 ABG PO2/FiO2 Ratio ABG HCO3 ABG O2 Saturation ABG O2 Content ABG Base Excess A-a Gradient Oxyhemoglobin Carboxyhemoglobin Methemoglobin Reduced Hemoglobin Total Hemoglobin O2 Delivery Device O2 Liters/Min FiO2 Sodium 132 L Potassium 3.9 Chloride 98 Carbon Dioxide 25 Anion Gap 9 BUN 74 H Creatinine 3.80 H Estim Creat Clear Calc 20 Estimated GFR 16 L Glucose 116 H Lactic Acid Calcium 8.0 L Magnesium 3.1 H Total Bilirubin 0.9 AST 42 ALT 13 Alkaline Phosphatase 51 Total Creatine Kinase NT-Pro-B Natriuret Pep Total Protein 6.0 L Albumin 2.7 L Urine Eosinophils Rare U Random Total Protein 144 138 Ur Random Sodium 28 Ur Random Urea 411 Urine Creatinine 51.8 Protein/Creat Ratio 2 05/18/24 14:00 WBC RBC Hgb Hct MCV MCH MCHC RDW Plt Count MPV Immature Gran % (Auto) Neut % (Auto) Lymph % (Auto) [place]inger % (Auto) Eos % (Auto) Baso % (Auto) Lymph # (Auto) Grainger # (Auto) Eos # (Auto) Baso # (Auto) Abs Immat Gran (auto) Absolute Neuts (auto) Absolute Nucleated RBC Nucleated RBC % Puncture Site ABG pH ABG pCO2 ABG pO2 ABG PO2/FiO2 Ratio ABG HCO3 ABG O2 Saturation ABG O2 Content ABG Base Excess A-a Gradient Oxyhemoglobin Carboxyhemoglobin Methemoglobin Reduced Hemoglobin Total Hemoglobin O2 Delivery Device O2 Liters/Min FiO2 Sodium Potassium Chloride Carbon Dioxide Anion Gap BUN Creatinine Estim Creat Clear Calc Estimated GFR Glucose Lactic Acid Calcium Magnesium Total Bilirubin AST ALT Alkaline Phosphatase Total Creatine Kinase NT-Pro-B Natriuret Pep Total Protein Albumin Urine Eosinophils U Random Total Protein Ur Random Sodium Ur Random Urea Urine Creatinine 51.9 Protein/Creat Ratio 2 2.78 H Quality VTE Prophylaxis VTE prophylaxis: mechanical ordered
[2024-05-18] MEDS: levoFLOXacin 750 MG/D5W 150 ML 750 MG/150 ML BAG 100 MG IVPB (16:00)
[2024-05-18] MEDS: LATANOPROST 0.005% OP SOLN 2.5 ML BTL 1 DROP EACH EYE (18:29)
[2024-05-18] MEDS: FUROSEMIDE 20 MG TABLET 60 MG PO (18:30)
[2024-05-18] MEDS: APIXABAN 5 MG TABLET PO (18:30)
[2024-05-18] MEDS: MELATONIN 5 MG TABLET 10 MG PO (20:15)
[2024-05-18] MEDS: ROSUVASTATIN 10 MG TABLET 20 MG PO (20:16)
[2024-05-19] VITALS (23 sets, daily range): BP systolic 101–120; BP diastolic 43–63; PULSE 63–106; RESP 16–24; TEMP 36.3–38.7; O2SAT 91–98
[2024-05-19] MEDS: LEVOTHYROXINE SODIUM 125 MCG TABLET PO (06:26)
[2024-05-19 07:30] LABS: Hematocrit 36.4 % (42.0-52.0); Immature Platelet Fraction Pct 3.8 % (0.9-11.2); Mean Corpuscular HGB Conc 30.2 g/dl (32-36); Mean Corpuscular Hemoglobin 30.1 pg (26-34); Mean Corpuscular Volume 99.7 fl (80-100); Mean Platelet Volume 11.2 fl (7.4-10.4); Platelet Count Result 111 k/mm3 (150-375); Red Blood Count 3.65 M/mm3 (4.6-6.20); White Blood Count 11.3 K/mm3 (4.5-10.0)
--- NOTE | 2024-05-19 08:33 | ECG_ITS ---
Test Date: 2024-05-19 09:09:43 Measurements Intervals [place] Rate: 89 P: 0 ID: 0 QRS: -75 QRSD: 147 T: 34 QT: 373 QTc: 454 Interpretive Statements ATRIAL FIBRILLATION RIGHT BUNDLE BRANCH BLOCK LEFT ANTERIOR FASCICULAR BLOCK ABNORMAL ECG Compared to ECG 05/17/2024 20:50:23 NO SIGNIFICANT CHANGE Electronically Signed On 05-19-2024 09:42:43 RELIGION DEPARTMENT CHAIR by Freddy Culver D.O.
[2024-05-19 08:34] LABS: Alanine Aminotransferase 14 U/L (6-50); Albumin Level 2.7 g/dL (3.5-5.1); Alkaline Phosphatase 57 U/L (38-126); Anion Gap 15 mmol/L (4-12); Aspartate Amino Transferase 46 U/L (17-59); Bilirubin,Total 1.5 mg/dL (0.2-1.3); Blood Urea Nitrogen 83 mg/dL (9-20); Calcium 7.9 mg/dL (8.4-10.2); Carbon Dioxide 20 mmol/L (22-30); Chloride 94 mmol/L (98-107); Estimated CRCL calculation 22 ml/min; Estimated Glomerular Filt Rate 17; Glucose 85 mg/dL (65-110); Potassium 4.7 mmol/L (3.4-5.0); Sodium 129 mmol/L (137-145)
[2024-05-19 08:39] LABS: Glucose Point of Care 138 mg/dl (65-105)
[2024-05-19 08:51] LABS: Alveolar/Arterial O2 Gradient 82.8 mmHg; Fractional Inspired Oxygen 28 %; HCO3 ABG 21.8 mEq/l (22.0-26.0); Oxygen Content ABG 21.1 %vol (16.0-22.0); Oxygen Saturation ABG 89.2 % (95.0-100.0); Oxyhemoglobin 90.4 % THb (90.0-100.0); PCO2 ABG 46.2 mmHg (35.0-45.0); PO2 ABG 62.3 mmHg (80.0-100.0); PO2 FiO2 Ratio Arterial Blood 2.22 %; Total Hemoglobin 16.6 g/dL (12.0-18.0)
[2024-05-19 08:55] LABS: Device NASAL CANNULA; Modified Allen's Test Pass; Site Drawn RIGHT RADIAL; pH ABG 7.291 (7.350-7.450)
[2024-05-19 09:05] LABS: Hepatitis B Surface Antigen Negative (Negative)
[2024-05-19 09:10] LABS: Ammonia 14 umol/L (9-30)
[2024-05-19 09:23] LABS: Hepatitis B Surface Anti Res Negative
[2024-05-19 09:26] LABS: Band Neutrophils Percent 9 % (0-6); Basophils Percent Manual 0 % (0-1); Eosinophils Percent Manual 0 % (0-4); Lymphocytes Absolute Manual 0.45 K/mm3 (1.1-4.5); Lymphocytes Percent Manual 4 % (18-44); Monocytes Absolute Manual 0.67 K/mm3 (0.1-0.90); Monocytes Percent Manual 6 % (3-9); Neutrophils Percent Manual 91 % (46-73); Platelet Estimate Slightly Decreased (Adequate); Total Cells Counted 100
[2024-05-19 09:28] LABS: Anisocytosis 1+
[2024-05-19 09:29] LABS: Schistocytes None Seen
--- NOTE | 2024-05-19 09:59 | PM.IMPN ---
Progress Note: A&P Assessment and Plan (1) Sepsis: Code(s): A41.9 - Sepsis, unspecified organism Status: Acute (2) Urinary tract infection associated with indwelling urethral catheter: Code(s): T83.511A - Infection and inflammatory reaction due to indwelling urethral catheter, initial encounter; N39.0 - Urinary tract infection, site not specified Status: Acute (3) Acute on chronic renal failure: Code(s): N17.9 - Acute kidney failure, unspecified; N18.9 - Chronic kidney disease, unspecified Status: Acute (4) Right-sided heart failure: Code(s): I50.810 - Right heart failure, unspecified Status: Acute (5) Obstructive sleep apnea on CPAP: Code(s): G47.33 - Obstructive sleep apnea (adult) (pediatric) Status: Acute (6) Chronic anticoagulation: Code(s): 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 continue BIPAP and bronchodilators COPD exacerbation respiratory acidosis, Abg 7.291/46.1/62.3/21.8 Schedule Duoneb, Budesonide and Umeclinidium No IV steroids due to bacteremia Continue BiPAP and adjust with abg CAUTI patient on chronic chamberlain Exchange follow Blood culture positive for ESBL Changed antibiotics to meropenem 05/19/24 continue monitoring ESBL bacteremia Blood culture positive for ESBL CT Chest, AP pending repeat blood culture pending will dose antibiotics on negative repeat blood culture last fever was midnight continue meropenem as above Sepsis resolved, from CAUTI Vital signs wnl and patient is eating okay continue above care Hematuria, resolved ? UTI r/o renal mass US renal no renal masses CT AP pending TSERING continue BIPAP and oxygen nighttime Afib Eliquis restarted, continue Coreg monitor Diastolic CHF continue home lasix monitor HTN, Hypothyroidism, HLD Continue home med s Hx of PE/DVT restart Eliquis and watch for bleeding DVT prophylaxis on on Eliquis Discussed with POA at bedside and patient Subjective Date/time seen: 05/19/24 09:59 Interval history: Patient was unresponsive this morning, CT Head was unremarkable Abg showed respiratory acidosis abg 7.291/46.2/62.3/21.8 back on BiPAP discussed with POA who was at bedside and stated and reaffirmed that patient is DNR and DNI Code status changed to DNR/DNI Review of Systems Review of Systems: patient mostly unresponsive Exam Narrative: General: unresponsive HEENT: PERRL, EOMI. Sclera anicteric. Tacky mucous membranes. Oropharynx is crowded and not visualized. Neck: Supple. Limited due to neck circumference. Respiratory: Respirations are nonlabored. Lung sounds are coarse and diminished due to body habitus. Cardiovascular: Irregularly irregular rate and rhythm. Gastrointestinal: Abdomen is soft, morbidly obese, nontender, and nondistended with positive bowel sounds. Genitourinary: Chamberlain catheter draining dark cindi colored urine with occasional clots. Skin: Warm and dry. Scattered bruising and shallow ulcerations on the lower extremities. Extremities: No cyanosis or clubbing. Neurological: unresponsive Objective Data Vital Signs Vital Signs: Vital Signs - 24 hr 05/18/24 11:53 05/18/24 10:00 05/18/24 12:00 Temperature 98.5 F Pulse Rate 71 64 61 Respiratory Rate 18 Blood Pressure 127/53 L Pulse Oximetry 100 Oxygen Delivery Oxygen Flow Rate Fraction of Inspired Oxygen 05/18/24 14:00 05/18/24 12:00 05/18/24 16:00 Temperature Pulse Rate 74 80 Respiratory Rate Blood Pressure Pulse Oximetry 100 Oxygen Delivery Nasal Cannula Oxygen Flow Rate 2 Fraction of Inspired Oxygen 05/18/24 16:00 05/18/24 16:00 05/18/24 18:00 Temperature 97.5 F L Pulse Rate 72 84 Respiratory Rate 32 H Blood Pressure 99/49 L Pulse Oximetry 99 93 Oxygen Delivery Nasal Cannula Oxygen Flow Rate 2 Fraction of Inspired Oxygen 05/18/24 20:00 05/18/24 20:17 05/18/24 20:35 Temperature 98.7 F Pulse Rate 78 85 92 Respiratory Rate 16 20 Blood Pressure 125/52 L Pulse Oximetry 100 98 Oxygen Delivery Autopap Oxygen Flow Rate Fraction of Inspired Oxygen 05/18/24 20:00 05/18/24 22:00 05/18/24 20:00 Temperature Pulse Rate 85 75 Respiratory Rate Blood Pressure Pulse Oximetry 98 Oxygen Delivery Autopap Oxygen Flow Rate 3 Fraction of Inspired Oxygen 05/19/24 00:00 05/19/24 00:00 05/19/24 00:00 Temperature 101.0 F H Pulse Rate 75 78 Respiratory Rate 20 Blood Pressure 107/43 L Pulse Oximetry 97 98 Oxygen Delivery Autopap Oxygen Flow Rate 3 Fraction of Inspired Oxygen 05/19/24 01:29 05/19/24 02:00 05/19/24 04:00 Temperature 99.9 F H Pulse Rate 99 99 92 Respiratory Rate 22 H 20 Blood Pressure 114/48 L Pulse Oximetry 98 97 Oxygen Delivery Autopap Oxygen Flow Rate Fraction of Inspired Oxygen 05/19/24 04:00 05/19/24 04:00 05/19/24 06:00 Temperature Pulse Rate 80 97 Respiratory Rate Blood Pressure Pulse Oximetry 97 Oxygen Delivery Autopap Oxygen Flow Rate 3 Fraction of Inspired Oxygen 05/19/24 08:00 05/19/24 08:35 05/19/24 09:36 Temperature 101.7 F H Pulse Rate 76 106 H Respiratory Rate 22 H 19 Blood Pressure 112/60 Pulse Oximetry 92 92 91 Oxygen Delivery Nasal Cannula Autopap Oxygen Flow Rate 2 Fraction of Inspired Oxygen 28 05/19/24 09:36 Temperature Pulse Rate Respiratory Rate Blood Pressure Pulse Oximetry 91 Oxygen Delivery Autopap Oxygen Flow Rate 3 Fraction of Inspired Oxygen 32 Intake/Output Intake/Output: Intake & Output 05/17/24 05/18/24 05/18/24 05/19/24 00:59 00:59 23:59 23:59 Intake Total 250 Output Total 475 Balance -225 Meds/Results Medications: Active Medications Generic Name Dose Route Start Last Admin Trade Name Freq PRN Reason Stop Dose Admin Acetaminophen 650 mg 05/16/24 18:39 05/17/24 21:22 Acetaminophen 325 Mg Tablet PO 650 mg Q4H PRN Administration Mild Pain (1-3) or Fever Hydrocodone Bitart/Acetaminophen 1 tab 05/17/24 04:21 Hydrocodone/Acetaminophen (*Crx) 7.5-325 Mg Tablet PO TID PRN Pain (Scale Score 4-6) Albuterol/Ipratropium 3 ml 05/17/24 04:21 Ipratropium 0.5 Mg/Albuterol Sulfate 2.5 Mg Ampul.Neb 3 Ml INHALATION BID PRN Shortness Of Breath Apixaban 5 mg 05/18/24 17:00 05/18/24 18:30 Apixaban 5 Mg Tablet PO 5 mg BID ARTEMIO Administration Artificial Tears 1 drop 05/17/24 04:48 Artificial Tears Ophth Soln 15 Ml Bottle EACH EYE BID PRN Dry Eye(s) Brimonidine Tartrate 1 drop 05/17/24 09:00 05/18/24 18:29 Brimonidine Tartrate 0.2% Op Soln 5 Ml Btl EACH EYE 1 drop BID ARTEMIO Administration Calcium Carbonate 200 mg 05/17/24 04:21 Calcium Carbonate (Tums) 500 Mg (200 Mg Elemental) PO Q6H PRN Indigestion Carvedilol 6.25 mg 05/17/24 09:00 05/18/24 20:17 Carvedilol 3.125 Mg Tablet PO 6.25 mg Q12HR ARTEMIO Administration Emollient Ointment 1 applic 05/17/24 09:00 05/18/24 09:16 Lanolin (Lantiseptic) Cream 118 Ml Tube TOPICAL 1 applic DAILY ARTEMIO Administration Empagliflozin 10 mg 05/17/24 09:00 05/18/24 08:08 Empagliflozin 10 Mg Tablet PO 10 mg DAILY ARTEMIO Administration Fenofibrate 145 mg 05/17/24 09:00 05/18/24 08:08 Fenofibrate Nanocrystallized 145 Mg Tablet PO 145 mg DAILY ARTEMIO Administration Fluticasone Propionate 1 spray 05/17/24 09:00 05/18/24 09:15 Fluticasone Propionate 0.05% Na Spr 16 Gm Btl (*Bkc) NASAL 1 spray DAILY ARTEMIO Administration Furosemide 60 mg 05/18/24 17:00 05/18/24 18:30 Furosemide 20 Mg Tablet PO 60 mg BID ARTEMIO Administration Gabapentin 200 mg 05/17/24 09:00 05/18/24 18:30 Gabapentin 100 Mg Capsule PO 200 mg BID ARTEMIO Administration Meropenem 500 mg in 100 mls @ 200 mls/hr 05/19/24 10:00 IVPB Q12H ARTEMIO Lactobacillus Acidophilus 1 tablet 05/17/24 09:00 05/18/24 08:10 Acidophilus/Bulgaricus Chewable Tablet BY MOUTH 1 tablet DAILY [facility] Administration Lactulose 20 gm 05/18/24 16:05 Lactulose 20 Gm/30 Ml Udc PO BID PRN Constipation Latanoprost 1 drop 05/17/24 18:00 05/18/24 18:29 Latanoprost 0.005% Op Soln 2.5 Ml Btl EACH EYE 1 drop QPM [facility] Administration Levothyroxine Sodium 125 mcg 05/17/24 06:30 05/19/24 06:26 Levothyroxine Sodium 125 Mcg Tablet PO 125 mcg DAILY@0630 [facility] Administration Loteprednol Etabonate 1 drop 05/17/24 09:00 05/18/24 09:16 Loteprednol Etabonate 0.5% Oph 5 Ml Bottle EACH EYE 1 drop DAILY [facility] Administration Magnesium Oxide 400 mg 05/17/24 09:00 05/18/24 18:30 Magnesium Oxide 400 Mg Tablet PO 400 mg BID [facility] Administration Melatonin 10 mg 05/17/24 21:00 05/18/24 20:15 Melatonin 5 Mg Tablet PO 10 mg HS [facility] Administration Mineral Oil 15 ml 05/18/24 16:05 Mineral Oil 30 Ml Udc PO BID PRN Constipation Mirabegron 50 mg 05/17/24 09:00 05/18/24 08:12 Mirabegron 50 Mg Er Tablet PO 50 mg DAILY [facility] Administration Multivitamins Therapeutic 1 tablet 05/17/24 09:00 05/18/24 08:09 Multivitamins Therapeutic Tab (*Bkc) PO 1 tablet QAM [facility] Administration Oxycodone HCl 5 mg 05/17/24 09:00 05/18/24 20:15 Oxycodone Hcl (*Crx) 5 Mg Tab Ir PO Not Given Q12HR [facility] Polyethylene Glycol 17 gm 05/17/24 09:00 05/18/24 08:15 Polyethylene Glycol 3350 17 Gm Powd.Pack PO Not Given DAILY [facility] Rosuvastatin Calcium 20 mg 05/17/24 21:00 05/18/24 20:16 Rosuvastatin 10 Mg Tablet PO 20 mg HS [facility] Administration Senna/Docusate Sodium 2 tab 05/17/24 09:00 05/18/24 18:30 Senna/Docusate Sodium Tablet PO 2 tab BID ARTEMIO Administration Sodium Chloride 2 spray 05/17/24 04:21 Saline 0.65% Myron Soln 44 Ml Btl NASAL Q2H PRN Dry Nasal Passages Timolol Maleate 1 drop 05/17/24 09:00 05/18/24 18:29 Timolol Maleate 0.5% Op Soln 5 Ml Bottle EACH EYE 1 drop BID ARTEMIO Administration Umeclidinium [place] 1 puff 05/17/24 08:00 05/19/24 08:25 Umeclidinium [place] 62.5 Mcg Ellipta INHALATION Not Given DAILYRT [facility] Radiology Results: ITS Impressions Renal Ultrasound 05/17/24 14:23 IMPRESSION: 1. Likely age-related mild bilateral renal cortical atrophy. No hydronephrosis. Chest X-Ray 05/19/24 09:24 IMPRESSION: Cardiomegaly with cardiac decompensation and pulmonary edema. Left basilar atelectasis versus pneumonia. Head CT 05/19/24 09:28 IMPRESSION: No acute intracranial findings. Labs Labs: Laboratory Results - last 24 hr 05/18/24 05/18/24 05/18/24 14:00 14:00 14:00 WBC RBC Hgb Hct MCV MCH MCHC RDW Plt Count MPV Immature Gran % (Auto) Neut % (Auto) Lymph % (Auto) [place]win % (Auto) Eos % (Auto) Baso % (Auto) Lymph # (Auto) [place]win # (Auto) Eos # (Auto) Baso # (Auto) Abs Immat Gran (auto) Absolute Neuts (auto) Absolute Nucleated RBC Total Counted Neutrophils % (Manual) Band Neutrophils % Lymphocytes % (Manual) Monocytes % (Manual) Eosinophils % (Manual) Basophils % (Manual) Nucleated RBC % Abs Neuts (Manual) Abs Lymphs (Manual) Abs Monocytes (Manual) Absolute Eos (Manual) Abs Basophils (Manual) Platelet Estimate % Immature Plt Fraction Anisocytosis Schistocytes Puncture Site ABG pH ABG pCO2 ABG pO2 ABG PO2/FiO2 Ratio ABG HCO3 ABG O2 Saturation ABG O2 Content ABG Base Excess A-a Gradient Oxyhemoglobin Total Hemoglobin O2 Delivery Device O2 Liters/Min FiO2 Sodium Potassium Chloride Carbon Dioxide Anion Gap BUN Creatinine Estim Creat Clear Calc Estimated GFR Glucose POC Capillary Glucose Calcium Total Bilirubin AST ALT Alkaline Phosphatase Ammonia Total Protein Albumin Urine Eosinophils Rare U Random Total Protein 144 138 Ur Random Sodium 28 Ur Random Urea 411 Urine Creatinine 51.8 51.9 Protein/Creat Ratio 2 2.78 H Hep Bs Antigen Hep Bs Antibody 05/19/24 05/19/24 05/19/24 07:10 08:28 08:41 WBC 11.3 H RBC 3.65 L Hgb 11.0 L Hct 36.4 L MCV 99.7 MCH 30.1 MCHC 30.2 L RDW 16.0 H Plt Count 111 L MPV 11.2 H Immature Gran % (Auto) Not Reportable Neut % (Auto) Not Reportable Lymph % (Auto) Not Reportable Irwin % (Auto) Not Reportable Eos % (Auto) Not Reportable Baso % (Auto) Not Reportable Lymph # (Auto) Not Reportable [place]win # (Auto) Not Reportable Eos # (Auto) Not Reportable Baso # (Auto) Not Reportable Abs Immat Gran (auto) Not Reportable Absolute Neuts (auto) Not Reportable Absolute Nucleated RBC Not Reportable Total Counted 100 Neutrophils % (Manual) 91 H Band Neutrophils % 9 H Lymphocytes % (Manual) 4 L Monocytes % (Manual) 6 Eosinophils % (Manual) 0 Basophils % (Manual) 0 Nucleated RBC % Not Reportable Abs Neuts (Manual) 11.30 H Abs Lymphs (Manual) 0.45 L Abs Monocytes (Manual) 0.67 Absolute Eos (Manual) 0.00 L Abs Basophils (Manual) 0.00 Platelet Estimate Slightly decreased % Immature Plt Fraction 3.8 Anisocytosis 1+ Schistocytes None seen Puncture Site Right radial ABG pH 7.291 L* ABG pCO2 46.2 H ABG pO2 62.3 L ABG PO2/FiO2 Ratio 2.22 ABG HCO3 21.8 L ABG O2 Saturation 89.2 L ABG O2 Content 21.1 ABG Base Excess -5.0 A-a Gradient 82.8 Oxyhemoglobin 90.4 Total Hemoglobin 16.6 O2 Delivery Device Nasal cannula O2 Liters/Min 2.0 FiO2 28 Sodium 129 L Potassium 4.7 Chloride 94 L Carbon Dioxide 20 L Anion Gap 15 H BUN 83 H Creatinine 3.60 H Estim Creat Clear Calc 22 Estimated GFR 17 L Glucose 85 POC Capillary Glucose 138 H Calcium 7.9 L Total Bilirubin 1.5 H AST 46 ALT 14 Alkaline Phosphatase 57 Ammonia Total Protein 6.0 L Albumin 2.7 L Urine Eosinophils U Random Total Protein Ur Random Sodium Ur Random Urea Urine Creatinine Protein/Creat Ratio 2 Hep Bs Antigen Negative Hep Bs Antibody Negative 05/19/24 08:52 WBC RBC Hgb Hct MCV MCH MCHC RDW Plt Count MPV Immature Gran % (Auto) Neut % (Auto) Lymph % (Auto) [place]win % (Auto) Eos % (Auto) Baso % (Auto) Lymph # (Auto) [place]win # (Auto) Eos # (Auto) Baso # (Auto) Abs Immat Gran (auto) Absolute Neuts (auto) Absolute Nucleated RBC Total Counted Neutrophils % (Manual) Band Neutrophils % Lymphocytes % (Manual) Monocytes % (Manual) Eosinophils % (Manual) Basophils % (Manual) Nucleated RBC % Abs Neuts (Manual) Abs Lymphs (Manual) Abs Monocytes (Manual) Absolute Eos (Manual) Abs Basophils (Manual) Platelet Estimate % Immature Plt Fraction Anisocytosis Schistocytes Puncture Site ABG pH ABG pCO2 ABG pO2 ABG PO2/FiO2 Ratio ABG HCO3 ABG O2 Saturation ABG O2 Content ABG Base Excess A-a Gradient Oxyhemoglobin Total Hemoglobin O2 Delivery Device O2 Liters/Min FiO2 Sodium Potassium Chloride Carbon Dioxide Anion Gap BUN Creatinine Estim Creat Clear Calc Estimated GFR Glucose POC Capillary Glucose Calcium Total Bilirubin AST ALT Alkaline Phosphatase Ammonia 14 Total Protein Albumin Urine Eosinophils U Random Total Protein Ur Random Sodium Ur Random Urea Urine Creatinine Protein/Creat Ratio 2 Hep Bs Antigen Hep Bs Antibody Quality VTE Prophylaxis VTE prophylaxis: mechanical ordered
--- NOTE | 2024-05-19 10:15 | P.PNNP_ITS ---
Progress Note: A&P Assessment and Plan (1) Acute kidney injury: Code(s): N17.9 - Acute kidney failure, unspecified Status: Acute Assessment and Plan: * suspect ATN due to: * sepsis/infection * prerenal factors * previous hypotension/hemodynamic instability * diuretic therapy prior to admission * hypoxia * evaluation to date noted: * renal ultrasound c/w CKD * UA demonstrates infection * CPK mildly elevated (doubt to affect kidney function) * urine electrolytes non-prerenal * urine eosinophils rare but difficult to interpret in the context of infection * proteinuria noted * now complicated by issues related to fluid overload * remains at risk for [employer]/dialysis * follow trend of repeat labs and UOP (2) Chronic kidney disease, stage 3: Code(s): N18.30 - Chronic kidney disease, stage 3 unspecified Status: Acute Assessment and Plan: * baseline creatinine seems to run around 1.5 - 1.6mg/dl * however, this is based on labs from 2021 * this causes him to fluctuate between CKD stage 3A and stage 3B * presumably due to HTN, diabetes, vascular disease, recurrent UTIs (and associated bouts of FRANC/ARF) and age-related change (3) Sepsis: Code(s): A41.9 - Sepsis, unspecified organism Status: Acute Assessment and Plan: * as noted by admission criteria * presumed source = UTI * blood cultures with E. coli * on antibiotics * follow trend of hemodynamics (4) Urinary tract infection associated with indwelling urethral catheter: Code(s): T83.511A - Infection and inflammatory reaction due to indwelling urethral catheter, initial encounter; N39.0 - Urinary tract infection, site not specified Status: Acute Assessment and Plan: * admission UA highly suggestive * urine culture negative * on antibiotics (5) Right-sided heart failure: Code(s): I50.810 - Right heart failure, unspecified Status: Acute Assessment and Plan: * worsened by #1 * recent CXR/imaging noted * diuretics PRN * follow volume status (6) Obstructive sleep apnea on CPAP: Code(s): G47.33 - Obstructive sleep apnea (adult) (pediatric) Status: Acute Assessment and Plan: * continue home CPAP Long extensive discussion ( greater than 20 minutes) with the patient's daughter and POA at bedside regarding his worsening renal dysfunction and my concerns that he may require renal replacement therapy / dialysis. There is no immediate need for dialysis at this time but if his fluid status continues to deteriorate with overt volume overload unresponsive to diuretic therapy or if he runs into issues/problems with worsening metabolic acidosis, critical electrolytes abnormalities and/or uremia, he may need it for this purpose. She appeared to voice understanding and is hopeful that ongoing aggressive medical care all improve his overall clinical situation. Will continue to follow. Subjective Date/time seen: 05/19/24 10:15 Interval history: Follow-up for acute kidney injury/acute renal failure on chronic kidney disease. Apparently stacey was noted to be unresponsive earlier this AM; CT of head was negative and ABG was notable for respiratory acidosis so BIPAP was re-applied in an effort to compensate; no real significant improvement in renal function/cre atinine although somewhat responsive to IV diuretics yesterday given increased urine output noted; still with on/off fevers as well. Exam Narrative: General: elderly and ill-appearing male on BiPAP (and unresponsive) Heart: normal S1 and S2; no rub Lungs: coarse and diminished Abdomen: soft, nontender, nondistended, positive bowel sounds Extremities: no cyanosis or clubbing; trace edema Skin: warm and dry Objective Data Vital Signs Vital Signs: Vital Signs Temp Pulse Resp BP Pulse Ox O2 Del Method O2 Flow Rate 05/19/24 09:36 91 Autopap 3 05/19/24 09:36 106 H 19 91 Autopap 05/19/24 08:35 92 Nasal Cannula 2 05/19/24 08:00 101.7 F H 76 22 H 112/60 92 05/19/24 06:00 97 05/19/24 04:00 97 Autopap 3 05/19/24 04:00 80 05/19/24 04:00 99.9 F H 92 20 114/48 L 97 05/19/24 02:00 99 05/19/24 01:29 99 22 H 98 Autopap 05/19/24 00:00 78 05/19/24 00:00 98 Autopap 3 05/19/24 00:00 101.0 F H 75 20 107/43 L 97 05/18/24 20:00 98 Autopap 3 05/18/24 22:00 75 05/18/24 20:00 85 05/18/24 20:35 92 20 98 Autopap 05/18/24 20:17 85 05/18/24 20:00 98.7 F 78 16 125/52 L 100 05/18/24 18:00 84 05/18/24 16:00 93 Nasal Cannula 2 05/18/24 16:00 97.5 F L 72 32 H 99/49 L 99 05/18/24 16:00 80 05/18/24 12:00 100 Nasal Cannula 2 05/18/24 14:00 74 05/18/24 12:00 61 05/18/24 11:53 98.5 F 71 18 127/53 L 100 Intake/Output Intake/Output: Intake & Output 05/17/24 05/18/24 05/18/24 05/19/24 00:59 00:59 23:59 23:59 Intake Total 250 Output Total 475 Balance -225 Meds/Results Medications: Active Medications Generic Name Dose Route Start Last Admin Trade Name Freq PRN Reason Stop Dose Admin Acetaminophen 650 mg 05/16/24 18:39 05/17/24 21:22 Acetaminophen 325 Mg Tablet PO 650 mg Q4H PRN Administration Mild Pain (1-3) or Fever Hydrocodone Bitart/Acetaminophen 1 tab 05/17/24 04:21 Hydrocodone/Acetaminophen (*Crx) 7.5-325 Mg Tablet PO TID PRN Pain (Scale Score 4-6) Albuterol/Ipratropium 3 ml 05/19/24 14:00 Ipratropium 0.5 Mg/Albuterol Sulfate 2.5 Mg Ampul.Neb 3 Ml INHALATION Q6HRT [facility] Apixaban 5 mg 05/18/24 17:00 05/18/24 18:30 Apixaban 5 Mg Tablet PO 5 mg BID [facility] Administration Artificial Tears 1 drop 05/17/24 04:48 Artificial Tears Ophth Soln 15 Ml Bottle EACH EYE BID PRN Dry Eye(s) Brimonidine Tartrate 1 drop 05/17/24 09:00 05/18/24 18:29 Brimonidine Tartrate 0.2% Op Soln 5 Ml Btl EACH EYE 1 drop BID [facility] Administration Budesonide 0.5 mg 05/19/24 20:00 Budesonide Respule Neb 0.5 Mg/2 Ml Amp INHALATION Q12HRT [facility] Calcium Carbonate 200 mg 05/17/24 04:21 Calcium Carbonate (Tums) 500 Mg (200 Mg Elemental) PO Q6H PRN Indigestion Carvedilol 6.25 mg 05/17/24 09:00 05/18/24 20:17 Carvedilol 3.125 Mg Tablet PO 6.25 mg Q12HR [facility] Administration Emollient Ointment 1 applic 05/17/24 09:00 05/18/24 09:16 Lanolin (Lantiseptic) Cream 118 Ml Tube TOPICAL 1 applic DAILY [facility] Administration Empagliflozin 10 mg 05/17/24 09:00 05/18/24 08:08 Empagliflozin 10 Mg Tablet PO 10 mg DAILY [facility] Administration Fenofibrate 145 mg 05/17/24 09:00 05/18/24 08:08 Fenofibrate Nanocrystallized 145 Mg Tablet PO 145 mg DAILY [facility] Administration Fluticasone Propionate 1 spray 05/17/24 09:00 05/18/24 09:15 Fluticasone Propionate 0.05% Na Spr 16 Gm Btl (*Bkc) NASAL 1 spray DAILY [facility] Administration Furosemide 60 mg 05/18/24 17:00 05/18/24 18:30 Furosemide 20 Mg Tablet PO 60 mg BID [facility] Administration Gabapentin 200 mg 05/17/24 09:00 05/18/24 18:30 Gabapentin 100 Mg Capsule PO 200 mg BID [facility] Administration Meropenem 500 mg in 100 mls @ 200 mls/hr 05/19/24 10:00 05/19/24 10:59 IVPB 200 mls/hr Q12H [facility] Administration Lactobacillus Acidophilus 1 tablet 05/17/24 09:00 05/18/24 08:10 Acidophilus/Bulgaricus Chewable Tablet BY MOUTH 1 tablet DAILY [facility] Administration Lactulose 20 gm 05/18/24 16:05 Lactulose 20 Gm/30 Ml Udc PO BID PRN Constipation Latanoprost 1 drop 05/17/24 18:00 05/18/24 18:29 Latanoprost 0.005% Op Soln 2.5 Ml Btl EACH EYE 1 drop QPM [facility] Administration Levothyroxine Sodium 125 mcg 05/17/24 06:30 05/19/24 06:26 Levothyroxine Sodium 125 Mcg Tablet PO 125 mcg DAILY@0630 [facility] Administration Loteprednol Etabonate 1 drop 05/17/24 09:00 05/18/24 09:16 Loteprednol Etabonate 0.5% Oph 5 Ml Bottle EACH EYE 1 drop DAILY [facility] Administration Magnesium Oxide 400 mg 05/17/24 09:00 05/18/24 18:30 Magnesium Oxide 400 Mg Tablet PO 400 mg BID [facility] Administration Melatonin 10 mg 05/17/24 21:00 05/18/24 20:15 Melatonin 5 Mg Tablet PO 10 mg HS [facility] Administration Mineral Oil 15 ml 05/18/24 16:05 Mineral Oil 30 Ml Udc PO BID PRN Constipation Mirabegron 50 mg 05/17/24 09:00 05/18/24 08:12 Mirabegron 50 Mg Er Tablet PO 50 mg DAILY [facility] Administration Multivitamins Therapeutic 1 tablet 05/17/24 09:00 05/18/24 08:09 Multivitamins Therapeutic Tab (*Bkc) PO 1 tablet QAM [facility] Administration Oxycodone HCl 5 mg 05/17/24 09:00 05/18/24 20:15 Oxycodone Hcl (*Crx) 5 Mg Tab Ir PO Not Given Q12HR [facility] Polyethylene Glycol 17 gm 05/17/24 09:00 05/18/24 08:15 Polyethylene Glycol 3350 17 Gm Powd.Pack PO Not Given DAILY [facility] Rosuvastatin Calcium 20 mg 05/17/24 21:00 05/18/24 20:16 Rosuvastatin 10 Mg Tablet PO 20 mg HS [facility] Administration Senna/Docusate Sodium 2 tab 05/17/24 09:00 05/18/24 18:30 Senna/Docusate Sodium Tablet PO 2 tab BID [facility] Administration Sodium Chloride 2 spray 05/17/24 04:21 Saline 0.65% Myron Soln 44 Ml Btl NASAL Q2H PRN Dry Nasal Passages Timolol Maleate 1 drop 05/17/24 09:00 05/18/24 18:29 Timolol Maleate 0.5% Op Soln 5 Ml Bottle EACH EYE 1 drop BID [facility] Administration Umeclidinium [place]inckley 1 puff 05/17/24 08:00 05/19/24 08:25 Umeclidinium [place] 62.5 Mcg Ellipta INHALATION Not Given DAILYRT [facility] Radiology Results: ITS Impressions Renal Ultrasound 05/17/24 14:23 IMPRESSION: 1. Likely age-related mild bilateral renal cortical atrophy. No hydronephrosis. Chest X-Ray 05/19/24 09:24 IMPRESSION: Cardiomegaly with cardiac decompensation and pulmonary edema. Left basilar atelectasis versus pneumonia. Head CT 05/19/24 09:28 IMPRESSION: No acute intracranial findings. Chest/Abdomen/Pelvis CT 05/19/24 10:41 IMPRESSION: 1. Cholelithiasis. Gallbladder distention may be secondary to fasting. Correlate with physical exam to exclude acute cholecystitis. 2. 14 mm stone at left ureteropelvic junction with mild left hydronephrosis. 3. Bilateral nonobstructing kidney stones. 4. Umbilical ventral hernia containing nonobstructed small bowel. Labs Labs: Laboratory Tests 05/19/24 07:10 05/19/24 07:10 Calcium 7.9 L Total Bilirubin 1.5 H AST 46 ALT 14 Alkaline Phosphatase 57 Total Protein 6.0 L Albumin 2.7 L Microbiology 05/16/24 14:27 Blood Blood Culture - Final Escherichia Coli 05/16/24 14:27 Blood Blood Culture - Preliminary Escherichia Coli
[2024-05-19] MEDS: MEROPENEM 500 MG/NS 100 ML 500 MG/100 ML BAG 200 MG IVPB ×2 (10:59→21:35)
--- NOTE | 2024-05-19 13:34 | P.PNIM_ITS ---
Progress Note: A&P Assessment and Plan (1) Sepsis: Code(s): A41.9 - Sepsis, unspecified organism Status: Acute (2) Urinary tract infection associated with indwelling urethral catheter: Code(s): T83.511A - Infection and inflammatory reaction due to indwelling urethral catheter, initial encounter; N39.0 - Urinary tract infection, site not specified Status: Acute (3) Acute on chronic renal failure: Code(s): N17.9 - Acute kidney failure, unspecified; N18.9 - Chronic kidney disease, unspecified Status: Acute (4) Right-sided heart failure: Code(s): I50.810 - Right heart failure, unspecified Status: Acute (5) Obstructive sleep apnea on CPAP: Code(s): G47.33 - Obstructive sleep apnea (adult) (pediatric) Status: Acute (6) Chronic anticoagulation: Code(s): Z79.01 - long term (current) use of anticoagulants Status: Acute (7) Hypothyroidism: Qualifiers: Hypothyroidism type: unspecified Qualified Code(s): E03.9 - Hypothyroidism, unspecified Code(s): E03.9 - Hypothyroidism, unspecified Status: Chronic (8) Atrial fibrillation: Qualifiers: Atrial fibrillation type: unspecified Qualified Code(s): I48.91 - Unspecified atrial fibrillation Code(s): I48.91 - Unspecified atrial fibrillation Status: Chronic Plan Acute metabolic encephalopathy Patient was mostly unresponsive this morning abg showed respiratory acidosis with CO2 retention CT chest AP, EKG and EEG pending. continue BIPAP and bronchodilators COPD exacerbation respiratory acidosis, Abg 7.291/46.1/62.3/21.8 Schedule Duoneb, Budesonide and Umeclinidium No IV steroids due to bacteremia Continue BiPAP and adjust with abg CAUTI patient on chronic chamberlain Exchange follow Blood culture positive for ESBL Changed antibiotics to meropenem 05/19/24 continue monitoring ESBL bacteremia Blood culture positive for ESBL CT Chest, AP pending repeat blood culture pending will dose antibiotics on negative repeat blood culture last fever was midnight continue meropenem as above Sepsis resolved, from CAUTI Vital signs wnl and patient is eating okay continue above care Hematuria, resolved ? UTI r/o renal mass US renal no renal masses CT AP pending TSERING continue BIPAP and oxygen nighttime Afib Eliquis restarted, continue Coreg monitor Diastolic CHF continue home lasix monitor HTN, Hypothyroidism, HLD Continue home med s Hx of PE/DVT restart Eliquis and watch for bleeding DVT prophylaxis on on Eliquis Discussed with POA at bedside and patient Subjective Date/time seen: 05/19/24 13:34 Interval history: Follow-up for acute kidney injury/acute renal failure on chronic kidney disease. Apparently stacey was noted to be unresponsive earlier this AM; CT of head was negative and ABG was notable for respiratory acidosis so BIPAP was re-applied in an effort to compensate; no real significant improvement in renal function/creatinine although somewhat responsive to IV diuretics yesterday given increased urine output noted; still with on/off fevers as well. Review of Systems Review of Systems: patient mostly unresponsive Exam Narrative: General: unresponsive HEENT: PERRL, EOMI. Sclera anicteric. Tacky mucous membranes. Oropharynx is crowded and not visualized. Neck: Supple. Limited due to neck circumference. Respiratory: Respirations are nonlabored. Lung sounds are coarse and diminished due to body habitus. Cardiovascular: Irregularly irregular rate and rhythm. Gastrointestinal: Abdomen is soft, morbidly obese, nontender, and nondistended with positive bowel sounds. Genitourinary: Chamberlain catheter draining dark cindi colored urine with occasional clots. Skin: Warm and dry. Scattered bruising and shallow ulcerations on the lower extremities. Extremities: No cyanosis or clubbing. Neurological: unresponsive Objective Data Vital Signs Vital Signs: Vital Signs - 24 hr 05/18/24 14:00 05/18/24 16:00 05/18/24 16:00 Temperature 97.5 F L Pulse Rate 74 80 72 Respiratory Rate 32 H Blood Pressure 99/49 L Pulse Oximetry 99 Oxygen Delivery Oxygen Flow Rate Fraction of Inspired Oxygen 05/18/24 16:00 05/18/24 18:00 05/18/24 20:00 Temperature 98.7 F Pulse Rate 84 78 Respiratory Rate 16 Blood Pressure 125/52 L Pulse Oximetry 93 100 Oxygen Delivery Nasal Cannula Oxygen Flow Rate 2 Fraction of Inspired Oxygen 05/18/24 20:17 05/18/24 20:35 05/18/24 20:00 Temperature Pulse Rate 85 92 85 Respiratory Rate 20 Blood Pressure Pulse Oximetry 98 Oxygen Delivery Autopap Oxygen Flow Rate Fraction of Inspired Oxygen 05/18/24 22:00 05/18/24 20:00 05/19/24 00:00 Temperature 101.0 F H Pulse Rate 75 75 Respiratory Rate 20 Blood Pressure 107/43 L Pulse Oximetry 98 97 Oxygen Delivery Autopap Oxygen Flow Rate 3 Fraction of Inspired Oxygen 05/19/24 00:00 05/19/24 00:00 05/19/24 01:29 Temperature Pulse Rate 78 99 Respiratory Rate 22 H Blood Pressure Pulse Oximetry 98 98 Oxygen Delivery Autopap Autopap Oxygen Flow Rate 3 Fraction of Inspired Oxygen 05/19/24 02:00 05/19/24 04:00 05/19/24 04:00 Temperature 99.9 F H Pulse Rate 99 92 80 Respiratory Rate 20 Blood Pressure 114/48 L Pulse Oximetry 97 Oxygen Delivery Oxygen Flow Rate Fraction of Inspired Oxygen 05/19/24 04:00 05/19/24 06:00 05/19/24 08:00 Temperature 101.7 F H Pulse Rate 97 76 Respiratory Rate 22 H Blood Pressure 112/60 Pulse Oximetry 97 92 Oxygen Delivery Autopap Oxygen Flow Rate 3 Fraction of Inspired Oxygen 05/19/24 08:35 05/19/24 09:36 05/19/24 09:36 Temperature Pulse Rate 106 H Respiratory Rate 19 Blood Pressure Pulse Oximetry 92 91 91 Oxygen Delivery Nasal Cannula Autopap Autopap Oxygen Flow Rate 2 3 Fraction of Inspired Oxygen 28 32 05/19/24 12:00 Temperature 99.6 F Pulse Rate 71 Respiratory Rate 22 H Blood Pressure 101/63 Pulse Oximetry 96 Oxygen Delivery Oxygen Flow Rate Fraction of Inspired Oxygen Intake/Output Intake/Output: Intake & Output 05/17/24 05/18/24 05/18/24 05/19/24 00:59 00:59 23:59 23:59 Intake Total 250 Output Total 475 Balance -225 Meds/Results Medications: Active Medications Generic Name Dose Route Start Last Admin Trade Name Freq PRN Reason Stop Dose Admin Acetaminophen 650 mg 05/16/24 18:39 05/17/24 21:22 Acetaminophen 325 Mg Tablet PO 650 mg Q4H PRN Administration Mild Pain (1-3) or Fever Hydrocodone Bitart/Acetaminophen 1 tab 05/17/24 04:21 Hydrocodone/Acetaminophen (*Crx) 7.5-325 Mg Tablet PO TID PRN Pain (Scale Score 4-6) Albuterol/Ipratropium 3 ml 05/19/24 14:00 Ipratropium 0.5 Mg/Albuterol Sulfate 2.5 Mg Ampul.Neb 3 Ml INHALATION Q6HRT [facility] Apixaban 5 mg 05/18/24 17:00 05/19/24 12:45 Apixaban 5 Mg Tablet PO Not Given BID [facility] Artificial Tears 1 drop 05/17/24 04:48 Artificial Tears Ophth Soln 15 Ml Bottle EACH EYE BID PRN Dry Eye(s) Brimonidine Tartrate 1 drop 05/17/24 09:00 05/18/24 18:29 Brimonidine Tartrate 0.2% Op Soln 5 Ml Btl EACH EYE 1 drop BID [facility] Administration Budesonide 0.5 mg 05/19/24 20:00 Budesonide Respule Neb 0.5 Mg/2 Ml Amp INHALATION Q12HRT [facility] Calcium Carbonate 200 mg 05/17/24 04:21 Calcium Carbonate (Tums) 500 Mg (200 Mg Elemental) PO Q6H PRN Indigestion Carvedilol 6.25 mg 05/17/24 09:00 05/19/24 12:45 Carvedilol 3.125 Mg Tablet PO Not Given Q12HR [facility] Emollient Ointment 1 applic 05/17/24 09:00 05/18/24 09:16 Lanolin (Lantiseptic) Cream 118 Ml Tube TOPICAL 1 applic DAILY [facility] Administration Empagliflozin 10 mg 05/17/24 09:00 05/19/24 12:45 Empagliflozin 10 Mg Tablet PO Not Given DAILY [facility] Fenofibrate 145 mg 05/17/24 09:00 05/18/24 08:08 Fenofibrate Nanocrystallized 145 Mg Tablet PO 145 mg DAILY [facility] Administration Fluticasone Propionate 1 spray 05/17/24 09:00 05/18/24 09:15 Fluticasone Propionate 0.05% Na Spr 16 Gm Btl (*Bkc) NASAL 1 spray DAILY [facility] Administration Furosemide 60 mg 05/18/24 17:00 05/19/24 12:46 Furosemide 20 Mg Tablet PO Not Given BID [facility] Gabapentin 200 mg 05/17/24 09:00 05/18/24 18:30 Gabapentin 100 Mg Capsule PO 200 mg BID [facility] Administration Meropenem 500 mg in 100 mls @ 200 mls/hr 05/19/24 10:00 05/19/24 10:59 IVPB 200 mls/hr Q12H [facility] Administration Lactobacillus Acidophilus 1 tablet 05/17/24 09:00 05/19/24 12:45 Acidophilus/Bulgaricus Chewable Tablet BY MOUTH Not Given DAILY [facility] Lactulose 20 gm 05/18/24 16:05 Lactulose 20 Gm/30 Ml Udc PO BID PRN Constipation Latanoprost 1 drop 05/17/24 18:00 05/18/24 18:29 Latanoprost 0.005% Op Soln 2.5 Ml Btl EACH EYE 1 drop QPM [facility] Administration Levothyroxine Sodium 125 mcg 05/17/24 06:30 05/19/24 06:26 Levothyroxine Sodium 125 Mcg Tablet PO 125 mcg DAILY@0630 [facility] Administration Loteprednol Etabonate 1 drop 05/17/24 09:00 05/18/24 09:16 Loteprednol Etabonate 0.5% Oph 5 Ml Bottle EACH EYE 1 drop DAILY [facility] Administration Magnesium Oxide 400 mg 05/17/24 09:00 05/19/24 12:46 Magnesium Oxide 400 Mg Tablet PO Not Given BID [facility] Melatonin 10 mg 05/17/24 21:00 05/18/24 20:15 Melatonin 5 Mg Tablet PO 10 mg HS [facility] Administration Mineral Oil 15 ml 05/18/24 16:05 Mineral Oil 30 Ml Udc PO BID PRN Constipation Mirabegron 50 mg 05/17/24 09:00 05/19/24 12:46 Mirabegron 50 Mg Er Tablet PO Not Given DAILY [facility] Multivitamins Therapeutic 1 tablet 05/17/24 09:00 05/19/24 12:46 Multivitamins Therapeutic Tab (*Bkc) PO Not Given QAM [facility] Oxycodone HCl 5 mg 05/17/24 09:00 05/19/24 12:46 Oxycodone Hcl (*Crx) 5 Mg Tab Ir PO Not Given Q12HR [facility] Polyethylene Glycol 17 gm 05/17/24 09:00 05/19/24 12:46 Polyethylene Glycol 3350 17 Gm Powd.Pack PO Not Given DAILY [facility] Rosuvastatin Calcium 20 mg 05/17/24 21:00 05/18/24 20:16 Rosuvastatin 10 Mg Tablet PO 20 mg HS [facility] Administration Senna/Docusate Sodium 2 tab 05/17/24 09:00 05/19/24 12:45 Senna/Docusate Sodium Tablet PO Not Given BID [facility] Sodium Chloride 2 spray 05/17/24 04:21 Saline 0.65% Myron Soln 44 Ml Btl NASAL Q2H PRN Dry Nasal Passages Timolol Maleate 1 drop 05/17/24 09:00 05/18/24 18:29 Timolol Maleate 0.5% Op Soln 5 Ml Bottle EACH EYE 1 drop BID [facility] Administration Umeclidinium Tiona 1 puff 05/17/24 08:00 05/19/24 08:25 Umeclidinium Tiona 62.5 Mcg Ellipta INHALATION Not Given DAILYRT [facility] Radiology Results: ITS Impressions Renal Ultrasound 05/17/24 14:23 IMPRESSION: 1. Likely age-related mild bilateral renal cortical atrophy. No hydronephrosis. Chest X-Ray 05/19/24 09:24 IMPRESSION: Cardiomegaly with cardiac decompensation and pulmonary edema. Left basilar atelectasis versus pneumonia. Head CT 05/19/24 09:28 IMPRESSION: No acute intracranial findings. Chest/Abdomen/Pelvis CT 05/19/24 10:41 IMPRESSION: 1. Cholelithiasis. Gallbladder distention may be secondary to fasting. Correlate with physical exam to exclude acute cholecystitis. 2. 14 mm stone at left ureteropelvic junction with mild left hydronephrosis. 3. Bilateral nonobstructing kidney stones. 4. Umbilical ventral hernia containing nonobstructed small bowel. Labs Labs: Laboratory Results - last 24 hr 05/18/24 05/18/24 05/18/24 14:00 14:00 14:00 WBC RBC Hgb Hct MCV MCH MCHC RDW Plt Count MPV Immature Gran % (Auto) Neut % (Auto) Lymph % (Auto) [place] % (Auto) Eos % (Auto) Baso % (Auto) Lymph # (Auto) [place] # (Auto) Eos # (Auto) Baso # (Auto) Abs Immat Gran (auto) Absolute Neuts (auto) Absolute Nucleated RBC Total Counted Neutrophils % (Manual) Band Neutrophils % Lymphocytes % (Manual) Monocytes % (Manual) Eosinophils % (Manual) Basophils % (Manual) Nucleated RBC % Abs Neuts (Manual) Abs Lymphs (Manual) Abs Monocytes (Manual) Absolute Eos (Manual) Abs Basophils (Manual) Platelet Estimate % Immature Plt Fraction Anisocytosis Schistocytes Puncture Site ABG pH ABG pCO2 ABG pO2 ABG PO2/FiO2 Ratio ABG HCO3 ABG O2 Saturation ABG O2 Content ABG Base Excess A-a Gradient Oxyhemoglobin Total Hemoglobin O2 Delivery Device O2 Liters/Min FiO2 Sodium Potassium Chloride Carbon Dioxide Anion Gap BUN Creatinine Estim Creat Clear Calc Estimated GFR Glucose POC Capillary Glucose Calcium Total Bilirubin AST ALT Alkaline Phosphatase Ammonia Total Protein Albumin Urine Eosinophils Rare U Random Total Protein 144 138 Ur Random Sodium 28 Ur Random Urea 411 Urine Creatinine 51.8 51.9 Protein/Creat Ratio 2 2.78 H Hep Bs Antigen Hep Bs Antibody 05/19/24 05/19/24 05/19/24 07:10 08:28 08:41 WBC 11.3 H RBC 3.65 L Hgb 11.0 L Hct 36.4 L MCV 99.7 MCH 30.1 MCHC 30.2 L RDW 16.0 H Plt Count 111 L MPV 11.2 H Immature Gran % (Auto) Not Reportable Neut % (Auto) Not Reportable Lymph % (Auto) Not Reportable [place] % (Auto) Not Reportable Eos % (Auto) Not Reportable Baso % (Auto) Not Reportable Lymph # (Auto) Not Reportable [place] # (Auto) Not Reportable Eos # (Auto) Not Reportable Baso # (Auto) Not Reportable Abs Immat Gran (auto) Not Reportable Absolute Neuts (auto) Not Reportable Absolute Nucleated RBC Not Reportable Total Counted 100 Neutrophils % (Manual) 91 H Band Neutrophils % 9 H Lymphocytes % (Manual) 4 L Monocytes % (Manual) 6 Eosinophils % (Manual) 0 Basophils % (Manual) 0 Nucleated RBC % Not Reportable Abs Neuts (Manual) 11.30 H Abs Lymphs (Manual) 0.45 L Abs Monocytes (Manual) 0.67 Absolute Eos (Manual) 0.00 L Abs Basophils (Manual) 0.00 Platelet Estimate Slightly decreased % Immature Plt Fraction 3.8 Anisocytosis 1+ Schistocytes None seen Puncture Site Right radial ABG pH 7.291 L* ABG pCO2 46.2 H ABG pO2 62.3 L ABG PO2/FiO2 Ratio 2.22 ABG HCO3 21.8 L ABG O2 Saturation 89.2 L ABG O2 Content 21.1 ABG Base Excess -5.0 A-a Gradient 82.8 Oxyhemoglobin 90.4 Total Hemoglobin 16.6 O2 Delivery Device Nasal cannula O2 Liters/Min 2.0 FiO2 28 Sodium 129 L Potassium 4.7 Chloride 94 L Carbon Dioxide 20 L Anion Gap 15 H BUN 83 H Creatinine 3.60 H Estim Creat Clear Calc 22 Estimated GFR 17 L Glucose 85 POC Capillary Glucose 138 H Calcium 7.9 L Total Bilirubin 1.5 H AST 46 ALT 14 Alkaline Phosphatase 57 Ammonia Total Protein 6.0 L Albumin 2.7 L Urine Eosinophils U Random Total Protein Ur Random Sodium Ur Random Urea Urine Creatinine Protein/Creat Ratio 2 Hep Bs Antigen Negative Hep Bs Antibody Negative 05/19/24 08:52 WBC RBC Hgb Hct MCV MCH MCHC RDW Plt Count MPV Immature Gran % (Auto) Neut % (Auto) Lymph % (Auto) [place] % (Auto) Eos % (Auto) Baso % (Auto) Lymph # (Auto) [place] # (Auto) Eos # (Auto) Baso # (Auto) Abs Immat Gran (auto) Absolute Neuts (auto) Absolute Nucleated RBC Total Counted Neutrophils % (Manual) Band Neutrophils % Lymphocytes % (Manual) Monocytes % (Manual) Eosinophils % (Manual) Basophils % (Manual) Nucleated RBC % Abs Neuts (Manual) Abs Lymphs (Manual) Abs Monocytes (Manual) Absolute Eos (Manual) Abs Basophils (Manual) Platelet Estimate % Immature Plt Fraction Anisocytosis Schistocytes Puncture Site ABG pH ABG pCO2 ABG pO2 ABG PO2/FiO2 Ratio ABG HCO3 ABG O2 Saturation ABG O2 Content ABG Base Excess A-a Gradient Oxyhemoglobin Total Hemoglobin O2 Delivery Device O2 Liters/Min FiO2 Sodium Potassium Chloride Carbon Dioxide Anion Gap BUN Creatinine Estim Creat Clear Calc Estimated GFR Glucose POC Capillary Glucose Calcium Total Bilirubin AST ALT Alkaline Phosphatase Ammonia 14 Total Protein Albumin Urine Eosinophils U Random Total Protein Ur Random Sodium Ur Random Urea Urine Creatinine Protein/Creat Ratio 2 Hep Bs Antigen Hep Bs Antibody Quality VTE Prophylaxis VTE prophylaxis: mechanical ordered
[2024-05-19] MEDS: IPRATROPIUM 0.5 MG/ALBUTEROL SULFATE 2.5 MG AMPUL.NEB 3 ML INHALATION ×2 (13:46→19:56)
[2024-05-19] MEDS: BRIMONIDINE TARTRATE 0.2% OP SOLN 5 ML BTL 1 DROP EACH EYE (17:17)
[2024-05-19] MEDS: LATANOPROST 0.005% OP SOLN 2.5 ML BTL 1 DROP EACH EYE (17:18)
[2024-05-19] MEDS: TIMOLOL MALEATE 0.5% OP SOLN 5 ML BOTTLE 1 DROP EACH EYE (17:19)
[2024-05-19] MEDS: LOTEPREDNOL ETABONATE 0.5% OPH 5 ML BOTTLE 1 DROP EACH EYE (17:19)
[2024-05-19] MEDS: LANOLIN 1 APPLIC TOPICAL (17:25)
[2024-05-19] MEDS: SODIUM CHLORIDE 0.9% IV 1,000 ML 75 ML IV CONT (18:34)
--- NOTE | 2024-05-19 19:12 | WPDNEUROLOGY ---
Neurology EEG Report General Information Date of Study: 05/19/24 TEST Electroencephalogram DIAGNOSIS unresponsiveness CONDITION OF RECORDING bedside recording EEG NUMBER [id number] CLINICAL HISTORY patient unresponsive and unable to give any history EEG DESCRIPTION The patient is described as being asleep throughout the testing. The background activity consists of predominantly theta activity at 5-6 hertz. Vertex waves were seen. Occasionally further attenuation of background activity was seen. Hyperventilation or photic stimulation were not performed. Stage 2 sleep was not recorded. IMPRESSION The background activity shows diffuse background slowing however considering the patient is drowsy or sleep throughout the testing this may be considered essentially within normal limits for a drowsy patient. No focal or paroxysmal epileptiform abnormalities were seen.
--- NOTE | 2024-05-19 19:20 | WPDNEURCNPN ---
Assessment and Plan Assessment and plan (1) Acute metabolic encephalopathy: Code(s): G93.41 - Metabolic encephalopathy Status: Acute Assessment and Plan: The patient has been found to have renal failure. In addition he also has chronic respiratory problems. I wonder if he has hypo ventilation syndrome since he appears to be somewhat acidotic and a his pCO2 is also chronically somewhat on the high side. CT scan of brain did not show any significant abnormalities. At this time I would suggest to continue look for metabolic problems and support them. An EEG was also performed during which she was asleep for most part. No focal or paroxysmal abnormalities were seen. Should there be any other questions regarding neurological issues I shall be glad to re-evaluate him. (2) COPD (chronic obstructive pulmonary disease): Qualifiers: COPD type: unspecified COPD Qualified Code(s): J44.9 - Chronic obstructive pulmonary disease, unspecified Code(s): J44.9 - Chronic obstructive pulmonary disease, unspecified Status: Chronic (3) Obstructive sleep apnea: Code(s): G47.33 - Obstructive sleep apnea (adult) (pediatric) Status: Chronic Assessment and Plan: I noted that he is on BiPAP. (4) Acute kidney injury: Code(s): N17.9 - Acute kidney failure, unspecified Status: Acute Assessment and Plan: His creatinine was 3.6-0. I noted that he is being followed up by Nephrology service. (5) Atrial fibrillation: Qualifiers: Atrial fibrillation type: unspecified Qualified Code(s): I48.91 - Unspecified atrial fibrillation Code(s): I48.91 - Unspecified atrial fibrillation Status: Chronic Plan I reviewed the CT scan of brain and EEG in the findings are discussed above. We should follow him up on as-needed basis. Consult date: 05/19/24 HPI: Sterling Mallory is a 78 year old male with history of weakness and lethargy for which he was transferred from intermediate to emergency room on the day of admission and was found to have blood pressure of 96 /57. He also has history of atrial fibrillation. His creatinine is now 3.60. CT scan of brain was performed and is negative. He remains more less asleep or unresponsive according to the family members. Used to have more talkative and more alert. Currently he is also on do not resuscitate orders. The patient is on BiPAP. He is being seen by nephrology services for acute on chronic renal failure. According to the history also history of diet controlled diabetes mellitus and morbid obesity. Review of Systems Review of Systems: ROS unobtainable: Yes unobtainable due to mental status [facility] Past Medical History Medical History (Updated 05/19/24 @ 19:34 by Frederic Hanks MD) Acute metabolic encephalopathy Atrial fibrillation remote cardioversion, appears persistent Chronic obstructive pulmonary disease Chronic respiratory failure Coronary artery disease Deep venous thrombosis Diet-controlled type 2 diabetes mellitus Gastroesophageal reflux disease Hyperlipidemia Hypertension Hypothyroidism Indwelling Gleason catheter present Macular degeneration Morbid obesity Obstructive sleep apnea on CPAP Pulmonary embolism Right-sided heart failure Surgical History Surgical History History of bilateral cataract extraction History of cardioversion History of inferior vena caval filter placement History of lumbar discectomy History of rectal sphincterotomy History of tonsillectomy Family History Family History Father Family history of lung cancer, Onset Age: 77 Mother Family history of dementia Postoperative complication Crossing her Sibling Diabetes mellitus Heart disease Daughter Breast cancer Other Family history of malignant neoplasm of breast Social History Social History Social History: Healthcare power of 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 Code status: Full code. Smoking status: Never smoker Alcohol intake: never Substance use: never Substance use type: does not use Do You Feel Safe in your Home?: Yes Lack of Transportation: No Lack of Food: Never True Current Housing: I Have Housing Concerned About Future Housing: No Difficulty Paying Gas/Electric Bills: No Difficulty Paying for Meds: No Currently Unemployed: No Education: High School Diploma/GED Difficulty w/ Childcare or Family Care: No Living arrangements: intermediate Additional living arrangements comments: [facility]. 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 Spiritual care concerns: No Meds Home Medications and Allergies Home Medications Medication Instructions Recorded Confirmed Type acetaminophen 650 mg 650 mg PO Q4H PRN Pain (Scale 12/21/19 05/16/24 History tablet,extended release Score 1-3) carboxymethylcellulose sodium 0.5 1 drp ophthalmic (eye) BID 12/21/19 05/16/24 History % eye drops (Refresh Tears) dextran 70-hypromellose (PF) 0.1 1 drp ophthalmic (eye) Q6H PRN Dry 12/21/19 05/16/24 History %-0.3 % eye drops in a dropperette Eyes (Artificial Tears (PF)) dextromethorphan-guaifenesin 5 10 ml PO Q6H PRN Congestion 12/21/19 05/16/24 History mg-100 mg/5 mL oral liquid (Robitussin Cough-Chest Congestion DM) fenofibrate nanocrystallized 145 145 mg PO DAILY 12/21/19 05/16/24 History mg tablet fluticasone propionate 50 1 spray intranasal DAILY 12/21/19 05/16/24 History mcg/actuation nasal spray,suspension (Flonase Allergy Relief) furosemide 40 mg tablet 60 mg PO BID 12/21/19 05/16/24 History latanoprost 0.005 % eye drops 1 drp ophthalmic (eye) QPM 12/21/19 05/16/24 History levothyroxine 125 mcg tablet 125 mcg PO DAILY 12/21/19 05/16/24 History magnesium oxide 400 mg PO BID 12/21/19 05/16/24 History melatonin 10 mg capsule 10 mg PO HS 12/21/19 05/16/24 History mineral oil 15 ml PO BID 12/21/19 05/16/24 History mirabegron 50 mg tablet,extended 50 mg PO DAILY 12/21/19 05/16/24 History release 24 hr (Myrbetriq) polyethylene glycol 3350 17 gram 17 g PO DAILY 12/21/19 05/16/24 History oral powder packet (Miralax) potassium chloride 10 mEq 20 meq PO DAILY 12/21/19 05/16/24 History capsule,extended release rosuvastatin 10 mg tablet (Crestor) 20 mg PO HS 12/21/19 05/16/24 History sodium chloride 0.65 % nasal spray 2 spray intranasal Q2H PRN Dry 12/21/19 05/16/24 History aerosol ([place] Nasal) Nasal Passages tiotropium bromide 2.5 2 puff inhalation DAILY ##0 12/21/19 05/16/24 History mcg/actuation mist for inhalation (Spiriva Respimat) Acidophilus 1 tablet PO DAILY 07/06/22 05/16/24 History carvedilol 3.125 mg tablet (Coreg) 6.25 mg PO Q12HR 07/06/22 05/16/24 History gabapentin 100 mg capsule 200 mg PO BID 07/06/22 05/16/24 History hydrocodone 7.5 mg-acetaminophen 1 tablet PO TID PRN Pain (Scale 07/06/22 05/16/24 History 325 mg tablet Score 4-6) Adults Multivitamin 18 mg BYMOUTH DAILY 05/16/24 05/16/24 History apixaban 5 mg tablet (Eliquis) 5 mg PO BID 05/16/24 05/16/24 History brimonidine 0.2 %-timolol 0.5 % 1 drp EACH EYE BID 05/16/24 05/16/24 History eye drops calcium carbonate 200 mg PO Q6H PRN Indigestion 05/16/24 05/16/24 History empagliflozin 10 mg tablet 10 mg PO DAILY 05/16/24 05/16/24 History (Jardiance) ipratropium 0.5 mg-albuterol 3 mg 3 ml inhalation BID PRN Shortness 05/16/24 05/16/24 History (2.5 mg base)/3 mL nebulization Of Breath soln lactulose 10 gram/15 mL oral 30 ml PO BID 05/16/24 05/16/24 History solution lanolin 50 % topical cream 1 applic topical DAILY 05/16/24 05/16/24 History (Lantiseptic Skin Protectant) loteprednol etabonate 0.5 % eye 1 drp EACH EYE DAILY 05/16/24 05/16/24 History drops,suspension oxycodone 5 mg tablet 5 mg PO BID 05/16/24 05/16/24 History sennosides 8.6 mg-docusate sodium 2 tablet PO BID 05/16/24 05/16/24 History 50 mg tablet (Senna Plus) Allergies Allergy/AdvReac Type Severity Reaction Status Date / Time bacitracin Allergy Unknown Rash Verified 04/29/20 09:34 Penicillins Allergy Unknown Rash Verified 04/29/20 09:34 Vital Signs Vital Signs - 24 hr 05/18/24 20:00 05/18/24 20:17 05/18/24 20:35 Temperature 98.7 F Pulse Rate 78 85 92 Respiratory Rate 16 20 Blood Pressure 125/52 L Pulse Oximetry 100 98 Oxygen Delivery Autopap Oxygen Flow Rate Fraction of Inspired Oxygen 05/18/24 20:00 05/18/24 22:00 05/18/24 20:00 Temperature Pulse Rate 85 75 Respiratory Rate Blood Pressure Pulse Oximetry 98 Oxygen Delivery Autopap Oxygen Flow Rate 3 Fraction of Inspired Oxygen 05/19/24 00:00 05/19/24 00:00 05/19/24 00:00 Temperature 101.0 F H Pulse Rate 75 78 Respiratory Rate 20 Blood Pressure 107/43 L Pulse Oximetry 97 98 Oxygen Delivery Autopap Oxygen Flow Rate 3 Fraction of Inspired Oxygen 05/19/24 01:29 05/19/24 02:00 05/19/24 04:00 Temperature 99.9 F H Pulse Rate 99 99 92 Respiratory Rate 22 H 20 Blood Pressure 114/48 L Pulse Oximetry 98 97 Oxygen Delivery Autopap Oxygen Flow Rate Fraction of Inspired Oxygen 05/19/24 04:00 05/19/24 04:00 05/19/24 06:00 Temperature Pulse Rate 80 97 Respiratory Rate Blood Pressure Pulse Oximetry 97 Oxygen Delivery Autopap Oxygen Flow Rate 3 Fraction of Inspired Oxygen 05/19/24 08:00 05/19/24 08:35 05/19/24 09:36 Temperature 101.7 F H Pulse Rate 76 106 H Respiratory Rate 22 H 19 Blood Pressure 112/60 Pulse Oximetry 92 92 91 Oxygen Delivery Nasal Cannula Autopap Oxygen Flow Rate 2 Fraction of Inspired Oxygen 28 05/19/24 09:36 05/19/24 12:00 05/19/24 13:46 Temperature 99.6 F Pulse Rate 71 84 Respiratory Rate 22 H 20 Blood Pressure 101/63 Pulse Oximetry 91 96 91 Oxygen Delivery Autopap Autopap Oxygen Flow Rate 3 Fraction of Inspired Oxygen 32 05/19/24 13:46 05/19/24 13:46 05/19/24 13:55 Temperature Pulse Rate 84 81 Respiratory Rate 20 20 Blood Pressure Pulse Oximetry 91 Oxygen Delivery Autopap Oxygen Flow Rate 6 Fraction of Inspired Oxygen 44 05/19/24 08:00 05/19/24 10:00 05/19/24 12:00 Temperature Pulse Rate 86 96 93 Respiratory Rate Blood Pressure Pulse Oximetry Oxygen Delivery Oxygen Flow Rate Fraction of Inspired Oxygen 05/19/24 14:00 05/19/24 16:00 05/19/24 16:49 Temperature Pulse Rate 80 92 Respiratory Rate Blood Pressure Pulse Oximetry 93 Oxygen Delivery Nasal Cannula Oxygen Flow Rate 3 Fraction of Inspired Oxygen 32 05/19/24 16:00 05/19/24 18:00 Temperature 97.3 F L Pulse Rate 78 65 Respiratory Rate 24 H Blood Pressure 120/45 L Pulse Oximetry 96 Oxygen Delivery Oxygen Flow Rate Fraction of Inspired Oxygen Exam Narrative: Patient does not respond to verbal stimuli. No evidence of external injuries. No facial asymmetry. Pupils were equal reacting. No asymmetry of the tone in upper lower limbs. No involuntary movements were seen. Difficult to evaluate in further detail since the patient unable to cooperate. Results Labs 05/19/24 07:10 05/19/24 07:10 Labs: Short CBC 05/19/24 Range/Units 07:10 WBC 11.3 H (4.5-10.0) K/mm3 Hgb 11.0 L (14.0-18.0) g/dL Hct 36.4 L (42.0-52.0) % Plt Count 111 L (150-375) k/mm3 BMP 05/19/24 07:10 Sodium 129 L Potassium 4.7 Chloride 94 L Carbon Dioxide 20 L BUN 83 H Creatinine 3.60 H Glucose 85 Calcium 7.9 L Liver Function 05/19/24 Range/Units 07:10 Total Bilirubin 1.5 H (0.2-1.3) mg/dL AST 46 (17-59) U/L ALT 14 (6-50) U/L Alkaline Phosphatase 57 (38-126) U/L Albumin 2.7 L (3.5-5.1) g/dL
[2024-05-19] MEDS: BUDESONIDE RESPULE NEB 0.5 MG/2 ML AMP INHALATION (19:55)
[2024-05-19 20:24] LABS: Alveolar/Arterial O2 Gradient 228.3 mmHg; Base Excess ABG -7.2 mEq/l (+/-2.0); Fractional Inspired Oxygen 48 %; HCO3 ABG 19.5 mEq/l (22.0-26.0); Oxygen Content ABG 14.1 %vol (16.0-22.0); Oxygen Saturation ABG 89.3 % (95.0-100.0); Oxyhemoglobin 91.8 % THb (90.0-100.0); PCO2 ABG 44.2 mmHg (35.0-45.0); PO2 FiO2 Ratio Arterial Blood 1.33 %; Total Hemoglobin 10.9 g/dL (12.0-18.0)
[2024-05-19 20:26] LABS: Device CPAP; Modified Allen's Test Pass; Site Drawn LEFT BRACHIAL; pH ABG 7.262 (7.350-7.450)
--- NOTE | 2024-05-19 22:19 | P.PNCROSS_ITS ---
Event Note Event Note Event Note: Called by nursing for ABG with increased respiratory acidosis, BiPAP ordered, d julieta called and updated on patient's status, patient is a DNR DNI, plan for ABG morning, chest x-ray pending. Chest x-ray shows pulmonary edema which was not on prior chest x-ray from earlier today, 20 mg IV Lasix ordered pressure 102/58. Continue to monitor.
[2024-05-20] VITALS (37 sets, daily range): BP systolic 89–132; BP diastolic 35–99; PULSE 57–97; RESP 19–27; TEMP 35.9–38.8; O2SAT 95–100
[2024-05-20] MEDS: FUROSEMIDE INJ 40 MG/4 ML VIAL 20 MG IV PUSH (00:23)
[2024-05-20] MEDS: IPRATROPIUM 0.5 MG/ALBUTEROL SULFATE 2.5 MG AMPUL.NEB 3 ML INHALATION ×4 (01:26→20:17)
--- NOTE | 2024-05-20 05:59 | PCRCNOTE ---
Respiratory unsuccessful with 0500 ABG, attempted 3 times. Nurse notified.
[2024-05-20 06:14] LABS: Hepatitis B Core Ab Total NON-REACTIVE (NON-REACTIVE)
[2024-05-20] MEDS: SODIUM CHLORIDE 0.9% IV 1,000 ML 75 ML IV CONT ×2 (08:10→22:02)
[2024-05-20 08:12] LABS: Basophils Percent Auto 0.2 % (0.2-1.2); Eosinophils Percent Auto 0.1 % (0-4.4); Immature Granulocyte Absolute 0.08 K/mm3 (0.00-0.031); Immature Granulocyte Percent A 0.9 % (0-0.5); Lymphocytes Absolute Auto 0.45 K/mm3 (0.9-3.2); Lymphocytes Percent Auto 5.2 % (18.3-44.2); Mean Corpuscular HGB Conc 30.3 g/dl (32-36); Mean Corpuscular Hemoglobin 29.9 pg (26-34); Mean Corpuscular Volume 98.5 fl (80-100); Monocytes Absolute Auto 0.4 K/mm3 (0.1-0.6); Monocytes Percent Auto 5.1 % (2.6-8.5); Neutrophils Absolute Auto 7.7 K/mm3 (1.3-6.7); Neutrophils Percent Auto 88.5 % (45.5-73.1); Platelet Count Result 108 k/mm3 (150-375); Red Blood Count 3.35 M/mm3 (4.6-6.20); Red Cell Distribution Width 16.2 % (11.5-14.5); White Blood Count 8.7 K/mm3 (4.5-10.0)
[2024-05-20 08:34] LABS: Alanine Aminotransferase 17 U/L (6-50); Albumin Level 2.9 g/dL (3.5-5.1); Alkaline Phosphatase 56 U/L (38-126); Anion Gap 14 mmol/L (4-12); Aspartate Amino Transferase 67 U/L (17-59); Bilirubin,Total 1.6 mg/dL (0.2-1.3); Blood Urea Nitrogen 96 mg/dL (9-20); Calcium 7.8 mg/dL (8.4-10.2); Carbon Dioxide 18 mmol/L (22-30); Chloride 97 mmol/L (98-107); Estimated CRCL calculation 19 ml/min; Estimated Glomerular Filt Rate 14; Glucose 92 mg/dL (65-110); Sodium 129 mmol/L (137-145)
--- NOTE | 2024-05-20 09:03 | P.PNIM_ITS ---
Progress Note: A&P Assessment and Plan (1) Sepsis: Code(s): A41.9 - Sepsis, unspecified organism Status: Acute (2) Urinary tract infection associated with indwelling urethral catheter: Code(s): T83.511A - Infection and inflammatory reaction due to indwelling urethral catheter, initial encounter; N39.0 - Urinary tract infection, site not specified Status: Acute (3) Acute on chronic renal failure: Code(s): N17.9 - Acute kidney failure, unspecified; N18.9 - Chronic kidney disease, unspecified Status: Acute (4) Right-sided heart failure: Code(s): I50.810 - Right heart failure, unspecified Status: Acute (5) Obstructive sleep apnea on CPAP: Code(s): G47.33 - Obstructive sleep apnea (adult) (pediatric) Status: Acute (6) Chronic anticoagulation: Code(s): 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 Status: Acute (7) Hypothyroidism: Qualifiers: Hypothyroidism type: unspecified Qualified Code(s): E03.9 - Hypothyroidism, unspecified Code(s): E03.9 - Hypothyroidism, unspecified Status: Chronic (8) Atrial fibrillation: Qualifiers: Atrial fibrillation type: unspecified Qualified Code(s): I48.91 - Unspecified atrial fibrillation Code(s): I48.91 - Unspecified atrial fibrillation Status: Chronic Plan Acute metabolic encephalopathy Possible due to respiratory component Patient was mostly unresponsive yesterday but mentation improved after BiPAP abg showed respiratory acidosis with CO2 retention CT chest AP, EKG and EEG pending. continue BIPAP and bronchodilators COPD exacerbation respiratory acidosis, Abg7.262/44.2/64/19.5 1 amp Bicarb given Schedule Duoneb, Budesonide and Umeclinidium No IV steroids due to bacteremia Continue BiPAP and adjust with abg Consulted Pulmonolgy CAUTI patient on chronic chamberlain Exchange follow Blood culture positive for ESBL Changed antibiotics to meropenem 05/19/24 Repeat no growth continue monitoring ESBL bacteremia Blood culture positive for ESBL CT Chest, AP pending repeat blood culture negative continue meropenem as above Sepsis resolved, from CAUTI Vital signs wnl and patient is eating okay continue above care Hematuria, resolved ? UTI r/o renal mass US renal no renal masses CT AP pending TSERING continue BIPAP and oxygen nighttime Afib Eliquis restarted, continue Coreg monitor Diastolic CHF continue home lasix monitor HTN, Hypothyroidism, HLD Continue home med s Hx of PE/DVT restart Eliquis and watch for bleeding DVT prophylaxis on on Eliquis Discussed with POA at bedside and patien Subjective Date/time seen: 05/20/24 09:03 Interval history: Patient is currently on BiPAP 06/22. Pulmonology is consulted due to acute on chronic hypoxic hypercapnic respiratory failure. Patient is on 2 L NC at baseline and BiPAP at night. Patient is also acute on chronic kidney disease. The recent chest x-ray shows pulmonary edema which was not on the prior chest x- ray. Of note patient also has multiple MDR UTI.Had a long conversation with his daughter. She does not does not remember when he was diagnosed with COPD but he was never a smoker in his lifetime.Patient has a chronic Chamberlain catheter from 2014. I believe his altered mental status is due to his respiratory component. Patient becomes more responsive and oriented after BiPAP. Patient is currently DNR and prefers no aggressive treatment. Hospice is consulted. Exam Narrative: Patient does not respond to verbal stimuli. No evidence of external injuries. No facial asymmetry. Pupils were equal reacting. No asymmetry of the tone in upper lower limbs. No involuntary movements were seen. Difficult to evaluate in further detail since the patient unable to cooperate. Objective Data Vital Signs Vital Signs: Vital Signs - 24 hr 05/19/24 09:36 05/19/24 09:36 05/19/24 12:00 Temperature 99.6 F Pulse Rate 106 H 71 Respiratory Rate 19 22 H Blood Pressure 101/63 Pulse Oximetry 91 91 96 Oxygen Delivery Autopap Autopap Oxygen Flow Rate 3 Fraction of Inspired Oxygen 32 05/19/24 13:46 05/19/24 13:46 05/19/24 13:46 Temperature Pulse Rate 84 84 Respiratory Rate 20 20 Blood Pressure Pulse Oximetry 91 91 Oxygen Delivery Autopap Autopap Oxygen Flow Rate 6 Fraction of Inspired Oxygen 44 05/19/24 13:55 05/19/24 10:00 05/19/24 12:00 Temperature Pulse Rate 81 96 93 Respiratory Rate 20 Blood Pressure Pulse Oximetry Oxygen Delivery Oxygen Flow Rate Fraction of Inspired Oxygen 05/19/24 14:00 05/19/24 16:00 05/19/24 16:49 Temperature Pulse Rate 80 92 Respiratory Rate Blood Pressure Pulse Oximetry 93 Oxygen Delivery Nasal Cannula Oxygen Flow Rate 3 Fraction of Inspired Oxygen 32 05/19/24 16:00 05/19/24 18:00 05/19/24 19:59 Temperature 97.3 F L 97.5 F L Pulse Rate 78 65 69 Respiratory Rate 24 H 24 H Blood Pressure 120/45 L 102/54 L Pulse Oximetry 96 97 Oxygen Delivery Oxygen Flow Rate Fraction of Inspired Oxygen 05/19/24 19:56 05/19/24 19:56 05/19/24 19:56 Temperature Pulse Rate 75 75 Respiratory Rate 16 16 Blood Pressure Pulse Oximetry 98 98 Oxygen Delivery Autopap CPAP Oxygen Flow Rate Fraction of Inspired Oxygen 48 05/19/24 20:09 05/19/24 21:09 05/19/24 20:00 Temperature Pulse Rate 63 75 Respiratory Rate 18 Blood Pressure Pulse Oximetry 97 Oxygen Delivery CPAP Oxygen Flow Rate 3 Fraction of Inspired Oxygen 05/19/24 21:50 05/20/24 00:04 05/20/24 00:00 Temperature 97.8 F Pulse Rate 67 70 Respiratory Rate 21 H 22 H Blood Pressure 110/62 Pulse Oximetry 98 99 99 Oxygen Delivery BiPAP BiPAP Oxygen Flow Rate Fraction of Inspired Oxygen 50 05/20/24 01:27 05/20/24 01:27 05/20/24 01:34 Temperature Pulse Rate 60 60 67 Respiratory Rate 25 H 25 H 24 H Blood Pressure Pulse Oximetry 98 Oxygen Delivery BiPAP Oxygen Flow Rate Fraction of Inspired Oxygen 05/19/24 20:00 05/19/24 22:00 05/20/24 00:00 Temperature Pulse Rate 69 68 66 Respiratory Rate Blood Pressure Pulse Oximetry Oxygen Delivery Oxygen Flow Rate Fraction of Inspired Oxygen 05/20/24 02:00 05/20/24 04:19 05/20/24 04:00 Temperature 97.7 F Pulse Rate 67 57 L 71 Respiratory Rate 22 H Blood Pressure 108/64 Pulse Oximetry 98 Oxygen Delivery Oxygen Flow Rate Fraction of Inspired Oxygen 05/20/24 04:00 05/20/24 05:21 05/20/24 06:00 Temperature Pulse Rate 65 69 Respiratory Rate 25 H Blood Pressure Pulse Oximetry 98 97 Oxygen Delivery BiPAP BiPAP Oxygen Flow Rate Fraction of Inspired Oxygen 50 05/20/24 07:56 05/20/24 08:04 Temperature 96.9 F L Pulse Rate 66 Respiratory Rate 21 H Blood Pressure 97/35 L 101/38 L Pulse Oximetry 98 Oxygen Delivery Oxygen Flow Rate Fraction of Inspired Oxygen Intake/Output Intake/Output: Intake & Output 05/18/24 05/18/24 05/19/24 05/20/24 00:59 23:59 23:59 23:59 Intake Total 450 0 Output Total 625 100 Balance -175 -100 Meds/Results Medications: Active Medications Generic Name Dose Route Start Last Admin Trade Name Freq PRN Reason Stop Dose Admin Acetaminophen 650 mg 05/16/24 18:39 05/17/24 21:22 Acetaminophen 325 Mg Tablet PO 650 mg Q4H PRN Administration Mild Pain (1-3) or Fever Hydrocodone Bitart/Acetaminophen 1 tab 05/17/24 04:21 Hydrocodone/Acetaminophen (*Crx) 7.5-325 Mg Tablet PO TID PRN Pain (Scale Score 4-6) Albuterol/Ipratropium 3 ml 05/19/24 14:00 05/20/24 01:26 Ipratropium 0.5 Mg/Albuterol Sulfate 2.5 Mg Ampul.Neb 3 Ml INHALATION 3 ml Q6HRT ARTEMIO Administration Apixaban 5 mg 05/18/24 17:00 05/19/24 17:22 Apixaban 5 Mg Tablet PO Not Given BID ARTEMIO Artificial Tears 1 drop 05/17/24 04:48 Artificial Tears Ophth Soln 15 Ml Bottle EACH EYE BID PRN Dry Eye(s) Brimonidine Tartrate 1 drop 05/17/24 09:00 05/19/24 17:21 Brimonidine Tartrate 0.2% Op Soln 5 Ml Btl EACH EYE Not Given BID ARTEMIO Budesonide 0.5 mg 05/19/24 20:00 05/19/24 19:55 Budesonide Respule Neb 0.5 Mg/2 Ml Amp INHALATION 0.5 mg Q12HRT ARTEMIO Administration Calcium Carbonate 200 mg 05/17/24 04:21 Calcium Carbonate (Tums) 500 Mg (200 Mg Elemental) PO Q6H PRN Indigestion Carvedilol 6.25 mg 05/17/24 09:00 05/19/24 21:09 Carvedilol 3.125 Mg Tablet PO Not Given Q12HR [facility] Emollient Ointment 1 applic 05/17/24 09:00 05/19/24 17:25 Lanolin (Lantiseptic) Cream 118 Ml Tube TOPICAL 1 applic DAILY ARTEMIO Administration Empagliflozin 10 mg 05/17/24 09:00 05/19/24 12:45 Empagliflozin 10 Mg Tablet PO Not Given DAILY ARTEMIO Fenofibrate 145 mg 05/17/24 09:00 05/18/24 08:08 Fenofibrate Nanocrystallized 145 Mg Tablet PO 145 mg DAILY ARTEMIO Administration Fluticasone Propionate 1 spray 05/17/24 09:00 05/19/24 10:00 Fluticasone Propionate 0.05% Na Spr 16 Gm Btl (*Bkc) NASAL Not Given DAILY ARTEMIO Furosemide 60 mg 05/18/24 17:00 05/19/24 17:23 Furosemide 20 Mg Tablet PO Not Given BID ARTEMIO Gabapentin 200 mg 05/17/24 09:00 05/18/24 18:30 Gabapentin 100 Mg Capsule PO 200 mg BID ARTEMIO Administration Meropenem 500 mg in 100 mls @ 200 mls/hr 05/19/24 10:00 05/19/24 22:05 IVPB Infused Q12H ARTEMIO Infusion Sodium Chloride 1,000 mls @ 75 mls/hr 05/19/24 18:15 05/19/24 18:34 Normal Saline Iv IV CONT 75 mls/hr .[id number] ARTEMIO Administration Lactobacillus Acidophilus 1 tablet 05/17/24 09:00 05/19/24 12:45 Acidophilus/Bulgaricus Chewable Tablet BY MOUTH Not Given DAILY ARTEMIO Lactulose 20 gm 05/18/24 16:05 Lactulose 20 Gm/30 Ml Udc PO BID PRN Constipation Latanoprost 1 drop 05/17/24 18:00 05/19/24 17:18 Latanoprost 0.005% Op Soln 2.5 Ml Btl EACH EYE 1 drop QPM ARTEMIO Administration Levothyroxine Sodium 125 mcg 05/17/24 06:30 05/20/24 06:13 Levothyroxine Sodium 125 Mcg Tablet PO Not Given DAILY@0630 RATEMIO Loteprednol Etabonate 1 drop 05/17/24 09:00 05/19/24 17:19 Loteprednol Etabonate 0.5% Oph 5 Ml Bottle EACH EYE 1 drop DAILY ARTEMIO Administration Magnesium Oxide 400 mg 05/17/24 09:00 05/19/24 17:23 Magnesium Oxide 400 Mg Tablet PO Not Given BID ARTEMIO Melatonin 10 mg 05/17/24 21:00 05/19/24 21:10 Melatonin 5 Mg Tablet PO Not Given HS [facility] Mineral Oil 15 ml 05/18/24 16:05 Mineral Oil 30 Ml Udc PO BID PRN Constipation Mirabegron 50 mg 05/17/24 09:00 05/19/24 12:46 Mirabegron 50 Mg Er Tablet PO Not Given DAILY ARTEMIO Multivitamins Therapeutic 1 tablet 05/17/24 09:00 05/19/24 12:46 Multivitamins Therapeutic Tab (*Bkc) PO Not Given QAM [facility] Oxycodone HCl 5 mg 05/17/24 09:00 05/19/24 21:10 Oxycodone Hcl (*Crx) 5 Mg Tab Ir PO Not Given Q12HR [facility] Polyethylene Glycol 17 gm 05/17/24 09:00 05/19/24 12:46 Polyethylene Glycol 3350 17 Gm Powd.Pack PO Not Given DAILY [facility] Rosuvastatin Calcium 20 mg 05/17/24 21:00 05/19/24 21:10 Rosuvastatin 10 Mg Tablet PO Not Given HS [facility] Senna/Docusate Sodium 2 tab 05/17/24 09:00 05/19/24 17:23 Senna/Docusate Sodium Tablet PO Not Given BID [facility] Sodium Chloride 2 spray 05/17/24 04:21 Saline 0.65% Myron Soln 44 Ml Btl NASAL Q2H PRN Dry Nasal Passages Timolol Maleate 1 drop 05/17/24 09:00 05/19/24 17:22 Timolol Maleate 0.5% Op Soln 5 Ml Bottle EACH EYE Not Given BID [facility] Umeclidinium [place] 1 puff 05/17/24 08:00 05/19/24 08:25 Umeclidinium [place] 62.5 Mcg Ellipta INHALATION Not Given DAILYRT [facility] Radiology Results: ITS Impressions Renal Ultrasound 05/17/24 14:23 IMPRESSION: 1. Likely age-related mild bilateral renal cortical atrophy. No hydronephrosis. Head CT 05/19/24 09:28 IMPRESSION: No acute intracranial findings. Chest/Abdomen/Pelvis CT 05/19/24 10:41 IMPRESSION: 1. Cholelithiasis. Gallbladder distention may be secondary to fasting. Correlate with physical exam to exclude acute cholecystitis. 2. 14 mm stone at left ureteropelvic junction with mild left hydronephrosis. 3. Bilateral nonobstructing kidney stones. 4. Umbilical ventral hernia containing nonobstructed small bowel. Chest X-Ray 05/19/24 22:33 IMPRESSION: Pulmonary vascular congestion, with an early infiltrate in the left lower lobe and adjacent pleural effusion - an interval change from 8:00 AM examination. Labs Labs: Laboratory Results - last 24 hr 05/19/24 05/19/24 05/19/24 07:10 08:52 19:56 WBC 11.3 H RBC 3.65 L Hgb 11.0 L Hct 36.4 L MCV 99.7 MCH 30.1 MCHC 30.2 L RDW 16.0 H Plt Count 111 L MPV 11.2 H Immature Gran % (Auto) Not Reportable Neut % (Auto) Not Reportable Lymph % (Auto) Not Reportable [place] % (Auto) Not Reportable Eos % (Auto) Not Reportable Baso % (Auto) Not Reportable Lymph # (Auto) Not Reportable [place] # (Auto) Not Reportable Eos # (Auto) Not Reportable Baso # (Auto) Not Reportable Abs Immat Gran (auto) Not Reportable Absolute Neuts (auto) Not Reportable Absolute Nucleated RBC Not Reportable Total Counted 100 Neutrophils % (Manual) 91 H Band Neutrophils % 9 H Lymphocytes % (Manual) 4 L Monocytes % (Manual) 6 Eosinophils % (Manual) 0 Basophils % (Manual) 0 Nucleated RBC % Not Reportable Abs Neuts (Manual) 11.30 H Abs Lymphs (Manual) 0.45 L Abs Monocytes (Manual) 0.67 Absolute Eos (Manual) 0.00 L Abs Basophils (Manual) 0.00 Platelet Estimate Slightly decreased % Immature Plt Fraction 3.8 Anisocytosis 1+ Schistocytes None seen Puncture Site Left brachial ABG pH 7.262 L* ABG pCO2 44.2 ABG pO2 64.0 L ABG PO2/FiO2 Ratio 1.33 ABG HCO3 19.5 L ABG O2 Saturation 89.3 L ABG O2 Content 14.1 L ABG Base Excess -7.2 A-a Gradient 228.3 Oxyhemoglobin 91.8 Total Hemoglobin 10.9 L O2 Delivery Device Cpap O2 Liters/Min 7.0 FiO2 48 Sodium Potassium Chloride Carbon Dioxide Anion Gap BUN Creatinine Estim Creat Clear Calc Estimated GFR Glucose Calcium Total Bilirubin AST ALT Alkaline Phosphatase Ammonia 14 Total Protein Albumin Hep Bs Antigen Negative Hep Bs Antibody Negative Hep B Core Total Ab Non-reactive 05/20/24 07:56 WBC 8.7 RBC 3.35 L Hgb 10.0 L Hct 33.0 L MCV 98.5 MCH 29.9 MCHC 30.3 L RDW 16.2 H Plt Count 108 L MPV 11.0 H Immature Gran % (Auto) 0.9 H Neut % (Auto) 88.5 H Lymph % (Auto) 5.2 L [place] % (Auto) 5.1 Eos % (Auto) 0.1 Baso % (Auto) 0.2 Lymph # (Auto) 0.45 L [place] # (Auto) 0.4 Eos # (Auto) 0.0 Baso # (Auto) 0.0 Abs Immat Gran (auto) 0.08 H Absolute Neuts (auto) 7.7 H Absolute Nucleated RBC 0.000 Total Counted Neutrophils % (Manual) Band Neutrophils % Lymphocytes % (Manual) Monocytes % (Manual) Eosinophils % (Manual) Basophils % (Manual) Nucleated RBC % 0.0 Abs Neuts (Manual) Abs Lymphs (Manual) Abs Monocytes (Manual) Absolute Eos (Manual) Abs Basophils (Manual) Platelet Estimate % Immature Plt Fraction Anisocytosis Schistocytes Puncture Site ABG pH ABG pCO2 ABG pO2 ABG PO2/FiO2 Ratio ABG HCO3 ABG O2 Saturation ABG O2 Content ABG Base Excess A-a Gradient Oxyhemoglobin Total Hemoglobin O2 Delivery Device O2 Liters/Min FiO2 Sodium 129 L Potassium 5.0 Chloride 97 L Carbon Dioxide 18 L Anion Gap 14 H BUN 96 H D Creatinine 4.10 H Estim Creat Clear Calc 19 Estimated GFR 14 L Glucose 92 Calcium 7.8 L Total Bilirubin 1.6 H AST 67 H ALT 17 Alkaline Phosphatase 56 Ammonia Total Protein 7.0 Albumin 2.9 L Hep Bs Antigen Hep Bs Antibody Hep B Core Total Ab Hospitalist MIPS Advance Care Plan I have confirmed that the patient's Advanced Care Plan is present, code status is documented, or surrogate decision maker is listed in patient medical record.: Yes Medication Reconciliation I have utilized all available resources to obtain, update and review the patients current medications (includes all prescriptions, OTC, herbals, cannabis, and nutritional supplements).: Yes
[2024-05-20] MEDS: BUDESONIDE RESPULE NEB 0.5 MG/2 ML AMP INHALATION ×2 (09:26→20:17)
--- NOTE | 2024-05-20 09:42 | P.PNNP_ITS ---
Progress Note: A&P Assessment and Plan (1) Acute kidney injury: Code(s): N17.9 - Acute kidney failure, unspecified Status: Acute Assessment and Plan: * slow worsening noted * suspect ATN due to: * sepsis/infection * prerenal factors * previous hypotension/hemodynamic instability * diuretic therapy prior to admission * hypoxia * evaluation to date noted: * renal ultrasound c/w CKD * UA demonstrates infection * CPK mildly elevated (doubt to affect kidney function) * urine electrolytes non-prerenal * urine eosinophils rare but difficult to interpret in the context of infection * proteinuria noted * now complicated by issues related to fluid overload * remains at risk for [employer]/dialysis * follow trend of repeat labs and UOP (2) Chronic kidney disease, stage 3: Code(s): N18.30 - Chronic kidney disease, stage 3 unspecified Status: Acute Assessment and Plan: * baseline creatinine seems to run around 1.5 - 1.6mg/dl * however, this is based on labs from 2021 * this causes him to fluctuate between CKD stage 3A and stage 3B * presumably due to HTN, diabetes, vascular disease, recurrent UTIs (and associated bouts of FRNAC/ARF) and age-related change (3) Sepsis: Code(s): A41.9 - Sepsis, unspecified organism Status: Acute Assessment and Plan: * as noted by admission criteria * presumed source = UTI * blood cultures with E. coli * on antibiotics * follow trend of hemodynamics (4) Urinary tract infection associated with indwelling urethral catheter: Code(s): T83.511A - Infection and inflammatory reaction due to indwelling urethral catheter, initial encounter; N39.0 - Urinary tract infection, site not specified Status: Acute Assessment and Plan: * admission UA highly suggestive * urine culture negative * on antibiotics (5) Right-sided heart failure: Code(s): I50.810 - Right heart failure, unspecified Status: Acute Assessment and Plan: * worsened by #1 * recent CXR/imaging noted * diuretics PRN * follow volume status (6) Obstructive sleep apnea on CPAP: Code(s): G47.33 - Obstructive sleep apnea (adult) (pediatric) Status: Acute Assessment and Plan: * continue home CPAP Will continue to follow. Subjective Date/time seen: 05/20/24 09:42 Interval history: Follow-up for acute kidney injury/acute renal failure on chronic kidney disease. Mentation seems to be doing better at the time of my visit (presumably due to BiPAP therapy given previous ABG results); unfortunately, renal function/creatinine continues to deteriorate with diminished urine output and no significant improvement with trial of IVFs yesterday evening; no acute distress voiced at the time of my visit other fatigue/tiredness. Exam Narrative: General: elderly and ill-appearing male in NAD Heart: normal S1 and S2; no rub Lungs: coarse and diminished throughout Abdomen: soft, nontender, nondistended, positive bowel sounds Extremities: no cyanosis or clubbing; trace edema Skin: warm and intact Objective Data Vital Signs Vital Signs: Vital Signs Temp Pulse Resp BP Pulse Ox O2 Del Method O2 Flow Rate 05/20/24 09:32 68 21 H 97 BiPAP 05/20/24 09:29 97 19 05/20/24 08:04 101/38 L 05/20/24 07:56 96.9 F L 66 21 H 97/35 L 98 05/20/24 06:00 69 05/20/24 05:21 65 25 H 97 BiPAP 05/20/24 04:00 98 BiPAP 05/20/24 04:00 71 05/20/24 04:19 97.7 F 57 L 22 H 108/64 98 05/20/24 02:00 67 05/20/24 00:00 66 05/19/24 22:00 68 05/19/24 20:00 69 05/20/24 01:34 67 24 H 05/20/24 01:27 60 25 H 05/20/24 01:27 60 25 H 98 BiPAP 05/20/24 00:00 99 BiPAP 05/20/24 00:04 97.8 F 70 22 H 110/62 99 05/19/24 21:50 67 21 H 98 BiPAP 05/19/24 20:00 97 CPAP 3 05/19/24 21:09 75 05/19/24 20:09 63 18 05/19/24 19:56 75 16 05/19/24 19:56 98 CPAP 05/19/24 19:56 75 16 98 Autopap 05/19/24 19:59 97.5 F L 69 24 H 102/54 L 97 05/19/24 18:00 65 05/19/24 16:00 97.3 F L 78 24 H 120/45 L 96 05/19/24 16:49 93 Nasal Cannula 3 05/19/24 16:00 92 05/19/24 14:00 80 05/19/24 13:55 81 20 05/19/24 13:46 84 20 05/19/24 13:46 91 Autopap 6 05/19/24 13:46 84 20 91 Autopap Intake/Output Intake/Output: Intake & Output 05/18/24 05/18/24 05/19/24 05/20/24 00:59 23:59 23:59 23:59 Intake Total 450 1360 Output Total 625 100 Balance -175 1260 Meds/Results Medications: Active Medications Generic Name Dose Route Start Last Admin Trade Name Freq PRN Reason Stop Dose Admin Acetaminophen 650 mg 05/16/24 18:39 05/17/24 21:22 Acetaminophen 325 Mg Tablet PO 650 mg Q4H PRN Administration Mild Pain (1-3) or Fever Hydrocodone Bitart/Acetaminophen 1 tab 05/17/24 04:21 Hydrocodone/Acetaminophen (*Crx) 7.5-325 Mg Tablet PO TID PRN Pain (Scale Score 4-6) Albuterol/Ipratropium 3 ml 05/19/24 14:00 05/20/24 09:26 Ipratropium 0.5 Mg/Albuterol Sulfate 2.5 Mg Ampul.Neb 3 Ml INHALATION 3 ml Q6HRT ARTEMIO Administration Apixaban 5 mg 05/18/24 17:00 05/20/24 10:04 Apixaban 5 Mg Tablet PO 5 mg BID ARTEMIO Administration Artificial Tears 1 drop 05/17/24 04:48 Artificial Tears Ophth Soln 15 Ml Bottle EACH EYE BID PRN Dry Eye(s) Brimonidine Tartrate 1 drop 05/17/24 09:00 05/20/24 11:03 Brimonidine Tartrate 0.2% Op Soln 5 Ml Btl EACH EYE 1 drop BID ARTEMIO Administration Budesonide 0.5 mg 05/19/24 20:00 05/20/24 09:26 Budesonide Respule Neb 0.5 Mg/2 Ml Amp INHALATION 0.5 mg Q12HRT ARTEMIO Administration Calcium Carbonate 200 mg 05/17/24 04:21 Calcium Carbonate (Tums) 500 Mg (200 Mg Elemental) PO Q6H PRN Indigestion Carvedilol 6.25 mg 05/17/24 09:00 05/20/24 10:00 Carvedilol 3.125 Mg Tablet PO 6.25 mg Q12HR ARTEMIO Administration Emollient Ointment 1 applic 05/17/24 09:00 05/20/24 11:19 Lanolin (Lantiseptic) Cream 118 Ml Tube TOPICAL 1 applic DAILY ARTEMIO Administration Empagliflozin 10 mg 05/17/24 09:00 05/20/24 10:04 Empagliflozin 10 Mg Tablet PO 10 mg DAILY ARTEMIO Administration Fenofibrate 145 mg 05/17/24 09:00 05/18/24 08:08 Fenofibrate Nanocrystallized 145 Mg Tablet PO 145 mg DAILY ARTEMIO Administration Fluticasone Propionate 1 spray 05/17/24 09:00 05/20/24 11:19 Fluticasone Propionate 0.05% Na Spr 16 Gm Btl (*Bkc) NASAL 1 spray DAILY ARTEMIO Administration Furosemide 60 mg 05/18/24 17:00 05/20/24 10:00 Furosemide 20 Mg Tablet PO 60 mg BID ARTEMIO Administration Gabapentin 200 mg 05/17/24 09:00 05/18/24 18:30 Gabapentin 100 Mg Capsule PO 200 mg BID ARTEMIO Administration Meropenem 500 mg in 100 mls @ 200 mls/hr 05/19/24 10:00 05/20/24 11:04 IVPB 05/25/24 22:29 200 mls/hr Q12H ARTEMIO Administration Sodium Chloride 1,000 mls @ 75 mls/hr 05/19/24 18:15 05/20/24 08:10 Normal Saline Iv IV CONT 75 mls/hr .[id number] ARTEMIO Administration Lactobacillus Acidophilus 1 tablet 05/17/24 09:00 05/20/24 10:05 Acidophilus/Bulgaricus Chewable Tablet BY MOUTH Not Given DAILY ARTEMIO Lactulose 20 gm 05/18/24 16:05 Lactulose 20 Gm/30 Ml Udc PO BID PRN Constipation Latanoprost 1 drop 05/17/24 18:00 05/19/24 17:18 Latanoprost 0.005% Op Soln 2.5 Ml Btl EACH EYE 1 drop QPM ARTEMIO Administration Levothyroxine Sodium 125 mcg 05/17/24 06:30 05/20/24 06:13 Levothyroxine Sodium 125 Mcg Tablet PO Not Given DAILY@0630 [facility] Loteprednol Etabonate 1 drop 05/17/24 09:00 05/20/24 11:03 Loteprednol Etabonate 0.5% Oph 5 Ml Bottle EACH EYE 1 drop DAILY [facility] Administration Magnesium Oxide 400 mg 05/17/24 09:00 05/20/24 10:12 Magnesium Oxide 400 Mg Tablet PO 400 mg BID [facility] Administration Melatonin 10 mg 05/17/24 21:00 05/19/24 21:10 Melatonin 5 Mg Tablet PO Not Given HS ARTEMIO Mineral Oil 15 ml 05/18/24 16:05 Mineral Oil 30 Ml Udc PO BID PRN Constipation Mirabegron 50 mg 05/17/24 09:00 05/20/24 10:12 Mirabegron 50 Mg Er Tablet PO Not Given DAILY [facility] Multivitamins Therapeutic 1 tablet 05/17/24 09:00 05/20/24 10:11 Multivitamins Therapeutic Tab (*Bkc) PO Not Given QAM [facility] Oxycodone HCl 5 mg 05/17/24 09:00 05/20/24 10:04 Oxycodone Hcl (*Crx) 5 Mg Tab Ir PO 5 mg Q12HR [facility] Administration Polyethylene Glycol 17 gm 05/17/24 09:00 05/20/24 10:11 Polyethylene Glycol 3350 17 Gm Powd.Pack PO Not Given DAILY [facility] Rosuvastatin Calcium 20 mg 05/17/24 21:00 05/19/24 21:10 Rosuvastatin 10 Mg Tablet PO Not Given HS [facility] Senna/Docusate Sodium 2 tab 05/17/24 09:00 05/20/24 10:05 Senna/Docusate Sodium Tablet PO Not Given BID [facility] Sodium Chloride 2 spray 05/17/24 04:21 Saline 0.65% Myron Soln 44 Ml Btl NASAL Q2H PRN Dry Nasal Passages Timolol Maleate 1 drop 05/17/24 09:00 05/20/24 11:03 Timolol Maleate 0.5% Op Soln 5 Ml Bottle EACH EYE 1 drop BID [facility] Administration Umeclidinium [place] 1 puff 05/17/24 08:00 05/20/24 09:26 Umeclidinium [place] 62.5 Mcg Ellipta INHALATION Not Given DAILYRT [facility] Radiology Results: ITS Impressions Renal Ultrasound 05/17/24 14:23 IMPRESSION: 1. Likely age-related mild bilateral renal cortical atrophy. No hydronephrosis. Head CT 05/19/24 09:28 IMPRESSION: No acute intracranial findings. Chest/Abdomen/Pelvis CT 05/19/24 10:41 IMPRESSION: 1. Cholelithiasis. Gallbladder distention may be secondary to fasting. Correlate with physical exam to exclude acute cholecystitis. 2. 14 mm stone at left ureteropelvic junction with mild left hydronephrosis. 3. Bilateral nonobstructing kidney stones. 4. Umbilical ventral hernia containing nonobstructed small bowel. Chest X-Ray 05/19/24 22:33 IMPRESSION: Pulmonary vascular congestion, with an early infiltrate in the left lower lobe and adjacent pleural effusion - an interval change from 8:00 AM examination. Labs Labs: Laboratory Tests 05/20/24 07:56 05/20/24 07:56 Total Bilirubin 1.6 H AST 67 H ALT 17 Alkaline Phosphatase 56 Total Protein 7.0 Albumin 2.9 L Hep B Core Total Ab Microbiology 05/18/24 16:35 Blood Blood Culture - Preliminary 05/18/24 18:18 Blood Blood Culture - Preliminary 05/16/24 14:27 Blood Blood Culture - Final Escherichia Coli 05/16/24 14:27 Blood Blood Culture - Preliminary Escherichia Coli
[2024-05-20] MEDS: carvediloL 3.125 MG TABLET 6.25 MG PO (10:00)
[2024-05-20] MEDS: FUROSEMIDE 20 MG TABLET 60 MG PO (10:00)
[2024-05-20] MEDS: EMPAGLIFLOZIN 10 MG TABLET PO (10:04)
[2024-05-20] MEDS: oxyCODONE HCL (*CRX) 5 MG TAB IR PO (10:04)
[2024-05-20] MEDS: APIXABAN 5 MG TABLET PO (10:04)
[2024-05-20] MEDS: MAGNESIUM OXIDE 400 MG TABLET PO (10:12)
[2024-05-20] MEDS: BRIMONIDINE TARTRATE 0.2% OP SOLN 5 ML BTL 1 DROP EACH EYE ×2 (11:03→18:52)
[2024-05-20] MEDS: LOTEPREDNOL ETABONATE 0.5% OPH 5 ML BOTTLE 1 DROP EACH EYE (11:03)
[2024-05-20] MEDS: TIMOLOL MALEATE 0.5% OP SOLN 5 ML BOTTLE 1 DROP EACH EYE ×2 (11:03→18:52)
[2024-05-20] MEDS: MEROPENEM 500 MG/NS 100 ML 500 MG/100 ML BAG 200 MG IVPB ×2 (11:04→22:02)
[2024-05-20] MEDS: SODIUM BICARBONATE 8.4% 50 MEQ/50 ML SYRINGE IV PUSH (11:04)
[2024-05-20] MEDS: LANOLIN 1 APPLIC TOPICAL (11:19)
[2024-05-20] MEDS: FLUTICASONE PROPIONATE 0.05% NA SPR 16 GM BTL (*BKC) 1 SPRAY NASAL (11:19)
--- NOTE | 2024-05-20 16:46 | PM.CNPUL ---
History of Present Illness History of Present Illness Consult date: 05/20/24 Chief complaint: Urinary tract infection catheter related, FRANC Narrative: referred by Dr. Lyle Trujillo for acute on chronic hypercapnic hypoxemic respiratory failure Patient was seen May 20, 2024 Room 205 @ 18:00 NEW: Sterling Mallory is a 78-year-old man with COPD, acute and chronic hypercapnic hypoxemic respiraotry failure. FORMERLY [facility] Past Medical History Medical History (Updated 05/19/24 @ 19:34 by Frederic Hanks MD) Acute metabolic encephalopathy Atrial fibrillation remote cardioversion, appears persistent Chronic obstructive pulmonary disease Chronic respiratory failure Coronary artery disease Deep venous thrombosis Diet-controlled type 2 diabetes mellitus Gastroesophageal reflux disease Hyperlipidemia Hypertension Hypothyroidism Indwelling Gleason catheter present Macular degeneration Morbid obesity Obstructive sleep apnea on CPAP Pulmonary embolism Right-sided heart failure Surgical History Surgical History History of bilateral cataract extraction History of cardioversion History of inferior vena caval filter placement History of lumbar discectomy History of rectal sphincterotomy History of tonsillectomy Family History Family History Father Family history of lung cancer, Onset Age: 77 Mother Family history of dementia Postoperative complication Crossing her Sibling Diabetes mellitus Heart disease Daughter Breast cancer Other Family history of malignant neoplasm of breast Social History Social History Social History: Healthcare power of bankruptcy attorney: Sanjuana Garcia. Code status: Full code. Smoking status: Never smoker Alcohol intake: never Substance use: never Substance use type: does not use Do You Feel Safe in your Home?: Yes Lack of Transportation: No Lack of Food: Never True Current Housing: I Have Housing Concerned About Future Housing: No Difficulty Paying Gas/Electric Bills: No Difficulty Paying for Meds: No Currently Unemployed: No Education: High School Diploma/GED Difficulty w/ Childcare or Family Care: No Living arrangements: care home Additional living arrangements comments: [facility]. 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 Spiritual care concerns: No Meds Home Medications and Allergies Home Medications Medication Instructions Recorded Confirmed Type acetaminophen 650 mg 650 mg PO Q4H PRN Pain (Scale 06/07/20 11/01/24 History tablet,extended release Score 1-3) carboxymethylcellulose sodium 0.5 1 drp ophthalmic (eye) BID 12/21/19 05/16/24 History % eye drops (Refresh Tears) dextran 70-hypromellose (PF) 0.1 1 drp ophthalmic (eye) Q6H PRN Dry 12/21/19 05/16/24 History %-0.3 % eye drops in a dropperette Eyes (Artificial Tears (PF)) dextromethorphan-guaifenesin 5 10 ml PO Q6H PRN Congestion 12/21/19 05/16/24 History mg-100 mg/5 mL oral liquid (Robitussin Cough-Chest Congestion DM) fenofibrate nanocrystallized 145 145 mg PO DAILY 12/21/19 05/16/24 History mg tablet fluticasone propionate 50 1 spray intranasal DAILY 12/21/19 05/16/24 History mcg/actuation nasal spray,suspension (Flonase Allergy Relief) furosemide 40 mg tablet 60 mg PO BID 12/21/19 05/16/24 History latanoprost 0.005 % eye drops 1 drp ophthalmic (eye) QPM 12/21/19 05/16/24 History levothyroxine 125 mcg tablet 125 mcg PO DAILY 12/21/19 05/16/24 History magnesium oxide 400 mg PO BID 12/21/19 05/16/24 History melatonin 10 mg capsule 10 mg PO HS 12/21/19 05/16/24 History mineral oil 15 ml PO BID 12/21/19 05/16/24 History mirabegron 50 mg tablet,extended 50 mg PO DAILY 12/21/19 05/16/24 History release 24 hr (Myrbetriq) polyethylene glycol 3350 17 gram 17 g PO DAILY 12/21/19 05/16/24 History oral powder packet (Miralax) potassium chloride 10 mEq 20 meq PO DAILY 12/21/19 05/16/24 History capsule,extended release rosuvastatin 10 mg tablet (Crestor) 20 mg PO HS 12/21/19 05/16/24 History sodium chloride 0.65 % nasal spray 2 spray intranasal Q2H PRN Dry 12/21/19 05/16/24 History aerosol ([place] Nasal) Nasal Passages tiotropium bromide 2.5 2 puff inhalation DAILY ##0 12/21/19 05/16/24 History mcg/actuation mist for inhalation (Spiriva Respimat) Acidophilus 1 tablet PO DAILY 07/06/22 05/16/24 History carvedilol 3.125 mg tablet (Coreg) 6.25 mg PO Q12HR 07/06/22 05/16/24 History gabapentin 100 mg capsule 200 mg PO BID 07/06/22 05/16/24 History hydrocodone 7.5 mg-acetaminophen 1 tablet PO TID PRN Pain (Scale 07/06/22 05/16/24 History 325 mg tablet Score 4-6) Adults Multivitamin 18 mg BYMOUTH DAILY 05/16/24 05/16/24 History apixaban 5 mg tablet (Eliquis) 5 mg PO BID 05/16/24 05/16/24 History brimonidine 0.2 %-timolol 0.5 % 1 drp EACH EYE BID 05/16/24 05/16/24 History eye drops calcium carbonate 200 mg PO Q6H PRN Indigestion 05/16/24 05/16/24 History empagliflozin 10 mg tablet 10 mg PO DAILY 05/16/24 05/16/24 History (Jardiance) ipratropium 0.5 mg-albuterol 3 mg 3 ml inhalation BID PRN Shortness 05/16/24 05/16/24 History (2.5 mg base)/3 mL nebulization Of Breath soln lactulose 10 gram/15 mL oral 30 ml PO BID 05/16/24 05/16/24 History solution lanolin 50 % topical cream 1 applic topical DAILY 05/16/24 05/16/24 History (Lantiseptic Skin Protectant) loteprednol etabonate 0.5 % eye 1 drp EACH EYE DAILY 05/16/24 05/16/24 History drops,suspension oxycodone 5 mg tablet 5 mg PO BID 05/16/24 05/16/24 History sennosides 8.6 mg-docusate sodium 2 tablet PO BID 05/16/24 05/16/24 History 50 mg tablet (Senna Plus) Allergies Allergy/AdvReac Type Severity Reaction Status Date / Time bacitracin Allergy Unknown Rash Verified 04/29/20 09:34 Penicillins Allergy Unknown Rash Verified 04/29/20 09:34 Vital Signs Vital Signs - 24 hr 05/19/24 16:49 05/19/24 18:00 05/19/24 19:59 Temperature 36.4 C L Pulse Rate 65 69 Respiratory Rate 24 H Blood Pressure 102/54 L Pulse Oximetry 93 97 Oxygen Delivery Nasal Cannula Oxygen Flow Rate 3 Fraction of Inspired Oxygen 32 05/19/24 19:56 05/19/24 19:56 05/19/24 19:56 Temperature Pulse Rate 75 75 Respiratory Rate 16 16 Blood Pressure Pulse Oximetry 98 98 Oxygen Delivery Autopap CPAP Oxygen Flow Rate Fraction of Inspired Oxygen 48 05/19/24 20:09 05/19/24 21:09 05/19/24 20:00 Temperature Pulse Rate 63 75 Respiratory Rate 18 Blood Pressure Pulse Oximetry 97 Oxygen Delivery CPAP Oxygen Flow Rate 3 Fraction of Inspired Oxygen 05/19/24 21:50 05/20/24 00:04 05/20/24 00:00 Temperature 36.6 C Pulse Rate 67 70 Respiratory Rate 21 H 22 H Blood Pressure 110/62 Pulse Oximetry 98 99 99 Oxygen Delivery BiPAP BiPAP Oxygen Flow Rate Fraction of Inspired Oxygen 50 05/20/24 01:27 05/20/24 01:27 05/20/24 01:34 Temperature Pulse Rate 60 60 67 Respiratory Rate 25 H 25 H 24 H Blood Pressure Pulse Oximetry 98 Oxygen Delivery BiPAP Oxygen Flow Rate Fraction of Inspired Oxygen 05/19/24 20:00 05/19/24 22:00 05/20/24 00:00 Temperature Pulse Rate 69 68 66 Respiratory Rate Blood Pressure Pulse Oximetry Oxygen Delivery Oxygen Flow Rate Fraction of Inspired Oxygen 05/20/24 02:00 05/20/24 04:19 05/20/24 04:00 Temperature 36.5 C Pulse Rate 67 57 L 71 Respiratory Rate 22 H Blood Pressure 108/64 Pulse Oximetry 98 Oxygen Delivery Oxygen Flow Rate Fraction of Inspired Oxygen 05/20/24 04:00 05/20/24 05:21 05/20/24 06:00 Temperature Pulse Rate 65 69 Respiratory Rate 25 H Blood Pressure Pulse Oximetry 98 97 Oxygen Delivery BiPAP BiPAP Oxygen Flow Rate Fraction of Inspired Oxygen 50 05/20/24 07:56 05/20/24 08:04 05/20/24 09:29 Temperature 36.1 C L Pulse Rate 66 97 Respiratory Rate 21 H 19 Blood Pressure 97/35 L 101/38 L Pulse Oximetry 98 Oxygen Delivery Oxygen Flow Rate Fraction of Inspired Oxygen 05/20/24 09:32 05/20/24 09:43 05/20/24 10:00 Temperature Pulse Rate 68 68 90 Respiratory Rate 21 H 22 H Blood Pressure Pulse Oximetry 97 Oxygen Delivery BiPAP Oxygen Flow Rate Fraction of Inspired Oxygen 05/20/24 11:25 05/20/24 11:25 05/20/24 11:29 Temperature 35.9 C L Pulse Rate 66 64 Respiratory Rate 21 H 22 H Blood Pressure 89/43 L 95/42 L Pulse Oximetry 100 100 Oxygen Delivery BiPAP Oxygen Flow Rate Fraction of Inspired Oxygen 05/20/24 14:13 05/20/24 14:13 05/20/24 14:26 Temperature Pulse Rate 88 88 88 Respiratory Rate 24 H 24 H 26 H Blood Pressure Pulse Oximetry 100 Oxygen Delivery BiPAP Oxygen Flow Rate Fraction of Inspired Oxygen 05/20/24 08:00 05/20/24 08:00 05/20/24 10:00 Temperature Pulse Rate 75 76 Respiratory Rate Blood Pressure Pulse Oximetry Oxygen Delivery BiPAP Oxygen Flow Rate Fraction of Inspired Oxygen 50 05/20/24 12:00 05/20/24 12:00 05/20/24 15:42 Temperature 37.0 C Pulse Rate 73 75 Respiratory Rate 22 H Blood Pressure 95/38 L Pulse Oximetry 100 Oxygen Delivery BiPAP Oxygen Flow Rate Fraction of Inspired Oxygen 40 05/20/24 15:43 05/20/24 16:08 05/20/24 14:00 Temperature Pulse Rate 75 88 Respiratory Rate 21 H Blood Pressure 90/47 L Pulse Oximetry 100 Oxygen Delivery BiPAP Oxygen Flow Rate Fraction of Inspired Oxygen 05/20/24 16:00 05/20/24 16:00 Temperature Pulse Rate 88 75 Respiratory Rate Blood Pressure Pulse Oximetry Oxygen Delivery BiPAP Oxygen Flow Rate Fraction of Inspired Oxygen 30 Results Laboratory Findings 05/20/24 07:56 05/20/24 07:56 ABG, PT/INR, D-dimer: ABG ABG pH 7.262 (7.350-7.450) L* 05/19/24 19:56 ABG pCO2 44.2 mmHg (35.0-45.0) 05/19/24 19:56 ABG pO2 64.0 mmHg (80.0-100.0) L 05/19/24 19:56 ABG O2 Saturation 89.3 % (95.0-100.0) L 05/19/24 19:56 PT/INR, D-dimer PT 22.9 Seconds (11.1-14.7) H 05/16/24 14:27 INR 2.0 05/16/24 14:27 Abnormal lab findings: Abnormal Labs 05/16/24 05/16/24 05/16/24 13:30 14:27 15:44 WBC 12.7 H RBC 3.79 L Hgb 11.6 L Hct 36.0 L MCHC RDW 15.5 H Plt Count 122 L MPV 10.5 H Immature Gran % (Auto) Neut % (Auto) Lymph % (Auto) Meagher % (Auto) Lymph # (Auto) Abs Immat Gran (auto) Absolute Neuts (auto) Neutrophils % (Manual) 88 H Band Neutrophils % Lymphocytes % (Manual) 2 L Abs Neuts (Manual) 11.81 H Abs Lymphs (Manual) 0.25 L Absolute Eos (Manual) 0.00 L PT 22.9 H ABG pH ABG pCO2 ABG pO2 ABG HCO3 ABG O2 Saturation ABG O2 Content Total Hemoglobin Sodium 130 L Chloride 92 L Carbon Dioxide Anion Gap BUN 65 H D Creatinine 3.50 H Estimated GFR 17 L Glucose 248 H POC Capillary Glucose Calcium 7.8 L Magnesium Total Bilirubin 1.4 H AST Total Creatine Kinase C-Reactive Protein 21.0 H NT-Pro-B Natriuret Pep Total Protein Albumin 3.1 L Urine Color Red H Urine RBC >100 H Urine WBC >100 H Urine WBC Clumps Present H Urine Bacteria 3+ H Protein/Creat Ratio 2 05/17/24 05/17/24 05/17/24 04:33 04:33 04:33 WBC RBC 3.42 L Hgb 10.5 L Hct 33.9 L MCHC 31.0 L RDW 15.8 H Plt Count 102 L MPV Immature Gran % (Auto) Neut % (Auto) Lymph % (Auto) Meagher % (Auto) Lymph # (Auto) Abs Immat Gran (auto) Absolute Neuts (auto) Neutrophils % (Manual) Band Neutrophils % Lymphocytes % (Manual) Abs Neuts (Manual) Abs Lymphs (Manual) Absolute Eos (Manual) PT ABG pH ABG pCO2 ABG pO2 ABG HCO3 ABG O2 Saturation ABG O2 Content Total Hemoglobin Sodium 132 L Chloride Carbon Dioxide 21 L Anion Gap BUN 68 H Creatinine 3.10 H 3.00 H Estimated GFR 20 L 20 L Glucose POC Capillary Glucose Calcium 7.3 L Magnesium 2.7 H Total Bilirubin AST Total Creatine Kinase 308 H C-Reactive Protein NT-Pro-B Natriuret Pep Total Protein Albumin Urine Color Urine RBC Urine WBC Urine WBC Clumps Urine Bacteria Protein/Creat Ratio 2 05/17/24 05/17/24 05/17/24 19:55 20:03 20:04 WBC RBC 3.69 L Hgb 11.2 L Hct 35.4 L MCHC 31.6 L RDW 15.8 H Plt Count 116 L MPV 10.6 H Immature Gran % (Auto) 1.1 H Neut % (Auto) 79.5 H Lymph % (Auto) 10.0 L Meagher % (Auto) 8.7 H Lymph # (Auto) 0.63 L Abs Immat Gran (auto) 0.07 H Absolute Neuts (auto) Neutrophils % (Manual) Band Neutrophils % Lymphocytes % (Manual) Abs Neuts (Manual) Abs Lymphs (Manual) Absolute Eos (Manual) PT ABG pH 7.349 L ABG pCO2 48.0 H ABG pO2 391.9 H ABG HCO3 ABG O2 Saturation ABG O2 Content Total Hemoglobin 11.9 L Sodium 132 L Chloride 96 L Carbon Dioxide Anion Gap BUN 71 H Creatinine 3.50 H Estimated GFR 17 L Glucose 116 H POC Capillary Glucose Calcium 8.0 L Magnesium 3.0 H Total Bilirubin AST Total Creatine Kinase 382 H C-Reactive Protein NT-Pro-B Natriuret Pep 8960 H Total Protein Albumin 3.1 L Urine Color Urine RBC Urine WBC Urine WBC Clumps Urine Bacteria Protein/Creat Ratio 2 05/18/24 05/18/24 05/19/24 05:04 14:00 07:10 WBC 11.3 H RBC 3.40 L 3.65 L Hgb 10.2 L 11.0 L Hct 33.2 L 36.4 L MCHC 30.7 L 30.2 L RDW 16.1 H 16.0 H Plt Count 124 L 111 L MPV 11.2 H Immature Gran % (Auto) 1.4 H Neut % (Auto) 79.1 H Lymph % (Auto) 12.3 L Meagher % (Auto) Lymph # (Auto) 0.69 L Abs Immat Gran (auto) 0.08 H Absolute Neuts (auto) Neutrophils % (Manual) 91 H Band Neutrophils % 9 H Lymphocytes % (Manual) 4 L Abs Neuts (Manual) 11.30 H Abs Lymphs (Manual) 0.45 L Absolute Eos (Manual) 0.00 L PT ABG pH ABG pCO2 ABG pO2 ABG HCO3 ABG O2 Saturation ABG O2 Content Total Hemoglobin Sodium 132 L 129 L Chloride 94 L Carbon Dioxide 20 L Anion Gap 15 H BUN 74 H 83 H Creatinine 3.80 H 3.60 H Estimated GFR 16 L 17 L Glucose 116 H POC Capillary Glucose Calcium 8.0 L 7.9 L Magnesium 3.1 H Total Bilirubin 1.5 H AST Total Creatine Kinase C-Reactive Protein NT-Pro-B Natriuret Pep Total Protein 6.0 L 6.0 L Albumin 2.7 L 2.7 L Urine Color Urine RBC Urine WBC Urine WBC Clumps Urine Bacteria Protein/Creat Ratio 2 2.78 H 05/19/24 05/19/24 05/19/24 08:28 08:41 19:56 WBC RBC Hgb Hct MCHC RDW Plt Count MPV Immature Gran % (Auto) Neut % (Auto) Lymph % (Auto) Meagher % (Auto) Lymph # (Auto) Abs Immat Gran (auto) Absolute Neuts (auto) Neutrophils % (Manual) Band Neutrophils % Lymphocytes % (Manual) Abs Neuts (Manual) Abs Lymphs (Manual) Absolute Eos (Manual) PT ABG pH 7.291 L* 7.262 L* ABG pCO2 46.2 H ABG pO2 62.3 L 64.0 L ABG HCO3 21.8 L 19.5 L ABG O2 Saturation 89.2 L 89.3 L ABG O2 Content 14.1 L Total Hemoglobin 10.9 L Sodium Chloride Carbon Dioxide Anion Gap BUN Creatinine Estimated GFR Glucose POC Capillary Glucose 138 H Calcium Magnesium Total Bilirubin AST Total Creatine Kinase C-Reactive Protein NT-Pro-B Natriuret Pep Total Protein Albumin Urine Color Urine RBC Urine WBC Urine WBC Clumps Urine Bacteria Protein/Creat Ratio 2 05/20/24 07:56 WBC RBC 3.35 L Hgb 10.0 L Hct 33.0 L MCHC 30.3 L RDW 16.2 H Plt Count 108 L MPV 11.0 H Immature Gran % (Auto) 0.9 H Neut % (Auto) 88.5 H Lymph % (Auto) 5.2 L Meagher % (Auto) Lymph # (Auto) 0.45 L Abs Immat Gran (auto) 0.08 H Absolute Neuts (auto) 7.7 H Neutrophils % (Manual) Band Neutrophils % Lymphocytes % (Manual) Abs Neuts (Manual) Abs Lymphs (Manual) Absolute Eos (Manual) PT ABG pH ABG pCO2 ABG pO2 ABG HCO3 ABG O2 Saturation ABG O2 Content Total Hemoglobin Sodium 129 L Chloride 97 L Carbon Dioxide 18 L Anion Gap 14 H BUN 96 H D Creatinine 4.10 H Estimated GFR 14 L Glucose POC Capillary Glucose Calcium 7.8 L Magnesium Total Bilirubin 1.6 H AST 67 H Total Creatine Kinase C-Reactive Protein NT-Pro-B Natriuret Pep Total Protein Albumin 2.9 L Urine Color Urine RBC Urine WBC Urine WBC Clumps Urine Bacteria Protein/Creat Ratio 2
[2024-05-20] MEDS: LATANOPROST 0.005% OP SOLN 2.5 ML BTL 1 DROP EACH EYE (18:53)
[2024-05-20 21:53] LABS: Alveolar/Arterial O2 Gradient 70.3 mmHg; Base Excess ABG -4.7 mEq/l (+/-2.0); Fractional Inspired Oxygen 30 %; HCO3 ABG 19.9 mEq/l (22.0-26.0); Oxygen Content ABG 14.6 %vol (16.0-22.0); Oxygen Saturation ABG 97.7 % (95.0-100.0); Oxyhemoglobin 97.8 % THb (90.0-100.0); PCO2 ABG 34.6 mmHg (35.0-45.0); PO2 ABG 102.9 mmHg (80.0-100.0); PO2 FiO2 Ratio Arterial Blood 3.43 %; Total Hemoglobin 10.5 g/dL (12.0-18.0); pH ABG 7.377 (7.350-7.450)
[2024-05-20 21:54] LABS: Device NON-INVASIVE VENT; Modified Allen's Test Pass; Non-Invasive Expiratory Pressure 8 CMH2O; Non-Invasive Inspiratory Pressure 12 CMH2O; Non-Invasive Vent Rate 18 /MIN; Site Drawn RIGHT RADIAL
--- NOTE | 2024-05-20 21:56 | P.PNCROSS_ITS ---
Event Note Event Note Event Note: Nursing for patient being more lethargic, with a temperature of 101.5? will ord er rectal Tylenol, ABG, blood cultures and chest x-ray. Due to increasing creatinine 4.1 today will hold off on Lasix. Chest x-ray shows some improvement since yesterday. ABG shows much improvement since yesterday. Continue to monitor no new orders at this time.
[2024-05-20] MEDS: ACETAMINOPHEN 650 MG SUPPOSITORY RECTAL (22:10)
[2024-05-21] VITALS: PULSE 87
--- NOTE | 2024-05-21 01:09 | PM.EVENT ---
Event Note Event Note Event Note: Patient had episode of decline family was contacted upon arrival decision was made to make the patient comfort care measures only.
[2024-05-21] MEDS: MORPHINE SULFATE INJ (*CRX) 10 MG/ML AMP 5 MG IV PUSH (01:16)
[2024-05-21] MEDS: LORazepam INJ (*CRX) 2 MG/ML VIAL IV PUSH (01:16)
--- NOTE | 2024-05-26 18:38 | PM.DDS ---
Discharge Summary Date and Time Date of : 05/21/24 Time of : 02:05 Provider Pronounced By: 2 RNs Name of First RN That Pronounced: Milady Fuentes RN Name of Second RN That Pronounced: Ami Riggs RN Probable Cause of Probable Cause of : Cardio respiratory arrest Summary Hospital Course: This is a 78-year-old male with multiple medical problems including hypertension, coronary artery disease, atrial fibrillation on chronic anticoagulation, deep venous thrombosis, pulmonary embolism, chronic respiratory failure on oxygen, chronic obstructive pulmonary disease, obstructive sleep apnea, diet-controlled type 2 diabetes mellitus, hypothyroidism, morbid obesity, obstructive uropathy with indwelling Gleason catheter, and history of multidrug resistant urinary tract infections who presented to the emergency department via EMS from [facility] for evaluation of lethargy and confusion. The patient is able to provide some history however some of the following is supplemented via a review of his EMR as he is a bit confused at this time. He has reportedly been lethargic and has been sleeping more the last couple of days. Today he started running a fever and was brought in for evaluation. In the ED he was found to have gross hematuria and I believe his Gleason catheter was exchanged. He is not necessarily having any discomfort in his lower back or suprapubic region. The only complaint he has at the time my evaluation is the fact that he is on a heart healthy diet; he says he has a note from his doctor that he can eat a regular diet and that his daughter will be bringing his salt shaker. He denies headache, neck ache, sinus congestion, sore throat, cough, chest pain, abdominal pain, nausea, vomiting, and diarrhea. In the ED: Blood pressure has been as low as 67/51 but has improved with IV fluids. He is afebrile and at his baseline oxygen requirement. Labs are significant for WBC count of 12.7, hemoglobin 11.6, INR 2.0, sodium 130, BUN 65, creatinine 3.50, lactic acid 1.8, CRP 21. Urine was grossly bloody with greater than 100 RBC and WBC per high-power field and 3+ bacteria. Chest x-ray showed cardiomegaly. He was given a total of 4 L normal saline in addition to levofloxacin 750 mg, aztreonam 2 g, and vancomycin 2000 mg. He is being admitted in this setting for further treatment. On05/20:Patient is currently on BiPAP 06/22. Pulmonology is consulted due to acute on chronic hypoxic hypercapnic respiratory failure. Patient is on 2 L NC at baseline and BiPAP at night. Patient is also acute on chronic kidney disease. The recent chest x-ray shows pulmonary edema which was not on the prior chest x-ray. Of note patient also has multiple MDR UTI.Had a long conversation with his daughter. She does not does not remember when he was diagnosed with COPD but he was never a smoker in his lifetime.Patient has a chronic Gleason catheter from 2014. I believe his altered mental status is due to his respiratory component. Patient becomes more responsive and oriented after BiPAP. Patient is currently DNR and prefers no aggressive treatment. Hospice is consulted. On05/21: Patient had episode of decline and no aggressive treatment was followed due to his wishes and patient at 0205 on 05/21/2024 due to cardiorespiratory arrest Additional Data Confirmation of as documented by pronouncing clinician: Pupillary Reflex, Palpable Pulses, Response to Stimuli, Heart Tones and Breath Sounds Name of Provider Notified: Dr. Lynch Time Provider Notified: 02:11 Provider Requests Autopsy: No Family Requests Autopsy: No Wet Process Miller Head Assistant Notified: Yes Date [facility] Notified of : 05/21/24 Time [facility] Notified of : 02:27
== END 2024-05-21 02:05 | disposition expired | DRG 871 ==
LOC: ANHED 18:43 → ANHIMU 20:34
PROVIDERS: Internal Medicine Nephrology; Nurse Practitioner Gerontology; Physician Assistant; Admitting Provider Internal Medicine; Emergency Provider Emergency Medicine; PCP Family Medicine; Visit Provider Internal Medicine
DX: A41.51 Sepsis due to Escherichia coli [E. coli] (principal); G93.41 Metabolic encephalopathy; N17.0 Acute kidney failure with tubular necrosis; J96.22 Acute and chronic respiratory failure with hypercapnia; J96.21 Acute and chronic respiratory failure with hypoxia; T83.511A Infection and inflammatory reaction due to indwelling urethral catheter, initial encounter; I13.0 Hypertensive heart and chronic kidney disease with heart failure and stage 1 through stage 4 chronic kidney disease, or unspecified chronic kidney disease; J44.1 Chronic obstructive pulmonary disease with (acute) exacerbation; Z68.41 Body mass index [BMI] 40.0-44.9, adult; Z16.12 Extended spectrum beta lactamase (ESBL) resistance; I50.32 Chronic diastolic (congestive) heart failure; N39.0 Urinary tract infection, site not specified; I46.8 Cardiac arrest due to other underlying condition; Z66 Do not resuscitate; E11.22 Type 2 diabetes mellitus with diabetic chronic kidney disease; E78.5 Hyperlipidemia, unspecified; E03.9 Hypothyroidism, unspecified; E66.01 Morbid (severe) obesity due to excess calories; G47.33 Obstructive sleep apnea (adult) (pediatric); H35.30 Unspecified macular degeneration; I95.9 Hypotension, unspecified; I25.10 Atherosclerotic heart disease of native coronary artery without angina pectoris; I48.91 Unspecified atrial fibrillation; J44.9 Chronic obstructive pulmonary disease, unspecified; K21.9 Gastro-esophageal reflux disease without esophagitis; N18.30 Chronic kidney disease, stage 3 unspecified; R31.0 Gross hematuria; Z88.0 Allergy status to penicillin; Z79.01 Long term (current) use of anticoagulants; Z79.84 Long term (current) use of oral hypoglycemic drugs; Z79.82 Long term (current) use of aspirin; Z86.711 Personal history of pulmonary embolism; Z86.718 Personal history of other venous thrombosis and embolism; Z99.89 Dependence on other enabling machines and devices; Z95.828 Presence of other vascular implants and grafts; Z98.41 Cataract extraction status, right eye; Z98.42 Cataract extraction status, left eye
CPT/HCPCS: 36415; 36600; 70450; 71045; 71250; 74176; 76775; 80048; 80053; 81001; 81050; 82140; 82375; 82550; 82565; 82570; 82805; 82948; 83050; 83605; 83735; 83880; 84156; 84300; 84540; 85018; 85025; 85027; 85055; 85610; 85730; 85999; 86140; 86704; 86706; 87040; 87086; 87186; 87340; 93005; 94640; 95816; 96360; 96361; 99285; A9270; J0457; J1940; J1956; J2060; J2185; J2270; J3370; J7030